=== PATIENT | male | born 1950 | race African-American/Black ===

== ENCOUNTER 2017-02-19 19:27 | Inpatient (IN) | payer OTHER ==
[2017-02-19 19:33] VITALS: BMI 30.2
[2017-02-19] MEDS ORDERED: SODIUM CHLORIDE 0.9% 1000 ML INFUS.BAG IV PRN (19:57)
[2017-02-19] MEDS ORDERED: ACETAMINOPHEN 1000 MG/100 ML VIAL (NON FORMULARY) IVPB ONE (20:01)
[2017-02-19] MEDS ORDERED: ACETAMINOPHEN INJECTION 100 ML IVPB ONE (20:07)
[2017-02-19 20:12] LABS: BASOPHIL 0.4 % (0-2.0); EOSINOPHIL 0.7 % (0-4.5); MCH 24.8 pg (25.7-33.7); MCHC 31.4 g/dl (32.0-35.9); MEAN PLT VOLUME 8.2 fl (7.5-11.1); NEUTROPHILS 80.5 % (42.8-82.8); PLATELET COUNT 317 K/MM3 (134-434); RDW 15.6 % (11.9-15.9)
[2017-02-19 20:24] LABS: URINE APPEARANCE CLEAR; URINE BILIRUBIN NEGATIVE (NEGATIVE); URINE COLOR YELLOW; URINE GLUCOSE (UA) NEGATIVE (NEGATIVE); URINE KETONE NEGATIVE (NEGATIVE); URINE LEUK ESTERASE NEGATIVE (NEGATIVE); URINE NITRITE NEGATIVE (NEGATIVE); URINE UROBILINOGEN NEGATIVE E.U./dl (0.2-1.0)
[2017-02-19 20:25] LABS: URINE BLOOD 1+ (NEGATIVE); URINE PROTEIN 3+ (NEGATIVE)
[2017-02-19 20:36] LABS: URINE BACTERIA RARE /hpf (NONE SEEN); URINE MUCUS RARE; URINE RBC 2 /hpf (0-3); URINE WBC 1 /hpf (3-5)
[2017-02-19 20:42] LABS: INR 1.4 (0.82-1.09); PROTHROMBIN TIME (PATIENT) 15.5 SEC (9.98-11.88)
[2017-02-19 20:43] LABS: ALBUMIN 2.7 g/dl (3.4-5.0); ANION GAP 10 (8-16); BILIRUBIN,TOTAL 0.6 mg/dL (0.2-1.0); CALCIUM 8.9 mg/dL (8.5-10.1); CO2 25 mmol/L (21-32); COCKROFT - GAULT 58.37; CREATININE 1.3 mg/dL (0.7-1.3); GLUCOSE,RANDOM 175 mg/dL (74-106); SGOT/AST 42 U/L (15-37); SGPT/ALT 29 U/L (12-78); TOT PROT 7.6 g/dl (6.4-8.2)
[2017-02-19 20:45] LABS: ACTIVATED PTT 27.9 SECONDS (26.9-34.4); ALK PHOS 95 U/L (45-117); TROPONIN I < 0.02 ng/ml (0.00-0.05)
--- NOTE | 2017-02-19 21:23 | PDOC ---
History of Present Illness - General Chief Complaint: Shortness of Breath Stated Complaint: PCP SENT/SOB Time Seen by Provider: 02/19/17 19:49 - History of Present Illness Initial Comments: 02/19/17 21:22 CHIEF COMPLAINT: HISTORY OF PRESENT ILLNESS: 66 yo M with hx HTN and DM of sent in by PCP for pneumonia. Patient was seen in the office today and sent in for an outpatient CXR with suspected RUL. Patient has been coughing for the last few days and states that he "feels warm." No recent travel or sick contacts. PAST MEDICAL HISTORY: as per HPI FAMILY HISTORY: Denies SOCIAL HISTORY: Denies tobacco, alcohol, illicit drug use. SURGICAL HISTORY: Denies ALLERGIES: No known drug allergies REVIEW OF SYSTEMS General/Constitutional: Denies fever or chills. Denies weakness, weight change. HEENT: Denies change in vision. Denies ear pain or discharge. Denies sore throat. Cardiovascular: Denies chest pain or shortness of breath. Respiratory: Coughing. Denies wheezing, or hemoptysis. Gastrointestinal: Denies nausea, vomiting, diarrhea or constipation. Denies rectal bleeding. Genitourinary: Denies dysuria, frequency, or change in urination. Musculoskeletal: Denies joint or muscle swelling or pain. Denies neck or back pain. Skin and breasts: Denies rash or easy bruising. Neurologic: Denies headache, vertigo, loss of consciousness, or loss of sensation. PHYSICAL EXAM General Appearance: Well-appearing, appropriately dressed. No apparent distress. HEENT: EOMI, PERRLA, normal ENT inspection, normal voice, TMs normal, pharynx normal. No conjunctival pallor. No photophobia, scleral icterus. Neck: Supple. Trachea midline. No tenderness, rigidity, carotid bruit, stridor , lymphadenopathy, or thyromegaly. Respiratory/Chest: Lungs CTAB. No shortness of breath, chest tenderness, respiratory distress, accessory muscle use. No crackles, rales, rhonchi, stridor , wheezing, dullness Cardiovascular: RRR. S1, S2. Gastrointestinal/Abdominal: Normal bowel sounds. Abdomen soft, non-distended. No tenderness or rebound tenderness. No organomegaly, pulsatile mass, guarding , hernia, hepatomegaly, splenomegaly. Musculoskeletal/Extremities: Normal inspection. FROM of all extremities, normal capillary refill. Pelvis Stable. No CVA tenderness. No tenderness to extremities, pedal edema, swelling, erythema or deformity. Integumentary: Appropriate color, dry, warm. No cyanosis, erythema, jaundice or rash Neurologic: counselling psychologist II-XII intact. Fully oriented, alert. Appropriate mood/affect. Motor strength 5/5. No appreciable EOM palsy, facial droop or sensory deficit. 02/19/17 21:52 Past History - Past Medical History Allergies/Adverse Reactions: Allergies Allergy/AdvReac Type Severity Reaction Status Date / Time No Known Allergies Allergy Verified 02/19/17 19:30 Home Medications: Ambulatory Orders Unobtainable [Unobtainable] 02/19/17 Diabetes: Yes HTN: Yes - Psycho/Social/Smoking Cessation Hx Suicidal Ideation: No Smoking History: Never smoked *Physical Exam - Vital Signs Last Vital Signs Temp Pulse Resp BP Pulse Ox 101.6 F H 115 H 20 140/84 95 02/19/17 19:30 02/19/17 19:30 02/19/17 19:30 02/19/17 19:30 02/19/17 20:00 ED Treatment Course - LABORATORY CBC & Chemistry Diagram: 02/19/17 19:50 02/19/17 19:50 - ADDITIONAL ORDERS Additional order review: Laboratory Results 02/19/17 02/19/17 02/19/17 19:50 19:50 19:50 INR PTT (Actin FS) Sodium 138 Potassium 4.0 Chloride 103 Carbon Dioxide 25 Anion Gap 10 BUN 18 Creatinine 1.3 Creat Clearance w eGFR 55.06 Random Glucose 175 H Lactic Acid 1.311 Calcium 8.9 Total Bilirubin 0.6 AST 42 H ALT 29 Alkaline Phosphatase 95 Creatine Kinase 186 Troponin I < 0.02 Total Protein 7.6 Albumin 2.7 L Urine Color Yellow Urine Appearance Clear Urine pH 5.0 Urine Protein 3+ H Urine Glucose (UA) Negative Urine Ketones Negative Urine Blood 1+ H Urine Nitrite Negative Urine Bilirubin Negative Urine Urobilinogen Negative Ur Leukocyte Esterase Negative Urine RBC 2 Urine WBC 1 Ur Epithelial Cells Rare Urine Bacteria Rare Urine Mucus Rare 02/19/17 19:50 INR 1.40 H PTT (Actin FS) 27.9 Sodium Potassium Chloride Carbon Dioxide Anion Gap BUN Creatinine Creat Clearance w eGFR Random Glucose Lactic Acid Calcium Total Bilirubin AST ALT Alkaline Phosphatase Creatine Kinase Troponin I Total Protein Albumin Urine Color Urine Appearance Urine pH Urine Protein Urine Glucose (UA) Urine Ketones Urine Blood Urine Nitrite Urine Bilirubin Urine Urobilinogen Ur Leukocyte Esterase Urine RBC Urine WBC Ur Epithelial Cells Urine Bacteria Urine Mucus 02/19/17 19:50 RBC 4.53 MCV 79.0 L MCHC 31.4 L RDW 15.6 MPV 8.2 Neutrophils % 80.5 Lymphocytes % 9.9 Monocytes % 8.5 Eosinophils % 0.7 Basophils % 0.4 - Medications Given in the ED: ED Medications Discontinued Medications Generic Name Dose Route Start Last Admin Trade Name Luz Maria PRN Reason Stop Dose Admin Acetaminophen 1,000 mg 02/19/17 20:01 02/19/17 20:12 Ofirmev Injection - IVPB 02/19/17 20:02 1,000 mg ONCE ONE Administration Medical Decision Making - Medical Decision Making 02/19/17 20:30 66 yo M with hx HTN and DM of sent in by PCP for pneumonia. -CBC, CMP, PT/INR, cardiac profile -EKG Labs unremarkable. Discussed case with covering PMD Kishan, who states she will reach out to Dr. Allison to discuss dispo and call back. 02/19/2017 22:[address] Holley again, who states that Dr. Allison prefers to admit patient for IV antibiotics. -Ceftriaxon 1 g -Azithromycin 1 g Patient admitted to med/surg for inpatient services. *DC/Admit/Observation/Transfer Diagnosis at time of Disposition: Pneumonia Qualifiers: Pneumonia type: due to unspecified organism Laterality: right Lung location: upper lobe of lung Qualified Code(s): J18.1 - Lobar pneumonia, unspecified organism - Discharge Dispostion Condition at time of disposition: Improved - Referrals Referrals: Margaret Allison MD [Primary Care Provider] -
[2017-02-19] MEDS ORDERED: AZITHROMYCIN IVPB 500 MG in DEXTROSE 5%-WATER - 250 ML IVPB ONE (21:59)
[2017-02-19] MEDS ORDERED: CEFTRIAXONE 1 GM in DEXTROSE 5%-WATER - 50 ML IVPB ONE (21:59)
[2017-02-19] MEDS ORDERED: AZITHROMYCIN IVPB 250 ML IVPB ONE (22:18)
[2017-02-19] MEDS ORDERED: CEFTRIAXONE 50 ML ONE (22:18)
[2017-02-20] MEDS ORDERED: guaiFENesin 200 MG/10 ML 10 ML UNIT-DOSE CUPS PO PRN (03:39)
[2017-02-20] MEDS: ACETAMINOPHEN 325 MG TABLET (FP) PO PRN ×2 (06:41→16:22)
[2017-02-20 08:20] LABS: VENOUS BLOOD GAS HCO3 23.2 meq/L (19-25); VENOUS PH 7.29 (7.32-7.42)
[2017-02-20] MEDS: AZITHROMYCIN IVPB 500 MG/250 ML D5W PRE-DOCKED IVPB SCH (09:45)
--- NOTE | 2017-02-20 09:52 | HP ---
DATE OF ADMISSION: DATE OF DICTATION: 02/20/2017 HISTORY OF PRESENT ILLNESS: This is a 66-year-old male known to have hypertension, diabetes, compliant with medications, who came to my office yesterday with complaints of fever of 102 for 2-3 days and cough. I sent him for x-ray, which showed right upper lobe pneumonia, so he got admitted. This morning, he is feeling better. He is on IV antibiotics. OTHER PERSONAL HISTORY: Not a smoker, , retired at present as is his , no children. PHYSICAL EXAMINATION: Vital signs: Today, blood pressure is 149/77, maximum temperature 102.5, pulse 99, respirations 20. HEENT: Unremarkable. Neck: Supple. No JVD. Lungs: Crepitations more on right upper lobe area. Abdomen: Soft. Extremities: Legs no edema. Neurologic: Grossly normal. LABORATORY REPORTS: WBC 5, hemoglobin 11.2, hematocrit 35.8. Chemistry: Electrolytes are normal, blood sugar 175. Urine with protein 3+, WBC 1. IMPRESSION: Right upper lobe pneumonia, diabetes, hypertension. PLAN: Continue IV antibiotics and resume his previous medicines. Will follow. Nicky [id number]
[2017-02-20] MEDS ORDERED: PNEUMOC 13-VAL CONJ-DIP CRM/PF 0.5 ML DISP.SYRIN IM ONE (10:00)
[2017-02-20] MEDS: cefTRIAXone 1 GM/50 ML BAG (PRE-DOCKED) IVPB SCH (11:12)
--- NOTE | 2017-02-20 17:10 | EKG ---
Test Reason : Blood Pressure : / mmHG Vent. Rate : 090 BPM Atrial Rate : 090 BPM P-R Int : 142 ms QRS Dur : 072 ms QT Int : 342 ms P-R-T Axes : 030 005 020 degrees QTc Int : 418 ms NORMAL SINUS RHYTHM SEPTAL INFARCT , AGE UNDETERMINED ABNORMAL ECG NO PREVIOUS ECGS AVAILABLE Confirmed by SCOTT BILLY MD ([id number]) on 02/20/2017 5:10:03 PM Referred By: Confirmed By:SCOTT BILLY MD
[2017-02-21 08:19] LABS: MCH 25.7 pg (25.7-33.7); MCHC 32.3 g/dl (32.0-35.9); MEAN CELL VOLUME 79.7 fl (80-96); PLATELET COUNT 283 K/MM3 (134-434); RDW 15.6 % (11.9-15.9); WHITE BLOOD COUNT 5.2 K/mm3 (4.0-10.0)
--- NOTE | 2017-02-21 09:00 | DS ---
Physical Examination Vital Signs: Vital Signs Temperature 98.7 F 02/21/17 06:32 Pulse Rate 100 H 02/21/17 06:32 Respiratory Rate 20 02/21/17 06:32 Blood Pressure 135/81 02/21/17 06:32 O2 Sat by Pulse Oximetry (%) 97 02/20/17 21:00 Findings/Remarks: Diabetic admitted with pneumonia No fever Constitutional: Yes: No Distress Eyes: Yes: WNL HENT: Yes: WNL Neck: Yes: WNL Cardiovascular: Yes: WNL Respiratory: Yes: WNL Gastrointestinal: Yes: Normal Bowel Sounds ...Rectal Exam: Yes: WNL, Deferred Renal/: Yes: WNL Edema: No Integumentary: Yes: WNL Psychiatric: Yes: Alert Labs: CBC, BMP 02/21/17 06:50 Discharge Summary Reason For Visit: PNEUMONIA Current Active Problems Pneumonia (Acute) Condition: Improved - Instructions Referrals: Margaret Allison MD [Primary Care Provider] - - Home Medications Comprehensive Discharge Medication List: Ambulatory Orders Amlodipine Besylate/Benazepril [Lotrel 5-40 mg Capsule] 1 each PO DAILY Aspirin [Aspirin EC] 81 mg PO DAILY 02/20/17
[2017-02-21 09:08] LABS: ALBUMIN 2.3 g/dl (3.4-5.0); ALK PHOS 84 U/L (45-117); ANION GAP 16 (8-16); BILIRUBIN,TOTAL 0.5 mg/dL (0.2-1.0); CALCIUM 8.4 mg/dL (8.5-10.1); CO2 23 mmol/L (21-32); COCKROFT - GAULT 68.98; CREATININE 1.1 mg/dL (0.7-1.3); GLUCOSE,RANDOM 168 mg/dL (74-106); SGOT/AST 48 U/L (15-37); SGPT/ALT 32 U/L (12-78); TOT PROT 6.8 g/dl (6.4-8.2)
[2017-02-21] MEDS: cefTRIAXone 1 GM/50 ML BAG (PRE-DOCKED) IVPB SCH (09:52)
[2017-02-21] MEDS: AZITHROMYCIN IVPB 500 MG/250 ML D5W PRE-DOCKED IVPB SCH (09:53)
[2017-02-21 12:13] VITALS: BP 141/88; PULSE 93; TEMP 98.6
== END 2017-02-21 13:16 | disposition home or self-care (01) | DRG 195 ==
LOC: JER 19:27 → JERBED 22:04 → J8W 02-20 01:36
PROVIDERS: ADMIT Internal Medicine; ATTEND Internal Medicine
DX: J18.9 Pneumonia, unspecified organism (principal); I10 Essential (primary) hypertension; E11.9 Type 2 diabetes mellitus without complications
CPT/HCPCS: 36415; 80053; 81003; 81015; 82550; 82553; 82803; 83605; 84484; 85025; 85027; 85610; 85730; 86850; 86900; 86901; 87040; 87086; 90670; 93005; 93010; 99285-25

== ENCOUNTER 2017-03-03 04:06 | Inpatient (IN) | payer OTHER ==
--- NOTE | 2017-03-03 04:29 | PDOC ---
History of Present Illness - General History Source: Patient Exam Limitations: No Limitations - History of Present Illness Initial Comments: 03/03/17 04:43 The patient is a 66 year old male with a significant past medical history of HTN and diabetes who presents to the ED with complaints of a fever for over a week. The patient was recently discharged from the hospital on 02/21/17 for pneumonia and discharged with Sefton 500 bid for 7 days. The patient reports intermittent fever since being discharged from the hospital. He states the highest his fever has been is 102.9 F. Patient also reports a loss of appetite and throat pain secondary to swallowing. Patient recently visited his PMD on and was prescribed Biaxin 500 bid for 7 days. Denies chest pain or palpitations. Denies shortness of breath or palpitations. Denies abdominal pain, nausea, vomiting, or diarrhea. Denies any other symptoms. PMD: Dr. Allison <Alexandra Preston - Last Filed: 03/03/17 05:54> <Anastasiia Segal - Last Filed: 03/03/17 05:55> - General Stated Complaint: FEVER Time Seen by Provider: 03/03/17 04:29 Past History <Alexandra Preston - Last Filed: 03/03/17 05:54> - Past Medical History Diabetes: Yes HTN: Yes - Psycho/Social/Smoking Cessation Hx Suicidal Ideation: No Smoking History: Never smoked Hx Alcohol Use: No Drug/Substance Use Hx: No Substance Use Type: None Hx Substance Use Treatment: No <Anastasiia Segal - Last Filed: 03/03/17 05:55> - Past Medical History Allergies/Adverse Reactions: Allergies Allergy/AdvReac Type Severity Reaction Status Date / Time No Known Allergies Allergy Verified 03/03/17 04:55 Home Medications: Ambulatory Orders Amlodipine Besylate/Benazepril [Lotrel 5-40 mg Capsule] 1 each PO DAILY Aspirin [Aspirin EC] 81 mg PO DAILY 02/20/17 Review of Systems - Review of Systems Able to Perform ROS?: Yes Comments:: 03/03/17 04:43 CONSTITUTIONAL: + fever, loss of appetite Absent: diaphoresis, generalized weakness, malaise HEENT: + throat pain Absent: rhinorrhea, nasal congestion, throat swelling, difficulty swallowing, mouth swelling, ear pain, eye pain, visual Changes CARDIOVASCULAR: Absent: chest pain, syncope, palpitations, irregular heart rate, lightheadedness , peripheral edema RESPIRATORY: Absent: cough, shortness of breath, dyspnea with exertion, orthopnea, wheezing, stridor, hemoptysis GASTROINTESTINAL: Absent: abdominal pain, abdominal distension, nausea, vomiting, diarrhea, constipation, melena, hematochezia GENITOURINARY: Absent: dysuria, frequency, urgency, hesitancy, hematuria, flank pain, genital pain MUSCULOSKELETAL: Absent: myalgia, arthralgia, joint swelling SKIN: Absent: rash, itching, pallor HEMATOLOGIC/IMMUNOLOGIC: Absent: easy bleeding, easy bruising, lymphadenopathy, frequent infections ENDOCRINE: Absent: unexplained weight gain, unexplained weight loss, heat intolerance, cold intolerance NEUROLOGIC: Absent: headache, focal weakness or paresthesias, dizziness, unsteady gait, seizure, mental status changes, bladder or bowel incontinence PSYCHIATRIC: Absent: anxiety, depression, suicidal or homicidal ideation, hallucinations. All Other Systems: Reviewed and Negative <Alexandra Preston - Last Filed: 03/03/17 05:54> *Physical Exam - Physical Exam Comments: 03/03/17 04:43 GENERAL: + Febrile. Awake and alert. No acute distress. HEENT: + Left ear filled with wax, right TM is normal, unable to see throat secondary to pt not opening mouth, culture obtained. Normocephalic, atraumatic. PERRLA, EOMI. No conjunctival pallor. Sclera are non-icteric. Moist mucous membranes. NECK: Supple. Full ROM. No JVD. Carotid pulses 2+ and symmetric, without bruits. No thyromegaly. NCo lymphadenopathy. CARDIOVASCULAR: Regular rate and rhythm. No murmurs, rubs, or gallops. Distal pulses are 2+ and symmetric. PULMONARY: No evidence of respiratory distress. Lungs clear to auscultation bilaterally. No wheezing, rales or rhonchi. ABDOMINAL: Soft. Non-tender. Non-distended. No rebound or guarding. No organomegaly. Normoactive bowel sounds. MUSCULOSKELETAL Normal range of motion at all joints. No bony deformities or tenderness. No CVA tenderness. EXTREMITIES: No cyanosis. No clubbing. No edema. No calf tenderness. SKIN: Warm and dry. Normal capillary refill. No rashes. No jaundice. NEUROLOGICAL: Alert, awake, appropriate. Cranial nerves 2-12 intact. No deficits to light touch and temperature in face, upper extremities and lower extremities. No motor deficits in the in face, upper extremities and lower extremities. Normoreflexic in the upper and lower extremities. Normal speech. Toes are down- going bilaterally. Gait is normal without ataxia. PSYCHIATRIC: Cooperative. Good eye contact. Appropriate mood and affect. <Alexandra Preston - Last Filed: 03/03/17 05:54> ED Treatment Course - LABORATORY CBC & Chemistry Diagram: 03/03/17 05:18 03/03/17 05:18 <Alexandra Preston - Last Filed: 03/03/17 05:54> - LABORATORY CBC & Chemistry Diagram: 03/03/17 05:18 03/03/17 05:18 <Anastasiia Segal - Last Filed: 03/03/17 05:55> Medical Decision Making - Medical Decision Making 03/03/17 05:[address] Allison at 5:54 <Alexandra Preston - Last Filed: 03/03/17 05:54> - Medical Decision Making 03/03/17 04:46 Pt comes with fever that persists despite a 7-day course of Ceftin 500mg BID and now a partial course of biaxin 500mg BID. His PMD has been treating him for a pneumonia. Last XR done 2 days ago shows a bilateral pneumonia. Pt will be ramirez cultured today and he will be treated with abx and admitted to the hospital under PMD Keegan. <Anastasiia Segal - Last Filed: 03/03/17 05:55> *DC/Admit/Observation/Transfer - Attestations Scribe Attestion: 03/03/17 04:43 Documentation prepared by Alexandra Preston, acting as er medical technician for Anastasiia Segal MD <Alexandra Preston - Last Filed: 03/03/17 05:54> - Discharge Dispostion Admit: Yes <Anastasiia Segal - Last Filed: 03/03/17 05:55> Diagnosis at time of Disposition: Bilateral pneumonia - Discharge Dispostion Condition at time of disposition: Fair - Referrals Referrals: Margaret Allison MD [Primary Care Provider] -
[2017-03-03] MEDS ORDERED: ACETAMINOPHEN 1000 MG/100 ML VIAL (NON FORMULARY) IVPB ONE (04:40)
[2017-03-03] MEDS ORDERED: SODIUM CHLORIDE 0.9% 1000 ML INFUS.BAG IV ONE (05:07)
[2017-03-03] MEDS ORDERED: ACETAMINOPHEN INJECTION 100 ML IVPB ONE (05:10)
[2017-03-03 05:28] VITALS: BMI 24.3
[2017-03-03 05:28] LABS: BASOPHIL 0.3 % (0-2.0); EOSINOPHIL 0.3 % (0-4.5); MCH 24.7 pg (25.7-33.7); MCHC 31.7 g/dl (32.0-35.9); MEAN CELL VOLUME 78.1 fl (80-96); NEUTROPHILS 87.4 % (42.8-82.8); PLATELET COUNT 366 K/MM3 (134-434); RDW 15.2 % (11.9-15.9); WHITE BLOOD COUNT 6.6 K/mm3 (4.0-10.0)
[2017-03-03] MEDS ORDERED: PIPERACILLIN/TAZOB 4.5 GM 4.5 GM in DEXTROSE 5%-WATER - 100 ML IVPB ONE (05:29)
[2017-03-03] MEDS ORDERED: PIPERACILLIN/TAZOB 4.5 GM 100 ML IVPB ONE (05:42)
[2017-03-03 05:56] LABS: ALBUMIN 1.8 g/dl (3.4-5.0); ANION GAP 11 (8-16); BILIRUBIN,TOTAL 0.5 mg/dL (0.2-1.0); CALCIUM 8.3 mg/dL (8.5-10.1); CO2 24 mmol/L (21-32); COCKROFT - GAULT 61.16; GLUCOSE,RANDOM 174 mg/dL (74-106); LDH 524 U/L (87-241); SGOT/AST 64 U/L (15-37); SGPT/ALT 54 U/L (12-78); TOT PROT 6.6 g/dl (6.4-8.2)
[2017-03-03 05:57] LABS: ALK PHOS 74 U/L (45-117)
[2017-03-03 06:39] LABS: URINE APPEARANCE CLEAR; URINE BILIRUBIN NEGATIVE (NEGATIVE); URINE BLOOD NEGATIVE (NEGATIVE); URINE COLOR LTYELLOW; URINE GLUCOSE (UA) NEGATIVE (NEGATIVE); URINE KETONE 1+ (NEGATIVE); URINE LEUK ESTERASE NEGATIVE (NEGATIVE); URINE NITRITE NEGATIVE (NEGATIVE); URINE UROBILINOGEN NEGATIVE E.U./dl (0.2-1.0)
[2017-03-03 06:56] LABS: URINE PROTEIN 2+ (NEGATIVE)
--- NOTE | 2017-03-03 09:38 | CONSULT ---
Consult Consult Specialty:: infectious diseases Reason for Consultation:: sob ,pneumonia - History of Present Illness Chief Complaint: sob History of Present Illness: 66 year old male with a significant past medical history of HTN and diabetes admitted with complaints of a fever for over a week. The patient was recently discharged from the hospital on 02/21/17 for pneumonia and discharged with Sefton 500 bid for 7 days. The patient reports intermittent fever since being discharged from the hospital. He states the highest his fever has been is 102.9 F. Patient also reports a loss of appetite and throat pain secondary to swallowing. patient was on biaxin and inspite of that was spiking fevers and became very sob and came back to the hospital and was admitted patient was started on abx and currently feels a lot better - History Source History Provided By: Patient, Family Member Limitations to Obtaining History: No Limitations - Alcohol/Substance Use Hx Alcohol Use: No - Smoking History Smoking history: Never smoked Have you smoked in the past 12 months: No Home Medications - Allergies Allergies/Adverse Reactions: Allergies Allergy/AdvReac Type Severity Reaction Status Date / Time No Known Allergies Allergy Verified 03/03/17 04:55 - Home Medications Home Medications: Ambulatory Orders RX: Amlodipine Besylate/Benazepril [Lotrel 5-40 mg Capsule] 1 each PO DAILY RX: Aspirin [Aspirin EC] 81 mg PO DAILY 02/20/17 Review of Systems - Review of Systems Constitutional: reports: Fever, Weakness Eyes: reports: No Symptoms HENT: reports: No Symptoms Neck: reports: No Symptoms Cardiovascular: reports: No Symptoms Respiratory: reports: Cough, SOB, SOB on Exertion Gastrointestinal: reports: No Symptoms Genitourinary: reports: No Symptoms Musculoskeletal: reports: No Symptoms Integumentary: reports: No Symptoms Neurological: reports: No Symptoms Endocrine: reports: No Symptoms Hematology/Lymphatic: reports: No Symptoms Psychiatric: reports: No Symptoms Physical Exam Vital Signs: Vital Signs Temperature 98.7 F 03/03/17 07:34 Pulse Rate 88 03/03/17 07:34 Respiratory Rate 20 03/03/17 07:34 Blood Pressure 129/73 03/03/17 07:34 O2 Sat by Pulse Oximetry (%) 97 03/03/17 07:34 Constitutional: Yes: No Distress, Calm Eyes: Yes: Conjunctiva Clear HENT: Yes: Atraumatic Neck: Yes: Supple Cardiovascular: Yes: Regular Rate and Rhythm Respiratory: Yes: Regular, Poor Air Entry, Rhonchi Gastrointestinal: Yes: Normal Bowel Sounds, Soft Musculoskeletal: Yes: WNL Extremities: Yes: WNL Neurological: Yes: Alert, Oriented Psychiatric: Yes: Alert, Oriented Imaging - Results Chest X-ray: Report Reviewed, Image Reviewed Assessment/Plan (1) Bilateral pneumonia Code(s): J18.9 - PNEUMONIA, UNSPECIFIED ORGANISM (2) Pneumonia Code(s): J18.9 - PNEUMONIA, UNSPECIFIED ORGANISM Qualifiers: Pneumonia type: due to unspecified organism Laterality: right Lung location: upper lobe of lung Qualified Code(s): J18.1 - Lobar pneumonia, unspecified organism plan will continue abx resp support incentive bill rest as per primary and pul
--- NOTE | 2017-03-03 09:39 | HP ---
DATE OF ADMISSION: DATE OF DICTATION: 03/03/2017 HISTORY OF PRESENT ILLNESS: A 66-year-old male known to have hypertension, diabetes, who came to the emergency room with fever. Patient was admitted here with pneumonia and seen in my office again and I repeated an x-ray. The repeat x-ray showed bilateral pneumonia. When patient was seen in the ER, he had 102, 103 fever. PHYSICAL EXAMINATION:Vital Signs: BP 130/80, pulse 72, respiration 20, temperature 98. HEENT: Unremarkable. Neck: Supple. Lungs: Breath sounds diminished on both sides . Heart: S1, S2 normal. No S3, S4. Abdomen: Soft. Extremities: Legs: No edema. IMPRESSION: Bilateral pneumonia. Diabetes. PLAN: ID consult, Dr. Mcleod, and pulmonary consult, Dr. Casper. Continue Zosyn. Will follow. DEXTER HEAD M.D. [id number]
[2017-03-03] MEDS: PIPERACILLIN/TAZOB 3.375 GM 50 ML IVPB SCH ×2 (11:32→17:44)
[2017-03-03] MEDS: VANCOMYCIN 1,250 MG in DEXTROSE 5%-WATER - 250 ML IVPB SCH (12:21)
[2017-03-03] MEDS ORDERED: methylPREDNISolone NA SUCC 125 MG/2 ML VIAL ONE (16:42)
[2017-03-03] MEDS: ALBUTEROL SO4 0.083% IH SOL 2.5 MG/3 ML VIAL.NEB. NEB SCH ×2 (16:55→22:35)
--- NOTE | 2017-03-03 16:59 | RAPID ---
Physical Examination Vital Signs: Vital Signs Rapid Response - Rapid Response Assessment: Notified by RN that patient was having difficulty breathing. Patient admitted for bilateral infiltrates found on Chest X-ray. When I reached there patient was using all accessory muscles and in moderate respiratory distress. Patient was found to be saturating between 50-60%. Patient was given a nonrebreather, steroids, Albuterol nebulizer and a stat chest x-ray, ABG, Lactic acid, CBC and CMP was ordered. Patient responded to the nonrebreather and his Saturation went up to 99%. Repeat Vitals: BP- 140's/80's, RR 22, HR 80'S, 02 SAT 99% RA -Lab work and images pending
[2017-03-03] MEDS: methylPREDNISolone NA SUCC 40 MG/1 ML VIAL IVPB SCH (17:00)
[2017-03-03] MEDS ORDERED: SODIUM CHLORIDE 1,000 ML IV SCH (17:00)
[2017-03-03 17:02] LABS: ALLENS TEST POSITIVE; ARTERIAL BLD GAS O2 SATURATION 99.8 % (90-98.9); ARTERIAL BLOOD GAS BASE EXCESS -1.9 meq/l (-2-2); ARTERIAL BLOOD GAS HCO3 20.9 meq/L (22-26); ARTERIAL BLOOD GAS pH 7.45 (7.35-7.45)
[2017-03-03 17:03] LABS: ART PUNCT SITE RIGHT RADIAL; LPM/O2% 100%; PT. ON O2? YES; TYPE OF O2 NRM
[2017-03-03 17:35] LABS: BASOPHIL 0.4 % (0-2.0); EOSINOPHIL 0.7 % (0-4.5); MCH 24.6 pg (25.7-33.7); MCHC 31.2 g/dl (32.0-35.9); MEAN CELL VOLUME 78.7 fl (80-96); PLATELET COUNT 337 K/MM3 (134-434); RDW 15.4 % (11.9-15.9); WHITE BLOOD COUNT 5.6 K/mm3 (4.0-10.0)
[2017-03-03] MEDS: guaiFENesin 200 MG/10 ML 10 ML UNIT-DOSE CUPS PO PRN (17:43)
[2017-03-03] MEDS ORDERED: ACETAMINOPHEN 325 MG TABLET (FP) PO PRN (17:52)
[2017-03-03 17:59] LABS: ALBUMIN 1.7 g/dl (3.4-5.0); ALK PHOS 74 U/L (45-117); ANION GAP 11 (8-16); BILIRUBIN,TOTAL 0.5 mg/dL (0.2-1.0); CALCIUM 8.1 mg/dL (8.5-10.1); CO2 25 mmol/L (21-32); CREATININE 1.1 mg/dL (0.7-1.3); GLUCOSE,RANDOM 183 mg/dL (74-106); SGOT/AST 54 U/L (15-37); SGPT/ALT 45 U/L (12-78); TOT PROT 6.2 g/dl (6.4-8.2)
[2017-03-03] MEDS: amLODIPine BESYLATE 5 MG TABLET (FP) PO SCH (18:30)
[2017-03-04] MEDS: methylPREDNISolone NA SUCC 40 MG/1 ML VIAL IVPB SCH ×3 (02:10→18:18)
[2017-03-04] MEDS: PIPERACILLIN/TAZOB 3.375 GM 50 ML IVPB SCH ×3 (02:45→18:19)
[2017-03-04] MEDS: ALBUTEROL SO4 0.083% IH SOL 2.5 MG/3 ML VIAL.NEB. NEB SCH ×3 (06:00→22:14)
--- NOTE | 2017-03-04 09:42 | PN ---
Progress Note, Physician History of Present Illness: events from last night noted patient went into coughing fit had hypoxic episode was put on venti mask currently still on venti mask but much better - Current Medication List Current Medications: Active Medications Acetaminophen (Tylenol -) 650 mg PO Q6H PRN PRN Reason: FEVER OR PAIN Last Admin: 03/03/17 18:30 Dose: 650 mg Albuterol Sulfate (Ventolin 0.083% Nebulizer Soln -) 1 amp NEB TIDR [facility] Last Admin: 03/04/17 06:00 Dose: 1 amp Amlodipine Besylate (Norvasc -) 5 mg PO DAILY [facility] Last Admin: 03/03/17 18:30 Dose: 5 mg Guaifenesin (Robitussin -) 10 ml PO Q4H PRN Last Admin: 03/03/17 17:43 Dose: 10 ml Vancomycin HCl 1,250 mg/ (Dextrose) 250 mls @ 125 mls/hr IVPB DAILY ANGUS PRN Reason: Protocol Last Admin: 03/03/17 12:21 Dose: 125 mls/hr Piperacillin Sod/Tazobactam Sod (Zosyn 3.375gm Ivpb (Pre-Docked)) 50 mls @ 100 mls/hr IVPB Q8H-IV ANGUS PRN Reason: Protocol Last Admin: 03/04/17 02:45 Dose: 100 mls/hr Sodium Chloride (Normal Saline -) 1,000 mls @ 75 mls/hr IV ASDIR [facility] Last Admin: 03/03/17 17:55 Dose: 75 mls/hr Methylprednisolone Sodium Succinate (Solu-Medrol -) 80 mg IVPB Q8H [facility] Last Admin: 03/04/17 02:10 Dose: 80 mg - Objective Vital Signs: Vital Signs Temperature 97.7 F 03/04/17 05:59 Pulse Rate 94 H 03/04/17 05:59 Respiratory Rate 20 03/04/17 05:59 Blood Pressure 142/77 03/04/17 05:59 O2 Sat by Pulse Oximetry (%) 98 03/03/17 09:00 Constitutional: Yes: No Distress, Calm Cardiovascular: Yes: Regular Rate and Rhythm Respiratory: Yes: Regular, On Venti-Mask, Poor Air Entry, Rhonchi Gastrointestinal: Yes: Normal Bowel Sounds, Soft Musculoskeletal: Yes: WNL Extremities: Yes: WNL Neurological: Yes: Alert, Oriented Psychiatric: Yes: Alert, Oriented Labs: CBC, BMP 03/03/17 17:10 03/03/17 17:10 Assessment/Plan pneumonia lactic acidosis fever hypoxia lactic acidosis plan continue current abx lactic acid normalized will stop iv fluids and monitor rest as per primary
[2017-03-04] MEDS: VANCOMYCIN 1,250 MG in DEXTROSE 5%-WATER - 250 ML IVPB SCH (10:41)
[2017-03-04] MEDS: amLODIPine BESYLATE 5 MG TABLET (FP) PO SCH (10:44)
[2017-03-04] MEDS: guaiFENesin 200 MG/10 ML 10 ML UNIT-DOSE CUPS PO PRN ×2 (10:51→18:19)
--- NOTE | 2017-03-04 11:57 | CON.PULM ---
Consult Consult Specialty:: PULM/CCM Referred by:: STEEV Reason for Consultation:: SOB - History of Present Illness Chief Complaint: SOB History of Present Illness: 66 M, HTN and diabetes. Admitted via the ER with fever and SOB. Apparently the patient was recently treated for PNA on 02/21/17 and discharged with Ceftin 500mg bid for 7 days. Readmitted due to worsening of his breathing and cough. Fever documented at 102.9 F. No travel history or sick contact. No hemoptysis. CXR: bilateral diffuse infiltrative pattern - History Source History Provided By: Patient Limitations to Obtaining History: No Limitations - Alcohol/Substance Use Hx Alcohol Use: No - Smoking History Smoking history: Never smoked Have you smoked in the past 12 months: No Home Medications - Allergies Allergies/Adverse Reactions: Allergies Allergy/AdvReac Type Severity Reaction Status Date / Time No Known Allergies Allergy Verified 03/03/17 04:55 - Home Medications Home Medications: Ambulatory Orders Amlodipine Besylate/Benazepril [Lotrel 5-40 mg Capsule] 1 each PO DAILY Aspirin [Aspirin EC] 81 mg PO DAILY 02/20/17 Review of Systems - Review of Systems Constitutional: reports: Fever, Loss of Appetite, Malaise, Weakness. denies: Night Sweats, Unintentional Wgt. Loss Eyes: reports: No Symptoms HENT: reports: No Symptoms Neck: reports: No Symptoms Cardiovascular: reports: Shortness of Breath. denies: Chest Pain, Edema, Palpitations Respiratory: reports: Cough, SOB, SOB on Exertion. denies: Hemoptysis, Wheezing Gastrointestinal: reports: No Symptoms Genitourinary: reports: No Symptoms Breasts: reports: No Symptoms Reported Musculoskeletal: reports: No Symptoms Integumentary: reports: No Symptoms Neurological: reports: No Symptoms Endocrine: reports: No Symptoms Hematology/Lymphatic: reports: No Symptoms Psychiatric: reports: No Symptoms Physical Exam Vital Sings: Vital Signs Temperature 97.7 F 03/04/17 05:59 Pulse Rate 94 H 03/04/17 05:59 Respiratory Rate 20 03/04/17 05:59 Blood Pressure 142/77 03/04/17 05:59 O2 Sat by Pulse Oximetry (%) 98 03/03/17 09:00 Constitutional: Yes: Mild Distress Eyes: Yes: Conjunctiva Clear, EOM Intact HENT: Yes: Atraumatic, Normocephalic Neck: Yes: Supple, Trachea Midline Cardiovascular: Yes: Regular Rate and Rhythm Respiratory: Yes: Cough, On Venti-Mask, Rhonchi, SOB, SOB on Exertion, Tachypnea , Wheezes. No: Accessory Muscle Use, Stridor ...Inspection: Yes: WNL ...Clubbing: No Gastrointestinal: Yes: WNL, Normal Bowel Sounds, Soft Renal/: Yes: WNL Musculoskeletal: Yes: WNL Extremities: Yes: WNL Edema: No Peripheral Pulses WNL: Yes Integumentary: Yes: WNL Neurological: Yes: WNL, Alert, Oriented ...Motor Strength: WNL Psychiatric: Yes: WNL, Alert, Oriented Labs: CBC, BMP 03/03/17 17:10 03/03/17 17:10 ABG Results ABG pH 7.45 (7.35-7.45) 03/03/17 16:55 ABG pCO2 at Pt Temp 30.9 mmHg (35-45) L 03/03/17 16:55 ABG pO2 at Pt Temp 218.0 mmHg (80-100) H* 03/03/17 16:55 ABG HCO3 20.9 meq/L (22-26) L 03/03/17 16:55 ABG O2 Sat (Measured) 99.8 % (90-98.9) H* 03/03/17 16:55 ABG O2 Content 15.8 % vol (15-22) 03/03/17 16:55 ABG Base Excess -1.9 meq/l (-2-2) 03/03/17 16:55 Imaging - Results Chest X-ray: Report Reviewed, Image Reviewed Problem List - Problems (1) Bilateral pneumonia Code(s): J18.9 - PNEUMONIA, UNSPECIFIED ORGANISM (2) Pneumonia Code(s): J18.9 - PNEUMONIA, UNSPECIFIED ORGANISM Qualifiers: Pneumonia type: due to unspecified organism Laterality: right Lung location: upper lobe of lung Qualified Code(s): J18.1 - Lobar pneumonia, unspecified organism Assessment/Plan PLAN: ABX per ID (may need to add more atypical coverage if patient worsens) Medrol CT chest O2 via VM VTE prophlaxis Check urine Check sputum Will follow Thank you. Dr Cazares
--- NOTE | 2017-03-04 15:25 | PN ---
Progress Note, Physician Chief Complaint: Feels OK History of Present Illness: Had respiratory distress yesterday - Current Medication List Current Medications: Active Medications Acetaminophen (Tylenol -) 650 mg PO Q6H PRN PRN Reason: FEVER OR PAIN Last Admin: 03/03/17 18:30 Dose: 650 mg Albuterol Sulfate (Ventolin 0.083% Nebulizer Soln -) 1 amp NEB TIDR [facility] Last Admin: 03/04/17 13:30 Dose: 1 amp Amlodipine Besylate (Norvasc -) 5 mg PO DAILY [facility] Last Admin: 03/04/17 10:44 Dose: 5 mg Guaifenesin (Robitussin -) 10 ml PO Q4H PRN Last Admin: 03/04/17 10:51 Dose: 10 ml Vancomycin HCl 1,250 mg/ (Dextrose) 250 mls @ 125 mls/hr IVPB DAILY [facility] PRN Reason: Protocol Last Admin: 03/04/17 10:41 Dose: 125 mls/hr Piperacillin Sod/Tazobactam Sod (Zosyn 3.375gm Ivpb (Pre-Docked)) 50 mls @ 100 mls/hr IVPB Q8H-IV [facility] PRN Reason: Protocol Last Admin: 03/04/17 10:41 Dose: 100 mls/hr Methylprednisolone Sodium Succinate (Solu-Medrol -) 40 mg IVPB BID [facility] - Objective Vital Signs: Vital Signs Temperature 97.7 F 03/04/17 05:59 Pulse Rate 95 H 03/04/17 13:30 Respiratory Rate 20 03/04/17 05:59 Blood Pressure 142/77 03/04/17 05:59 O2 Sat by Pulse Oximetry (%) 97 03/04/17 13:30 Constitutional: Yes: Mild Distress Eyes: Yes: WNL HENT: Yes: WNL Neck: Yes: WNL Cardiovascular: Yes: WNL Respiratory: Yes: On Venti-Mask, Poor Air Entry Gastrointestinal: Yes: WNL ...Rectal Exam: Yes: WNL Genitourinary: Yes: WNL, Urethral Discharge Musculoskeletal: Yes: WNL Neurological: Yes: Alert Labs: CBC, BMP 03/03/17 17:10 03/03/17 17:10 - ....Imaging Cat Scan: Report Reviewed
[2017-03-04] MEDS ORDERED: methylPREDNISolone NA SUCC 40 MG/1 ML VIAL IVPB SCH (22:00)
[2017-03-05] MEDS: methylPREDNISolone NA SUCC 40 MG/1 ML VIAL IVPB SCH ×3 (01:20→17:19)
[2017-03-05] MEDS: PIPERACILLIN/TAZOB 3.375 GM 50 ML IVPB SCH ×3 (01:21→17:57)
[2017-03-05] MEDS: guaiFENesin 200 MG/10 ML 10 ML UNIT-DOSE CUPS PO PRN ×2 (04:47→12:52)
[2017-03-05] MEDS: ALBUTEROL SO4 0.083% IH SOL 2.5 MG/3 ML VIAL.NEB. NEB SCH ×3 (07:00→22:45)
--- NOTE | 2017-03-05 09:41 | PN ---
Progress Note (short form) - Note Progress Note: PULMONARY AWAKE/ALERT SUBJECTIVE IMPROVEMENT VSS/AFEBRILE ANICTERIC DIMINISHED BREATH SOUNDS S1S2 BS+ NO EDEMA LABS/MEDS/MICRO/NOTES/IMAGING REVIEWED (1) Bilateral pneumonia Code(s): J18.9 - PNEUMONIA, UNSPECIFIED ORGANISM (2) Pneumonia Code(s): J18.9 - PNEUMONIA, UNSPECIFIED ORGANISM Qualifiers: Pneumonia type: due to unspecified organism Laterality: right Lung location: upper lobe of lung Qualified Code(s): J18.1 - Lobar pneumonia, unspecified organism PLAN: ABX per ID Medrol O2 via VM VTE prophlaxis Check HIV status Check sputum Will follow CXR for resolution Adalgisa HAQ MD
[2017-03-05] MEDS: amLODIPine BESYLATE 5 MG TABLET (FP) PO SCH (09:47)
[2017-03-05] MEDS: VANCOMYCIN 1,250 MG in DEXTROSE 5%-WATER - 250 ML IVPB SCH (11:16)
--- NOTE | 2017-03-05 11:51 | PN ---
Progress Note, Physician Chief Complaint: Feels better Temp down to 99 - Current Medication List Current Medications: Active Medications Acetaminophen (Tylenol -) 650 mg PO Q6H PRN PRN Reason: FEVER OR PAIN Last Admin: 03/03/17 18:30 Dose: 650 mg Albuterol Sulfate (Ventolin 0.083% Nebulizer Soln -) 1 amp NEB TIDR [facility] Last Admin: 03/05/17 07:00 Dose: 1 amp Amlodipine Besylate (Norvasc -) 5 mg PO DAILY [facility] Last Admin: 03/05/17 09:47 Dose: 5 mg Guaifenesin (Robitussin -) 10 ml PO Q4H PRN Last Admin: 03/05/17 04:47 Dose: 10 ml Vancomycin HCl 1,250 mg/ (Dextrose) 250 mls @ 125 mls/hr IVPB DAILY [facility] PRN Reason: Protocol Last Admin: 03/05/17 11:16 Dose: 125 mls/hr Piperacillin Sod/Tazobactam Sod (Zosyn 3.375gm Ivpb (Pre-Docked)) 50 mls @ 100 mls/hr IVPB Q8H-IV [facility] PRN Reason: Protocol Last Admin: 03/05/17 10:20 Dose: 100 mls/hr Methylprednisolone Sodium Succinate (Solu-Medrol -) 60 mg IVPB Q8H [facility] Last Admin: 03/05/17 09:47 Dose: 60 mg - Objective Vital Signs: Vital Signs Temperature 97.8 F 03/05/17 09:02 Pulse Rate 98 H 03/05/17 09:02 Respiratory Rate 32 H 03/05/17 09:02 Blood Pressure 141/90 03/05/17 09:02 O2 Sat by Pulse Oximetry (%) 97 03/04/17 13:30 Constitutional: Yes: No Distress Eyes: Yes: WNL, Other HENT: Yes: WNL, Thrush Cardiovascular: Yes: WNL Respiratory: Yes: Rhonchi Gastrointestinal: Yes: WNL ...Rectal Exam: Yes: Deferred Genitourinary: Yes: WNL Extremities: Yes: WNL Edema: No Integumentary: Yes: WNL Psychiatric: Yes: Alert Labs: CBC, BMP 03/03/17 17:10 03/03/17 17:10 Assessment/Plan HIV pending Urine grew pseudomona Continue Zosyn and Vanco
[2017-03-05 12:11] LABS: HIV 1 AGp24 NEGATIVE
[2017-03-05 12:15] LABS: HIV 1 & 2 AB PRELIMINARY POSITIVE
--- NOTE | 2017-03-05 15:56 | PN ---
Progress Note, Physician History of Present Illness: feeling much better no issues - Current Medication List Current Medications: Active Medications Acetaminophen (Tylenol -) 650 mg PO Q6H PRN PRN Reason: FEVER OR PAIN Last Admin: 03/03/17 18:30 Dose: 650 mg Albuterol Sulfate (Ventolin 0.083% Nebulizer Soln -) 1 amp NEB TIDR [facility] Last Admin: 03/05/17 14:42 Dose: 1 amp Amlodipine Besylate (Norvasc -) 5 mg PO DAILY [facility] Last Admin: 03/05/17 09:47 Dose: 5 mg Guaifenesin (Robitussin -) 10 ml PO Q4H PRN Last Admin: 03/05/17 12:52 Dose: 10 ml Vancomycin HCl 1,250 mg/ (Dextrose) 250 mls @ 125 mls/hr IVPB DAILY [facility] PRN Reason: Protocol Last Admin: 03/05/17 11:16 Dose: 125 mls/hr Piperacillin Sod/Tazobactam Sod (Zosyn 3.375gm Ivpb (Pre-Docked)) 50 mls @ 100 mls/hr IVPB Q8H-IV [facility] PRN Reason: Protocol Last Admin: 03/05/17 10:20 Dose: 100 mls/hr Methylprednisolone Sodium Succinate (Solu-Medrol -) 60 mg IVPB Q8H [facility] Last Admin: 03/05/17 09:47 Dose: 60 mg - Objective Vital Signs: Vital Signs Temperature 98.1 F 03/05/17 13:35 Pulse Rate 101 H 03/05/17 13:35 Respiratory Rate 28 H 03/05/17 13:35 Blood Pressure 139/74 03/05/17 13:35 O2 Sat by Pulse Oximetry (%) 97 03/04/17 13:30 Constitutional: Yes: No Distress, Calm Cardiovascular: Yes: Regular Rate and Rhythm Respiratory: Yes: Regular, Poor Air Entry Gastrointestinal: Yes: Normal Bowel Sounds, Soft Musculoskeletal: Yes: WNL Extremities: Yes: WNL Neurological: Yes: Alert, Oriented Psychiatric: Yes: Alert Labs: CBC, BMP 03/03/17 17:10 03/03/17 17:10 Assessment/Plan (1) Bilateral pneumonia Code(s): J18.9 - PNEUMONIA, UNSPECIFIED ORGANISM (2) Pneumonia Code(s): J18.9 - PNEUMONIA, UNSPECIFIED ORGANISM Qualifiers: Pneumonia type: due to unspecified organism Laterality: right Lung location: upper lobe of lung Qualified Code(s): J18.1 - Lobar pneumonia, unspecified organism plan will continue abx await for hiv testing final report if positive will need detail work up incentive bill patient improving
[2017-03-06] MEDS: methylPREDNISolone NA SUCC 40 MG/1 ML VIAL IVPB SCH ×4 (01:25→18:17)
[2017-03-06] MEDS: PIPERACILLIN/TAZOB 3.375 GM 50 ML IVPB SCH ×3 (01:25→17:38)
[2017-03-06] MEDS: ALBUTEROL SO4 0.083% IH SOL 2.5 MG/3 ML VIAL.NEB. NEB SCH ×3 (06:15→22:15)
--- NOTE | 2017-03-06 08:57 | PN ---
Progress Note, Physician Chief Complaint: Confused History of Present Illness: Bilateral pneumonia,pseudomona in the urine Preliminary HIV positive - Current Medication List Current Medications: Active Medications Acetaminophen (Tylenol -) 650 mg PO Q6H PRN PRN Reason: FEVER OR PAIN Last Admin: 03/03/17 18:30 Dose: 650 mg Albuterol Sulfate (Ventolin 0.083% Nebulizer Soln -) 1 amp NEB TIDR [facility] Last Admin: 03/06/17 06:15 Dose: 1 amp Amlodipine Besylate (Norvasc -) 5 mg PO DAILY [facility] Last Admin: 03/05/17 09:47 Dose: 5 mg Guaifenesin (Robitussin -) 10 ml PO Q4H PRN Last Admin: 03/05/17 12:52 Dose: 10 ml Vancomycin HCl 1,250 mg/ (Dextrose) 250 mls @ 125 mls/hr IVPB DAILY [facility] PRN Reason: Protocol Last Admin: 03/05/17 11:16 Dose: 125 mls/hr Piperacillin Sod/Tazobactam Sod (Zosyn 3.375gm Ivpb (Pre-Docked)) 50 mls @ 100 mls/hr IVPB Q8H-IV [facility] PRN Reason: Protocol Last Admin: 03/06/17 01:25 Dose: 100 mls/hr Methylprednisolone Sodium Succinate (Solu-Medrol -) 60 mg IVPB Q8H [facility] Last Admin: 03/06/17 01:25 Dose: 60 mg - Objective Vital Signs: Vital Signs Temperature 98.4 F 03/06/17 07:35 Pulse Rate 93 H 03/06/17 07:35 Respiratory Rate 20 03/06/17 07:35 Blood Pressure 147/85 03/06/17 07:35 O2 Sat by Pulse Oximetry (%) 97 03/05/17 21:00 Constitutional: Yes: Moderate Distress Eyes: Yes: WNL HENT: Yes: WNL Neck: Yes: WNL Respiratory: Yes: On Nasal O2 Gastrointestinal: Yes: Normal Bowel Sounds ...Rectal Exam: Yes: Deferred Genitourinary: Yes: WNL Musculoskeletal: Yes: Muscle Weakness Edema: No Integumentary: Yes: WNL Neurological: Yes: Confusion Labs: CBC, BMP 03/03/17 17:10 03/03/17 17:10 Assessment/Plan HIV pending Urine grew pseudomona Continue Zosyn and Vanco Reduce steroids Will discuss with Dr Ordaz regarding HIV trt
[2017-03-06] MEDS ORDERED: PT OWN MED DRAWER 7, Y5N ONE (09:17)
[2017-03-06] MEDS: amLODIPine BESYLATE 5 MG TABLET (FP) PO SCH (09:24)
[2017-03-06] MEDS: VANCOMYCIN 1,250 MG in DEXTROSE 5%-WATER - 250 ML IVPB SCH (10:37)
--- NOTE | 2017-03-06 12:39 | PN ---
Progress Note (short form) - Note Progress Note: Breathing appears significantly better today. Breathing is non-labored on NC O2. Noted confusion. His is at the bedside. This is the first time this has happened to him. She reports that he is better than last night and earlier this AM. Intake & Output 03/03/17 03/04/17 03/05/17 03/06/17 23:59 23:59 23:59 23:59 Intake Total 400 2550 650 50 Output Total 600 600 Balance 400 1950 50 50 Weight 133 lb Last Vital Signs Temp Pulse Resp BP Pulse Ox 98.6 F 103 H 30 H 129/72 97 03/06/17 10:43 03/06/17 10:43 03/06/17 10:43 03/06/17 10:43 03/05/17 21:00 Active Medications Acetaminophen (Tylenol -) 650 mg PO Q6H PRN PRN Reason: FEVER OR PAIN Last Admin: 03/03/17 18:30 Dose: 650 mg Albuterol Sulfate (Ventolin 0.083% Nebulizer Soln -) 1 amp NEB TIDR [facility] Last Admin: 03/06/17 06:15 Dose: 1 amp Amlodipine Besylate (Norvasc -) 5 mg PO DAILY [facility] Last Admin: 03/06/17 09:24 Dose: 5 mg Guaifenesin (Robitussin -) 10 ml PO Q4H PRN Last Admin: 03/05/17 12:52 Dose: 10 ml Vancomycin HCl 1,250 mg/ (Dextrose) 250 mls @ 125 mls/hr IVPB DAILY [facility] PRN Reason: Protocol Last Admin: 03/06/17 10:37 Dose: 125 mls/hr Piperacillin Sod/Tazobactam Sod (Zosyn 3.375gm Ivpb (Pre-Docked)) 50 mls @ 100 mls/hr IVPB Q8H-IV [facility] PRN Reason: Protocol Last Admin: 03/06/17 09:56 Dose: 100 mls/hr Methylprednisolone Sodium Succinate (Solu-Medrol -) 40 mg IVPB Q8H-IV [facility] Last Admin: 03/06/17 09:56 Dose: Not Given Constitutional: Yes: NAD, confused Eyes: Yes: Conjunctiva Clear, EOM Intact HENT: Yes: Atraumatic, Normocephalic Neck: Yes: Supple, Trachea Midline Cardiovascular: Yes: Regular Rate and Rhythm Respiratory: Yes: Cough, On Venti-Mask, Rhonchi, SOB, SOB on Exertion, Tachypnea , Wheezes. No: Accessory Muscle Use, Stridor ...Inspection: Yes: WNL ...Clubbing: No Gastrointestinal: Yes: WNL, Normal Bowel Sounds, Soft Renal/: Yes: WNL Musculoskeletal: Yes: WNL Extremities: Yes: WNL Edema: No Peripheral Pulses WNL: Yes Integumentary: Yes: WNL Neurological: Yes: WNL, Alert, Oriented ...Motor Strength: WNL Psychiatric: Yes: WNL, Alert, Oriented Labs: Laboratory Results - last 24 hr 03/06/17 11:45 Random Glucose 663 H* D Imaging - Results Chest X-ray: Report Reviewed, Image Reviewed Problem List - Problems (1) Bilateral pneumonia Code(s): J18.9 - PNEUMONIA, UNSPECIFIED ORGANISM (2) Pneumonia Code(s): J18.9 - PNEUMONIA, UNSPECIFIED ORGANISM Qualifiers: Pneumonia type: due to unspecified organism Laterality: right Lung location: upper lobe of lung Qualified Code(s): J18.1 - Lobar pneumonia, unspecified organism (3) Suspected Hypersensitivity type reaction (4) Prelim HIV (+) (5) Confusion : (?) sun downing / steroid effect Assessment/Plan Taper steroids ABX per ID O2 as needed to maintain saturation VTE prophlaxis Fall precautions Dr Cazares Problem List - Problems (1) Bilateral pneumonia Code(s): J18.9 - PNEUMONIA, UNSPECIFIED ORGANISM (2) Pneumonia Code(s): J18.9 - PNEUMONIA, UNSPECIFIED ORGANISM Qualifiers: Pneumonia type: due to unspecified organism Laterality: right Lung location: upper lobe of lung Qualified Code(s): J18.1 - Lobar pneumonia, unspecified organism
[2017-03-06] MEDS ORDERED: INSULIN (NOVOLOG) ASPART 100 UNITS/ML 10ML VIAL SQ ONE ×2 (13:11→16:30)
--- NOTE | 2017-03-06 13:38 | PN ---
Progress Note, Physician History of Present Illness: feeling much better no new issues had a long discussion with him about the report final report is awaited - Current Medication List Current Medications: Active Medications Acetaminophen (Tylenol -) 650 mg PO Q6H PRN PRN Reason: FEVER OR PAIN Last Admin: 03/03/17 18:30 Dose: 650 mg Albuterol Sulfate (Ventolin 0.083% Nebulizer Soln -) 1 amp NEB TIDR [facility] Last Admin: 03/06/17 06:15 Dose: 1 amp Amlodipine Besylate (Norvasc -) 5 mg PO DAILY [facility] Last Admin: 03/06/17 09:24 Dose: 5 mg Guaifenesin (Robitussin -) 10 ml PO Q4H PRN Last Admin: 03/05/17 12:52 Dose: 10 ml Vancomycin HCl 1,250 mg/ (Dextrose) 250 mls @ 125 mls/hr IVPB DAILY [facility] PRN Reason: Protocol Last Admin: 03/06/17 10:37 Dose: 125 mls/hr Piperacillin Sod/Tazobactam Sod (Zosyn 3.375gm Ivpb (Pre-Docked)) 50 mls @ 100 mls/hr IVPB Q8H-IV [facility] PRN Reason: Protocol Last Admin: 03/06/17 09:56 Dose: 100 mls/hr Insulin Aspart (Novolog Vial) 14 units SQ ONCE ONE PRN Reason: Protocol Stop: 03/06/17 13:12 Methylprednisolone Sodium Succinate (Solu-Medrol -) 40 mg IVPB Q8H-IV [facility] Last Admin: 03/06/17 09:56 Dose: Not Given - Objective Vital Signs: Vital Signs Temperature 98.6 F 03/06/17 10:43 Pulse Rate 103 H 03/06/17 10:43 Respiratory Rate 30 H 03/06/17 10:43 Blood Pressure 129/72 03/06/17 10:43 O2 Sat by Pulse Oximetry (%) 97 03/05/17 21:00 Constitutional: Yes: No Distress, Calm Cardiovascular: Yes: Regular Rate and Rhythm Respiratory: Yes: Regular, On Nasal O2, Poor Air Entry Gastrointestinal: Yes: Normal Bowel Sounds, Soft Musculoskeletal: Yes: WNL Extremities: Yes: WNL Neurological: Yes: Alert, Oriented Psychiatric: Yes: Alert Labs: CBC, BMP 03/03/17 17:10 03/06/17 11:45 Assessment/Plan pneumonia lactic acidosis fever hypoxia lactic acidosis plan continue current abx will stop vanco tomorrow will wait for final reports
[2017-03-06 14:17] LABS: CALCIUM 8.7 mg/dL (8.5-10.1); COCKROFT - GAULT 43.68; CREATININE 1.4 mg/dL (0.7-1.3)
[2017-03-06] MEDS: POTASSIUM CHLORIDE TABS 20 MEQ TABLET.ER (FP) PO SCH ×2 (16:44→22:00)
[2017-03-06] MEDS: INSULIN SLIDING SCALE (NOVOLOG) 1 VIAL SQ SCH ×2 (18:16→22:10)
[2017-03-06] MEDS: guaiFENesin 200 MG/10 ML 10 ML UNIT-DOSE CUPS PO PRN (22:00)
[2017-03-07] MEDS ORDERED: LORAZEPAM CARPU-JECT 2 MG/ML DISP.SYRIN ONE (01:07)
[2017-03-07] MEDS ORDERED: LORAZEPAM CARPU-JECT 2 MG/ML DISP.SYRIN IVPUSH ONE (01:15)
[2017-03-07] MEDS: methylPREDNISolone NA SUCC 40 MG/1 ML VIAL IVPB SCH ×3 (01:25→17:25)
[2017-03-07] MEDS: PIPERACILLIN/TAZOB 3.375 GM 50 ML IVPB SCH ×3 (01:25→17:26)
[2017-03-07] MEDS: ALBUTEROL SO4 0.083% IH SOL 2.5 MG/3 ML VIAL.NEB. NEB SCH ×3 (05:59→22:40)
[2017-03-07] MEDS: INSULIN SLIDING SCALE (NOVOLOG) 1 VIAL SQ SCH ×4 (06:35→21:07)
[2017-03-07] MEDS: amLODIPine BESYLATE 5 MG TABLET (FP) PO SCH (09:11)
[2017-03-07] MEDS: POTASSIUM CHLORIDE TABS 20 MEQ TABLET.ER (FP) PO SCH ×2 (09:11→21:07)
--- NOTE | 2017-03-07 09:33 | PN ---
Progress Note, Physician Chief Complaint: Feels better History of Present Illness: Bilateral pneumonia Urine grew pseudomona HIV + - Current Medication List Current Medications: Active Medications Acetaminophen (Tylenol -) 650 mg PO Q6H PRN PRN Reason: FEVER OR PAIN Last Admin: 03/03/17 18:30 Dose: 650 mg Albuterol Sulfate (Ventolin 0.083% Nebulizer Soln -) 1 amp NEB TIDR [facility] Last Admin: 03/07/17 05:59 Dose: 1 amp Amlodipine Besylate (Norvasc -) 5 mg PO DAILY [facility] Last Admin: 03/07/17 09:11 Dose: 5 mg Guaifenesin (Robitussin -) 10 ml PO Q4H PRN Last Admin: 03/06/17 22:00 Dose: 10 ml Vancomycin HCl 1,250 mg/ (Dextrose) 250 mls @ 125 mls/hr IVPB DAILY [facility] PRN Reason: Protocol Last Admin: 03/06/17 10:37 Dose: 125 mls/hr Piperacillin Sod/Tazobactam Sod (Zosyn 3.375gm Ivpb (Pre-Docked)) 50 mls @ 100 mls/hr IVPB Q8H-IV [facility] PRN Reason: Protocol Last Admin: 03/07/17 09:11 Dose: 100 mls/hr Insulin Aspart (Novolog Vial Sliding Scale -) 1 vial SQ ACHS [facility] PRN Reason: Protocol Last Admin: 03/07/17 06:35 Dose: 10 unit Methylprednisolone Sodium Succinate (Solu-Medrol -) 40 mg IVPB Q8H-IV [facility] Last Admin: 03/07/17 09:11 Dose: 40 mg Potassium Chloride (K-Dur -) 20 meq PO BID [facility] Stop: 03/08/17 22:01 Last Admin: 03/07/17 09:11 Dose: 20 meq - Objective Vital Signs: Vital Signs Temperature 98.1 F 03/07/17 07:30 Pulse Rate 78 03/07/17 07:30 Respiratory Rate 20 03/07/17 07:30 Blood Pressure 156/86 03/07/17 07:30 O2 Sat by Pulse Oximetry (%) 94 L 03/06/17 21:00 Constitutional: Yes: No Distress Eyes: Yes: WNL HENT: Yes: WNL Neck: Yes: WNL Respiratory: Yes: On Nasal O2 Gastrointestinal: Yes: Normal Bowel Sounds Genitourinary: Yes: WNL Edema: No Integumentary: Yes: WNL Neurological: Yes: Alert ...Motor Strength: WNL Psychiatric: Yes: Alert Labs: CBC, BMP 03/03/17 17:10 03/06/17 13:35 Assessment/Plan Refer to [facility] for HIV management
[2017-03-07] MEDS: guaiFENesin 200 MG/10 ML 10 ML UNIT-DOSE CUPS PO PRN ×2 (10:32→23:14)
[2017-03-07] MEDS ORDERED: INSULIN (NOVOLOG) ASPART 100 UNITS/ML 10ML VIAL ONE (11:47)
[2017-03-07] MEDS: VANCOMYCIN 1,250 MG in DEXTROSE 5%-WATER - 250 ML IVPB SCH (12:04)
--- NOTE | 2017-03-07 13:18 | PN ---
Progress Note (short form) - Note Progress Note: PULMONARY AWAKE/ALERT FAMILY PRESENT VSS/AFEBRILE ANICTERIC DIMINISHED BREATH SOUNDS BASES S1S2 BS+ NO EDEMA LABS/MEDS/MICRO/NOTES/IMAGING REVIEWED (1) Bilateral pneumonia Code(s): J18.9 - PNEUMONIA, UNSPECIFIED ORGANISM (2) Pneumonia Code(s): J18.9 - PNEUMONIA, UNSPECIFIED ORGANISM Qualifiers: Pneumonia type: due to unspecified organism Laterality: right Lung location: upper lobe of lung Qualified Code(s): J18.1 - Lobar pneumonia, unspecified organism (3) HIV POSITIVE PLAN: ABX/ANTIVIRALS per ID Medrol tapered O2 to keep Sat greater than 90% VTE prophlaxis Repeat CXR/ Check Hep B/C status repeat K+/replete as needed Adalgisa HAQ MD
[2017-03-07 14:04] LABS: CALCIUM 9.1 mg/dL (8.5-10.1); COCKROFT - GAULT 55.6; CREATININE 1.1 mg/dL (0.7-1.3)
--- NOTE | 2017-03-07 14:43 | PN ---
Progress Note, Physician History of Present Illness: stable breathing well no new issues - Current Medication List Current Medications: Active Medications Acetaminophen (Tylenol -) 650 mg PO Q6H PRN PRN Reason: FEVER OR PAIN Last Admin: 03/03/17 18:30 Dose: 650 mg Albuterol Sulfate (Ventolin 0.083% Nebulizer Soln -) 1 amp NEB TIDR [facility] Last Admin: 03/07/17 05:59 Dose: 1 amp Amlodipine Besylate (Norvasc -) 5 mg PO DAILY [facility] Last Admin: 03/07/17 09:11 Dose: 5 mg Guaifenesin (Robitussin -) 10 ml PO Q4H PRN Last Admin: 03/07/17 10:32 Dose: 10 ml Piperacillin Sod/Tazobactam Sod (Zosyn 3.375gm Ivpb (Pre-Docked)) 50 mls @ 100 mls/hr IVPB Q8H-IV [facility] PRN Reason: Protocol Last Admin: 03/07/17 09:11 Dose: 100 mls/hr Insulin Aspart (Novolog Vial Sliding Scale -) 1 vial SQ ACHS [facility] PRN Reason: Protocol Last Admin: 03/07/17 11:50 Dose: 10 unit Methylprednisolone Sodium Succinate (Solu-Medrol -) 20 mg IVPB Q8H-IV [facility] Potassium Chloride (K-Dur -) 20 meq PO BID [facility] Stop: 03/08/17 22:01 Last Admin: 03/07/17 09:11 Dose: 20 meq - Objective Vital Signs: Vital Signs Temperature 98.4 F 03/07/17 09:43 Pulse Rate 102 H 03/07/17 09:43 Respiratory Rate 28 H 03/07/17 09:43 Blood Pressure 120/67 03/07/17 09:43 O2 Sat by Pulse Oximetry (%) 94 L 03/06/17 21:00 Constitutional: Yes: No Distress, Calm Cardiovascular: Yes: Regular Rate and Rhythm Respiratory: Yes: Regular, Rhonchi Gastrointestinal: Yes: Normal Bowel Sounds, Soft Musculoskeletal: Yes: WNL Extremities: Yes: WNL Neurological: Yes: Alert, Oriented Psychiatric: Yes: Alert, Oriented Labs: CBC, BMP 03/03/17 17:10 03/07/17 13:30 Assessment/Plan pneumonia lactic acidosis fever hypoxia lactic acidosis hiv plan stopped vanco if patient remains stable will deescalate zosyn patient needs to be worked up in detail before we start on antiviral treatment he can visit hiv clinic and then can be worked up in detail and medications started he will need viral load,and other tests and then he will need treatment accordingly
[2017-03-08] MEDS: methylPREDNISolone NA SUCC 40 MG/1 ML VIAL IVPB SCH (01:30)
[2017-03-08] MEDS: PIPERACILLIN/TAZOB 3.375 GM 50 ML IVPB SCH ×2 (01:48→10:32)
[2017-03-08] MEDS: ALBUTEROL SO4 0.083% IH SOL 2.5 MG/3 ML VIAL.NEB. NEB SCH ×3 (06:10→22:07)
[2017-03-08] MEDS: INSULIN SLIDING SCALE (NOVOLOG) 1 VIAL SQ SCH ×4 (06:12→21:34)
--- NOTE | 2017-03-08 09:31 | PN ---
Progress Note (short form) - Note Progress Note: Breathing appears significantly better today. Breathing is non-labored on NC O2. Noted confusion. Intake & Output 03/05/17 03/06/17 03/07/17 03/08/17 23:59 23:59 23:59 23:59 Intake Total 650 600 450 250 Output Total 600 500 Balance 50 600 -50 250 Last Vital Signs Temp Pulse Resp BP Pulse Ox 98.5 F 89 20 150/66 96 03/08/17 07:24 03/08/17 07:24 03/08/17 07:24 03/08/17 07:24 03/07/17 21:00 Home Medication List Medication Instructions Recorded Confirmed Type Amlodipine Besylate/Benazepril 1 each PO DAILY 02/20/17 03/03/17 History [Lotrel 5-40 mg Capsule] Aspirin [Aspirin EC] 81 mg PO DAILY 02/20/17 03/03/17 History Active Medications Generic Name Dose Route Start Last Admin Trade Name Freq PRN Reason Stop Dose Admin Acetaminophen 650 mg 03/03/17 17:52 03/03/17 18:30 Tylenol - PO 650 mg Q6H PRN Administration FEVER OR PAIN Albuterol Sulfate 1 amp 03/03/17 22:00 03/08/17 06:10 Ventolin 0.083% Nebulizer Soln - NEB 1 amp TIDR [facility] Administration Amlodipine Besylate 5 mg 03/03/17 18:30 03/07/17 09:11 Norvasc - PO 5 mg DAILY [facility] Administration Guaifenesin 10 ml 03/03/17 16:55 03/07/17 23:14 Robitussin - PO 10 ml Q4H PRN Administration Piperacillin Sod/Tazobactam Sod 50 mls @ 100 mls/hr 03/03/17 11:00 03/08/17 01: 48 Zosyn 3.375gm Ivpb (Pre-Docked) IVPB 100 mls/hr Q8H-IV [facility] Administration Protocol Insulin Aspart 1 vial 03/06/17 16:30 03/08/17 06:12 Novolog Vial Sliding Scale - SQ 5 unit ACHS [facility] Administration Protocol Methylprednisolone Sodium Succinate 20 mg 03/07/17 18:00 03/08/17 01:30 Solu-Medrol - IVPB 20 mg Q8H-IV [facility] Administration Potassium Chloride 20 meq 03/06/17 16:30 03/07/17 21:07 K-Dur - PO 03/08/17 22:01 20 meq BID [facility] Administration Constitutional: Yes: NAD, confused Eyes: Yes: Conjunctiva Clear, EOM Intact HENT: Yes: Atraumatic, Normocephalic Neck: Yes: Supple, Trachea Midline Cardiovascular: Yes: Regular Rate and Rhythm Respiratory: Yes: Cough, On NC O2, Rhonchi,. No: Accessory Muscle Use, Stridor ...Inspection: Yes: WNL ...Clubbing: No Gastrointestinal: Yes: WNL, Normal Bowel Sounds, Soft Renal/: Yes: WNL Musculoskeletal: Yes: WNL Extremities: Yes: WNL Edema: No Peripheral Pulses WNL: Yes Integumentary: Yes: WNL Neurological: Yes: WNL, Alert, Oriented ...Motor Strength: WNL Psychiatric: Yes: WNL, Alert, Oriented Labs: Active Medications Acetaminophen (Tylenol -) 650 mg PO Q6H PRN PRN Reason: FEVER OR PAIN Last Admin: 03/03/17 18:30 Dose: 650 mg Albuterol Sulfate (Ventolin 0.083% Nebulizer Soln -) [address] [facility] Last Admin: 03/08/17 06:10 Dose: 1 amp Amlodipine Besylate (Norvasc -) [address] [facility] Last Admin: 03/07/17 09:11 Dose: 5 mg Guaifenesin (Robitussin -) 10 ml PO Q4H PRN Last Admin: 03/07/17 23:14 Dose: 10 ml Piperacillin Sod/Tazobactam Sod (Zosyn 3.375gm Ivpb (Pre-Docked)) 50 mls @ 100 mls/hr IVPB Q8H-IV [facility] PRN Reason: Protocol Last Admin: 03/08/17 01:48 Dose: 100 mls/hr Insulin Aspart (Novolog Vial Sliding Scale -) 1 vial SQ ACHS [facility] PRN Reason: Protocol Last Admin: 03/08/17 06:12 Dose: 5 unit Methylprednisolone Sodium Succinate (Solu-Medrol -) 20 mg IVPB Q8H-IV [facility] Last Admin: 03/08/17 01:30 Dose: 20 mg Potassium Chloride (K-Dur -) 20 meq PO BID [facility] Stop: 03/08/17 22:01 Last Admin: 03/07/17 21:07 Dose: 20 meq Imaging - Results Chest X-ray: Report Reviewed, Image Reviewed Problem List - Problems (1) Bilateral pneumonia Code(s): J18.9 - PNEUMONIA, UNSPECIFIED ORGANISM (2) Pneumonia Code(s): J18.9 - PNEUMONIA, UNSPECIFIED ORGANISM Qualifiers: Pneumonia type: due to unspecified organism Laterality: right Lung location: upper lobe of lung Qualified Code(s): J18.1 - Lobar pneumonia, unspecified organism (3) Suspected Hypersensitivity type reaction (4) Prelim HIV (+) (5) Confusion : (?) sun downing / steroid effect Assessment/Plan Change to Prednisone ABX per ID HIV prophylaxis per ID O2 as needed to maintain saturation VTE prophlaxis Fall precautions Dr Cazares Problem List - Problems (1) Bilateral pneumonia Code(s): J18.9 - PNEUMONIA, UNSPECIFIED ORGANISM (2) Pneumonia Code(s): J18.9 - PNEUMONIA, UNSPECIFIED ORGANISM Qualifiers: Pneumonia type: due to unspecified organism Laterality: right Lung location: upper lobe of lung Qualified Code(s): J18.1 - Lobar pneumonia, unspecified organism
--- NOTE | 2017-03-08 09:36 | PN ---
Progress Note, Physician Chief Complaint: SOB better History of Present Illness: Pneumonia getting better - Current Medication List Current Medications: Active Medications Acetaminophen (Tylenol -) 650 mg PO Q6H PRN PRN Reason: FEVER OR PAIN Last Admin: 03/03/17 18:30 Dose: 650 mg Albuterol Sulfate (Ventolin 0.083% Nebulizer Soln -) 1 amp NEB TIDR [facility] Last Admin: 03/08/17 06:10 Dose: 1 amp Amlodipine Besylate (Norvasc -) 5 mg PO DAILY [facility] Last Admin: 03/07/17 09:11 Dose: 5 mg Guaifenesin (Robitussin -) 10 ml PO Q4H PRN Last Admin: 03/07/17 23:14 Dose: 10 ml Piperacillin Sod/Tazobactam Sod (Zosyn 3.375gm Ivpb (Pre-Docked)) 50 mls @ 100 mls/hr IVPB Q8H-IV [facility] PRN Reason: Protocol Last Admin: 03/08/17 01:48 Dose: 100 mls/hr Insulin Aspart (Novolog Vial Sliding Scale -) 1 vial SQ ACHS [facility] PRN Reason: Protocol Last Admin: 03/08/17 06:12 Dose: 5 unit Methylprednisolone Sodium Succinate (Solu-Medrol -) 20 mg IVPB Q8H-IV [facility] Last Admin: 03/08/17 01:30 Dose: 20 mg Potassium Chloride (K-Dur -) 20 meq PO BID [facility] Stop: 03/08/17 22:01 Last Admin: 03/07/17 21:07 Dose: 20 meq - Objective Vital Signs: Vital Signs Temperature 98.5 F 03/08/17 07:24 Pulse Rate 89 03/08/17 07:24 Respiratory Rate 20 03/08/17 07:24 Blood Pressure 150/66 03/08/17 07:24 O2 Sat by Pulse Oximetry (%) 96 03/07/17 21:00 Constitutional: Yes: Mild Distress Eyes: Yes: WNL HENT: Yes: WNL Neck: Yes: WNL Respiratory: Yes: Poor Air Entry, SOB Gastrointestinal: Yes: Normal Bowel Sounds ...Rectal Exam: Yes: Deferred Genitourinary: Yes: WNL Edema: No Labs: CBC, BMP 03/03/17 17:10 03/07/17 13:30 Assessment/Plan K dur PO
[2017-03-08] MEDS ORDERED: POTASSIUM CHLORIDE TABS 20 MEQ TABLET.ER (FP) PO SCH (10:00)
[2017-03-08] MEDS: amLODIPine BESYLATE 5 MG TABLET (FP) PO SCH (10:32)
[2017-03-08] MEDS: predniSONE 20 MG TABLET (UD) PO SCH (10:33)
[2017-03-08] MEDS: POTASSIUM CHLORIDE TABS 20 MEQ TABLET.ER (FP) PO SCH ×2 (10:33→21:34)
--- NOTE | 2017-03-08 13:14 | PN ---
Progress Note, Physician History of Present Illness: stable no new issues breathing well - Current Medication List Current Medications: Active Medications Acetaminophen (Tylenol -) 650 mg PO Q6H PRN PRN Reason: FEVER OR PAIN Last Admin: 03/03/17 18:30 Dose: 650 mg Albuterol Sulfate (Ventolin 0.083% Nebulizer Soln -) 1 amp NEB TIDR [facility] Last Admin: 03/08/17 06:10 Dose: 1 amp Amlodipine Besylate (Norvasc -) 5 mg PO DAILY [facility] Last Admin: 03/08/17 10:32 Dose: 5 mg Guaifenesin (Robitussin -) 10 ml PO Q4H PRN Last Admin: 03/07/17 23:14 Dose: 10 ml Insulin Aspart (Novolog Vial Sliding Scale -) 1 vial SQ ACHS [facility] PRN Reason: Protocol Last Admin: 03/08/17 12:48 Dose: 15 units Potassium Chloride (K-Dur -) 20 meq PO BID [facility] Stop: 03/08/17 22:01 Last Admin: 03/08/17 10:33 Dose: 20 meq Potassium Chloride (K-Dur -) 20 meq PO BID [facility] Prednisone (Deltasone -) 50 mg PO DAILY [facility] Last Admin: 03/08/17 10:33 Dose: 50 mg - Objective Vital Signs: Vital Signs Temperature 98.5 F 03/08/17 07:24 Pulse Rate 89 03/08/17 07:24 Respiratory Rate 20 03/08/17 07:24 Blood Pressure 150/66 03/08/17 07:24 O2 Sat by Pulse Oximetry (%) 96 03/07/17 21:00 Constitutional: Yes: No Distress, Calm Cardiovascular: Yes: Regular Rate and Rhythm Respiratory: Yes: Regular, On Nasal O2 Gastrointestinal: Yes: Normal Bowel Sounds, Soft Musculoskeletal: Yes: WNL Extremities: Yes: Other Neurological: Yes: Alert, Oriented Psychiatric: Yes: Alert, Oriented Labs: CBC, BMP 03/03/17 17:10 03/07/17 13:30 Assessment/Plan (1) Bilateral pneumonia Code(s): J18.9 - PNEUMONIA, UNSPECIFIED ORGANISM (2) Pneumonia Code(s): J18.9 - PNEUMONIA, UNSPECIFIED ORGANISM Qualifiers: Pneumonia type: due to unspecified organism Laterality: right Lung location: upper lobe of lung Qualified Code(s): J18.1 - Lobar pneumonia, unspecified organism hiv plan will change to oral abx hiv team to evaluate the patient rest as per primary await for other results
--- NOTE | 2017-03-08 13:44 | PN ---
Progress Note, Physician Chief Complaint: ID Full note dictated Bilateral ground glass infiltrates Fevers has since resolved albeit on steroids New diagnosis of HIV here this admission. In talking to patient it is clear that he is very confused stating that we( he and I ) have met in his [employer] business. Also though dr Ordaz informed him of his IV status he seems to have no understanding of this. He denies headaches weight loss but admits to sweats. Previous admission earlier in February for PNA. Now has been on Vanco and Zosyn. On Prednisone 50mg - Current Medication List Current Medications: Active Medications Acetaminophen (Tylenol -) 650 mg PO Q6H PRN PRN Reason: FEVER OR PAIN Last Admin: 03/03/17 18:30 Dose: 650 mg Albuterol Sulfate (Ventolin 0.083% Nebulizer Soln -) 1 amp NEB TIDR [facility] Last Admin: 03/08/17 06:10 Dose: 1 amp Amlodipine Besylate (Norvasc -) 5 mg PO DAILY [facility] Last Admin: 03/08/17 10:32 Dose: 5 mg Amoxicillin/Clavulanate Potassium (Augmentin - 875mg Tablet) 1 tab PO BID@0800, 1730 [facility] Guaifenesin (Robitussin -) 10 ml PO Q4H PRN Last Admin: 03/07/17 23:14 Dose: 10 ml Insulin Aspart (Novolog Vial Sliding Scale -) 1 vial SQ ACHS [facility] PRN Reason: Protocol Last Admin: 03/08/17 12:48 Dose: 15 units Potassium Chloride (K-Dur -) 20 meq PO BID [facility] Stop: 03/08/17 22:01 Last Admin: 03/08/17 10:33 Dose: 20 meq Potassium Chloride (K-Dur -) 20 meq PO BID [facility] Prednisone (Deltasone -) 50 mg PO DAILY [facility] Last Admin: 03/08/17 10:33 Dose: 50 mg - Objective Vital Signs: Vital Signs Temperature 98.5 F 03/08/17 07:24 Pulse Rate 89 03/08/17 07:24 Respiratory Rate 20 03/08/17 07:24 Blood Pressure 150/66 03/08/17 07:24 O2 Sat by Pulse Oximetry (%) 96 03/07/17 21:00 Constitutional: Yes: Cachectic HENT: No: Thrush Neck: No: Lymphadenopathy Cardiovascular: Yes: Tachycardia, S1, S2 Respiratory: Yes: WNL, Regular, CTA Bilaterally, Rales. No: Rhonchi Gastrointestinal: Yes: WNL, Normal Bowel Sounds, Soft. No: Splenomegaly, Tenderness Edema: No Labs: CBC, BMP 03/03/17 17:10 03/07/17 13:30 Problem List - Problems (1) AIDS Code(s): B20 - HUMAN IMMUNODEFICIENCY VIRUS [HIV] DISEASE (2) Interstitial pneumonitis Code(s): J84.89 - OTHER SPECIFIED INTERSTITIAL PULMONARY DISEASES (3) Diabetes Code(s): E11.9 - TYPE 2 DIABETES MELLITUS WITHOUT COMPLICATIONS Assessment/Plan Microbiology 03/03/17 06:30 Urine - Urine Clean Catch Urine Culture - Final Pseudomonas Aeruginosa 03/03/17 05:18 Blood - Peripheral Venous Blood Culture - Final NO GROWTH AFTER 5 DAYS INCUBATION 03/03/17 05:18 Blood - Peripheral Venous Blood Culture - Final NO GROWTH AFTER 5 DAYS INCUBATION 03/03/17 04:38 Throat Throat Culture - Final 03/03/17 04:38 Throat Group A Strep Rapid Antigen - Final NO BETA HEMOLYTIC STREPTOCOCCI ISOLATED Laboratory Tests 03/03/17 03/03/17 03/05/17 16:55 17:10 10:35 WBC 5.6 Hgb 10.3 L Hct 32.9 L Plt Count 337 ABG pO2 at Pt Temp 218.0 H* BUN Creatinine HIV-1 Antibody HIV 1&2 Ag/Ab, 4th Gen HIV 1&2 Antibody Screen Preliminary positive 03/05/17 03/07/17 10:35 13:30 WBC Hgb Hct Plt Count ABG pO2 at Pt Temp BUN 21 H Creatinine 1.1 D HIV-1 Antibody Positive H HIV 1&2 Ag/Ab, 4th Gen HIV 1&2 Antibody Screen Assessment 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
--- NOTE | 2017-03-08 14:29 | CONS ---
DATE OF CONSULTATION: DATE OF DICTATION: 03/08/2017 HISTORY OF PRESENT ILLNESS: This is a 66-year-old [facility] male hypertensive, diabetic whom I am asked to see for newly diagnosed HIV infection. According to the admitting note dated March 03, he had recently been in the hospital February 21 for a brief admission with diagnosis of pneumonia and discharged on cefuroxime orally for a week. He has experienced loss of appetite, noting chills and night sweats, and is readmitted with 102.9 fever and shortness of breath. He was seen in consultation by Dr. Cazares for pneumonia March 04. A subsequent CAT scan obtained here had showed bilateral ground-glass interstitial-looking infiltrates. The patient was seen in consultation by Dr. Ordaz and initially treated with vancomycin and Zosyn and then switched to Zosyn which he is still on with plan for discharge o Augmentin. His blood cultures are no growth both last admission and this admission. A urine culture dated March 03 has Pseudomonas aeruginosa. The patient has no urinary symptoms and a negative urinalysis. Current medications: ZOSYN He was empirically placed on high-dose steroids for hypoxemia and apparently has had improvement noted since then. Apparently, since March 03 he is clinically improved with less shortness of breath and absence of fever, albeit receiving 60 mg of prednisone daily. The patient had an HIV test done which is now positive. This was discussed with the patient by Dr. Ordaz earlier so he should be aware . Note that on taking a history at the current time it is apparent that the patient seems to have little comprehension of being HIV positive despite being told and appears confused, noting that he has met me in the past from his business in [employer] which is obviously not the case. He seems confused both in the reasons for his admission and has difficulty relaying specific symptomatology. He denies any headaches currently and denies being short of breath, having abdominal pain or urinary complaint. PAST MEDICAL HISTORY: As noted above. CURRENT MEDICATIONS: Include prednisone 50 mg, Augmentin. ALLERGIES: None known. SOCIAL HISTORY: Denies smoking or substance abuse. Lives with a female significant other. Unclear as to any partner notification thus far. Denies recent travel. Born in [place] but living in the [facility] for many years. FAMILY HISTORY: Patient unable to provide. REVIEW OF SYSTEMS: Respiratory: Shortness of breath noted. Mild cough. No sputum or hemoptysis. Cardiac: No chest pain, palpitation, syncope. Gastrointestinal: No nausea, vomiting, diarrhea. Positive loss of appetite. Genitourinary: No dysuria, hematuria. PHYSICAL EXAMINATION: General: He was a thin, cachectic-appearing male who appeared alert and in no acute distress. Vital Signs: The temperature was 98.5, pulse 89, blood pressure 150/66, respirations 20. HEENT: The pupils were reactive to light and accommodation. Oropharynx without exudate or thrush. Neck: Supple without lymphadenopathy. Lungs: Clear to percussion and auscultation. Heart: S1, S2. Regular rhythm without audible murmur. Abdomen: Soft, nontender, without hepatosplenomegaly, guarding, or rebound. Extremities: Without clubbing, cyanosis, or edema. Neurologic: Cranial nerves intact. Grossly nonfocal examination. LABORATORY DATA: The white count is 6.0 with a hemoglobin of 10.3, hematocrit 32, platelets of 366. ABG dated March 03: 7.45, 31, PO2 of 218 on 100% oxygen. BUN 24, creatinine 1.4. Admitting glucose was 625. LDH of 524. Serology for hepatitis C negative. Core antibody pending. P24 antigen negative. Chest x-ray showing bilateral interstitial infiltrates. ASSESSMENT: A 66-year-old [facility] male presents with fever and hypoxemia in the setting of bilateral ground-glass infiltrates, anemia, elevated lactic acid dehydrogenase, and now finding of human immunodeficiency virus positivity, all of which consistent with acquired immune deficiency syndrome with opportunistic infection, Pneumocystis jiroveci strongly considered. Other opportunistic pulmonary infections also need to be considered, including disseminated Mycobacterium avium infection and Cytomegalovirus. I am concerned about his neurologic status as he appears quite confused. I do not know if this is a new finding and possibly related to steroids or if, in fact, he may have a component of human immunodeficiency virus dementia and/or an opportunistic central nervous system infection syphilis Cryptococcus and AIDS dementia. RECOMMENDATIONS: With regard to the workup, I would stop all antibacterials at this point as I do not think he has a "typical" bacterial HAP pneumonia. I will substitute Bactrim for presumed Pneumocystis pneumonia treatment and obtain workup to include HIV genotype, an HIV PCR RNA, blood cultures for acid-fast bacilli, quantitative interferon gold, RPR, CMV serology, head CT, cryptococcal antigen, and T-lymphocytes. He should not be discharged at this time and may need BAL should his infiltrates not improve. SHIMON POWELL M.D. [id number] MTDD
[2017-03-08] MEDS ORDERED: SULFAMETHOXAZOLE/TRIMETHOPRIM 320 MG in DEXTROSE 5%-WATER - 500 ML IVPB SCH (14:30)
[2017-03-08] MEDS ORDERED: AMOX TR/POT CLAV 875MG/125MG TABLETS (FP) PO SCH (17:30)
[2017-03-08] MEDS: SULFAMETHOXAZOLE/TRIMETHOPRIM 320 MG in DEXTROSE 5%-WATER - 500 ML IVPB SCH (17:51)
[2017-03-08] MEDS ORDERED: PT OWN MED DRAWER 7, Y5N ONE (23:33)
[2017-03-09] MEDS: SULFAMETHOXAZOLE/TRIMETHOPRIM 320 MG in DEXTROSE 5%-WATER - 500 ML IVPB SCH (01:22)
[2017-03-09] MEDS: INSULIN SLIDING SCALE (NOVOLOG) 1 VIAL SQ SCH ×4 (06:21→22:14)
--- NOTE | 2017-03-09 08:42 | PN ---
Progress Note, Physician Chief Complaint: ID Has no independent recollection of any of our conversation yesterday. Additional when I removed the O2 he started to gasp and his O2 sat dropped to 85% ! He does couph though nonproductive and appears comfortable on O2 Bactrim IVPB started and work up order. Clearly he is not ready to go home. - Current Medication List Current Medications: Active Medications Acetaminophen (Tylenol -) 650 mg PO Q6H PRN PRN Reason: FEVER OR PAIN Last Admin: 03/03/17 18:30 Dose: 650 mg Amlodipine Besylate (Norvasc -) 5 mg PO DAILY [facility] Last Admin: 03/08/17 10:32 Dose: 5 mg Guaifenesin (Robitussin -) 10 ml PO Q4H PRN Last Admin: 03/07/17 23:14 Dose: 10 ml Trimethoprim/Sulfamethoxazole (380 mg/ Dextrose) 523.75 mls @ 346.667 mls/hr IVPB Q8H-IV [facility] Insulin Aspart (Novolog Vial Sliding Scale -) 1 vial SQ ACHS [facility] PRN Reason: Protocol Last Admin: 03/09/17 06:21 Dose: 10 units Potassium Chloride (K-Dur -) 20 meq PO BID [facility] Prednisone (Deltasone -) 50 mg PO DAILY [facility] Last Admin: 03/08/17 10:33 Dose: 50 mg - Objective Vital Signs: Vital Signs Temperature 98.6 F 03/09/17 08:29 Pulse Rate 91 H 03/09/17 08:29 Respiratory Rate 26 H 03/09/17 08:29 Blood Pressure 150/91 03/09/17 08:29 O2 Sat by Pulse Oximetry (%) 93 L 03/08/17 21:00 Constitutional: Yes: Cachectic HENT: Yes: WNL, Atraumatic Neck: Yes: WNL, Supple. No: Lymphadenopathy Cardiovascular: Yes: Regular Rate and Rhythm, S1, S2 Respiratory: Yes: WNL, Regular, CTA Bilaterally Gastrointestinal: Yes: Soft. No: Tenderness Extremities: No: Cold, Cool, Cyanosis Edema: No Labs: CBC, BMP 03/07/17 13:30 Problem List - Problems (1) AIDS Code(s): B20 - HUMAN IMMUNODEFICIENCY VIRUS [HIV] DISEASE (2) Interstitial pneumonitis Code(s): J84.89 - OTHER SPECIFIED INTERSTITIAL PULMONARY DISEASES (3) Diabetes Code(s): E11.9 - TYPE 2 DIABETES MELLITUS WITHOUT COMPLICATIONS Assessment/Plan Laboratory Tests 03/07/17 03/08/17 03/08/17 13:30 06:30 14:25 WBC Hgb Hct Plt Count BUN 21 H Creatinine 1.1 D T-Lymphocyte CD4 T-Lymph CD4/CD8 Ratio RPR Titer Pending CMV IgG Ab CMV IgM Ab Hep B Core Ab Interpret Positive H HIV-1 RNA (PCR) HIV-1 RNA (PCR) log Beta-(1,3)-D-Glucan 03/08/17 03/08/17 03/08/17 14:25 14:25 14:46 WBC Pending Hgb Pending Hct Pending Plt Count Pending BUN Creatinine T-Lymphocyte CD4 Pending T-Lymph CD4/CD8 Ratio Pending RPR Titer CMV IgG Ab CMV IgM Ab Hep B Core Ab Interpret HIV-1 RNA (PCR) Pending HIV-1 RNA (PCR) log Pending Beta-(1,3)-D-Glucan Pending 03/08/17 14:46 WBC Hgb Hct Plt Count BUN Creatinine T-Lymphocyte CD4 T-Lymph CD4/CD8 Ratio RPR Titer CMV IgG Ab Pending CMV IgM Ab Pending Hep B Core Ab Interpret HIV-1 RNA (PCR) HIV-1 RNA (PCR) log Beta-(1,3)-D-Glucan Assessment Interstitial pneumonitis Suspect Pneumocystis AIDS also suspected given chest xray DM Altered mental status could be 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
[2017-03-09] MEDS: predniSONE 20 MG TABLET (UD) PO SCH (09:30)
[2017-03-09] MEDS: POTASSIUM CHLORIDE TABS 20 MEQ TABLET.ER (FP) PO SCH ×2 (09:30→22:14)
[2017-03-09] MEDS: amLODIPine BESYLATE 5 MG TABLET (FP) PO SCH (09:30)
--- NOTE | 2017-03-09 09:37 | PN ---
Progress Note, Physician Chief Complaint: Feels better History of Present Illness: Dr Reina,s ID consult appreciated On septra IV,other workups are in progress - Current Medication List Current Medications: Active Medications Acetaminophen (Tylenol -) 650 mg PO Q6H PRN PRN Reason: FEVER OR PAIN Last Admin: 03/03/17 18:30 Dose: 650 mg Amlodipine Besylate (Norvasc -) 5 mg PO DAILY [facility] Last Admin: 03/08/17 10:32 Dose: 5 mg Guaifenesin (Robitussin -) 10 ml PO Q4H PRN Last Admin: 03/07/17 23:14 Dose: 10 ml Insulin Aspart (Novolog Vial Sliding Scale -) 1 vial SQ ACHS [facility] PRN Reason: Protocol Last Admin: 03/09/17 06:21 Dose: 10 units Potassium Chloride (K-Dur -) 20 meq PO BID [facility] Prednisone (Deltasone -) 50 mg PO DAILY [facility] Last Admin: 03/08/17 10:33 Dose: 50 mg Trimethoprim/Sulfamethoxazole (Bactrim Injection -) 380 mg IVPB Q8H-IV [facility] - Objective Vital Signs: Vital Signs Temperature 98.6 F 03/09/17 08:29 Pulse Rate 91 H 03/09/17 08:29 Respiratory Rate 26 H 03/09/17 08:29 Blood Pressure 150/91 03/09/17 08:29 O2 Sat by Pulse Oximetry (%) 93 L 03/08/17 21:00 Constitutional: Yes: Calm Eyes: Yes: WNL HENT: Yes: WNL Neck: Yes: WNL Cardiovascular: Yes: WNL Respiratory: Yes: On Nasal O2, Poor Air Entry Gastrointestinal: Yes: Normal Bowel Sounds ...Rectal Exam: Yes: Deferred Genitourinary: Yes: WNL Breast(s): Yes: WNL Extremities: Yes: WNL Edema: No Peripheral Pulses WNL: Yes Labs: CBC, BMP 03/07/17 13:30 Assessment/Plan Continue same trt
[2017-03-09] MEDS ORDERED: WATER IVPB SCH (10:00)
[2017-03-09] MEDS ORDERED: SULFAMETHOXAZOLE IVPB SCH (10:00)
[2017-03-09] MEDS ORDERED: DEXTROSE 5% IVPB SCH (10:00)
[2017-03-09] MEDS ORDERED: TRIMETHOPRIM IVPB SCH (10:00)
[2017-03-09] MEDS: SULFAMETHOXAZOLE 80 MG/TRIMETHOPRIM 16 MG/ML VIAL IVPB SCH ×2 (10:14→17:49)
[2017-03-09] MEDS ORDERED: PT OWN MED DRAWER 7, Y5N ONE ×3 (10:34→17:47)
--- NOTE | 2017-03-09 12:20 | PN ---
Progress Note (short form) - Note Progress Note: PULMONARY AWAKE/ALERT/CONFUSED FAMILY PRESENT VSS/AFEBRILE ANICTERIC DIMINISHED BREATH SOUNDS BASES S1S2 BS+ NO EDEMA LABS/MEDS/MICRO/NOTES/IMAGING REVIEWED (1) Bilateral pneumonia Code(s): J18.9 - PNEUMONIA, UNSPECIFIED ORGANISM (2) Pneumonia Code(s): J18.9 - PNEUMONIA, UNSPECIFIED ORGANISM Qualifiers: Pneumonia type: due to unspecified organism Laterality: right Lung location: upper lobe of lung Qualified Code(s): J18.1 - Lobar pneumonia, unspecified organism (3) HIV POSITIVE (4) HEP B POSITIVE PLAN: ABX/ANTIVIRALS per ID Medrol tapered O2 to keep Sat greater than 90% VTE prophlaxis Repeat CXR/ ? Needs spinal tap recheck cbc/cmp/pt/inr Adalgisa HAQ MD
[2017-03-10] MEDS ORDERED: PT OWN MED DRAWER 7, Y5N ONE ×5 (01:42→20:26)
[2017-03-10] MEDS: SULFAMETHOXAZOLE 80 MG/TRIMETHOPRIM 16 MG/ML VIAL IVPB SCH ×3 (02:03→17:52)
[2017-03-10] MEDS: INSULIN SLIDING SCALE (NOVOLOG) 1 VIAL SQ SCH ×4 (06:01→22:59)
[2017-03-10 08:07] LABS: MCH 25.8 pg (25.7-33.7); MCHC 31.8 g/dl (32.0-35.9); MEAN PLT VOLUME 8.3 fl (7.5-11.1); PLATELET COUNT 376 K/MM3 (134-434); RDW 16.2 % (11.9-15.9); WHITE BLOOD COUNT 7.8 K/mm3 (4.0-10.0)
[2017-03-10 08:18] LABS: INR 1.28 (0.82-1.09); PROTHROMBIN TIME (PATIENT) 14.1 SEC (9.98-11.88)
[2017-03-10 08:29] LABS: ALBUMIN 1.9 g/dl (3.4-5.0); ALK PHOS 81 U/L (45-117); ANION GAP 11 (8-16); BILIRUBIN,TOTAL 0.3 mg/dL (0.2-1.0); CALCIUM 8.6 mg/dL (8.5-10.1); CO2 31 mmol/L (21-32); COCKROFT - GAULT 48.32; CREATININE 1.2 mg/dL (0.7-1.3); GLUCOSE,RANDOM 223 mg/dL (74-106); LDH 407 U/L (87-241); SGOT/AST 28 U/L (15-37); SGPT/ALT 34 U/L (12-78); TOT PROT 5.9 g/dl (6.4-8.2)
[2017-03-10] MEDS: amLODIPine BESYLATE 5 MG TABLET (FP) PO SCH (09:03)
[2017-03-10] MEDS: predniSONE 20 MG TABLET (UD) PO SCH (09:04)
[2017-03-10] MEDS: POTASSIUM CHLORIDE TABS 20 MEQ TABLET.ER (FP) PO SCH ×2 (09:04→22:56)
[2017-03-10 10:11] LABS: WHITE BLOOD COUNT 7.5 x10E3/uL (3.4-10.8)
[2017-03-10 10:18] LABS: HYPOCHROMIA 2+; PLATELET ESTIMATE ADEQUATE (NORMAL); POLYCHROMASIA 1+; TARGET CELLS 1+
--- NOTE | 2017-03-10 12:32 | PN ---
Progress Note (short form) - Note Progress Note: PULMONARY AWAKE/ALERT/LESS CONFUSED "[facility] [employer] [facility]" FAMILY PRESENT VSS/AFEBRILE ANICTERIC DIMINISHED BREATH SOUNDS BASES S1S2 BS+ NO EDEMA LABS/MEDS/MICRO/NOTES/IMAGING REVIEWED (1) Bilateral pneumonia Code(s): J18.9 - PNEUMONIA, UNSPECIFIED ORGANISM (2) Pneumonia Code(s): J18.9 - PNEUMONIA, UNSPECIFIED ORGANISM Qualifiers: Pneumonia type: due to unspecified organism Laterality: right Lung location: upper lobe of lung Qualified Code(s): J18.1 - Lobar pneumonia, unspecified organism (3) HIV POSITIVE (4) HEP B POSITIVE PLAN: ABX/ per ID/covering for pcp, high LDH/low albumin Medrol changed to prednisone O2 to keep Sat greater than 90% VTE prophlaxis Repeat CXR/ R EUN MIJARES
--- NOTE | 2017-03-10 12:51 | PN ---
Progress Note, Physician Chief Complaint: Feels better History of Present Illness: HIV ,pneumonia on IV septra - Current Medication List Current Medications: Active Medications Acetaminophen (Tylenol -) 650 mg PO Q6H PRN PRN Reason: FEVER OR PAIN Last Admin: 03/03/17 18:30 Dose: 650 mg Amlodipine Besylate (Norvasc -) 5 mg PO DAILY [facility] Last Admin: 03/10/17 09:03 Dose: 5 mg Guaifenesin (Robitussin -) 10 ml PO Q4H PRN Last Admin: 03/07/17 23:14 Dose: 10 ml Insulin Aspart (Novolog Vial Sliding Scale -) 1 vial SQ ACHS [facility] PRN Reason: Protocol Last Admin: 03/10/17 11:56 Dose: 15 units Potassium Chloride (K-Dur -) 20 meq PO BID [facility] Last Admin: 03/10/17 09:04 Dose: 20 meq Prednisone (Deltasone -) 50 mg PO DAILY [facility] Last Admin: 03/10/17 09:04 Dose: 50 mg Trimethoprim/Sulfamethoxazole (Bactrim Injection -) 380 mg IVPB Q8H-IV [facility] Last Admin: 03/10/17 09:03 Dose: 380 mg - Objective Vital Signs: Vital Signs Temperature 98.5 F 03/10/17 09:00 Pulse Rate 85 03/10/17 09:00 Respiratory Rate 20 03/10/17 09:00 Blood Pressure 114/73 03/10/17 09:00 O2 Sat by Pulse Oximetry (%) 94 L 03/10/17 09:00 Constitutional: Yes: No Distress Eyes: Yes: WNL HENT: Yes: WNL Neck: Yes: WNL Cardiovascular: Yes: WNL Respiratory: Yes: Poor Air Entry Gastrointestinal: Yes: Normal Bowel Sounds ...Rectal Exam: Yes: Deferred Genitourinary: Yes: WNL Breast(s): Yes: WNL Musculoskeletal: Yes: WNL Extremities: Yes: WNL Peripheral Pulses WNL: Yes Labs: CBC, BMP 03/10/17 06:30 03/10/17 06:30 INR, PTT INR 1.28 (0.82-1.09) H 03/10/17 06:30 Assessment/Plan continue same trt
--- NOTE | 2017-03-10 16:55 | PN ---
Progress Note, Physician History of Present Illness: Awake, alert OOB in chair Appears comfortable at rest on nasal cannula No c/o dyspnea/ chest pain No fever/ chills - Current Medication List Current Medications: Active Medications Acetaminophen (Tylenol -) 650 mg PO Q6H PRN PRN Reason: FEVER OR PAIN Last Admin: 03/03/17 18:30 Dose: 650 mg Amlodipine Besylate (Norvasc -) 5 mg PO DAILY [facility] Last Admin: 03/10/17 09:03 Dose: 5 mg Guaifenesin (Robitussin -) 10 ml PO Q4H PRN Last Admin: 03/07/17 23:14 Dose: 10 ml Insulin Aspart (Novolog Vial Sliding Scale -) 1 vial SQ ACHS [facility] PRN Reason: Protocol Last Admin: 03/10/17 11:56 Dose: 15 units Potassium Chloride (K-Dur -) 20 meq PO BID [facility] Last Admin: 03/10/17 09:04 Dose: 20 meq Prednisone (Deltasone -) 50 mg PO DAILY [facility] Last Admin: 03/10/17 09:04 Dose: 50 mg Trimethoprim/Sulfamethoxazole (Bactrim Injection -) 380 mg IVPB Q8H-IV [facility] Last Admin: 03/10/17 09:03 Dose: 380 mg - Objective Vital Signs: Vital Signs Temperature 98.5 F 03/10/17 09:00 Pulse Rate 85 03/10/17 09:00 Respiratory Rate 20 03/10/17 09:00 Blood Pressure 114/73 03/10/17 09:00 O2 Sat by Pulse Oximetry (%) 94 L 03/10/17 09:00 Constitutional: Yes: No Distress Eyes: Yes: Conjunctiva Clear Cardiovascular: Yes: Regular Rate and Rhythm, S1, S2 Respiratory: Yes: CTA Bilaterally Gastrointestinal: Yes: Normal Bowel Sounds, Soft. No: Tenderness Labs: CBC, BMP 03/10/17 06:30 03/10/17 06:30 INR, PTT INR 1.28 (0.82-1.09) H 03/10/17 06:30 Assessment/Plan Bilateral pneumonia, possible PCP HIV Possible AIDS Continue Bactrim, steroids CD4 pending
[2017-03-11] MEDS: SULFAMETHOXAZOLE 80 MG/TRIMETHOPRIM 16 MG/ML VIAL IVPB SCH ×3 (01:43→17:02)
[2017-03-11] MEDS: INSULIN SLIDING SCALE (NOVOLOG) 1 VIAL SQ SCH ×4 (06:41→21:03)
[2017-03-11] MEDS ORDERED: PT OWN MED DRAWER 7, Y5N ONE ×3 (09:26→18:11)
[2017-03-11] MEDS: predniSONE 20 MG TABLET (UD) PO SCH (09:32)
[2017-03-11] MEDS: POTASSIUM CHLORIDE TABS 20 MEQ TABLET.ER (FP) PO SCH ×2 (09:33→21:02)
[2017-03-11] MEDS: amLODIPine BESYLATE 5 MG TABLET (FP) PO SCH (09:33)
--- NOTE | 2017-03-11 10:51 | PN ---
Progress Note (short form) - Note Progress Note: PULMONARY AWAKE/ALERT/NO LONGER CONFUSED FAMILY PRESENT VSS/AFEBRILE ANICTERIC DIMINISHED BREATH SOUNDS BASES S1S2 BS+ NO EDEMA LABS/MEDS/MICRO/NOTES/IMAGING REVIEWED (1) Bilateral pneumonia Code(s): J18.9 - PNEUMONIA, UNSPECIFIED ORGANISM (2) Pneumonia Code(s): J18.9 - PNEUMONIA, UNSPECIFIED ORGANISM Qualifiers: Pneumonia type: due to unspecified organism Laterality: right Lung location: upper lobe of lung Qualified Code(s): J18.1 - Lobar pneumonia, unspecified organism (3) HIV POSITIVE (4) HEP B POSITIVE PLAN: ABX/ per ID/covering for pcp, high LDH/low albumin Medrol changed to prednisone O2 to keep Sat greater than 90% VTE prophlaxis Repeat CXR/ R EUN MIJARES
--- NOTE | 2017-03-11 12:56 | PN ---
Progress Note, Physician History of Present Illness: Supine in bed Mildly dyspneic at rest on nasal cannula Spouse reports he becomes markedly dyspneic with ambulation No c/o fever/ chills - Current Medication List Current Medications: Active Medications Acetaminophen (Tylenol -) 650 mg PO Q6H PRN PRN Reason: FEVER OR PAIN Last Admin: 03/03/17 18:30 Dose: 650 mg Amlodipine Besylate (Norvasc -) 5 mg PO DAILY [facility] Last Admin: 03/11/17 09:33 Dose: 5 mg Guaifenesin (Robitussin -) 10 ml PO Q4H PRN Last Admin: 03/07/17 23:14 Dose: 10 ml Insulin Aspart (Novolog Vial Sliding Scale -) 1 vial SQ ACHS [facility] PRN Reason: Protocol Last Admin: 03/11/17 12:35 Dose: 15 units Potassium Chloride (K-Dur -) 20 meq PO BID [facility] Last Admin: 03/11/17 09:33 Dose: 20 meq Prednisone (Deltasone -) 50 mg PO DAILY [facility] Last Admin: 03/11/17 09:32 Dose: 50 mg Trimethoprim/Sulfamethoxazole (Bactrim Injection -) 380 mg IVPB Q8H-IV [facility] Last Admin: 03/11/17 09:32 Dose: 380 mg - Objective Vital Signs: Vital Signs Temperature 98.7 F 03/11/17 09:00 Pulse Rate 90 03/11/17 11:02 Respiratory Rate 20 03/11/17 09:00 Blood Pressure 161/84 03/11/17 09:00 O2 Sat by Pulse Oximetry (%) 92 L 03/11/17 11:02 Constitutional: Yes: No Distress Eyes: Yes: Conjunctiva Clear Cardiovascular: Yes: Regular Rate and Rhythm, S1, S2 Respiratory: Yes: Diminished Gastrointestinal: Yes: Normal Bowel Sounds, Soft. No: Tenderness Edema: No Labs: CBC, BMP 03/10/17 06:30 03/10/17 06:30 INR, PTT INR 1.28 (0.82-1.09) H 03/10/17 06:30 Assessment/Plan Bilateral pneumonia, possible PCP HIV Possible AIDS Continue Bactrim, steroids CD4 pending
--- NOTE | 2017-03-11 15:11 | PN ---
Progress Note, Physician Chief Complaint: Feels better History of Present Illness: Pneumonia ,HIV ,AIDS - Current Medication List Current Medications: Active Medications Acetaminophen (Tylenol -) 650 mg PO Q6H PRN PRN Reason: FEVER OR PAIN Last Admin: 03/03/17 18:30 Dose: 650 mg Amlodipine Besylate (Norvasc -) 5 mg PO DAILY [facility] Last Admin: 03/11/17 09:33 Dose: 5 mg Guaifenesin (Robitussin -) 10 ml PO Q4H PRN Last Admin: 03/07/17 23:14 Dose: 10 ml Insulin Aspart (Novolog Vial Sliding Scale -) 1 vial SQ ACHS [facility] PRN Reason: Protocol Last Admin: 03/11/17 12:35 Dose: 15 units Potassium Chloride (K-Dur -) 20 meq PO BID [facility] Last Admin: 03/11/17 09:33 Dose: 20 meq Prednisone (Deltasone -) 50 mg PO DAILY [facility] Last Admin: 03/11/17 09:32 Dose: 50 mg Trimethoprim/Sulfamethoxazole (Bactrim Injection -) 380 mg IVPB Q8H-IV [facility] Last Admin: 03/11/17 09:32 Dose: 380 mg - Objective Vital Signs: Vital Signs Temperature 98.7 F 03/11/17 09:00 Pulse Rate 90 03/11/17 11:02 Respiratory Rate 20 03/11/17 09:00 Blood Pressure 161/84 03/11/17 09:00 O2 Sat by Pulse Oximetry (%) 92 L 03/11/17 11:02 Constitutional: Yes: Mild Distress Eyes: Yes: WNL HENT: Yes: WNL Cardiovascular: Yes: Regular Rate and Rhythm Respiratory: Yes: On Nasal O2, SOB on Exertion Gastrointestinal: Yes: Normal Bowel Sounds ...Rectal Exam: Yes: Deferred Genitourinary: Yes: WNL Musculoskeletal: Yes: Muscle Weakness Neurological: Yes: Alert Labs: CBC, BMP 03/10/17 06:30 03/10/17 06:30 INR, PTT INR 1.28 (0.82-1.09) H 03/10/17 06:30 Assessment/Plan Continue same trt
[2017-03-11] MEDS ORDERED: INSULIN (NOVOLOG) ASPART 100 UNITS/ML 10ML VIAL ONE (20:59)
[2017-03-12] MEDS: SULFAMETHOXAZOLE 80 MG/TRIMETHOPRIM 16 MG/ML VIAL IVPB SCH ×3 (01:10→17:29)
[2017-03-12] MEDS: INSULIN SLIDING SCALE (NOVOLOG) 1 VIAL SQ SCH ×4 (06:08→21:31)
[2017-03-12] MEDS ORDERED: PT OWN MED DRAWER 7, Y5N ONE ×2 (09:52→17:24)
--- NOTE | 2017-03-12 09:52 | PN ---
Progress Note, Physician Chief Complaint: Had SOB ,feels better now History of Present Illness: HIV and PCP on IV septra - Current Medication List Current Medications: Active Medications Acetaminophen (Tylenol -) 650 mg PO Q6H PRN PRN Reason: FEVER OR PAIN Last Admin: 03/03/17 18:30 Dose: 650 mg Amlodipine Besylate (Norvasc -) 5 mg PO DAILY [facility] Last Admin: 03/11/17 09:33 Dose: 5 mg Guaifenesin (Robitussin -) 10 ml PO Q4H PRN Last Admin: 03/07/17 23:14 Dose: 10 ml Insulin Aspart (Novolog Vial Sliding Scale -) 1 vial SQ ACHS [facility] PRN Reason: Protocol Last Admin: 03/12/17 06:08 Dose: Not Given Potassium Chloride (K-Dur -) 20 meq PO BID [facility] Last Admin: 03/11/17 21:02 Dose: 20 meq Prednisone (Deltasone -) 50 mg PO DAILY [facility] Last Admin: 03/11/17 09:32 Dose: 50 mg Trimethoprim/Sulfamethoxazole (Bactrim Injection -) 380 mg IVPB Q8H-IV [facility] Last Admin: 03/12/17 01:10 Dose: 380 mg - Objective Vital Signs: Vital Signs Temperature 98.9 F 03/12/17 06:21 Pulse Rate 82 03/12/17 06:21 Respiratory Rate 20 03/12/17 06:21 Blood Pressure 129/79 03/12/17 06:21 O2 Sat by Pulse Oximetry (%) 92 L 03/11/17 21:00 Constitutional: Yes: Mild Distress Eyes: Yes: WNL HENT: Yes: WNL Neck: Yes: WNL Respiratory: Yes: On Nasal O2, Poor Air Entry, SOB on Exertion Gastrointestinal: Yes: Normal Bowel Sounds ...Rectal Exam: Yes: Deferred Genitourinary: Yes: WNL Edema: No Peripheral Pulses WNL: Yes Neurological: Yes: Alert Psychiatric: Yes: Alert Labs: CBC, BMP 03/10/17 06:30 03/10/17 06:30 INR, PTT INR 1.28 (0.82-1.09) H 03/10/17 06:30 Assessment/Plan Continue same Trt
[2017-03-12] MEDS: predniSONE 20 MG TABLET (UD) PO SCH (09:57)
[2017-03-12] MEDS: POTASSIUM CHLORIDE TABS 20 MEQ TABLET.ER (FP) PO SCH ×2 (10:00→21:31)
[2017-03-12] MEDS: amLODIPine BESYLATE 5 MG TABLET (FP) PO SCH (10:00)
[2017-03-12] MEDS ORDERED: ALBUTEROL SO4 6.7 GM HFA INHALER IH PRN (10:01)
--- NOTE | 2017-03-12 10:50 | PN ---
Progress Note (short form) - Note Progress Note: PULMONARY Remains short of breath but improving daily. Only saturating 83% on 5L nasal cannula. +nonproductive cough. Last Vital Signs Temp Pulse Resp BP Pulse Ox 98.9 F 82 20 129/79 92 L 03/12/17 06:21 03/12/17 06:21 03/12/17 06:21 03/12/17 06:21 03/11/17 21:00 Gen: mildly tachypneic at rest Heart: RRR Lung: scattered rales Abd: soft, nontender Ext: no edema CBC, BMP 03/10/17 06:30 03/10/17 06:30 Active Medications Acetaminophen (Tylenol -) 650 mg PO Q6H PRN PRN Reason: FEVER OR PAIN Last Admin: 03/03/17 18:30 Dose: 650 mg Albuterol Sulfate (Ventolin Hfa Inhaler -) 2 puff IH Q4H PRN PRN Reason: SHORT OF BREATH/WHEEZING Amlodipine Besylate (Norvasc -) 5 mg PO DAILY [facility] Last Admin: 03/12/17 10:00 Dose: 5 mg Guaifenesin (Robitussin -) 10 ml PO Q4H PRN Last Admin: 03/07/17 23:14 Dose: 10 ml Insulin Aspart (Novolog Vial Sliding Scale -) 1 vial SQ ACHS [facility] PRN Reason: Protocol Last Admin: 03/12/17 06:08 Dose: Not Given Potassium Chloride (K-Dur -) 20 meq PO BID [facility] Last Admin: 03/12/17 10:00 Dose: 20 meq Prednisone (Deltasone -) 50 mg PO DAILY [facility] Last Admin: 03/12/17 09:57 Dose: 50 mg Trimethoprim/Sulfamethoxazole (Bactrim Injection -) 380 mg IVPB Q8H-IV [facility] Last Admin: 03/12/17 10:13 Dose: 380 mg A/P Pneumonia HIV r/o PCP - continue antibiotics - f/u CD4 count - prednisone at currrent dose - inhaled bronchodilators as needed - O2 to keep SpO2 >90%, will order ventimask - DVT prophylaxis
--- NOTE | 2017-03-12 14:29 | PN ---
Progress Note, Physician Chief Complaint: ID Dyspneic on ventimask though sat 100% Looks in distress Confused - Current Medication List Current Medications: Active Medications Acetaminophen (Tylenol -) 650 mg PO Q6H PRN PRN Reason: FEVER OR PAIN Last Admin: 03/03/17 18:30 Dose: 650 mg Albuterol Sulfate (Ventolin Hfa Inhaler -) 2 puff IH Q4H PRN PRN Reason: SHORT OF BREATH/WHEEZING Amlodipine Besylate (Norvasc -) 5 mg PO DAILY [facility] Last Admin: 03/12/17 10:00 Dose: 5 mg Guaifenesin (Robitussin -) 10 ml PO Q4H PRN Last Admin: 03/07/17 23:14 Dose: 10 ml Insulin Aspart (Novolog Vial Sliding Scale -) 1 vial SQ ACHS [facility] PRN Reason: Protocol Last Admin: 03/12/17 11:39 Dose: 15 units Potassium Chloride (K-Dur -) 20 meq PO BID [facility] Last Admin: 03/12/17 10:00 Dose: 20 meq Prednisone (Deltasone -) 50 mg PO DAILY [facility] Last Admin: 03/12/17 09:57 Dose: 50 mg Trimethoprim/Sulfamethoxazole (Bactrim Injection -) 380 mg IVPB Q8H-IV [facility] Last Admin: 03/12/17 10:13 Dose: 380 mg - Objective Vital Signs: Vital Signs Temperature 98.3 F 03/12/17 08:30 Pulse Rate 81 03/12/17 08:30 Respiratory Rate 25 H 03/12/17 08:30 Blood Pressure 139/79 03/12/17 08:30 O2 Sat by Pulse Oximetry (%) 95 03/12/17 09:00 Constitutional: Yes: Moderate Distress HENT: Yes: Other (Ventimask) Neck: Yes: Supple Cardiovascular: Yes: Regular Rate and Rhythm, S1, S2 Respiratory: Yes: Rhonchi Gastrointestinal: Yes: Soft. No: Tenderness Edema: No Labs: CBC, BMP 03/10/17 06:30 03/10/17 06:30 INR, PTT INR 1.28 (0.82-1.09) H 03/10/17 06:30 Problem List - Problems (1) AIDS Code(s): B20 - HUMAN IMMUNODEFICIENCY VIRUS [HIV] DISEASE (2) Interstitial pneumonitis Code(s): J84.89 - OTHER SPECIFIED INTERSTITIAL PULMONARY DISEASES (3) Diabetes Code(s): E11.9 - TYPE 2 DIABETES MELLITUS WITHOUT COMPLICATIONS Assessment/Plan Microbiology 03/08/17 14:25 Serum Cryptococcal Antigen - Preliminary Laboratory Tests 03/08/17 03/08/17 03/08/17 14:25 14:25 14:46 Absolute CD4 [place] TNP CD4/CD8 Ratio TNP CMV IgG Ab CMV IgM Ab HIV-1 RNA (PCR) Pending Toxoplasma IgG Ab Toxoplasma Comment Beta-(1,3)-D-Glucan Pending 03/08/17 03/10/17 14:46 06:30 Absolute CD4 [place] CD4/CD8 Ratio CMV IgG Ab 1.30 H CMV IgM Ab < 30.0 HIV-1 RNA (PCR) Toxoplasma IgG Ab Pending Toxoplasma Comment Pending Beta-(1,3)-D-Glucan Assessment Suspect AIDS with interstitial pneumonitis ? PCJ Altered mental status ? steroids Plan Labs pending CBC CMP Dr Alatorre to see again re ICU transfer Chest xray IV steroids
[2017-03-12] MEDS: methylPREDNISolone NA SUCC 40 MG/1 ML VIAL IVPB SCH (16:18)
[2017-03-13] MEDS ORDERED: PT OWN MED DRAWER 7, Y5N ONE ×3 (02:34→17:59)
[2017-03-13] MEDS: methylPREDNISolone NA SUCC 40 MG/1 ML VIAL IVPB SCH ×2 (02:40→16:28)
[2017-03-13] MEDS: SULFAMETHOXAZOLE 80 MG/TRIMETHOPRIM 16 MG/ML VIAL IVPB SCH ×3 (02:40→18:08)
[2017-03-13 06:10] LABS: TOXOPLASMA IG-M QUANTITATIVE < 3.0 AU/mL (0.0-7.9); TOXOPLASMA IGG QUANTITATIVE < 3.0 IU/mL (0.0-7.1)
[2017-03-13] MEDS: INSULIN SLIDING SCALE (NOVOLOG) 1 VIAL SQ SCH ×4 (06:19→22:20)
[2017-03-13 07:49] LABS: ANION GAP 12 (8-16); CALCIUM 8.7 mg/dL (8.5-10.1); CO2 24 mmol/L (21-32); COCKROFT - GAULT 48.47; CREATININE 1.2 mg/dL (0.7-1.3); GLUCOSE,RANDOM 123 mg/dL (74-106); SGOT/AST 27 U/L (15-37); SGPT/ALT 34 U/L (12-78)
[2017-03-13 07:51] LABS: ALK PHOS 88 U/L (45-117); BILIRUBIN,TOTAL 0.3 mg/dL (0.2-1.0); TOT PROT 5.5 g/dl (6.4-8.2)
--- NOTE | 2017-03-13 09:52 | PN ---
Progress Note, Physician Chief Complaint: SOB persists - Current Medication List Current Medications: Active Medications Acetaminophen (Tylenol -) 650 mg PO Q6H PRN PRN Reason: FEVER OR PAIN Last Admin: 03/03/17 18:30 Dose: 650 mg Albuterol Sulfate (Ventolin Hfa Inhaler -) 2 puff IH Q4H PRN PRN Reason: SHORT OF BREATH/WHEEZING Amlodipine Besylate (Norvasc -) 5 mg PO DAILY [facility] Last Admin: 03/12/17 10:00 Dose: 5 mg Guaifenesin (Robitussin -) 10 ml PO Q4H PRN Last Admin: 03/07/17 23:14 Dose: 10 ml Insulin Aspart (Novolog Vial Sliding Scale -) 1 vial SQ ACHS [facility] PRN Reason: Protocol Last Admin: 03/13/17 06:19 Dose: Not Given Methylprednisolone Sodium Succinate (Solu-Medrol -) 40 mg IVPB Q12H [facility] Last Admin: 03/13/17 02:40 Dose: 40 mg Trimethoprim/Sulfamethoxazole (Bactrim Injection -) 380 mg IVPB Q8H-IV [facility] Last Admin: 03/13/17 02:40 Dose: 380 mg - Objective Vital Signs: Vital Signs Temperature 97.8 F 03/13/17 05:57 Pulse Rate 82 03/13/17 05:57 Respiratory Rate 18 03/13/17 05:57 Blood Pressure 129/72 03/13/17 05:57 O2 Sat by Pulse Oximetry (%) 93 L 03/12/17 21:00 Constitutional: Yes: Moderate Distress Eyes: Yes: WNL HENT: Yes: WNL Neck: Yes: WNL Cardiovascular: Yes: WNL Respiratory: Yes: On Venti-Mask Gastrointestinal: Yes: WNL ...Rectal Exam: Yes: Deferred Genitourinary: Yes: WNL Neurological: Yes: Alert Labs: CBC, BMP 03/10/17 06:30 03/13/17 06:30 INR, PTT INR 1.28 (0.82-1.09) H 03/10/17 06:30 Assessment/Plan To be discussed with ID
[2017-03-13] MEDS: amLODIPine BESYLATE 5 MG TABLET (FP) PO SCH (10:14)
--- NOTE | 2017-03-13 10:32 | PN ---
Progress Note (short form) - Note Progress Note: PULMONARY Remains short of breath. Saturating 90% on 50% ventimask. +nonproductive cough. No fevers or chills. Increased steroids yesterday. Last Vital Signs Temp Pulse Resp BP Pulse Ox 98.4 F 90 30 H 122/67 93 L 03/13/17 10:00 03/13/17 10:00 03/13/17 10:00 03/13/17 10:00 03/12/17 21:00 Gen: tachypneic at rest Heart: RRR Lung: scattered rales Abd: soft, nontender Ext: no edema CBC, BMP 03/10/17 06:30 03/13/17 06:30 Active Medications Acetaminophen (Tylenol -) 650 mg PO Q6H PRN PRN Reason: FEVER OR PAIN Last Admin: 03/03/17 18:30 Dose: 650 mg Albuterol Sulfate (Ventolin Hfa Inhaler -) 2 puff IH Q4H PRN PRN Reason: SHORT OF BREATH/WHEEZING Amlodipine Besylate (Norvasc -) 5 mg PO DAILY [facility] Last Admin: 03/13/17 10:14 Dose: 5 mg Guaifenesin (Robitussin -) 10 ml PO Q4H PRN Last Admin: 03/07/17 23:14 Dose: 10 ml Insulin Aspart (Novolog Vial Sliding Scale -) 1 vial SQ ACHS [facility] PRN Reason: Protocol Last Admin: 03/13/17 06:19 Dose: Not Given Methylprednisolone Sodium Succinate (Solu-Medrol -) 40 mg IVPB Q12H [facility] Last Admin: 03/13/17 02:40 Dose: 40 mg Trimethoprim/Sulfamethoxazole (Bactrim Injection -) 380 mg IVPB Q8H-IV [facility] Last Admin: 03/13/17 02:40 Dose: 380 mg A/P Acute Hypoxic Respiratory Failure Pneumonia r/o Pneumocystis HIV - continue antibiotics - f/u CD4 count - continue medrol at current dose - inhaled bronchodilators as needed - O2 to keep SpO2 >90% - DVT prophylaxis - low threshold for ICU monitoring if respiratory status deteriorates
--- NOTE | 2017-03-13 14:14 | PN ---
Progress Note, Physician History of Present Illness: Awake, alert Answers questions appropriately Offers no complaints Appears comfortable at rest on nasal cannula but becomes markedly dyspneic with minimal exertion - Current Medication List Current Medications: Active Medications Acetaminophen (Tylenol -) 650 mg PO Q6H PRN PRN Reason: FEVER OR PAIN Last Admin: 03/03/17 18:30 Dose: 650 mg Albuterol Sulfate (Ventolin Hfa Inhaler -) 2 puff IH Q4H PRN PRN Reason: SHORT OF BREATH/WHEEZING Amlodipine Besylate (Norvasc -) 5 mg PO DAILY [facility] Last Admin: 03/13/17 10:14 Dose: 5 mg Guaifenesin (Robitussin -) 10 ml PO Q4H PRN Last Admin: 03/07/17 23:14 Dose: 10 ml Insulin Aspart (Novolog Vial Sliding Scale -) 1 vial SQ ACHS [facility] PRN Reason: Protocol Last Admin: 03/13/17 11:59 Dose: 15 units Methylprednisolone Sodium Succinate (Solu-Medrol -) 40 mg IVPB Q12H [facility] Last Admin: 03/13/17 02:40 Dose: 40 mg Trimethoprim/Sulfamethoxazole (Bactrim Injection -) 380 mg IVPB Q8H-IV [facility] Last Admin: 03/13/17 11:18 Dose: 380 mg - Objective Vital Signs: Vital Signs Temperature 98.4 F 03/13/17 10:00 Pulse Rate 90 03/13/17 10:00 Respiratory Rate 30 H 03/13/17 10:00 Blood Pressure 122/67 03/13/17 10:00 O2 Sat by Pulse Oximetry (%) 98 03/13/17 09:00 Constitutional: Yes: No Distress Eyes: Yes: Conjunctiva Clear Cardiovascular: Yes: Regular Rate and Rhythm, S1, S2 Respiratory: Yes: Diminished Gastrointestinal: Yes: Normal Bowel Sounds, Soft. No: Tenderness Edema: No Labs: CBC, BMP 03/10/17 06:30 03/13/17 06:30 INR, PTT INR 1.28 (0.82-1.09) H 03/10/17 06:30 Assessment/Plan Bilateral pneumonia, possible PCP HIV Possible AIDS Continue Bactrim, steroids CD4 pending
[2017-03-14] MEDS ORDERED: PT OWN MED DRAWER 7, Y5N ONE ×3 (00:13→17:06)
[2017-03-14] MEDS: SULFAMETHOXAZOLE 80 MG/TRIMETHOPRIM 16 MG/ML VIAL IVPB SCH ×3 (01:11→17:14)
[2017-03-14] MEDS: methylPREDNISolone NA SUCC 40 MG/1 ML VIAL IVPB SCH ×2 (01:57→14:42)
[2017-03-14] MEDS: INSULIN SLIDING SCALE (NOVOLOG) 1 VIAL SQ SCH ×4 (06:21→22:58)
--- NOTE | 2017-03-14 08:35 | PN ---
Progress Note, Physician Chief Complaint: ID Dyspneic and still confused and paranoid Bactrim with steroids - Current Medication List Current Medications: Active Medications Acetaminophen (Tylenol -) 650 mg PO Q6H PRN PRN Reason: FEVER OR PAIN Last Admin: 03/03/17 18:30 Dose: 650 mg Albuterol Sulfate (Ventolin Hfa Inhaler -) 2 puff IH Q4H PRN PRN Reason: SHORT OF BREATH/WHEEZING Amlodipine Besylate (Norvasc -) 5 mg PO DAILY [facility] Last Admin: 03/13/17 10:14 Dose: 5 mg Guaifenesin (Robitussin -) 10 ml PO Q4H PRN Last Admin: 03/07/17 23:14 Dose: 10 ml Insulin Aspart (Novolog Vial Sliding Scale -) 1 vial SQ ACHS [facility] PRN Reason: Protocol Last Admin: 03/14/17 06:21 Dose: Not Given Methylprednisolone Sodium Succinate (Solu-Medrol -) 40 mg IVPB Q12H [facility] Last Admin: 03/14/17 01:57 Dose: 40 mg Trimethoprim/Sulfamethoxazole (Bactrim Injection -) 380 mg IVPB Q8H-IV [facility] Last Admin: 03/14/17 01:11 Dose: 380 mg - Objective Vital Signs: Vital Signs Temperature 97.8 F 03/14/17 06:07 Pulse Rate 81 03/14/17 06:07 Respiratory Rate 20 03/14/17 06:07 Blood Pressure 136/77 03/14/17 06:07 O2 Sat by Pulse Oximetry (%) 95 03/13/17 21:00 Constitutional: Yes: Moderate Distress HENT: Yes: WNL, Atraumatic Neck: Yes: WNL, Supple Cardiovascular: Yes: Regular Rate and Rhythm, S1, S2 Respiratory: Yes: WNL, Regular, CTA Bilaterally, Diminished. No: Rhonchi Gastrointestinal: Yes: WNL, Normal Bowel Sounds, Soft. No: Tenderness Edema: No Labs: CBC, BMP 03/10/17 06:30 03/13/17 06:30 INR, PTT INR 1.28 (0.82-1.09) H 03/10/17 06:30 Problem List - Problems (1) AIDS Code(s): B20 - HUMAN IMMUNODEFICIENCY VIRUS [HIV] DISEASE (2) Interstitial pneumonitis Code(s): J84.89 - OTHER SPECIFIED INTERSTITIAL PULMONARY DISEASES (3) Diabetes Code(s): E11.9 - TYPE 2 DIABETES MELLITUS WITHOUT COMPLICATIONS Assessment/Plan Laboratory Tests 03/08/17 03/08/17 03/08/17 14:25 14:25 14:46 BUN Creatinine AST ALT Alkaline Phosphatase Absolute CD4 [place] TNP RPR Titer Nonreactive CMV IgG Ab CMV IgM Ab HIV-1 RNA (PCR) Toxoplasma IgG Ab Beta-(1,3)-D-Glucan Pending 03/08/17 03/08/17 03/10/17 14:46 14:46 06:30 BUN Creatinine AST ALT Alkaline Phosphatase Absolute CD4 [place] RPR Titer CMV IgG Ab 1.30 H CMV IgM Ab < 30.0 HIV-1 RNA (PCR) [id number] Toxoplasma IgG Ab < 3.0 Beta-(1,3)-D-Glucan 03/13/17 06:30 BUN 20 H D Creatinine 1.2 AST 27 ALT 34 Alkaline Phosphatase 88 Absolute CD4 [place] RPR Titer CMV IgG Ab CMV IgM Ab HIV-1 RNA (PCR) Toxoplasma IgG Ab Beta-(1,3)-D-Glucan Assessment Interstitial pneumonitis possible PCP as part of AIDS T cells pending ? Coinfection CMV Plan CMV quantitiative PCR T cells pending Opthomology evaluation retinitis Continue Bactrim steroids Consideration of open lung biopsy if no improvement Nuno MIJARES
[2017-03-14] MEDS: amLODIPine BESYLATE 5 MG TABLET (FP) PO SCH (09:19)
--- NOTE | 2017-03-14 09:26 | PN ---
Progress Note (short form) - Note Progress Note: PULMONARY AWAKE/ALERT/ANOREXIC SIGNIFICANT OTHER PRESENT I DISCUSSED THE HIV POSITIVITY WITH HER AND THE NEED FOR TESTING VSS/AFEBRILE ANICTERIC DIMINISHED BREATH SOUNDS BASES S1S2 BS+ NO EDEMA LABS/MEDS/MICRO/NOTES/IMAGING REVIEWED (1) Bilateral pneumonia Code(s): J18.9 - PNEUMONIA, UNSPECIFIED ORGANISM (2) Pneumonia Code(s): J18.9 - PNEUMONIA, UNSPECIFIED ORGANISM Qualifiers: Pneumonia type: due to unspecified organism Laterality: right Lung location: upper lobe of lung Qualified Code(s): J18.1 - Lobar pneumonia, unspecified organism (3) HIV POSITIVE (4) HEP B POSITIVE PLAN: ABX/ per ID/covering for pcp, Optho eval to r/o cmv retinitis Medrol changed to prednisone O2 to keep Sat greater than 90% VTE prophlaxis Repeat imaging studies Adalgisa HAQ MD
--- NOTE | 2017-03-14 09:31 | PN ---
Progress Note, Physician Chief Complaint: SOB persists History of Present Illness: PCP pneumonia on IV bactrium - Current Medication List Current Medications: Active Medications Acetaminophen (Tylenol -) 650 mg PO Q6H PRN PRN Reason: FEVER OR PAIN Last Admin: 03/03/17 18:30 Dose: 650 mg Albuterol Sulfate (Ventolin Hfa Inhaler -) 2 puff IH Q4H PRN PRN Reason: SHORT OF BREATH/WHEEZING Amlodipine Besylate (Norvasc -) 5 mg PO DAILY [facility] Last Admin: 03/14/17 09:19 Dose: 5 mg Guaifenesin (Robitussin -) 10 ml PO Q4H PRN Last Admin: 03/07/17 23:14 Dose: 10 ml Insulin Aspart (Novolog Vial Sliding Scale -) 1 vial SQ ACHS [facility] PRN Reason: Protocol Last Admin: 03/14/17 06:21 Dose: Not Given Methylprednisolone Sodium Succinate (Solu-Medrol -) 40 mg IVPB Q12H [facility] Last Admin: 03/14/17 01:57 Dose: 40 mg Trimethoprim/Sulfamethoxazole (Bactrim Injection -) 380 mg IVPB Q8H-IV ANGUS Last Admin: 03/14/17 09:19 Dose: 380 mg - Objective Vital Signs: Vital Signs Temperature 98.8 F 03/14/17 08:35 Pulse Rate 94 H 03/14/17 08:35 Respiratory Rate 26 H 03/14/17 08:35 Blood Pressure 131/86 03/14/17 08:35 O2 Sat by Pulse Oximetry (%) 98 03/14/17 08:29 Constitutional: Yes: Calm Eyes: Yes: WNL HENT: Yes: WNL Neck: Yes: WNL Cardiovascular: Yes: Regular Rate and Rhythm Respiratory: Yes: On Venti-Mask Gastrointestinal: Yes: WNL ...Rectal Exam: Yes: Deferred Genitourinary: Yes: WNL Musculoskeletal: Yes: Muscle Weakness Psychiatric: Yes: Alert Labs: CBC, BMP 03/10/17 06:30 03/13/17 06:30 INR, PTT INR 1.28 (0.82-1.09) H 03/10/17 06:30 Assessment/Plan aliza Arnold note noted, continue same trt
[2017-03-14] MEDS: TROPICAMIDE 1% OPHTH SOLN 15 ML BOTTLE OU SCH ×3 (11:03→11:25)
[2017-03-14] MEDS: PHENYLEPHRINE 2.5% OPHTH SOLN 15 ML BOTTLE OU SCH ×3 (11:04→11:26)
--- NOTE | 2017-03-14 13:01 | CONSULT ---
Consult - text type - Consultation Consultation Note: Ophthalmology consult 66 year old HIV+ male, consult requested to r/o CMV retinitis. 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 CMV retinitis unlikely at this time. This retinal finding is common in HIV+ patients. Patient should have a follow up exam in 2 weeks for reassessment. Findings discussed with a retinal specialist. Continue current management at this time.
[2017-03-15] MEDS ORDERED: PT OWN MED DRAWER 7, Y5N ONE ×2 (01:39→09:02)
[2017-03-15] MEDS: SULFAMETHOXAZOLE 80 MG/TRIMETHOPRIM 16 MG/ML VIAL IVPB SCH ×3 (01:45→17:50)
[2017-03-15] MEDS: methylPREDNISolone NA SUCC 40 MG/1 ML VIAL IVPB SCH ×2 (03:38→16:36)
[2017-03-15] MEDS: INSULIN SLIDING SCALE (NOVOLOG) 1 VIAL SQ SCH ×4 (06:39→22:23)
--- NOTE | 2017-03-15 07:22 | PN ---
Progress Note, Physician Chief Complaint: ID Appears less dyspneic at rest. Nurses report periods of agitation where he wanders petty during the night. Still seems confused at times. Bactrim and steroids Optho consult reviewed cotton wool spots but no retinitis seen T cells nonnumeric no calculated ?? Not sure if this means 0 T cells - Current Medication List Current Medications: Active Medications Acetaminophen (Tylenol -) 650 mg PO Q6H PRN PRN Reason: FEVER OR PAIN Last Admin: 03/03/17 18:30 Dose: 650 mg Albuterol Sulfate (Ventolin Hfa Inhaler -) 2 puff IH Q4H PRN PRN Reason: SHORT OF BREATH/WHEEZING Amlodipine Besylate (Norvasc -) 5 mg PO DAILY [facility] Last Admin: 03/14/17 09:19 Dose: 5 mg Guaifenesin (Robitussin -) 10 ml PO Q4H PRN Last Admin: 03/07/17 23:14 Dose: 10 ml Insulin Aspart (Novolog Vial Sliding Scale -) 1 vial SQ ACHS [facility] PRN Reason: Protocol Last Admin: 03/15/17 06:39 Dose: 10 units Methylprednisolone Sodium Succinate (Solu-Medrol -) 40 mg IVPB Q12H [facility] Last Admin: 03/15/17 03:38 Dose: 40 mg Trimethoprim/Sulfamethoxazole (Bactrim Injection -) 380 mg IVPB Q8H-IV [facility] Last Admin: 03/15/17 01:45 Dose: 380 mg - Objective Vital Signs: Vital Signs Temperature 97.7 F 03/15/17 06:50 Pulse Rate 93 H 03/15/17 06:50 Respiratory Rate 20 03/15/17 06:50 Blood Pressure 108/64 03/15/17 06:50 O2 Sat by Pulse Oximetry (%) 96 03/14/17 21:00 Constitutional: Yes: Well Nourished, No Distress, Mild Distress Eyes: Yes: WNL, Conjunctiva Clear HENT: Yes: WNL, Atraumatic Neck: Yes: WNL, Supple Cardiovascular: Yes: Regular Rate and Rhythm, S1, S2 Respiratory: Yes: WNL, Regular, CTA Bilaterally, Diminished Gastrointestinal: Yes: WNL, Normal Bowel Sounds, Soft. No: Tenderness, Tenderness, Epigastrium Edema: No Labs: CBC, BMP 03/10/17 06:30 03/13/17 06:30 INR, PTT INR 1.28 (0.82-1.09) H 03/10/17 06:30 Problem List - Problems (1) AIDS Code(s): B20 - HUMAN IMMUNODEFICIENCY VIRUS [HIV] DISEASE (2) Interstitial pneumonitis Code(s): J84.89 - OTHER SPECIFIED INTERSTITIAL PULMONARY DISEASES (3) Diabetes Code(s): E11.9 - TYPE 2 DIABETES MELLITUS WITHOUT COMPLICATIONS Assessment/Plan Laboratory Tests 03/08/17 03/08/17 03/08/17 14:46 14:46 14:46 WBC Hgb Plt Count BUN CMV IgG Ab 1.30 H CMV IgM Ab < 30.0 HIV-1 RNA (PCR) 45944 Beta-(1,3)-D-Glucan 201 H 03/10/17 03/13/17 06:30 06:30 WBC 7.8 D Hgb 11.6 L D Plt Count 376 BUN 20 H D CMV IgG Ab CMV IgM Ab HIV-1 RNA (PCR) Beta-(1,3)-D-Glucan Assessment HIV positive ( thus far no T cells back) but reasonable to assume PCP LDH up and Fungitell positive( this cold be fungal disease to Aspergillus. Coinfection considered but at least no retinitis While not worse he does not seem to be improving. I will add HIV medications with Prezista Norvir Truvada pending genotype. His mental status probably metabolic from steroids and hypoxemia Nuno MIJARES
[2017-03-15 08:37] LABS: BASOPHIL 1.5 % (0-2.0); MCH 25.5 pg (25.7-33.7); MCHC 31.9 g/dl (32.0-35.9); MEAN CELL VOLUME 79.9 fl (80-96); MEAN PLT VOLUME 7.8 fl (7.5-11.1); NEUTROPHILS 94.4 % (42.8-82.8); PLATELET COUNT 297 K/MM3 (134-434); RDW 17.1 % (11.9-15.9); WHITE BLOOD COUNT 11.3 K/mm3 (4.0-10.0)
--- NOTE | 2017-03-15 09:39 | PN ---
Progress Note, Physician Chief Complaint: SOB persists History of Present Illness: Case discussed with Dr Elizalde,started on HIV trt - Current Medication List Current Medications: Active Medications Acetaminophen (Tylenol -) 650 mg PO Q6H PRN PRN Reason: FEVER OR PAIN Last Admin: 03/03/17 18:30 Dose: 650 mg Albuterol Sulfate (Ventolin Hfa Inhaler -) 2 puff IH Q4H PRN PRN Reason: SHORT OF BREATH/WHEEZING Amlodipine Besylate (Norvasc -) 5 mg PO DAILY [facility] Last Admin: 03/14/17 09:19 Dose: 5 mg Darunavir (Prezista -) 800 mg PO DAILY [facility] Emtricitabine/Tenofovir (Truvada) 1 tab PO DAILY [facility] Guaifenesin (Robitussin -) 10 ml PO Q4H PRN Last Admin: 03/07/17 23:14 Dose: 10 ml Insulin Aspart (Novolog Vial Sliding Scale -) 1 vial SQ ACHS ANGUS PRN Reason: Protocol Last Admin: 03/15/17 06:39 Dose: 10 units Methylprednisolone Sodium Succinate (Solu-Medrol -) 40 mg IVPB Q12H [facility] Last Admin: 03/15/17 03:38 Dose: 40 mg Ritonavir (Norvir -) 100 mg PO DAILY [facility] Trimethoprim/Sulfamethoxazole (Bactrim Injection -) 380 mg IVPB Q8H-IV [facility] Last Admin: 03/15/17 01:45 Dose: 380 mg - Objective Vital Signs: Vital Signs Temperature 97.7 F 03/15/17 06:50 Pulse Rate 89 03/15/17 08:48 Respiratory Rate 20 03/15/17 06:50 Blood Pressure 108/64 03/15/17 06:50 O2 Sat by Pulse Oximetry (%) 96 03/15/17 08:48 Constitutional: Yes: Moderate Distress Eyes: Yes: WNL HENT: Yes: WNL Neck: Yes: WNL Respiratory: Yes: On Venti-Mask Gastrointestinal: Yes: Normal Bowel Sounds ...Rectal Exam: Yes: Deferred Genitourinary: Yes: WNL Breast(s): Yes: WNL Musculoskeletal: Yes: WNL Neurological: Yes: Alert Labs: CBC, BMP 03/15/17 08:00 03/13/17 06:30 INR, PTT INR 1.28 (0.82-1.09) H 03/10/17 06:30 Assessment/Plan Continue same trt
[2017-03-15] MEDS ORDERED: EMTRICITABINE 200MG/TENOFOVIR 300MG PO SCH (10:00)
[2017-03-15] MEDS ORDERED: RITONAVIR 100 MG TABLET PO SCH (10:00)
[2017-03-15] MEDS ORDERED: DARUNAVIR ETHANOLATE 800 MG TAB PO SCH (10:00)
[2017-03-15] MEDS: amLODIPine BESYLATE 5 MG TABLET (FP) PO SCH (10:31)
--- NOTE | 2017-03-15 10:49 | PN ---
Progress Note (short form) - Note Progress Note: PULMONARY Did not sleep overnight, somnolent this AM. Remains short of breath but now saturating 94% on 50% ventimask. +nonproductive cough. Last Vital Signs Temp Pulse Resp BP Pulse Ox 97.7 F 89 20 108/64 96 03/15/17 06:50 03/15/17 08:48 03/15/17 06:50 03/15/17 06:50 03/15/17 08:48 Gen: tachypneic at rest Heart: RRR Lung: scattered rales Abd: soft, nontender Ext: no edema CBC, BMP 03/15/17 08:00 03/13/17 06:30 Active Medications Acetaminophen (Tylenol -) 650 mg PO Q6H PRN PRN Reason: FEVER OR PAIN Last Admin: 03/03/17 18:30 Dose: 650 mg Albuterol Sulfate (Ventolin Hfa Inhaler -) 2 puff IH Q4H PRN PRN Reason: SHORT OF BREATH/WHEEZING Amlodipine Besylate (Norvasc -) 5 mg PO DAILY [facility] Last Admin: 03/15/17 10:31 Dose: 5 mg Darunavir (Prezista -) 800 mg PO DAILY [facility] Last Admin: 03/15/17 10:32 Dose: 800 mg Emtricitabine/Tenofovir (Truvada) 1 tab PO DAILY [facility] Last Admin: 03/15/17 10:32 Dose: 1 tab Guaifenesin (Robitussin -) 10 ml PO Q4H PRN Last Admin: 03/07/17 23:14 Dose: 10 ml Insulin Aspart (Novolog Vial Sliding Scale -) 1 vial SQ ACHS [facility] PRN Reason: Protocol Last Admin: 03/15/17 06:39 Dose: 10 units Methylprednisolone Sodium Succinate (Solu-Medrol -) 40 mg IVPB Q12H [facility] Last Admin: 03/15/17 03:38 Dose: 40 mg Ritonavir (Norvir -) 100 mg PO DAILY [facility] Last Admin: 03/15/17 10:32 Dose: 100 mg Trimethoprim/Sulfamethoxazole (Bactrim Injection -) 380 mg IVPB Q8H-IV [facility] Last Admin: 03/15/17 10:34 Dose: 380 mg A/P Acute Hypoxic Respiratory Failure Pneumonia r/o Pneumocystis HIV - continue bactrim - f/u CD4 count - continue medrol at current dose - inhaled bronchodilators as needed - O2 to keep SpO2 >90% - DVT prophylaxis
[2017-03-16] MEDS: methylPREDNISolone NA SUCC 40 MG/1 ML VIAL IVPB SCH ×2 (02:35→15:01)
[2017-03-16] MEDS: SULFAMETHOXAZOLE 80 MG/TRIMETHOPRIM 16 MG/ML VIAL IVPB SCH ×3 (02:35→20:00)
[2017-03-16] MEDS ORDERED: PT OWN MED DRAWER 7, Y5N ONE (03:12)
[2017-03-16 06:08] LABS: ARTERIAL BLOOD GAS BASE EXCESS -12.1 meq/l (-2-2); ARTERIAL BLOOD GAS HCO3 15.3 meq/L (22-26)
[2017-03-16 06:09] LABS: ALLENS TEST POSITIVE; ART PUNCT SITE RIGHT RADIAL; LPM/O2% 100%; PT. ON O2? YES; TYPE OF O2 NONREBREATHER MASK
[2017-03-16 06:10] LABS: ARTERIAL BLOOD GAS PO2 39.4 mmHg (80-100)
[2017-03-16 06:11] LABS: ARTERIAL BLD GAS O2 SATURATION 48.5 % (90-98.9); ARTERIAL BLOOD GAS pH 7.18 (7.35-7.45)
--- NOTE | 2017-03-16 06:27 | PN ---
Progress Note (short form) - Note Progress Note: Responded to code 99.Patient being ambu bagged with 100% o2.Gave Propofol 80 mg and Succinylcholine 100mg IV.DL With MAC #3.VCV ETT 7.5 Posative ETCO2.P 104 BP 104/41 .Advised ABG and CXR.
[2017-03-16] MEDS ORDERED: SODIUM CHLORIDE 500 ML IV STA (06:37)
[2017-03-16] MEDS ORDERED: PROPOFOL 100 ML ONE ×3 (06:49→19:47)
[2017-03-16] MEDS: INSULIN SLIDING SCALE (NOVOLOG) 1 VIAL SQ SCH ×4 (07:00→22:04)
--- NOTE | 2017-03-16 07:06 | RAPID ---
Physical Examination Vital Signs: Vital Signs Temperature 97.8 F 03/16/17 06:00 Pulse Rate 109 H 03/16/17 06:00 Respiratory Rate 20 03/16/17 06:00 Blood Pressure 154/81 03/16/17 06:00 O2 Sat by Pulse Oximetry (%) 92 L 03/15/17 21:00 Constitutional: Yes: Anxious Eyes: Yes: WNL HENT: Yes: WNL Neck: Yes: WNL Cardiovascular: Yes: Regular Rate and Rhythm, S1, S2. No: Bruit, JVD, Murmur Respiratory: Yes: Diminished, On Venti-Mask, Poor Air Entry, SOB Gastrointestinal: Yes: Normal Bowel Sounds, Soft Renal/: Yes: WNL Musculoskeletal: No: Back Pain Extremities: Yes: Cool Edema: No Peripheral Pulses WNL: No Peripheral Pulses: Left Radial: 1+, Right Radial: 1+, Left Doralis Pedis: 1+, Right Dorsalis Pedis: 1+ Integumentary: Yes: WNL Neurological: Yes: Confusion ...Motor Strength: WNL Labs: CBC, BMP 03/15/17 08:00 03/13/17 06:30 Rapid Response - Rapid Response Assessment: 66 year old male with Acute Hypoxic Respiratory Failure, bilateral Pneumonia, HIV, who has been pulling off venti mask for the past two nights according to the nurse. Called to evaluate patient due to hypoxia. PAtient was desaturating, pulling off vent mask. HE was then put in restraints. Pulse ox not piking up o2 level. Stat ABG showing respiratory acidosis and oxygen of 39. Pulse became non palpable, Code 99 called. Anaesthesia called. Femoral pulse subsequently found. #acute hypoxic respiratory failure secondary to pneumonia and patient non compliance with oxygen - Transfer to the ICU -intubated and sedated -propfol drip -mech vent ac; rate 12; fio2 100%; PEEP 5 -repeat stat abg -stat cxr -stat cbc, cmp Primary Physician Notified: Margaret Allison
[2017-03-16] MEDS ORDERED: LORAZEPAM CARPU-JECT 2 MG/ML DISP.SYRIN IVPUSH ONE (07:14)
[2017-03-16] MEDS: PROPOFOL 100 ML IVPB SCH ×2 (07:29→12:00)
[2017-03-16 07:51] LABS: ARTERIAL BLD GAS O2 SATURATION 99.6 % (90-98.9); ARTERIAL BLOOD GAS BASE EXCESS -6.8 meq/l (-2-2); ARTERIAL BLOOD GAS HCO3 18.2 meq/L (22-26); ARTERIAL BLOOD GAS pH 7.31 (7.35-7.45)
[2017-03-16 07:57] LABS: ALLENS TEST POSITIVE; ART PUNCT SITE LEFT RADIAL; LPM/O2% 100%; MECH. VENT. YES; PT. ON O2? YES; TYPE OF O2 MECHANICAL VENT; VENT RATE 12; VT/PRESS 450ML
[2017-03-16 08:06] LABS: MCH 25.6 pg (25.7-33.7); MCHC 31.5 g/dl (32.0-35.9); MEAN CELL VOLUME 81.3 fl (80-96); MEAN PLT VOLUME 7.7 fl (7.5-11.1); PLATELET COUNT 221 K/MM3 (134-434); RDW 17.6 % (11.9-15.9); WHITE BLOOD COUNT 9.6 K/mm3 (4.0-10.0)
--- NOTE | 2017-03-16 08:20 | PN ---
Progress Note, Physician Chief Complaint: ID S/P code 99 pulseless Sats 99 percent on 80 % FIO2 !! Hypotensive Steroids - Current Medication List Current Medications: Active Medications Acetaminophen (Tylenol -) 650 mg PO Q6H PRN PRN Reason: FEVER OR PAIN Last Admin: 03/03/17 18:30 Dose: 650 mg Albuterol Sulfate (Ventolin Hfa Inhaler -) 2 puff IH Q4H PRN PRN Reason: SHORT OF BREATH/WHEEZING Amlodipine Besylate (Norvasc -) 5 mg PO DAILY [facility] Last Admin: 03/15/17 10:31 Dose: 5 mg Darunavir (Prezista -) 800 mg PO DAILY [facility] Last Admin: 03/15/17 10:32 Dose: 800 mg Emtricitabine/Tenofovir (Truvada) 1 tab PO DAILY [facility] Last Admin: 03/15/17 10:32 Dose: 1 tab Guaifenesin (Robitussin -) 10 ml PO Q4H PRN Last Admin: 03/07/17 23:14 Dose: 10 ml Propofol (Diprivan -) 100 mls @ 1.721 mls/hr IVPB TITR [facility]; 5 MCG/KG/MIN PRN Reason: Protocol Last Admin: 03/16/17 07:29 Dose: 6.885 mls/hr Insulin Aspart (Novolog Vial Sliding Scale -) 1 vial SQ ACHS [facility] PRN Reason: Protocol Last Admin: 03/15/17 22:23 Dose: 5 units Methylprednisolone Sodium Succinate (Solu-Medrol -) 40 mg IVPB Q12H [facility] Last Admin: 03/16/17 02:35 Dose: 40 mg Ritonavir (Norvir -) 100 mg PO DAILY [facility] Last Admin: 03/15/17 10:32 Dose: 100 mg Trimethoprim/Sulfamethoxazole (Bactrim Injection -) 380 mg IVPB Q8H-IV [facility] Last Admin: 03/16/17 02:35 Dose: 380 mg - Objective Vital Signs: Vital Signs Temperature 97.8 F 03/16/17 06:00 Pulse Rate 95 H 03/16/17 07:00 Respiratory Rate 33 H 03/16/17 07:00 Blood Pressure 95/33 03/16/17 07:00 O2 Sat by Pulse Oximetry (%) 92 L 03/15/17 21:00 Constitutional: Yes: Other (Intubated) Cardiovascular: Yes: Regular Rate and Rhythm, S1, S2 Respiratory: Yes: Diminished, Rhonchi Gastrointestinal: Yes: WNL, Normal Bowel Sounds, Soft. No: Tenderness Edema: No Labs: INR, PTT INR 1.28 (0.82-1.09) H 03/10/17 06:30 Problem List - Problems (1) AIDS Code(s): B20 - HUMAN IMMUNODEFICIENCY VIRUS [HIV] DISEASE (2) Interstitial pneumonitis Code(s): J84.89 - OTHER SPECIFIED INTERSTITIAL PULMONARY DISEASES (3) Diabetes Code(s): E11.9 - TYPE 2 DIABETES MELLITUS WITHOUT COMPLICATIONS Assessment/Plan Microbiology 03/08/17 14:25 Serum Cryptococcal Antigen - Final 03/08/17 14:25 Blood - Peripheral Venous TB Test (QFT) (ELOY) - Final 03/03/17 06:30 Urine - Urine Clean Catch Urine Culture - Final Pseudomonas Aeruginosa 03/03/17 05:18 Blood - Peripheral Venous Blood Culture - Final NO GROWTH AFTER 5 DAYS INCUBATION 03/03/17 05:18 Blood - Peripheral Venous Blood Culture - Final NO GROWTH AFTER 5 DAYS INCUBATION 03/03/17 04:38 Throat Throat Culture - Final 03/03/17 04:38 Throat Group A Strep Rapid Antigen - Final NO BETA HEMOLYTIC STREPTOCOCCI ISOLATED 03/08/17 14:25 Blood - Peripheral Venous Mycobacterial Culture - Preliminary Laboratory Tests 03/08/17 03/08/17 03/13/17 14:46 14:46 06:30 WBC Hgb Hct Plt Count ABG pH ABG pCO2 at Pt Temp ABG pO2 at Pt Temp BUN 20 H D Creatinine 1.2 Creat Clearance w eGFR > 60 CMV IgG Ab 1.30 H CMV IgM Ab < 30.0 CMV DNA Quant PCR HIV-1 RNA (PCR) [id number] 03/14/17 03/16/17 03/16/17 11:15 07:45 07:45 WBC Pending Hgb Pending Hct Pending Plt Count Pending ABG pH 7.31 L ABG pCO2 at Pt Temp 36.9 ABG pO2 at Pt Temp 203.0 H* BUN Creatinine Creat Clearance w eGFR CMV IgG Ab CMV IgM Ab CMV DNA Quant PCR Pending HIV-1 RNA (PCR) Assessment Code 99 pulseless Now intubated Advance AIDS T cells are 5 !! Interstitial pneumonitis presumed PCP Diabetes Mellitus Plan Obtain TNI to rule out NE Panculture and empiric antibiotics to cover possibility of sepsis pending c/s Change HIV meds to liquid via tube Adam Reina MD
[2017-03-16 08:28] LABS: ALBUMIN 1.7 g/dl (3.4-5.0); BILIRUBIN,TOTAL 0.1 mg/dL (0.2-1.0); CALCIUM 8.1 mg/dL (8.5-10.1); COCKROFT - GAULT 38.78; CREATININE 1.5 mg/dL (0.7-1.3); MAGNESIUM 2.3 mg/dL (1.8-2.4); PHOSPHOROUS 5.3 mg/dL (2.5-4.9); TOT PROT 4.5 g/dl (6.4-8.2)
[2017-03-16 08:29] LABS: ALBUMIN 1.7 g/dl (3.4-5.0); BILIRUBIN,TOTAL 0.2 mg/dL (0.2-1.0); CALCIUM 8.1 mg/dL (8.5-10.1); COCKROFT - GAULT 38.78; CREATININE 1.5 mg/dL (0.7-1.3)
[2017-03-16 08:30] LABS: TOT PROT 4.6 g/dl (6.4-8.2)
[2017-03-16 09:38] LABS: HYPOCHROMIA FEW; MICROCYTOSIS 1+; PLATELET ESTIMATE ADEQUATE (NORMAL)
[2017-03-16 09:39] LABS: OVALOCYTES 1+
[2017-03-16] MEDS ORDERED: LIDOCAINE HCL 1%, 10 MG/ML (20ML VIAL) ONE (10:20)
[2017-03-16] MEDS: EMTRICITABINE 200MG/TENOFOVIR 300MG PO SCH (11:25)
[2017-03-16] MEDS: DARUNAVIR ETHANOLATE 100 MG/ML BULK BOTTLE PO SCH (11:26)
[2017-03-16] MEDS: RITONAVIR ORAL SOLUTION 80 MG/ML PO SCH (11:26)
[2017-03-16] MEDS: PIPERACILLIN/TAZOB 4.5 GM 100 ML IVPB SCH ×2 (11:30→20:00)
[2017-03-16] MEDS: amLODIPine BESYLATE 5 MG TABLET (FP) PO SCH (11:32)
--- NOTE | 2017-03-16 12:42 | PN ---
Teaching Attending Note Name of Resident: Bessy Eaton ATTENDING PHYSICIAN STATEMENT I saw and evaluated the patient. I reviewed the resident's note and discussed the case with the resident. I agree with the resident's findings and plan as documented. SUBJECTIVE: Pt seen and examined in the ICU. Overnight events noted, now intubated, sedated on volume assist control with 80% FiO2. Urgent bronchoscopy performed with 2 physician consent for BAL in order to direct antimicrobial treatment. OBJECTIVE: Last Vital Signs Temp Pulse Resp BP Pulse Ox 98 F 73 26 H 91/56 96 03/16/17 10:00 03/16/17 10:00 03/16/17 10:00 03/16/17 10:00 03/16/17 09:15 Intake & Output 03/13/17 03/14/17 03/15/17 03/16/17 23:59 23:59 23:59 23:59 Intake Total 1999 1240 1550 Output Total 300 400 Balance 1999 1240 1250 -400 Gen: intubated, sedated Heart: RRR Lung: scattered rhonchi Abd: soft, nontender Ext: no edema CBC, BMP 03/16/17 07:45 03/16/17 07:45 Active Medications Acetaminophen (Tylenol -) 650 mg PO Q6H PRN PRN Reason: FEVER OR PAIN Last Admin: 03/03/17 18:30 Dose: 650 mg Albuterol Sulfate (Ventolin Hfa Inhaler -) 2 puff IH Q4H PRN PRN Reason: SHORT OF BREATH/WHEEZING Amlodipine Besylate (Norvasc -) 5 mg PO DAILY [facility] Last Admin: 03/16/17 11:32 Dose: Not Given Darunavir (Prezista) 800 mg PO DAILY [facility] Last Admin: 03/16/17 11:26 Dose: 800 mg Emtricitabine/Tenofovir (Truvada) 1 tab PO DAILY [facility] Last Admin: 03/16/17 11:25 Dose: 1 tab Guaifenesin (Robitussin -) 10 ml PO Q4H PRN Last Admin: 03/07/17 23:14 Dose: 10 ml Propofol (Diprivan -) 100 mls @ 1.721 mls/hr IVPB TITR [facility]; 5 MCG/KG/MIN PRN Reason: Protocol Last Admin: 03/16/17 07:29 Dose: 6.885 mls/hr Vancomycin HCl (Vancomycin (Pre-Docked)) 250 mls @ 166.667 mls/hr IVPB BID [facility] PRN Reason: Protocol Piperacillin Sod/Tazobactam Sod (Zosyn 4.5gm Ivpb (Pre-Docked)) 100 mls @ 200 mls/hr IVPB Q8H-IV [facility] PRN Reason: Protocol Last Admin: 03/16/17 11:30 Dose: 200 mls/hr Insulin Aspart (Novolog Vial Sliding Scale -) 1 vial SQ ACHS [facility] PRN Reason: Protocol Last Admin: 03/15/17 22:23 Dose: 5 units Methylprednisolone Sodium Succinate (Solu-Medrol -) 40 mg IVPB Q12H [facility] Last Admin: 03/16/17 02:35 Dose: 40 mg Ritonavir (Norvir Oral Solution -) 100 mg PO DAILY [facility] Last Admin: 03/16/17 11:26 Dose: 100 mg Trimethoprim/Sulfamethoxazole (Bactrim Injection -) 380 mg IVPB Q8H-IV [facility] Last Admin: 03/16/17 02:35 Dose: 380 mg ASSESSMENT AND PLAN: Acute Hypoxic Respiratory Failure AIDS/HIV Pneumonia r/o Opportunistic Infection DM - f/u BAL washings for routine culture, AFB, fungal cultures - washings sent for CMV, TB PCR, Pneumocystis DFA - antibiotic coverage broadened by ID - continue ART - continue medrol at current dose - taper Fio2 to keep SpO2 >90% - hold sedation in AM to assess mental status - spontaneous breathing trials as tolerated when mental status improved - enteral feeds if unable to extubate - glucose control - DVT/GI prophylaxis - ICU monitoring critical care time spent in reviewing chart, evaluating patient and formulating plan 40 min
--- NOTE | 2017-03-16 12:51 | PROC ---
Procedure Note Procedure: BRONCHOSCOPY NOTE 2 physician consent obtained for urgent bronchoscopy in order to direct antimicrobial therapy. Storz video bronchoscope passed via the ETT and the airways were examined down to the subsegmental level. The hu was sharp, there were no endobronchial lesions noted in either lung. RUL anterior segment and RML were wedged and lavaged. Good lavage return, bronchoscope then withdrawn and procedure terminated. No immediate complications. Pre-op Dx: pneumonia/AIDS Post-op Dx: same Plan: - f/u BAL cultures, CMV PCR, TB PCR, PCP DFA, cytology Storm Alatorre MD
--- NOTE | 2017-03-16 13:42 | PN ---
Physical Exam: SUBJECTIVE: Patient seen and examined in ICU. He was brought from medical floor to ICU s/p rapid response due to respiratory failure.The pt is sedated, on mechanical ventilation. OBJECTIVE: Vital Signs Period Temp Pulse Resp BP Sys/De Oliveira Pulse Ox Last 24 Hr 97.8 F-98.2 F 73-109 16-33 91-154/33-81 92-96 GENERAL: The patient is intubated, sedated. HEAD: Normal with no signs of trauma. EYES: extraocular movements not assessed, no ptosis. ENT: moist mucous membranes NECK: Trachea midline LUNGS: Breath sounds equal, coarse breath sounds bilaterally, crackles b/l, no accessory muscle use. HEART: Regular rate and rhythm, S1, S2 without murmur, rub or gallop. ABDOMEN: Soft, nontender, distended, normoactive bowel sounds, no guarding, no rebound.. EXTREMITIES: no edema. NEUROLOGICAL: No facial asymmetry. Sedated,gait not observed. PSYCH: Normal mood, normal affect. SKIN: Warm, dry, normal turgor, no rashes or lesions noted Laboratory Results - last 24 hr 03/15/17 03/15/17 03/16/17 17:30 22:22 05:53 WBC RBC Hgb Hct MCV MCHC RDW Plt Count MPV Neutrophils % Lymphocytes % Band Neutrophils Platelet Estimate Platelet Comment Hypochromic-Microcytic Microcytosis Ovalocytes Anticoagulation Therapy Puncture Site ABG pH ABG pCO2 at Pt Temp ABG pO2 at Pt Temp ABG HCO3 ABG O2 Sat (Measured) ABG O2 Content ABG Base Excess Enrico Test O2 Delivery Device Oxygen Flow Rate Vent Mode Vent Rate Mechanical Rate PEEP Pressure Support Vent Sodium Potassium Chloride Carbon Dioxide Anion Gap BUN Creatinine Creat Clearance w eGFR POC Glucometer 197 159 393 Random Glucose Calcium Phosphorus Magnesium Total Bilirubin AST ALT Alkaline Phosphatase Total Protein Albumin 03/16/17 03/16/17 03/16/17 06:00 07:45 07:45 WBC 9.6 RBC 3.85 L Hgb 9.8 L D Hct 31.3 L MCV 81.3 MCHC 31.5 L RDW 17.6 H Plt Count 221 D MPV 7.7 Neutrophils % 1.0 L Lymphocytes % 3.0 L D Band Neutrophils 1.0 Platelet Estimate Adequate Platelet Comment No clumping noted Hypochromic-Microcytic Few Microcytosis 1+ Ovalocytes 1+ Anticoagulation Therapy Y Puncture Site Right radial ABG pH 7.18 L* D ABG pCO2 at Pt Temp 43.1 D ABG pO2 at Pt Temp 39.4 L* D ABG HCO3 15.3 L ABG O2 Sat (Measured) 48.5 L* ABG O2 Content 6.7 L* ABG Base Excess -12.1 L* Enrico Test Positive O2 Delivery Device Nonrebreather mask Oxygen Flow Rate 100% Vent Mode Y Vent Rate Y Mechanical Rate Y PEEP Pressure Support Vent Y Sodium 133 L Potassium 5.2 H Chloride 97 L Carbon Dioxide 21 Anion Gap 15 BUN 29 H D Creatinine 1.5 H D Creat Clearance w eGFR 46.68 POC Glucometer Random Glucose 364 H* D Calcium 8.1 L Phosphorus Magnesium Total Bilirubin 0.2 D AST 33 D ALT 27 D Alkaline Phosphatase 90 Total Protein 4.6 L Albumin 1.7 L 03/16/17 03/16/17 03/16/17 07:45 07:45 12:05 WBC RBC Hgb Hct MCV MCHC RDW Plt Count MPV Neutrophils % Lymphocytes % Band Neutrophils Platelet Estimate Platelet Comment Hypochromic-Microcytic Microcytosis Ovalocytes Anticoagulation Therapy Puncture Site Left radial ABG pH 7.31 L ABG pCO2 at Pt Temp 36.9 ABG pO2 at Pt Temp 203.0 H* ABG HCO3 18.2 L ABG O2 Sat (Measured) 99.6 H* ABG O2 Content 13.6 L ABG Base Excess -6.8 L Enrico Test Positive O2 Delivery Device Mechanical vent Oxygen Flow Rate 100% Vent Mode A/c Vent Rate 12 Mechanical Rate Yes PEEP 5.0 Pressure Support Vent 450ml Sodium 134 L Potassium 5.3 H Chloride 98 Carbon Dioxide 21 Anion Gap 15 BUN 29 H Creatinine 1.5 H Creat Clearance w eGFR 46.68 POC Glucometer > 400 Random Glucose 361 H* Calcium 8.1 L Phosphorus 5.3 H Magnesium 2.3 Total Bilirubin 0.1 L D AST 33 ALT 26 Alkaline Phosphatase 91 Total Protein 4.5 L Albumin 1.7 L Active Medications Generic Name Dose Route Start Last Admin Trade Name Freq PRN Reason Stop Dose Admin Acetaminophen 650 mg 03/03/17 17:52 03/03/17 18:30 Tylenol - PO 650 mg Q6H PRN Administration FEVER OR PAIN Albuterol Sulfate 2 puff 03/12/17 10:01 Ventolin Hfa Inhaler - IH Q4H PRN SHORT OF BREATH/WHEEZING Amlodipine Besylate 5 mg 03/03/17 18:30 03/16/17 11:32 Norvasc - PO Not Given DAILY [facility] Darunavir 800 mg 03/16/17 10:15 03/16/17 11:26 Prezista PO 800 mg DAILY [facility] Administration Emtricitabine/Tenofovir 1 tab 03/16/17 10:15 03/16/17 11:25 Truvada PO 1 tab DAILY [facility] Administration Enoxaparin Sodium 40 mg 03/16/17 13:00 Lovenox - SQ DAILY [facility] Guaifenesin 10 ml 03/03/17 16:55 03/07/17 23:14 Robitussin - PO 10 ml Q4H PRN Administration Propofol 100 mls @ 1.721 mls/hr 03/16/17 06:45 03/16/17 07:29 Diprivan - IVPB 6.885 mls/hr TITR [facility] Administration Protocol 5 MCG/KG/MIN Vancomycin HCl 250 mls @ 166.667 mls/hr 03/16/17 10:00 Vancomycin (Pre-Docked) IVPB BID [facility] Protocol Piperacillin Sod/Tazobactam Sod 100 mls @ 200 mls/hr 03/16/17 10:00 03/16/17 11 :30 Zosyn 4.5gm Ivpb (Pre-Docked) IVPB 200 mls/hr Q8H-IV [facility] Administration Protocol Pantoprazole Sodium 40 mg/ 100 mls @ 200 mls/hr 03/16/17 13:00 Sodium Chloride IVPB DAILY [facility] Midazolam HCl 100 mg/ Sodium 100 mls @ 4 mls/hr 03/16/17 13:15 Chloride IVPB TITR ANG[facility] Protocol 4 MG/HR Insulin Aspart 1 vial 03/06/17 16:30 03/15/17 22:23 Novolog Vial Sliding Scale - SQ 5 units ACHS [facility] Administration Protocol Methylprednisolone Sodium Succinate 40 mg 03/12/17 14:45 03/16/17 02:35 Solu-Medrol - IVPB 40 mg Q12H [facility] Administration Ritonavir 100 mg 03/16/17 10:30 03/16/17 11:26 Norvir Oral Solution - PO 100 mg DAILY [facility] Administration Trimethoprim/Sulfamethoxazole 380 mg 03/09/17 10:00 03/16/17 02:35 Bactrim Injection - IVPB 380 mg Q8H-IV [facility] Administration ASSESSMENT/PLAN: 66 year old male with acute respiratory failure, bilateral pneumonia and HIV who was admitted to ICU s/p respiratory failure. 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 due to history of HIV -continue antibiotics; bactrim, Vancomycin and Zosyn -f/u ID recommendations -f/u CXR AIDS: -recently started Ritonavir, Truvada and Prezista -f/u HIV testing -spontaneous breathing trials as tolerated when mental status improved DM: -BGMs -ISS HTN: -cont Norvasc DVT PPX: Lovenox 40 mg qd GI PPX: none Disposition: Monitor in ICU Problem List - Problems (1) AIDS Code(s): B20 - HUMAN IMMUNODEFICIENCY VIRUS [HIV] DISEASE (2) Bilateral pneumonia Code(s): J18.9 - PNEUMONIA, UNSPECIFIED ORGANISM (3) Diabetes Code(s): E11.9 - TYPE 2 DIABETES MELLITUS WITHOUT COMPLICATIONS Visit type - Emergency Visit Emergency Visit: Yes ED Registration Date: 03/03/17 Care time: The patient presented to the Emergency Department on the above date and was hospitalized for further evaluation of their emergent condition. - New Patient This patient is new to me today: No - Critical Care Critical Care patient: Yes Total Critical Care Time (in minutes): 40 Critical Care Statement: The care of this patient involved high complexity decision making to prevent further life threatening deterioration of the patient 's condition and/or to evalute & treat vital organ system(s) failure or risk of failure.
[2017-03-16] MEDS ORDERED: PANTOPRAZOLE SODIUM 40 MG in SODIUM CHLORIDE 100 ML IVPB SCH (14:00)
[2017-03-16] MEDS: VANCOMYCIN 1 GRAM (PRE-DOCKED) 250 ML IVPB SCH ×2 (15:00→21:57)
[2017-03-16] MEDS: ENOXAPARIN NA (PORCINE) 40 MG/0.4 ML DISP.SYRIN SQ SCH (15:01)
[2017-03-16] MEDS: MIDAZOLAM 100 MG in SODIUM CHLORIDE 100 ML IVPB SCH (15:20)
[2017-03-17] MEDS: methylPREDNISolone NA SUCC 40 MG/1 ML VIAL IVPB SCH ×2 (03:00→16:00)
[2017-03-17] MEDS: SULFAMETHOXAZOLE 80 MG/TRIMETHOPRIM 16 MG/ML VIAL IVPB SCH ×3 (03:00→20:43)
[2017-03-17] MEDS: PIPERACILLIN/TAZOB 4.5 GM 100 ML IVPB SCH ×3 (04:00→18:30)
[2017-03-17 06:14] LABS: MCH 25.5 pg (25.7-33.7); MCHC 31.6 g/dl (32.0-35.9); MEAN CELL VOLUME 80.8 fl (80-96); MEAN PLT VOLUME 8.2 fl (7.5-11.1); PLATELET COUNT 154 K/MM3 (134-434); RDW 17.1 % (11.9-15.9); WHITE BLOOD COUNT 7.9 K/mm3 (4.0-10.0)
[2017-03-17 06:56] LABS: ALBUMIN 1.2 g/dl (3.4-5.0)
[2017-03-17 06:59] LABS: BILIRUBIN,TOTAL 0.3 mg/dL (0.2-1.0); CALCIUM 7.4 mg/dL (8.5-10.1); COCKROFT - GAULT 44.75; CREATININE 1.3 mg/dL (0.7-1.3); TOT PROT 3.4 g/dl (6.4-8.2)
[2017-03-17] MEDS: PROPOFOL 100 ML IVPB SCH (07:09)
[2017-03-17] MEDS: INSULIN SLIDING SCALE (NOVOLOG) 1 VIAL SQ SCH ×4 (07:18→22:33)
--- NOTE | 2017-03-17 09:21 | PN ---
Progress Note, Physician Chief Complaint: On respirator History of Present Illness: S/P bronchoscopy case discussed with Dr LOUIS - Current Medication List Current Medications: Active Medications Acetaminophen (Tylenol -) 650 mg PO Q6H PRN PRN Reason: FEVER OR PAIN Last Admin: 03/03/17 18:30 Dose: 650 mg Albuterol Sulfate (Ventolin Hfa Inhaler -) 2 puff IH Q4H PRN PRN Reason: SHORT OF BREATH/WHEEZING Amlodipine Besylate (Norvasc -) 5 mg PO DAILY [facility] Last Admin: 03/16/17 11:32 Dose: Not Given Darunavir (Prezista) 800 mg PO DAILY [facility] Last Admin: 03/16/17 11:26 Dose: 800 mg Emtricitabine/Tenofovir (Truvada) 1 tab PO DAILY [facility] Last Admin: 03/16/17 11:25 Dose: 1 tab Enoxaparin Sodium (Lovenox -) 40 mg SQ DAILY [facility] Last Admin: 03/16/17 15:01 Dose: 40 mg Guaifenesin (Robitussin -) 10 ml PO Q4H PRN Last Admin: 03/07/17 23:14 Dose: 10 ml Propofol (Diprivan -) 100 mls @ 1.721 mls/hr IVPB TITR ANGUS; 5 MCG/KG/MIN PRN Reason: Protocol Last Admin: 03/17/17 07:09 Dose: Not Given Vancomycin HCl (Vancomycin (Pre-Docked)) 250 mls @ 166.667 mls/hr IVPB BID [facility] PRN Reason: Protocol Last Admin: 03/16/17 21:57 Dose: 166.667 mls/hr Piperacillin Sod/Tazobactam Sod (Zosyn 4.5gm Ivpb (Pre-Docked)) 100 mls @ 200 mls/hr IVPB Q8H-IV [facility] PRN Reason: Protocol Last Admin: 03/17/17 04:00 Dose: 200 mls/hr Midazolam HCl 100 mg/ Sodium (Chloride) 100 mls @ 4 mls/hr IVPB TITR ANGUS; 4 MG/ HR PRN Reason: Protocol Last Admin: 03/16/17 15:20 Dose: 4 mls/hr Pantoprazole Sodium (Protonix 40mg Ivpb (Pre-Docked)) 100 mls @ 200 mls/hr IVPB DAILY [facility] Insulin Aspart (Novolog Vial Sliding Scale -) 1 vial SQ ACHS [facility] PRN Reason: Protocol Last Admin: 03/17/17 07:18 Dose: 5 units Methylprednisolone Sodium Succinate (Solu-Medrol -) 40 mg IVPB Q12H [facility] Last Admin: 03/17/17 03:00 Dose: 40 mg Ritonavir (Norvir Oral Solution -) 100 mg PO DAILY [facility] Last Admin: 03/16/17 11:26 Dose: 100 mg Trimethoprim/Sulfamethoxazole (Bactrim Injection -) 380 mg IVPB Q8H-IV [facility] Last Admin: 03/17/17 03:00 Dose: 380 mg - Objective Vital Signs: Vital Signs Temperature 98 F 03/17/17 06:07 Pulse Rate 62 03/17/17 06:07 Respiratory Rate 25 H 03/17/17 07:05 Blood Pressure 104/59 03/17/17 06:07 O2 Sat by Pulse Oximetry (%) 96 03/16/17 09:15 Constitutional: Yes: Moderate Distress Eyes: Yes: WNL HENT: Yes: WNL Neck: Yes: WNL Cardiovascular: Yes: Regular Rate and Rhythm Respiratory: Yes: Mechanically Ventilated Gastrointestinal: Yes: Normal Bowel Sounds ...Rectal Exam: Yes: Deferred Genitourinary: Yes: WNL Edema: No Labs: CBC, BMP 03/17/17 05:20 03/17/17 05:20 INR, PTT INR 1.28 (0.82-1.09) H 03/10/17 06:30 - ....Imaging Chest X-ray: Report Reviewed Assessment/Plan As per ICU attending
[2017-03-17 09:37] LABS: ALLENS TEST POSITIVE; ART PUNCT SITE RIGHT RADIAL; ARTERIAL BLD GAS O2 SATURATION 99.7 % (90-98.9); ARTERIAL BLOOD GAS BASE EXCESS -6.2 meq/l (-2-2); ARTERIAL BLOOD GAS HCO3 17.5 meq/L (22-26); ARTERIAL BLOOD GAS pH 7.38 (7.35-7.45); PT. ON O2? YES
[2017-03-17 09:38] LABS: LPM/O2% 100%; MECH. VENT. ESPRIT; TYPE OF O2 MEC.VENT; VENT RATE 12; VT/PRESS 450
--- NOTE | 2017-03-17 09:46 | PN ---
Progress Note (short form) - Note Progress Note: events noted chart reviewed remains intubated sedated s/p bronchoscopy yesterday, results pending CD4 count is 4- started on ART Vital Signs Period Temp Pulse Resp BP Sys/De Oliveira Pulse Ox Last 24 Hr 97.8 F-98.6 F 62-82 21-29 84-114/54-88 cor-rrr lungs decreased bs at bases abd soft,nt ext no edema CBC, BMP 03/17/17 05:20 03/17/17 05:20 qunat gold negative Microbiology 03/16/17 09:30 Blood - Peripheral Venous Blood Culture - Preliminary NO GROWTH OBTAINED AFTER 24 HOURS, INCUBATION TO CONTINUE FOR 4 DAYS. 03/16/17 09:30 Blood - Peripheral Venous Blood Culture - Preliminary NO GROWTH OBTAINED AFTER 24 HOURS, INCUBATION TO CONTINUE FOR 4 DAYS. 03/16/17 11:00 Bronchial Washings - Right Upper Lobe Gram Stain - Final 03/16/17 11:00 Bronchial Washings - Right Upper Lobe JYOTI Preparation - Preliminary 03/16/17 11:00 Bronchial Washings - Right Upper Lobe Fungal Culture - Preliminary 03/08/17 14:25 Serum Cryptococcal Antigen - Final 03/08/17 14:25 Blood - Peripheral Venous Mycobacterial Culture - Preliminary 03/08/17 14:25 Blood - Peripheral Venous TB Test (QFT) (ELOY) - Final 03/03/17 05:18 Blood - Peripheral Venous Blood Culture - Final NO GROWTH AFTER 5 DAYS INCUBATION 03/03/17 05:18 Blood - Peripheral Venous Blood Culture - Final NO GROWTH AFTER 5 DAYS INCUBATION 03/03/17 06:30 Urine - Urine Clean Catch Urine Culture - Final Pseudomonas Aeruginosa 03/03/17 04:38 Throat Throat Culture - Final NO BETA HEMOLYTIC STREPTOCOCCI ISOLATED 03/03/17 04:38 Throat Group A Strep Rapid Antigen - Final Current Medications Acetaminophen (Tylenol -) 650 mg PO Q6H PRN PRN Reason: FEVER OR PAIN Last Admin: 03/03/17 18:30 Dose: 650 mg Albuterol Sulfate (Ventolin Hfa Inhaler -) 2 puff IH Q4H PRN PRN Reason: SHORT OF BREATH/WHEEZING Amlodipine Besylate (Norvasc -) 5 mg PO DAILY [facility] Last Admin: 03/16/17 11:32 Dose: Not Given Darunavir (Prezista) 800 mg PO DAILY [facility] Last Admin: 03/16/17 11:26 Dose: 800 mg Emtricitabine/Tenofovir (Truvada) 1 tab PO DAILY [facility] Last Admin: 03/16/17 11:25 Dose: 1 tab Enoxaparin Sodium (Lovenox -) 40 mg SQ DAILY [facility] Last Admin: 03/16/17 15:01 Dose: 40 mg Guaifenesin (Robitussin -) 10 ml PO Q4H PRN Last Admin: 03/07/17 23:14 Dose: 10 ml Propofol (Diprivan -) 100 mls @ 1.721 mls/hr IVPB TITR [facility]; 5 MCG/KG/MIN PRN Reason: Protocol Last Admin: 03/17/17 07:09 Dose: Not Given Vancomycin HCl (Vancomycin (Pre-Docked)) 250 mls @ 166.667 mls/hr IVPB BID [facility] PRN Reason: Protocol Last Admin: 03/16/17 21:57 Dose: 166.667 mls/hr Piperacillin Sod/Tazobactam Sod (Zosyn 4.5gm Ivpb (Pre-Docked)) 100 mls @ 200 mls/hr IVPB Q8H-IV [facility] PRN Reason: Protocol Last Admin: 03/17/17 04:00 Dose: 200 mls/hr Midazolam HCl 100 mg/ Sodium (Chloride) 100 mls @ 4 mls/hr IVPB TITR [facility]; 4 MG/ HR PRN Reason: Protocol Last Admin: 03/16/17 15:20 Dose: 4 mls/hr Pantoprazole Sodium (Protonix 40mg Ivpb (Pre-Docked)) 100 mls @ 200 mls/hr IVPB DAILY [facility] Insulin Aspart (Novolog Vial Sliding Scale -) 1 vial SQ ACHS [facility] PRN Reason: Protocol Last Admin: 03/17/17 07:18 Dose: 5 units Methylprednisolone Sodium Succinate (Solu-Medrol -) 40 mg IVPB Q12H [facility] Last Admin: 03/17/17 03:00 Dose: 40 mg Ritonavir (Norvir Oral Solution -) 100 mg PO DAILY [facility] Last Admin: 03/16/17 11:26 Dose: 100 mg Trimethoprim/Sulfamethoxazole (Bactrim Injection -) 380 mg IVPB Q8H-IV [facility] Last Admin: 03/17/17 03:00 Dose: 380 mg a/p respiratory failure- d/w Dr Alatorre- most likely primary respiratory event AIDS- continue ART interstitial pneumonitis- continue bactrim and steroids currently on vanco/zosyn for possible aspiration (HAP) will continue, check vanco trough, f/u cultures radiology called to expedite cxray overall prognosis is poor 35 minutes spent in the care of this critically ill patient (chart review, exam , lab review, d/w consultants)
--- NOTE | 2017-03-17 10:45 | PN ---
Progress Note (short form) - Note Progress Note: PULMONARY/CCM Pt seen and examined in the ICU. Remains intubated, sedated. No fevers recorded. On volume assist control with 100% FiO2. Last Vital Signs Temp Pulse Resp BP Pulse Ox 98 F 62 25 H 104/59 96 03/17/17 06:07 03/17/17 06:07 03/17/17 07:05 03/17/17 06:07 03/16/17 09:15 Intake & Output 03/14/17 03/15/17 03/16/17 03/17/17 23:59 23:59 23:59 23:59 Intake Total 1240 1550 886 528 Output Total 300 1000 900 Balance 1240 1250 -377 -817 Gen: intubated, sedated Heart: RRR Lung: scattered rales Abd: soft, nontender Ext: no edema CBC, BMP 03/17/17 05:20 03/17/17 05:20 Active Medications Acetaminophen (Tylenol -) 650 mg PO Q6H PRN PRN Reason: FEVER OR PAIN Last Admin: 03/03/17 18:30 Dose: 650 mg Albuterol Sulfate (Ventolin Hfa Inhaler -) 2 puff IH Q4H PRN PRN Reason: SHORT OF BREATH/WHEEZING Amlodipine Besylate (Norvasc -) 5 mg PO DAILY [facility] Last Admin: 03/16/17 11:32 Dose: Not Given Darunavir (Prezista) 800 mg PO DAILY [facility] Last Admin: 03/16/17 11:26 Dose: 800 mg Emtricitabine/Tenofovir (Truvada) 1 tab PO DAILY [facility] Last Admin: 03/16/17 11:25 Dose: 1 tab Enoxaparin Sodium (Lovenox -) 40 mg SQ DAILY [facility] Last Admin: 03/16/17 15:01 Dose: 40 mg Guaifenesin (Robitussin -) 10 ml PO Q4H PRN Last Admin: 03/07/17 23:14 Dose: 10 ml Propofol (Diprivan -) 100 mls @ 1.721 mls/hr IVPB TITR [facility]; 5 MCG/KG/MIN PRN Reason: Protocol Last Admin: 03/17/17 07:09 Dose: Not Given Vancomycin HCl (Vancomycin (Pre-Docked)) 250 mls @ 166.667 mls/hr IVPB BID [facility] PRN Reason: Protocol Last Admin: 03/16/17 21:57 Dose: 166.667 mls/hr Piperacillin Sod/Tazobactam Sod (Zosyn 4.5gm Ivpb (Pre-Docked)) 100 mls @ 200 mls/hr IVPB Q8H-IV [facility] PRN Reason: Protocol Last Admin: 03/17/17 04:00 Dose: 200 mls/hr Midazolam HCl 100 mg/ Sodium (Chloride) 100 mls @ 4 mls/hr IVPB TITR [facility]; 4 MG/ HR PRN Reason: Protocol Last Admin: 03/16/17 15:20 Dose: 4 mls/hr Pantoprazole Sodium (Protonix 40mg Ivpb (Pre-Docked)) 100 mls @ 200 mls/hr IVPB DAILY [facility] Insulin Aspart (Novolog Vial Sliding Scale -) 1 vial SQ ACHS [facility] PRN Reason: Protocol Last Admin: 03/17/17 07:18 Dose: 5 units Methylprednisolone Sodium Succinate (Solu-Medrol -) 40 mg IVPB Q12H [facility] Last Admin: 03/17/17 03:00 Dose: 40 mg Ritonavir (Norvir Oral Solution -) 100 mg PO DAILY [facility] Last Admin: 03/16/17 11:26 Dose: 100 mg Trimethoprim/Sulfamethoxazole (Bactrim Injection -) 380 mg IVPB Q8H-IV [facility] Last Admin: 03/17/17 03:00 Dose: 380 mg A/P Acute Hypoxic Respiratory Failure AIDS/HIV Pneumonia r/o Opportunistic Infection DM - f/u BAL washings for routine, AFB, fungal cultures - washings sent for CMV, TB PCR, Pneumocystis DFA - antibiotic coverage by ID - continue ART - continue medrol at current dose - taper Fio2 to keep SpO2 >90% - lighten sedation in AM to assess mental status - spontaneous breathing trials as tolerated when mental status improved - start enteral feeds - glucose control - DVT/GI prophylaxis - ICU monitoring critical care time spent in reviewing chart, evaluating patient and formulating plan 40 min
[2017-03-17] MEDS: VANCOMYCIN 1 GRAM (PRE-DOCKED) 250 ML IVPB SCH ×2 (11:00→22:26)
[2017-03-17] MEDS: EMTRICITABINE 200MG/TENOFOVIR 300MG PO SCH (12:02)
[2017-03-17] MEDS: RITONAVIR ORAL SOLUTION 80 MG/ML PO SCH (12:03)
[2017-03-17] MEDS: ENOXAPARIN NA (PORCINE) 40 MG/0.4 ML DISP.SYRIN SQ SCH (12:03)
[2017-03-17] MEDS: amLODIPine BESYLATE 5 MG TABLET (FP) PO SCH (12:04)
[2017-03-17] MEDS: DARUNAVIR ETHANOLATE 100 MG/ML BULK BOTTLE PO SCH (12:04)
[2017-03-17] MEDS: PANTOPRAZOLE SODIUM 100 ML IVPB SCH (12:04)
[2017-03-17] MEDS: MIDAZOLAM 100 MG in SODIUM CHLORIDE 100 ML IVPB SCH (12:05)
[2017-03-17] MEDS ORDERED: HEMOQUE TEST 1 EACH EACH ONE (12:16)
[2017-03-17 14:11] LABS: % CD 3 POS. LYMPH. 41.2 % (57.5-86.2); % CD 4 POS LYM 1.7 % (30.8-58.5); %CD3+CD4+CD8+ 0.8 % (Not Estab.); %CD3+CD4+CD8- 0.9 % (Not Estab.); %CD3+CD4-CD8+ 38.4 % (Not Estab.); ABSO. CD 3 124 /uL (622-2402); ABSOLUTE CD 4 HELPER 5 /uL (359-1519); AbsCD3+CD4+CD8+ 2 /uL (Not Estab.); AbsCD3+CD4-CD8+ 115 /uL (Not Estab.); AbsCD3+CD4-CD8- 3 /uL (Not Estab.); CD4/CD8 0.04 (0.92-3.72); CD4/CD8 NYSDOH RATIO 0.02 (Not Estab.)
[2017-03-18] MEDS: PIPERACILLIN/TAZOB 4.5 GM 100 ML IVPB SCH ×2 (01:28→10:05)
[2017-03-18] MEDS: SULFAMETHOXAZOLE 80 MG/TRIMETHOPRIM 16 MG/ML VIAL IVPB SCH ×3 (04:44→20:15)
[2017-03-18] MEDS: methylPREDNISolone NA SUCC 40 MG/1 ML VIAL IVPB SCH ×2 (04:46→15:00)
[2017-03-18 06:32] LABS: MCH 25.5 pg (25.7-33.7); MEAN CELL VOLUME 79.7 fl (80-96); MEAN PLT VOLUME 8.3 fl (7.5-11.1); NEUTROPHILS 97.1 % (42.8-82.8); PLATELET COUNT 167 K/MM3 (134-434); RDW 17.3 % (11.9-15.9); WHITE BLOOD COUNT 8.1 K/mm3 (4.0-10.0)
[2017-03-18 06:53] LABS: ALBUMIN 1.3 g/dl (3.4-5.0); ANION GAP 12 (8-16); CALCIUM 7.3 mg/dL (8.5-10.1); CO2 20 mmol/L (21-32); GLUCOSE,RANDOM 167 mg/dL (74-106); MAGNESIUM 2.2 mg/dL (1.8-2.4)
[2017-03-18 06:55] LABS: ALK PHOS 76 U/L (45-117); BILIRUBIN,TOTAL 0.2 mg/dL (0.2-1.0); COCKROFT - GAULT 48.47; CREATININE 1.2 mg/dL (0.7-1.3); PHOSPHOROUS 2.4 mg/dL (2.5-4.9); SGOT/AST 71 U/L (15-37); SGPT/ALT 42 U/L (12-78); TOT PROT 3.7 g/dl (6.4-8.2)
[2017-03-18] MEDS: PROPOFOL 100 ML IVPB SCH (07:17)
[2017-03-18] MEDS: INSULIN SLIDING SCALE (NOVOLOG) 1 VIAL SQ SCH ×5 (07:20→21:44)
[2017-03-18 07:43] LABS: ALLENS TEST POSITIVE; ART PUNCT SITE RIGHT RADIAL; ARTERIAL BLD GAS O2 SATURATION 99.7 % (90-98.9); ARTERIAL BLOOD GAS BASE EXCESS -5.6 meq/l (-2-2); ARTERIAL BLOOD GAS HCO3 18.8 meq/L (22-26); ARTERIAL BLOOD GAS pH 7.35 (7.35-7.45); LPM/O2% 60%; PT. ON O2? YES
[2017-03-18 07:44] LABS: MECH. VENT. ESPRIT; TYPE OF O2 MEC.VENT; VENT RATE 12; VT/PRESS 450
[2017-03-18] MEDS: PANTOPRAZOLE SODIUM 100 ML IVPB SCH (10:04)
[2017-03-18] MEDS: VANCOMYCIN 1 GRAM (PRE-DOCKED) 250 ML IVPB SCH (10:04)
[2017-03-18] MEDS: RITONAVIR ORAL SOLUTION 80 MG/ML PO SCH (10:05)
[2017-03-18] MEDS: ENOXAPARIN NA (PORCINE) 40 MG/0.4 ML DISP.SYRIN SQ SCH (10:05)
[2017-03-18] MEDS: EMTRICITABINE 200MG/TENOFOVIR 300MG PO SCH (10:05)
[2017-03-18] MEDS: DARUNAVIR ETHANOLATE 100 MG/ML BULK BOTTLE PO SCH (10:06)
[2017-03-18] MEDS: amLODIPine BESYLATE 5 MG TABLET (FP) PO SCH (10:06)
--- NOTE | 2017-03-18 11:09 | PN ---
Progress Note (short form) - Note Progress Note: PULMONARY/CCM Pt seen and examined in the ICU. Remains intubated, sedated. No fevers recorded. On volume assist control with 60% FiO2. Last Vital Signs Temp Pulse Resp BP Pulse Ox 98 F 78 24 104/66 97 03/18/17 06:00 03/18/17 06:00 03/18/17 09:10 03/18/17 06:00 03/17/17 21:00 Intake & Output 03/15/17 03/16/17 03/17/17 03/18/17 23:59 23:59 23:59 23:59 Intake Total 1550 973 758 6804 Output Total 300 1000 2025 550 Balance 8840 -311 -8766 850 Gen: intubated, sedated Heart: RRR Lung: scattered rales Abd: soft, nontender Ext: no edema CBC, BMP 03/18/17 05:20 03/18/17 05:20 Active Medications Acetaminophen (Tylenol -) 650 mg PO Q6H PRN PRN Reason: FEVER OR PAIN Last Admin: 03/03/17 18:30 Dose: 650 mg Albuterol Sulfate (Ventolin Hfa Inhaler -) 2 puff IH Q4H PRN PRN Reason: SHORT OF BREATH/WHEEZING Amlodipine Besylate (Norvasc -) 5 mg PO DAILY [facility] Last Admin: 03/18/17 10:06 Dose: Not Given Darunavir (Prezista) 800 mg PO DAILY [facility] Last Admin: 03/18/17 10:06 Dose: 800 mg Emtricitabine/Tenofovir (Truvada) 1 tab PO DAILY [facility] Last Admin: 03/18/17 10:05 Dose: 1 tab Enoxaparin Sodium (Lovenox -) 40 mg SQ DAILY [facility] Last Admin: 03/18/17 10:05 Dose: 40 mg Guaifenesin (Robitussin -) 10 ml PO Q4H PRN Last Admin: 03/07/17 23:14 Dose: 10 ml Propofol (Diprivan -) 100 mls @ 1.721 mls/hr IVPB TITR [facility]; 5 MCG/KG/MIN PRN Reason: Protocol Last Admin: 03/18/17 07:17 Dose: Not Given Vancomycin HCl (Vancomycin (Pre-Docked)) 250 mls @ 166.667 mls/hr IVPB BID [facility] PRN Reason: Protocol Last Admin: 03/18/17 10:04 Dose: 166.667 mls/hr Piperacillin Sod/Tazobactam Sod (Zosyn 4.5gm Ivpb (Pre-Docked)) 100 mls @ 200 mls/hr IVPB Q8H-IV [facility] PRN Reason: Protocol Last Admin: 03/18/17 10:05 Dose: 200 mls/hr Midazolam HCl 100 mg/ Sodium (Chloride) 100 mls @ 4 mls/hr IVPB TITR [facility]; 4 MG/ HR PRN Reason: Protocol Last Admin: 03/17/17 12:05 Dose: 4 mls/hr Pantoprazole Sodium (Protonix 40mg Ivpb (Pre-Docked)) 100 mls @ 200 mls/hr IVPB DAILY [facility] Last Admin: 03/18/17 10:04 Dose: 200 mls/hr Insulin Aspart (Novolog Vial Sliding Scale -) 1 vial SQ ACHS [facility] PRN Reason: Protocol Last Admin: 03/18/17 07:20 Dose: 5 units Methylprednisolone Sodium Succinate (Solu-Medrol -) 40 mg IVPB Q12H [facility] Last Admin: 03/18/17 04:46 Dose: 40 mg Ritonavir (Norvir Oral Solution -) 100 mg PO DAILY [facility] Last Admin: 03/18/17 10:05 Dose: 100 mg Trimethoprim/Sulfamethoxazole (Bactrim Injection -) 380 mg IVPB Q8H-IV [facility] Last Admin: 03/18/17 10:05 Dose: 380 mg A/P Acute Hypoxic Respiratory Failure AIDS/HIV Pneumonia r/o Opportunistic Infection DM - f/u BAL washings for routine, AFB, fungal cultures - washings sent for CMV, TB PCR, Pneumocystis DFA - antibiotic coverage by ID - continue ART - continue medrol at current dose - taper Fio2 to keep SpO2 >90% - lighten sedation in AM to assess mental status - spontaneous breathing trials as tolerated when mental status improved - enteral feeds - glucose control - DVT/GI prophylaxis - ICU monitoring critical care time spent in reviewing chart, evaluating patient and formulating plan 36 min
--- NOTE | 2017-03-18 14:08 | PN ---
Progress Note (short form) - Note Progress Note: remains intubated, fio2 down to 40% remains sedated no pressors s/p bronchoscopy, results pending CD4 count is 5- started on ART Vital Signs Period Temp Pulse Resp BP Sys/De Oliveira Pulse Ox Last 24 Hr 97.8 F-98 F 74-85 21-35 91-112/56-74 97 cor-rrr lungs decreased bs at bases abd soft,nt ext no edema CBC, BMP 03/18/17 05:20 03/18/17 05:20 Microbiology 03/16/17 11:00 Bronchial Washings - Right Upper Lobe Gram Stain - Final 03/16/17 11:00 Bronchial Washings - Right Upper Lobe Bronchoalveolar Lavage Culture - Final Yeast Like Organism 03/16/17 09:30 Blood - Peripheral Venous Blood Culture - Preliminary NO GROWTH OBTAINED AFTER 48 HOURS, INCUBATION TO CONTINUE FOR 3 DAYS. 03/16/17 09:30 Blood - Peripheral Venous Blood Culture - Preliminary NO GROWTH OBTAINED AFTER 48 HOURS, INCUBATION TO CONTINUE FOR 3 DAYS. 03/16/17 11:00 Bronchial Washings - Right Upper Lobe JYOTI Preparation - Preliminary 03/16/17 11:00 Bronchial Washings - Right Upper Lobe Fungal Culture - Preliminary 03/08/17 14:25 Serum Cryptococcal Antigen - Final 03/08/17 14:25 Blood - Peripheral Venous Mycobacterial Culture - Preliminary 03/08/17 14:25 Blood - Peripheral Venous TB Test (QFT) ([facility]OY) - Final 03/03/17 05:18 Blood - Peripheral Venous Blood Culture - Final NO GROWTH AFTER 5 DAYS INCUBATION 03/03/17 05:18 Blood - Peripheral Venous Blood Culture - Final NO GROWTH AFTER 5 DAYS INCUBATION 03/03/17 06:30 Urine - Urine Clean Catch Urine Culture - Final Pseudomonas Aeruginosa 03/03/17 04:38 Throat Throat Culture - Final NO BETA HEMOLYTIC STREPTOCOCCI ISOLATED 03/03/17 04:38 Throat Group A Strep Rapid Antigen - Final a/p respiratory failure- d/w Dr Alatorre- most likely primary respiratory event AIDS- continue ART interstitial pneumonitis- continue bactrim and steroids bal cultures negative - will d/c vancomycin and zosyn oxygenation improving continue treatment for presumptive PCP
--- NOTE | 2017-03-18 14:16 | PN ---
Progress Note, Physician Chief Complaint: Sedated History of Present Illness: On respirator - Current Medication List Current Medications: Active Medications Acetaminophen (Tylenol -) 650 mg PO Q6H PRN PRN Reason: FEVER OR PAIN Last Admin: 03/03/17 18:30 Dose: 650 mg Albuterol Sulfate (Ventolin Hfa Inhaler -) 2 puff IH Q4H PRN PRN Reason: SHORT OF BREATH/WHEEZING Amlodipine Besylate (Norvasc -) 5 mg PO DAILY [facility] Last Admin: 03/18/17 10:06 Dose: Not Given Darunavir (Prezista) 800 mg PO DAILY [facility] Last Admin: 03/18/17 10:06 Dose: 800 mg Emtricitabine/Tenofovir (Truvada) 1 tab PO DAILY [facility] Last Admin: 03/18/17 10:05 Dose: 1 tab Enoxaparin Sodium (Lovenox -) 40 mg SQ DAILY [facility] Last Admin: 03/18/17 10:05 Dose: 40 mg Guaifenesin (Robitussin -) 10 ml PO Q4H PRN Last Admin: 03/07/17 23:14 Dose: 10 ml Propofol (Diprivan -) 100 mls @ 1.721 mls/hr IVPB TITR ANGUS; 5 MCG/KG/MIN PRN Reason: Protocol Last Admin: 03/18/17 07:17 Dose: Not Given Midazolam HCl 100 mg/ Sodium (Chloride) 100 mls @ 4 mls/hr IVPB TITR ANGUS; 4 MG/ HR PRN Reason: Protocol Last Admin: 03/17/17 12:05 Dose: 4 mls/hr Pantoprazole Sodium (Protonix 40mg Ivpb (Pre-Docked)) 100 mls @ 200 mls/hr IVPB DAILY [facility] Last Admin: 03/18/17 10:04 Dose: 200 mls/hr Insulin Aspart (Novolog Vial Sliding Scale -) 1 vial SQ ACHS [facility] PRN Reason: Protocol Last Admin: 03/18/17 07:20 Dose: 5 units Methylprednisolone Sodium Succinate (Solu-Medrol -) 40 mg IVPB Q12H [facility] Last Admin: 03/18/17 04:46 Dose: 40 mg Ritonavir (Norvir Oral Solution -) 100 mg PO DAILY [facility] Last Admin: 03/18/17 10:05 Dose: 100 mg Trimethoprim/Sulfamethoxazole (Bactrim Injection -) 380 mg IVPB Q8H-IV [facility] Last Admin: 03/18/17 10:05 Dose: 380 mg - Objective Vital Signs: Vital Signs Temperature 98 F 03/18/17 06:00 Pulse Rate 78 03/18/17 06:00 Respiratory Rate 34 H 03/18/17 11:18 Blood Pressure 104/66 03/18/17 06:00 O2 Sat by Pulse Oximetry (%) 97 03/17/17 21:00 Constitutional: Yes: No Distress Eyes: Yes: WNL HENT: Yes: WNL Neck: Yes: WNL Cardiovascular: Yes: WNL Respiratory: Yes: Mechanically Ventilated Gastrointestinal: Yes: Normal Bowel Sounds Genitourinary: Yes: [place] Present Neurological: Yes: Lethargy Labs: CBC, BMP 03/18/17 05:20 03/18/17 05:20 INR, PTT INR 1.28 (0.82-1.09) H 03/10/17 06:30 - ....Imaging X-ray: Report Reviewed Assessment/Plan Continue same trt
[2017-03-19] MEDS: SULFAMETHOXAZOLE 80 MG/TRIMETHOPRIM 16 MG/ML VIAL IVPB SCH ×3 (01:12→18:23)
[2017-03-19] MEDS: methylPREDNISolone NA SUCC 40 MG/1 ML VIAL IVPB SCH ×2 (02:00→17:00)
[2017-03-19] MEDS: INSULIN SLIDING SCALE (NOVOLOG) 1 VIAL SQ SCH ×4 (06:04→21:48)
[2017-03-19 06:11] LABS: BASOPHIL 0.4 % (0-2.0); EOSINOPHIL 0.2 % (0-4.5); MCH 25.4 pg (25.7-33.7); MCHC 31.6 g/dl (32.0-35.9); MEAN CELL VOLUME 80.3 fl (80-96); MEAN PLT VOLUME 7.8 fl (7.5-11.1); PLATELET COUNT 166 K/MM3 (134-434); WHITE BLOOD COUNT 7.3 K/mm3 (4.0-10.0)
[2017-03-19 07:24] LABS: ALBUMIN 1.4 g/dl (3.4-5.0); BILIRUBIN,TOTAL 0.1 mg/dL (0.2-1.0); CALCIUM 7.4 mg/dL (8.5-10.1); COCKROFT - GAULT 48.81; CREATININE 1.3 mg/dL (0.7-1.3); MAGNESIUM 2.5 mg/dL (1.8-2.4); PHOSPHOROUS 2.3 mg/dL (2.5-4.9); TOT PROT 4.2 g/dl (6.4-8.2)
--- NOTE | 2017-03-19 07:28 | PN ---
Progress Note, Physician Chief Complaint: ID Remains intubated Bactrim & Solumedrol 40mg IVPB q 12H ART started Darunivir Norvir Emtracitibine and Tenofovir - Current Medication List Current Medications: Active Medications Acetaminophen (Tylenol -) 650 mg PO Q6H PRN PRN Reason: FEVER OR PAIN Last Admin: 03/03/17 18:30 Dose: 650 mg Albuterol Sulfate (Ventolin Hfa Inhaler -) 2 puff IH Q4H PRN PRN Reason: SHORT OF BREATH/WHEEZING Amlodipine Besylate (Norvasc -) 5 mg PO DAILY [facility] Last Admin: 03/18/17 10:06 Dose: Not Given Darunavir (Prezista) 800 mg PO DAILY [facility] Last Admin: 03/18/17 10:06 Dose: 800 mg Emtricitabine/Tenofovir (Truvada) 1 tab PO DAILY [facility] Last Admin: 03/18/17 10:05 Dose: 1 tab Enoxaparin Sodium (Lovenox -) 40 mg SQ DAILY [facility] Last Admin: 03/18/17 10:05 Dose: 40 mg Guaifenesin (Robitussin -) 10 ml PO Q4H PRN Last Admin: 03/07/17 23:14 Dose: 10 ml Propofol (Diprivan -) 100 mls @ 1.721 mls/hr IVPB TITR ANGUS; 5 MCG/KG/MIN PRN Reason: Protocol Last Admin: 03/18/17 07:17 Dose: Not Given Midazolam HCl 100 mg/ Sodium (Chloride) 100 mls @ 4 mls/hr IVPB TITR ANGUS; 4 MG/ HR PRN Reason: Protocol Last Admin: 03/17/17 12:05 Dose: 4 mls/hr Pantoprazole Sodium (Protonix 40mg Ivpb (Pre-Docked)) 100 mls @ 200 mls/hr IVPB DAILY [facility] Last Admin: 03/18/17 10:04 Dose: 200 mls/hr Insulin Aspart (Novolog Vial Sliding Scale -) 1 vial SQ ACHS ANGUS PRN Reason: Protocol Last Admin: 03/19/17 06:04 Dose: 15 units Methylprednisolone Sodium Succinate (Solu-Medrol -) 40 mg IVPB Q12H [facility] Last Admin: 03/19/17 02:00 Dose: 40 mg Ritonavir (Norvir Oral Solution -) 100 mg PO DAILY [facility] Last Admin: 03/18/17 10:05 Dose: 100 mg Trimethoprim/Sulfamethoxazole (Bactrim Injection -) 380 mg IVPB Q8H-IV [facility] Last Admin: 03/19/17 01:12 Dose: 380 mg - Objective Vital Signs: Vital Signs Temperature 98.5 F 03/19/17 06:00 Pulse Rate 78 03/19/17 06:00 Respiratory Rate 22 03/19/17 06:00 Blood Pressure 97/64 03/19/17 06:00 O2 Sat by Pulse Oximetry (%) 94 L 03/18/17 22:00 Constitutional: Yes: Other (INtubated) Cardiovascular: Yes: S1, S2 Respiratory: Yes: WNL, Regular, CTA Bilaterally Gastrointestinal: Yes: Soft. No: Tenderness Edema: No Labs: INR, PTT INR 1.28 (0.82-1.09) H 03/10/17 06:30 Problem List - Problems (1) AIDS Code(s): B20 - HUMAN IMMUNODEFICIENCY VIRUS [HIV] DISEASE (2) Interstitial pneumonitis Code(s): J84.89 - OTHER SPECIFIED INTERSTITIAL PULMONARY DISEASES (3) Diabetes Code(s): E11.9 - TYPE 2 DIABETES MELLITUS WITHOUT COMPLICATIONS Assessment/Plan Microbiology 03/16/17 11:00 Bronchial Washings - Right Upper Lobe Gram Stain - Final 03/16/17 11:00 Bronchial Washings - Right Upper Lobe Bronchoalveolar Lavage Culture - Final Yeast Like Organism 03/16/17 11:00 Bronchial Washings - Right Upper Lobe Mycobacteria (PCR) - Preliminary 03/16/17 11:00 Bronchial Washings - Right Upper Lobe JYOTI Preparation - Preliminary 03/16/17 11:00 Bronchial Washings - Right Upper Lobe Fungal Culture - Preliminary 03/16/17 11:00 Bronchial Washings - Right Upper Lobe Cytomegalovirus Culture - Preliminary Laboratory Tests 03/08/17 03/08/17 03/08/17 14:46 14:46 14:46 WBC Hgb Plt Count ABG pH ABG pCO2 at Pt Temp ABG pO2 at Pt Temp Oxygen Flow Rate BUN Creatinine Creat Clearance w eGFR Total Bilirubin Alkaline Phosphatase CMV IgG Ab 1.30 H CMV IgM Ab < 30.0 HIV-1 RNA (PCR) [id number] Toxoplasma IgG Ab Beta-(1,3)-D-Glucan 201 H 03/10/17 03/16/17 03/18/17 06:30 07:45 05:20 WBC 8.1 Hgb 8.7 L D Plt Count 167 ABG pH ABG pCO2 at Pt Temp ABG pO2 at Pt Temp Oxygen Flow Rate BUN Pending Creatinine Pending Creat Clearance w eGFR Pending Total Bilirubin Alkaline Phosphatase CMV IgG Ab CMV IgM Ab HIV-1 RNA (PCR) Toxoplasma IgG Ab < 3.0 Beta-(1,3)-D-Glucan 03/18/17 03/18/17 03/19/17 05:20 07:30 05:10 WBC Pending Hgb Pending Plt Count Pending ABG pH 7.35 ABG pCO2 at Pt Temp 34.7 L ABG pO2 at Pt Temp 175.0 H* Oxygen Flow Rate 60% BUN 23 H Creatinine 1.2 Creat Clearance w eGFR Total Bilirubin 0.2 D Alkaline Phosphatase 76 D CMV IgG Ab CMV IgM Ab HIV-1 RNA (PCR) Toxoplasma IgG Ab Beta-(1,3)-D-Glucan 03/19/17 05:10 WBC Hgb Plt Count ABG pH ABG pCO2 at Pt Temp ABG pO2 at Pt Temp Oxygen Flow Rate BUN Pending Creatinine Pending Creat Clearance w eGFR Total Bilirubin Alkaline Phosphatase CMV IgG Ab CMV IgM Ab HIV-1 RNA (PCR) Toxoplasma IgG Ab Beta-(1,3)-D-Glucan Assessment AIDS T cells 5 Interstitial pneumonitis presumption is Psumocystis ( BAL pending) Diabetes Mellitus Respiratory failure Plan Continue all current meds CMV PCR DNA pending Antiretroviral to continue HLA B 57 01 BAL pending maybe today Nuno MIJARES
[2017-03-19 07:48] LABS: ALLENS TEST POSITIVE; ART PUNCT SITE LEFT RADIAL; ARTERIAL BLOOD GAS BASE EXCESS -2.1 meq/l (-2-2); ARTERIAL BLOOD GAS HCO3 21.6 meq/L (22-26); ARTERIAL BLOOD GAS PO2 73.6 mmHg (80-100); ARTERIAL BLOOD GAS pH 7.41 (7.35-7.45); LPM/O2% 40; MECH. VENT. YES; PT. ON O2? YES; TYPE OF O2 VENT; VENT RATE 12; VT/PRESS 450
[2017-03-19] MEDS: RITONAVIR ORAL SOLUTION 80 MG/ML PO SCH (10:04)
[2017-03-19] MEDS: PANTOPRAZOLE SODIUM 100 ML IVPB SCH (10:04)
[2017-03-19] MEDS: DARUNAVIR ETHANOLATE 100 MG/ML BULK BOTTLE PO SCH (10:05)
[2017-03-19] MEDS: EMTRICITABINE 200MG/TENOFOVIR 300MG PO SCH (10:05)
[2017-03-19] MEDS: ENOXAPARIN NA (PORCINE) 40 MG/0.4 ML DISP.SYRIN SQ SCH (10:06)
[2017-03-19] MEDS: PROPOFOL 100 ML IVPB SCH (10:07)
[2017-03-19] MEDS: amLODIPine BESYLATE 5 MG TABLET (FP) PO SCH (10:07)
--- NOTE | 2017-03-19 12:10 | PN ---
Teaching Attending Note Name of Resident: Bessy Eaton ATTENDING PHYSICIAN STATEMENT I saw and evaluated the patient. I reviewed the resident's note and discussed the case with the resident. I agree with the resident's findings and plan as documented. SUBJECTIVE: Pt seen and examined in the ICU. Remains intubated, sedated. Attempted to lighten sedation and placed on CPAP/PS trials but became tachypneic relatively quick, placed back on assist control. OBJECTIVE: Last Vital Signs Temp Pulse Resp BP Pulse Ox 98.5 F 82 27 H 102/65 96 03/19/17 06:00 03/19/17 09:30 03/19/17 11:54 03/19/17 09:09 03/19/17 10:11 Intake & Output 03/16/17 03/17/17 03/18/17 03/19/17 23:59 23:59 23:59 23:59 Intake Total 781 699 0604 1008 Output Total 1000 2025 1500 550 Balance -114 -1497 2238 458 Weight 138 lb Gen: intubated, sedated Heart: RRR Lung: scattered rhonchi Abd: soft, nontender Ext: no edema CBC, BMP 03/19/17 05:10 03/19/17 05:10 Active Medications Acetaminophen (Tylenol -) 650 mg PO Q6H PRN PRN Reason: FEVER OR PAIN Last Admin: 03/03/17 18:30 Dose: 650 mg Albuterol Sulfate (Ventolin Hfa Inhaler -) 2 puff IH Q4H PRN PRN Reason: SHORT OF BREATH/WHEEZING Amlodipine Besylate (Norvasc -) 5 mg PO DAILY [facility] Last Admin: 03/19/17 10:07 Dose: Not Given Darunavir (Prezista) 800 mg PO DAILY [facility] Last Admin: 03/19/17 10:05 Dose: 800 mg Emtricitabine/Tenofovir (Truvada) 1 tab PO DAILY [facility] Last Admin: 03/19/17 10:05 Dose: 1 tab Enoxaparin Sodium (Lovenox -) 40 mg SQ DAILY [facility] Last Admin: 03/19/17 10:06 Dose: 40 mg Guaifenesin (Robitussin -) 10 ml PO Q4H PRN Last Admin: 03/07/17 23:14 Dose: 10 ml Propofol (Diprivan -) 100 mls @ 1.721 mls/hr IVPB TITR ANGUS; 5 MCG/KG/MIN PRN Reason: Protocol Last Admin: 03/19/17 10:07 Dose: Not Given Midazolam HCl 100 mg/ Sodium (Chloride) 100 mls @ 4 mls/hr IVPB TITR ANGUS; 4 MG/ HR PRN Reason: Protocol Last Admin: 03/17/17 12:05 Dose: 4 mls/hr Pantoprazole Sodium (Protonix 40mg Ivpb (Pre-Docked)) 100 mls @ 200 mls/hr IVPB DAILY [facility] Last Admin: 03/19/17 10:04 Dose: 200 mls/hr Insulin Aspart (Novolog Vial Sliding Scale -) 1 vial SQ ACHS ANGUS PRN Reason: Protocol Last Admin: 03/19/17 11:10 Dose: 15 units Methylprednisolone Sodium Succinate (Solu-Medrol -) 40 mg IVPB Q12H [facility] Last Admin: 03/19/17 02:00 Dose: 40 mg Ritonavir (Norvir Oral Solution -) 100 mg PO DAILY [facility] Last Admin: 03/19/17 10:04 Dose: 100 mg Trimethoprim/Sulfamethoxazole (Bactrim Injection -) 380 mg IVPB Q8H-IV [facility] Last Admin: 03/19/17 10:04 Dose: 380 mg ASSESSMENT AND PLAN: Acute Hypoxic Respiratory Failure AIDS/HIV Pneumonia r/o Opportunistic Infection DM - f/u BAL washings for routine, AFB, fungal cultures - f/u washings sent for CMV, TB PCR, Pneumocystis DFA - antibiotic coverage by ID - continue ART - continue medrol at current dose - taper Fio2 to keep SpO2 >90% - daily sedation vacations to assess mental status - spontaneous breathing trials as tolerated when mental status improved - enteral feeds - glucose control - DVT/GI prophylaxis - continue ICU monitoring - prognosis remains guarded as no significant improvement despite antimicrobial therapy critical care time spent in reviewing chart, evaluating patient and formulating plan 36 min
--- NOTE | 2017-03-19 13:46 | PN ---
Physical Exam: SUBJECTIVE: Patient seen and examined. He is sedated on ventilatory support. No overnight events. OBJECTIVE: Vital Signs Period Temp Pulse Resp BP Sys/De Oliveira Pulse Ox Last 24 Hr 98 F-98.6 F 74-96 16-33 92-126/58-80 94-96 GENERAL: The patient is intubated, sedated. HEAD: Normal with no signs of trauma. EYES: extraocular movements not assessed, no ptosis. ENT: moist mucous membranes NECK: Trachea midline LUNGS: Breath sounds equal, coarse breath sounds bilaterally, crackles b/l, no accessory muscle use. HEART: Regular rate and rhythm, S1, S2 without murmur, rub or gallop. ABDOMEN: Soft, nontender, distended, normoactive bowel sounds, no guarding, no rebound.. EXTREMITIES: no edema. NEUROLOGICAL: No facial asymmetry. Sedated,gait not observed. PSYCH: Normal mood, normal affect. SKIN: Warm, dry, normal turgor, no rashes or lesions noted Laboratory Results - last 24 hr 03/18/17 03/18/17 03/19/17 16:20 21:28 05:10 WBC 7.3 RBC 3.80 L Hgb 9.6 L D Hct 30.5 L MCV 80.3 MCHC 31.6 L RDW 18.0 H Plt Count 166 MPV 7.8 Neutrophils % 97.0 H Lymphocytes % 1.3 L D Monocytes % 1.1 L Eosinophils % 0.2 D Basophils % 0.4 Puncture Site ABG pH ABG pCO2 at Pt Temp ABG pO2 at Pt Temp ABG HCO3 ABG O2 Sat (Measured) ABG O2 Content ABG Base Excess Enrico Test O2 Delivery Device Oxygen Flow Rate Vent Mode Vent Rate Mechanical Rate PEEP Pressure Support Vent Sodium Potassium Chloride Carbon Dioxide Anion Gap BUN Creatinine Creat Clearance w eGFR POC Glucometer 229.22437 138.96975 Random Glucose Calcium Phosphorus Magnesium Total Bilirubin AST ALT Alkaline Phosphatase Total Protein Albumin 03/19/17 03/19/17 03/19/17 05:10 05:53 07:30 WBC RBC Hgb Hct MCV MCHC RDW Plt Count MPV Neutrophils % Lymphocytes % Monocytes % Eosinophils % Basophils % Puncture Site Left radial ABG pH 7.41 ABG pCO2 at Pt Temp 34.8 L ABG pO2 at Pt Temp 73.6 L D ABG HCO3 21.6 L ABG O2 Sat (Measured) 95.0 ABG O2 Content 12.0 L ABG Base Excess -2.1 L Enrico Test Positive O2 Delivery Device Vent Oxygen Flow Rate 40 Vent Mode A/c Vent Rate 12 Mechanical Rate Yes PEEP 5.0 Pressure Support Vent 450 Sodium 132 L Potassium 4.5 Chloride 98 Carbon Dioxide 23 Anion Gap 11 BUN 24 H Creatinine 1.3 Creat Clearance w eGFR 55.06 POC Glucometer [phone] Random Glucose 260 H D Calcium 7.4 L Phosphorus 2.3 L Magnesium 2.5 H Total Bilirubin 0.1 L D AST 59 H ALT 52 D Alkaline Phosphatase 115 D Total Protein 4.2 L Albumin 1.4 L 03/19/17 10:55 WBC RBC Hgb Hct MCV MCHC RDW Plt Count MPV Neutrophils % Lymphocytes % Monocytes % Eosinophils % Basophils % Puncture Site ABG pH ABG pCO2 at Pt Temp ABG pO2 at Pt Temp ABG HCO3 ABG O2 Sat (Measured) ABG O2 Content ABG Base Excess Enrico Test O2 Delivery Device Oxygen Flow Rate Vent Mode Vent Rate Mechanical Rate PEEP Pressure Support Vent Sodium Potassium Chloride Carbon Dioxide Anion Gap BUN Creatinine Creat Clearance w eGFR POC Glucometer [phone] Random Glucose Calcium Phosphorus Magnesium Total Bilirubin AST ALT Alkaline Phosphatase Total Protein Albumin Active Medications Generic Name Dose Route Start Last Admin Trade Name Freq PRN Reason Stop Dose Admin Acetaminophen 650 mg 03/03/17 17:52 03/03/17 18:30 Tylenol - PO 650 mg Q6H PRN Administration FEVER OR PAIN Albuterol Sulfate 2 puff 03/12/17 10:01 Ventolin Hfa Inhaler - IH Q4H PRN SHORT OF BREATH/WHEEZING Amlodipine Besylate 5 mg 03/03/17 18:30 03/19/17 10:07 Norvasc - PO Not Given DAILY [facility] Darunavir 800 mg 03/16/17 10:15 03/19/17 10:05 Prezista PO 800 mg DAILY [facility] Administration Emtricitabine/Tenofovir 1 tab 03/16/17 10:15 03/19/17 10:05 Truvada PO 1 tab DAILY [facility] Administration Enoxaparin Sodium 40 mg 03/16/17 14:00 03/19/17 10:06 Lovenox - SQ 40 mg DAILY [facility] Administration Guaifenesin 10 ml 03/03/17 16:55 03/07/17 23:14 Robitussin - PO 10 ml Q4H PRN Administration Propofol 100 mls @ 1.721 mls/hr 03/16/17 06:45 03/19/17 10:07 Diprivan - IVPB Not Given TITR ANGUS Protocol 5 MCG/KG/MIN Midazolam HCl 100 mg/ Sodium 100 mls @ 4 mls/hr 03/16/17 13:15 03/17/17 12:05 Chloride IVPB 4 mls/hr TITR ANGUS Administration Protocol 4 MG/HR Pantoprazole Sodium 100 mls @ 200 mls/hr 03/16/17 14:00 03/19/17 10:04 Protonix 40mg Ivpb (Pre-Docked) IVPB 200 mls/hr DAILY [facility] Administration Insulin Aspart 1 vial 03/06/17 16:30 03/19/17 11:10 Novolog Vial Sliding Scale - SQ 15 units ACHS ANGUS Administration Protocol Methylprednisolone Sodium Succinate 40 mg 03/12/17 14:45 03/19/17 02:00 Solu-Medrol - IVPB 40 mg Q12H [facility] Administration Ritonavir 100 mg 03/16/17 10:30 03/19/17 10:04 Norvir Oral Solution - PO 100 mg DAILY [facility] Administration Trimethoprim/Sulfamethoxazole 380 mg 03/09/17 10:00 03/19/17 10:04 Bactrim Injection - IVPB 380 mg Q8H-IV [facility] Administration ASSESSMENT/PLAN: 66 year old male with acute respiratory failure, bilateral pneumonia and HIV who was admitted to ICU s/p respiratory failure. Acute Hypoxic respiratory failure: -sedated on volume assist control with 40% FiO2 -weaning trial not tolerated well, he was dyspneic -bronchoscopy done, BAL washings culture, AFB, CMV, TB PCR, Pneumocystis DFA, fungal cultures pending -propofol tapered down due to hypotension and started on versed drip 4 mls/hr -ID consulted will f/u recommendations -continue steroids Medrol 40 mg IV Q12hr Pneumonia: -he is treated for interstitial pneumonitis -continue antibiotics; bactrim, Vancomycin and Zosyn -f/u ID recommendations -f/u CXR AIDS: -treated with Darunavir, Ritonavir, Emtricitabine/Tenofovir -the pt's girlfriend didn't know about his HIV status and she is not aware if the pt knew and was treated for HIV in the past -spontaneous breathing trials as tolerated when mental status improved DM: -BGMs -ISS HTN: -cont Norvasc DVT PPX: Lovenox 40 mg qd GI PPX: none Disposition: Monitor in ICU Problem List - Problems (1) AIDS Code(s): B20 - HUMAN IMMUNODEFICIENCY VIRUS [HIV] DISEASE (2) Bilateral pneumonia Code(s): J18.9 - PNEUMONIA, UNSPECIFIED ORGANISM (3) Diabetes Code(s): E11.9 - TYPE 2 DIABETES MELLITUS WITHOUT COMPLICATIONS Visit type - Emergency Visit Emergency Visit: Yes ED Registration Date: 03/03/17 Care time: The patient presented to the Emergency Department on the above date and was hospitalized for further evaluation of their emergent condition. - New Patient This patient is new to me today: Yes Date on this admission: 03/19/17 - Critical Care Critical Care patient: Yes Total Critical Care Time (in minutes): 40 Critical Care Statement: The care of this patient involved high complexity decision making to prevent further life threatening deterioration of the patient 's condition and/or to evalute & treat vital organ system(s) failure or risk of failure.
[2017-03-19 14:12] LABS: LOG 10 4.331 (.)
--- NOTE | 2017-03-19 14:59 | PATH ---
Cytology Non-Gynecological Report Patient Name: ARIANE DAIGLE [facility]. Rec. #: [id number] /Age/Gender: 1950 (Age: 66) / M Account: [id number] Location: ICU [employer] Taken: 03/16/2017 Received: 03/16/2017 Reported: 03/19/2017 Physicians: Nicky Prasad M.D. Abdul Azeez, M.D. Specimen(s) Received BRONCHIAL WASHINGS Clinical History Pneumonia Final Diagnosis LUNG, RIGHT UPPER LOBE, BRONCHIAL WASHINGS: SATISFACTORY FOR EVALUATION. NO MALIGNANT CELLS IDENTIFIED. REACTIVE BRONCHIAL CELLS, MACROPHAGES AND INFLAMMATORY CELLS. SCATTERED FUNGAL ORGANISMS MORPHOLOGICALLY CONSISTENT WITH PNEUMOCYSTIS IDENTIFIED WITH GMS STAIN. RARE FUNGAL ORGANISM MORPHOLOGICALLY SUGGESTIVE OF MADONNA SPECIES ALSO SEEN WITH GMS STAIN (SEE COMMENT). NO ACID-FAST BACILLI IDENTIFIED WITH AFB STAIN. NO MORPHOLOGIC EVIDENCE OF VIRAL CYTOPATHIC EFFECT. Comment: The presence of Madonna species is likely due to colonization or contamination. Correlations with microbiology studies are suggested. The case was discussed with Dr. Elizalde on 03/19/17. Electronically Signed Sarabjit Salas M.D. Addendum Reported: 03/21/2017 Addendum Diagnosis Immunohistochemical stain for CMV performed at [place], [place] ([id number]) and interpreted at [facility] shows the following: no CMV viral inclusions identified. Sarabjit Salas M.D. Gross Description Received is 50 cc of clear fluid fresh. One cytofunnel slide and one cell block are made.
--- NOTE | 2017-03-19 15:05 | PN ---
Progress Note, Physician Chief Complaint: Remained indubated sedated History of Present Illness: 66 yrs old man HIV, Hep present with B/L Pneumonia admitted for respiratory failure - Current Medication List Current Medications: Active Medications Acetaminophen (Tylenol -) 650 mg PO Q6H PRN PRN Reason: FEVER OR PAIN Last Admin: 03/03/17 18:30 Dose: 650 mg Albuterol Sulfate (Ventolin Hfa Inhaler -) 2 puff IH Q4H PRN PRN Reason: SHORT OF BREATH/WHEEZING Amlodipine Besylate (Norvasc -) 5 mg PO DAILY [facility] Last Admin: 03/19/17 10:07 Dose: Not Given Darunavir (Prezista) 800 mg PO DAILY [facility] Last Admin: 03/19/17 10:05 Dose: 800 mg Emtricitabine/Tenofovir (Truvada) 1 tab PO DAILY [facility] Last Admin: 03/19/17 10:05 Dose: 1 tab Enoxaparin Sodium (Lovenox -) 40 mg SQ DAILY [facility] Last Admin: 03/19/17 10:06 Dose: 40 mg Guaifenesin (Robitussin -) 10 ml PO Q4H PRN Last Admin: 03/07/17 23:14 Dose: 10 ml Propofol (Diprivan -) 100 mls @ 1.721 mls/hr IVPB TITR [facility]; 5 MCG/KG/MIN PRN Reason: Protocol Last Admin: 03/19/17 10:07 Dose: Not Given Midazolam HCl 100 mg/ Sodium (Chloride) 100 mls @ 4 mls/hr IVPB TITR ANG[facility]; 4 MG/ HR PRN Reason: Protocol Last Admin: 03/17/17 12:05 Dose: 4 mls/hr Pantoprazole Sodium (Protonix 40mg Ivpb (Pre-Docked)) 100 mls @ 200 mls/hr IVPB DAILY [facility] Last Admin: 03/19/17 10:04 Dose: 200 mls/hr Insulin Aspart (Novolog Vial Sliding Scale -) 1 vial SQ ACHS [facility] PRN Reason: Protocol Last Admin: 03/19/17 11:10 Dose: 15 units Methylprednisolone Sodium Succinate (Solu-Medrol -) 40 mg IVPB Q12H [facility] Last Admin: 03/19/17 02:00 Dose: 40 mg Ritonavir (Norvir Oral Solution -) 100 mg PO DAILY [facility] Last Admin: 03/19/17 10:04 Dose: 100 mg Trimethoprim/Sulfamethoxazole (Bactrim Injection -) 380 mg IVPB Q8H-IV [facility] Last Admin: 03/19/17 10:04 Dose: 380 mg - Objective Vital Signs: Vital Signs Temperature 98.6 F 03/19/17 10:00 Pulse Rate 74 03/19/17 14:00 Respiratory Rate 26 H 03/19/17 14:00 Blood Pressure 94/57 03/19/17 14:00 O2 Sat by Pulse Oximetry (%) 96 03/19/17 13:10 P Exam: Elderly man intubated ETT at place HEENT: ETT and NG tube at place, mm moist NECK: No JVd No Bruit CHEST; B/l equql expantion on Vent CVS; s1S2 R ABD; No distention, non tender BS +, rectal tube at place EXT: trace edema, Pulses + CVS; sedated for intubation. 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 Code(s): J96.90 - RESPIRATORY FAILURE, UNSP, UNSP W HYPOXIA OR HYPERCAPNIA (3) AIDS Assessment/Plan: H/O HIV AID Code(s): B20 - HUMAN IMMUNODEFICIENCY VIRUS [HIV] DISEASE
[2017-03-19] MEDS ORDERED: BENZOIN/ALOE VERA/STORAX/TOLU 58 ML BOTTLE ONE (16:10)
[2017-03-19] MEDS: MIDAZOLAM 100 MG in SODIUM CHLORIDE 100 ML IVPB SCH (21:47)
[2017-03-20] MEDS: SULFAMETHOXAZOLE 80 MG/TRIMETHOPRIM 16 MG/ML VIAL IVPB SCH ×3 (02:50→17:51)
[2017-03-20] MEDS ORDERED: PT OWN MED DRAWER 7, Y5N ONE ×2 (03:09→09:53)
[2017-03-20] MEDS: methylPREDNISolone NA SUCC 40 MG/1 ML VIAL IVPB SCH ×2 (03:13→21:36)
[2017-03-20 06:27] LABS: MCH 25.9 pg (25.7-33.7); MCHC 32.2 g/dl (32.0-35.9); MEAN CELL VOLUME 80.4 fl (80-96); MEAN PLT VOLUME 7.8 fl (7.5-11.1); PLATELET COUNT 122 K/MM3 (134-434); RDW 18.8 % (11.9-15.9); WHITE BLOOD COUNT 5.9 K/mm3 (4.0-10.0)
[2017-03-20] MEDS: INSULIN SLIDING SCALE (NOVOLOG) 1 VIAL SQ SCH ×4 (06:51→21:36)
[2017-03-20 06:55] LABS: ALBUMIN 1.2 g/dl (3.4-5.0); CALCIUM 7.2 mg/dL (8.5-10.1); COCKROFT - GAULT 45.33; CREATININE 1.4 mg/dL (0.7-1.3)
[2017-03-20 06:58] LABS: BILIRUBIN,TOTAL 0.3 mg/dL (0.2-1.0); TOT PROT 3.7 g/dl (6.4-8.2)
[2017-03-20] MEDS ORDERED: guaiFENesin 200 MG/10 ML 10 ML UNIT-DOSE CUPS PO PRN (08:52)
[2017-03-20] MEDS ORDERED: ALBUTEROL SO4 6.7 GM HFA INHALER IH PRN (08:52)
[2017-03-20] MEDS ORDERED: ACETAMINOPHEN 325 MG TABLET (FP) PO PRN (08:52)
[2017-03-20] MEDS: PROPOFOL 100 ML IVPB SCH ×2 (09:50→10:30)
[2017-03-20] MEDS: DARUNAVIR ETHANOLATE 100 MG/ML BULK BOTTLE PO SCH (09:51)
[2017-03-20] MEDS: RITONAVIR ORAL SOLUTION 80 MG/ML PO SCH (09:51)
[2017-03-20] MEDS: EMTRICITABINE 200MG/TENOFOVIR 300MG PO SCH (09:51)
[2017-03-20] MEDS: PANTOPRAZOLE SODIUM 100 ML IVPB SCH (09:54)
[2017-03-20] MEDS: amLODIPine BESYLATE 5 MG TABLET (FP) PO SCH (09:54)
[2017-03-20] MEDS: ENOXAPARIN NA (PORCINE) 40 MG/0.4 ML DISP.SYRIN SQ SCH (09:54)
--- NOTE | 2017-03-20 10:31 | PN ---
Progress Note (short form) - Note Progress Note: remains intubated, fio2 down to 40% remains sedated no pressors s/p bronchoscopy, +PCP CD4 count is 5- started on ART Vital Signs Period Temp Pulse Resp BP Sys/De Oliveira Pulse Ox Last 24 Hr 98 F-98.6 F 74-94 20-32 92-111/57-74 91-96 intubated cor-rrr lungs decreased bs at bases abd soft,nt ext no edema CBC, BMP 03/20/17 06:05 03/20/17 06:05 Laboratory Tests 03/14/17 03/16/17 11:15 11:00 CMV DNA Quant PCR [id number] Pneumocyst carinii Smear Positive H Microbiology 03/16/17 09:30 Blood - Peripheral Venous Blood Culture - Preliminary NO GROWTH OBTAINED AFTER 96 HOURS, INCUBATION TO CONTINUE FOR 1 DAYS. 03/16/17 09:30 Blood - Peripheral Venous Blood Culture - Preliminary NO GROWTH OBTAINED AFTER 96 HOURS, INCUBATION TO CONTINUE FOR 1 DAYS. 03/16/17 11:00 Bronchial Washings - Right Upper Lobe AFB Smear Concentration - Preliminary 03/16/17 11:00 Bronchial Washings - Right Upper Lobe Mycobacterial Culture - Preliminary 03/16/17 11:00 Bronchial Washings - Right Upper Lobe Cytomegalovirus Culture - Preliminary 03/16/17 11:00 Bronchial Washings - Right Upper Lobe Mycobacteria (PCR) - Preliminary 03/16/17 11:00 Bronchial Washings - Right Upper Lobe Gram Stain - Final 03/16/17 11:00 Bronchial Washings - Right Upper Lobe Bronchoalveolar Lavage Culture - Final Yeast Like Organism 03/16/17 11:00 Bronchial Washings - Right Upper Lobe JYOTI Preparation - Preliminary 03/16/17 11:00 Bronchial Washings - Right Upper Lobe Fungal Culture - Preliminary 03/08/17 14:25 Serum Cryptococcal Antigen - Final 03/08/17 14:25 Blood - Peripheral Venous Mycobacterial Culture - Preliminary 03/08/17 14:25 Blood - Peripheral Venous TB Test (QFT) (ELOY) - Final 03/03/17 05:18 Blood - Peripheral Venous Blood Culture - Final NO GROWTH AFTER 5 DAYS INCUBATION 03/03/17 05:18 Blood - Peripheral Venous Blood Culture - Final NO GROWTH AFTER 5 DAYS INCUBATION 03/03/17 06:30 Urine - Urine Clean Catch Urine Culture - Final Pseudomonas Aeruginosa 03/03/17 04:38 Throat Throat Culture - Final NO BETA HEMOLYTIC STREPTOCOCCI ISOLATED 03/03/17 04:38 Throat Group A Strep Rapid Antigen - Final Active Medications Acetaminophen (Tylenol -) 650 mg PO Q6H PRN PRN Reason: FEVER OR PAIN Albuterol Sulfate (Ventolin Hfa Inhaler -) 2 puff IH Q4H PRN PRN Reason: SHORT OF BREATH/WHEEZING Amlodipine Besylate (Norvasc -) 5 mg PO DAILY [facility] Last Admin: 03/20/17 09:54 Dose: 5 mg Darunavir (Prezista) 800 mg PO DAILY [facility] Last Admin: 03/20/17 09:51 Dose: 800 mg Emtricitabine/Tenofovir (Truvada) 1 tab PO DAILY [facility] Last Admin: 03/20/17 09:51 Dose: 1 tab Enoxaparin Sodium (Lovenox -) 40 mg SQ DAILY [facility] Last Admin: 03/20/17 09:54 Dose: 40 mg Guaifenesin (Robitussin -) 10 ml PO Q4H PRN Last Admin: 03/20/17 09:54 Dose: 10 ml Propofol (Diprivan -) 100 mls @ 1.721 mls/hr IVPB TITR [facility]; 5 MCG/KG/MIN PRN Reason: Protocol Last Admin: 03/20/17 09:50 Dose: Not Given Midazolam HCl 100 mg/ Sodium (Chloride) 100 mls @ 4 mls/hr IVPB TITR ANGUS; 4 MG/ HR PRN Reason: Protocol Last Admin: 03/19/17 21:47 Dose: 7 mls/hr Pantoprazole Sodium (Protonix 40mg Ivpb (Pre-Docked)) 100 mls @ 200 mls/hr IVPB DAILY [facility] Last Admin: 03/20/17 09:54 Dose: 200 mls/hr Insulin Aspart (Novolog Vial Sliding Scale -) 1 vial SQ ACHS [facility] PRN Reason: Protocol Methylprednisolone Sodium Succinate (Solu-Medrol -) 40 mg IVPB BID [facility] Ritonavir (Norvir Oral Solution -) 100 mg PO DAILY [facility] Last Admin: 03/20/17 09:51 Dose: 100 mg Trimethoprim/Sulfamethoxazole (Bactrim Injection -) 380 mg IVPB Q8H-IV [facility] Last Admin: 03/20/17 09:48 Dose: 380 mg a/p respiratory failure- PCP pneumonia- continue bactrim and steroids arrest most likely respiratory AIDS- continue ART +cmv serology- no evidence of end organ damage have asked pathology to do special stains for CMV d/w ICU team follow renal funciton closely no options but D5W for bactrim (cannot use NS)
[2017-03-20] MEDS ORDERED: PROPOFOL 100 ML IVPB SCH (10:49)
[2017-03-20] MEDS ORDERED: FUROSEMIDE 40 MG/4 ML INJECTABLE VIAL IVPUSH ONE (11:15)
[2017-03-20] MEDS ORDERED: FUROSEMIDE 40 MG/4 ML INJECTABLE VIAL ONE (11:43)
--- NOTE | 2017-03-20 12:49 | PN ---
Teaching Attending Note Name of Resident: Bessy Eaton ATTENDING PHYSICIAN STATEMENT I saw and evaluated the patient. I reviewed the resident's note and discussed the case with the resident. I agree with the resident's findings and plan as documented. SUBJECTIVE: Pt seen and examined in the ICU. Remains intubated, sedated. Tachypneic when sedation lightened. BAL cytology confirming presence of pneumocystis. OBJECTIVE: Last Vital Signs Temp Pulse Resp BP Pulse Ox 98.4 F 94 H 24 103/69 93 L 03/20/17 06:00 03/20/17 10:00 03/20/17 12:01 03/20/17 10:00 03/20/17 09:36 Intake & Output 03/17/17 03/18/17 03/19/17 03/20/17 23:59 23:59 23:59 23:59 Intake Total 528 3738 3086 1164 Output Total 2024 1500 1200 800 Balance -1497 2238 1886 364 Weight 138 lb 140 lb 8 oz Gen: intubated, sedated Heart: RRR Lung: decreased breath sounds at the bases Abd: soft, nontender Ext: no edema CBC, BMP 03/20/17 06:05 03/20/17 06:05 Active Medications Acetaminophen (Tylenol -) 650 mg PO Q6H PRN PRN Reason: FEVER OR PAIN Albuterol Sulfate (Ventolin Hfa Inhaler -) 2 puff IH Q4H PRN PRN Reason: SHORT OF BREATH/WHEEZING Amlodipine Besylate (Norvasc -) 5 mg PO DAILY [facility] Last Admin: 03/20/17 09:54 Dose: 5 mg Darunavir (Prezista) 800 mg PO DAILY [facility] Last Admin: 03/20/17 09:51 Dose: 800 mg Emtricitabine/Tenofovir (Truvada) 1 tab PO DAILY [facility] Last Admin: 03/20/17 09:51 Dose: 1 tab Enoxaparin Sodium (Lovenox -) 40 mg SQ DAILY [facility] Last Admin: 03/20/17 09:54 Dose: 40 mg Guaifenesin (Robitussin -) 10 ml PO Q4H PRN Last Admin: 03/20/17 09:54 Dose: 10 ml Pantoprazole Sodium (Protonix 40mg Ivpb (Pre-Docked)) 100 mls @ 200 mls/hr IVPB DAILY [facility] Last Admin: 03/20/17 09:54 Dose: 200 mls/hr Propofol (Diprivan -) 100 mls @ 7.648 mls/hr IVPB TITR ANGUS; 20 MCG/KG/MIN PRN Reason: Protocol Insulin Aspart (Novolog Vial Sliding Scale -) 1 vial SQ ACHS [facility] PRN Reason: Protocol Last Admin: 03/20/17 11:51 Dose: 15 units Methylprednisolone Sodium Succinate (Solu-Medrol -) 40 mg IVPB BID [facility] Ritonavir (Norvir Oral Solution -) 100 mg PO DAILY [facility] Last Admin: 03/20/17 09:51 Dose: 100 mg Trimethoprim/Sulfamethoxazole (Bactrim Injection -) 380 mg IVPB Q8H-IV [facility] Last Admin: 03/20/17 09:48 Dose: 380 mg ASSESSMENT AND PLAN: Acute Hypoxic Respiratory Failure AIDS/HIV Pneumonia r/o Opportunistic Infection DM - antibiotic coverage by ID - continue ART - continue medrol at current dose - taper Fio2 to keep SpO2 >90% - daily sedation vacations to assess mental status, attempt to transition sedation to propofol - spontaneous breathing trials as tolerated when mental status improved - enteral feeds - glucose control - DVT/GI prophylaxis - continue ICU monitoring - prognosis remains guarded as no significant improvement despite antimicrobial therapy critical care time spent in reviewing chart, evaluating patient and formulating plan 36 min
--- NOTE | 2017-03-20 14:47 | PN ---
Progress Note, Physician Chief Complaint: Remained intubated , Brocoscopy + for PCP, sedated History of Present Illness: 66 yrs old man HIV, Hep present with B/L Pneumonia admitted for respiratory failure, BAL + PCP - Current Medication List Current Medications: Active Medications Acetaminophen (Tylenol -) 650 mg PO Q6H PRN PRN Reason: FEVER OR PAIN Albuterol Sulfate (Ventolin Hfa Inhaler -) 2 puff IH Q4H PRN PRN Reason: SHORT OF BREATH/WHEEZING Amlodipine Besylate (Norvasc -) 5 mg PO DAILY [facility] Last Admin: 03/20/17 09:54 Dose: 5 mg Darunavir (Prezista) 800 mg PO DAILY [facility] Last Admin: 03/20/17 09:51 Dose: 800 mg Emtricitabine/Tenofovir (Truvada) 1 tab PO DAILY [facility] Last Admin: 03/20/17 09:51 Dose: 1 tab Enoxaparin Sodium (Lovenox -) 40 mg SQ DAILY [facility] Last Admin: 03/20/17 09:54 Dose: 40 mg Guaifenesin (Robitussin -) 10 ml PO Q4H PRN Last Admin: 03/20/17 09:54 Dose: 10 ml Pantoprazole Sodium (Protonix 40mg Ivpb (Pre-Docked)) 100 mls @ 200 mls/hr IVPB DAILY [facility] Last Admin: 03/20/17 09:54 Dose: 200 mls/hr Propofol (Diprivan -) 100 mls @ 7.648 mls/hr IVPB TITR ANGUS; 20 MCG/KG/MIN PRN Reason: Protocol Last Titration: 03/20/17 14:30 Dose: 5 mcg/kg/min Insulin Aspart (Novolog Vial Sliding Scale -) 1 vial SQ ACHS [facility] PRN Reason: Protocol Last Admin: 03/20/17 11:51 Dose: 15 units Methylprednisolone Sodium Succinate (Solu-Medrol -) 40 mg IVPB BID [facility] Ritonavir (Norvir Oral Solution -) 100 mg PO DAILY [facility] Last Admin: 03/20/17 09:51 Dose: 100 mg Trimethoprim/Sulfamethoxazole (Bactrim Injection -) 380 mg IVPB Q8H-IV [facility] Last Admin: 03/20/17 09:48 Dose: 380 mg - Objective Vital Signs: Vital Signs Temperature 98.3 F 03/20/17 14:00 Pulse Rate 76 03/20/17 14:00 Respiratory Rate 23 03/20/17 14:00 Blood Pressure 94/57 03/20/17 14:00 O2 Sat by Pulse Oximetry (%) 93 L 03/20/17 09:36 P Exam: Elderly man intubated ETT at place HEENT: ETT and NG tube at place, mm moist NECK: No JVd No Bruit CHEST; B/l equal expansion on Vent CVS; s1S2 R ABD; No distention, non tender BS +, rectal tube at place EXT: trace edema, Pulses + CVS; sedated for intubation. Labs: CBC, BMP 03/20/17 06:05 03/20/17 06:05 INR, PTT INR 1.28 (0.82-1.09) H 03/10/17 06:30 Problem List - Problems (1) Bilateral pneumonia Assessment/Plan: Sputum PCP + on Prednisone and IV Bactrim , Code(s): J18.9 - PNEUMONIA, UNSPECIFIED ORGANISM (2) Respiratory failure Assessment/Plan: Due to PCP Pneumonia on Ventilator management as critical care. Code(s): J96.90 - RESPIRATORY FAILURE, UNSP, UNSP W HYPOXIA OR HYPERCAPNIA (3) AIDS Assessment/Plan: H/O HIV AID on HAART Code(s): B20 - HUMAN IMMUNODEFICIENCY VIRUS [HIV] DISEASE
--- NOTE | 2017-03-20 14:55 | PN ---
Physical Exam: SUBJECTIVE: Patient seen and examined in ICU. He is sedated on propofol, on mechanical ventilation. OBJECTIVE: Vital Signs Period Temp Pulse Resp BP Sys/De Oliveira Pulse Ox Last 24 Hr 98 F-98.7 F 77-94 20-32 92-111/57-74 91-96 GENERAL: The patient is intubated, sedated. HEAD: Normal with no signs of trauma. EYES: extraocular movements not assessed, no ptosis. ENT: moist mucous membranes NECK: Trachea midline LUNGS: Breath sounds equal, coarse breath sounds bilaterally, crackles b/l, no accessory muscle use. HEART: Regular rate and rhythm, S1, S2 without murmur, rub or gallop. ABDOMEN: Soft, nontender, distended, normoactive bowel sounds, no guarding, no rebound.. EXTREMITIES: no edema. NEUROLOGICAL: No facial asymmetry. Sedated, gait not observed. PSYCH: Normal mood, normal affect. SKIN: Warm, dry, normal turgor, no rashes or lesions noted Laboratory Results - last 24 hr 03/19/17 03/19/17 03/20/17 18:20 21:46 06:05 WBC 5.9 RBC 3.44 L Hgb 8.9 L Hct 27.7 L MCV 80.4 MCHC 32.2 RDW 18.8 H Plt Count 122 L D MPV 7.8 Sodium Potassium Chloride Carbon Dioxide Anion Gap BUN Creatinine Creat Clearance w eGFR POC Glucometer 215.17559 280.16307 Random Glucose Calcium Total Bilirubin AST ALT Alkaline Phosphatase Total Protein Albumin 03/20/17 03/20/17 03/20/17 06:05 06:07 11:51 WBC RBC Hgb Hct MCV MCHC RDW Plt Count MPV Sodium 133 L Potassium 4.4 Chloride 99 Carbon Dioxide 21 Anion Gap 13 BUN 34 H D Creatinine 1.4 H Creat Clearance w eGFR 50.55 POC Glucometer 307.84598 341.06745 Random Glucose 286 H Calcium 7.2 L Total Bilirubin 0.3 D AST 43 H D ALT 53 Alkaline Phosphatase 116 Total Protein 3.7 L Albumin 1.2 L Active Medications Generic Name Dose Route Start Last Admin Trade Name Freq PRN Reason Stop Dose Admin Acetaminophen 650 mg 03/20/17 08:52 Tylenol - PO Q6H PRN FEVER OR PAIN Albuterol Sulfate 2 puff 03/20/17 08:52 Ventolin Hfa Inhaler - IH Q4H PRN SHORT OF BREATH/WHEEZING Amlodipine Besylate 5 mg 03/20/17 10:00 03/20/17 09:54 Norvasc - PO 5 mg DAILY [facility] Administration Darunavir 800 mg 03/16/17 10:15 03/20/17 09:51 Prezista PO 800 mg DAILY [facility] Administration Emtricitabine/Tenofovir 1 tab 03/16/17 10:15 03/20/17 09:51 Truvada PO 1 tab DAILY [facility] Administration Enoxaparin Sodium 40 mg 03/16/17 14:00 03/20/17 09:54 Lovenox - SQ 40 mg DAILY [facility] Administration Guaifenesin 10 ml 03/20/17 08:52 03/20/17 09:54 Robitussin - PO 10 ml Q4H PRN Administration Pantoprazole Sodium 100 mls @ 200 mls/hr 03/16/17 14:00 03/20/17 09:54 Protonix 40mg Ivpb (Pre-Docked) IVPB 200 mls/hr DAILY [facility] Administration Propofol 100 mls @ 7.648 mls/hr 03/20/17 11:45 03/20/17 11:00 Diprivan - IVPB 10 mcg/kg/min TITR [facility] Titration Protocol 20 MCG/KG/MIN Insulin Aspart 1 vial 03/20/17 11:00 03/20/17 11:51 Novolog Vial Sliding Scale - SQ 15 units ACHS [facility] Administration Protocol Methylprednisolone Sodium Succinate 40 mg 03/20/17 22:00 Solu-Medrol - IVPB BID [facility] Ritonavir 100 mg 03/16/17 10:30 03/20/17 09:51 Norvir Oral Solution - PO 100 mg DAILY [facility] Administration Trimethoprim/Sulfamethoxazole 380 mg 03/20/17 10:00 03/20/17 09:48 Bactrim Injection - IVPB 380 mg Q8H-IV [facility] Administration bronchial washings pathology:no malignant cells. Macrophages and scattered fungal cells consistent with pneumocystis, claudia present on gram stain likely due to colonization or contamination. No acid fast bacilli seen. ASSESSMENT/PLAN: 66 year old male with acute respiratory failure, bilateral pneumonia and HIV who was admitted to ICU s/p respiratory failure. 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, positive pneumocystis carini -beta 1,3 d glucan elevated, CMV IgG positive -continue antibiotics; bactrim, Vancomycin and Zosyn -no improvement even with antimicrobial treatment -f/u ID recommendations -f/u CXR AIDS: -treated with Darunavir, Ritonavir, Emtricitabine/Tenofovir CD 4 1.7, CD4/CD8 ratio 0.04 -family present at bedside today and informed about his prognosis, treatment -spontaneous breathing trials as tolerated when mental status improved -CD 4 count DM: -BGMs -ISS HTN: -cont Norvasc DVT PPX: Lovenox 40 mg qd GI PPX: none Disposition: Monitor in ICU Problem List - Problems (1) AIDS Code(s): B20 - HUMAN IMMUNODEFICIENCY VIRUS [HIV] DISEASE (2) Bilateral pneumonia Code(s): J18.9 - PNEUMONIA, UNSPECIFIED ORGANISM (3) Diabetes Code(s): E11.9 - TYPE 2 DIABETES MELLITUS WITHOUT COMPLICATIONS Visit type - Emergency Visit Emergency Visit: Yes ED Registration Date: 03/03/17 Care time: The patient presented to the Emergency Department on the above date and was hospitalized for further evaluation of their emergent condition. - New Patient This patient is new to me today: No - Critical Care Critical Care patient: Yes Total Critical Care Time (in minutes): 40 Critical Care Statement: The care of this patient involved high complexity decision making to prevent further life threatening deterioration of the patient 's condition and/or to evalute & treat vital organ system(s) failure or risk of failure.
[2017-03-20] MEDS: MIDAZOLAM 100 MG in SODIUM CHLORIDE 100 ML IVPB SCH (17:03)
[2017-03-21] MEDS: SULFAMETHOXAZOLE 80 MG/TRIMETHOPRIM 16 MG/ML VIAL IVPB SCH ×3 (02:25→17:11)
[2017-03-21] MEDS: INSULIN SLIDING SCALE (NOVOLOG) 1 VIAL SQ SCH ×4 (06:22→21:35)
[2017-03-21 06:30] LABS: MCH 25.6 pg (25.7-33.7); MCHC 32.1 g/dl (32.0-35.9); MEAN CELL VOLUME 79.8 fl (80-96); MEAN PLT VOLUME 8.3 fl (7.5-11.1); PLATELET COUNT 115 K/MM3 (134-434); RDW 18.5 % (11.9-15.9)
[2017-03-21 07:02] LABS: ALBUMIN 1.3 g/dl (3.4-5.0); CALCIUM 7.1 mg/dL (8.5-10.1); COCKROFT - GAULT 50.65; CREATININE 1.3 mg/dL (0.7-1.3); TOT PROT 3.9 g/dl (6.4-8.2)
[2017-03-21 07:04] LABS: BILIRUBIN,TOTAL 0.5 mg/dL (0.2-1.0)
--- NOTE | 2017-03-21 09:02 | PN ---
Progress Note, Physician Chief Complaint: ID Remains intubated Sedated Sats 96% TMP SMZ Solumedrol Vent dependent - Current Medication List Current Medications: Active Medications Acetaminophen (Tylenol -) 650 mg PO Q6H PRN PRN Reason: FEVER OR PAIN Albuterol Sulfate (Ventolin Hfa Inhaler -) 2 puff IH Q4H PRN PRN Reason: SHORT OF BREATH/WHEEZING Amlodipine Besylate (Norvasc -) 5 mg PO DAILY [facility] Last Admin: 03/20/17 09:54 Dose: 5 mg Darunavir (Prezista) 800 mg PO DAILY [facility] Last Admin: 03/20/17 09:51 Dose: 800 mg Emtricitabine/Tenofovir (Truvada) 1 tab PO DAILY [facility] Last Admin: 03/20/17 09:51 Dose: 1 tab Enoxaparin Sodium (Lovenox -) 40 mg SQ DAILY [facility] Last Admin: 03/20/17 09:54 Dose: 40 mg Guaifenesin (Robitussin -) 10 ml PO Q4H PRN Last Admin: 03/20/17 09:54 Dose: 10 ml Pantoprazole Sodium (Protonix 40mg Ivpb (Pre-Docked)) 100 mls @ 200 mls/hr IVPB DAILY [facility] Last Admin: 03/20/17 09:54 Dose: 200 mls/hr Propofol (Diprivan -) 100 mls @ 7.648 mls/hr IVPB TITR [facility]; 20 MCG/KG/MIN PRN Reason: Protocol Last Titration: 03/20/17 14:30 Dose: 5 mcg/kg/min Midazolam HCl 100 mg/ Sodium (Chloride) 100 mls @ 4 mls/hr IVPB TITR ANG[facility]; 4 MG/ HR PRN Reason: Protocol Last Admin: 03/20/17 17:03 Dose: 4 mls/hr Insulin Aspart (Novolog Vial Sliding Scale -) 1 vial SQ ACHS [facility] PRN Reason: Protocol Last Admin: 03/21/17 06:22 Dose: 15 units Methylprednisolone Sodium Succinate (Solu-Medrol -) 40 mg IVPB BID [facility] Last Admin: 03/20/17 21:36 Dose: 40 mg Ritonavir (Norvir Oral Solution -) 100 mg PO DAILY [facility] Last Admin: 03/20/17 09:51 Dose: 100 mg Trimethoprim/Sulfamethoxazole (Bactrim Injection -) 380 mg IVPB Q8H-IV [facility] Last Admin: 03/21/17 02:25 Dose: 380 mg - Objective Vital Signs: Vital Signs Temperature 98 F 03/21/17 04:00 Pulse Rate 80 03/21/17 08:00 Respiratory Rate 28 H 03/21/17 08:54 Blood Pressure 97/67 03/21/17 08:00 O2 Sat by Pulse Oximetry (%) 96 03/21/17 08:54 Constitutional: Yes: No Distress, Other (INtubated) Cardiovascular: Yes: Regular Rate and Rhythm, S1, S2. No: Gallop, Murmur Respiratory: Yes: WNL, Regular, CTA Bilaterally, Diminished. No: Rales, Rhonchi Gastrointestinal: Yes: WNL, Normal Bowel Sounds, Soft. No: Splenomegaly, Tenderness, Tenderness, Rebound Edema: No Labs: CBC, BMP 03/21/17 05:15 03/21/17 05:15 INR, PTT INR 1.28 (0.82-1.09) H 03/10/17 06:30 Problem List - Problems (1) AIDS Code(s): B20 - HUMAN IMMUNODEFICIENCY VIRUS [HIV] DISEASE (2) Interstitial pneumonitis Code(s): J84.89 - OTHER SPECIFIED INTERSTITIAL PULMONARY DISEASES (3) Diabetes Code(s): E11.9 - TYPE 2 DIABETES MELLITUS WITHOUT COMPLICATIONS Assessment/Plan Microbiology 03/16/17 11:00 Bronchial Washings - Right Upper Lobe Mycobacteria (PCR) - Preliminary 03/16/17 11:00 Bronchial Washings - Right Upper Lobe JYOTI Preparation - Preliminary 03/16/17 11:00 Bronchial Washings - Right Upper Lobe Fungal Culture - Preliminary 03/16/17 11:00 Bronchial Washings - Right Upper Lobe Cytomegalovirus Culture - Preliminary 03/16/17 11:00 Bronchial Washings - Right Upper Lobe AFB Smear Concentration - Preliminary 03/16/17 11:00 Bronchial Washings - Right Upper Lobe Mycobacterial Culture - Preliminary Laboratory Tests 03/08/17 03/14/17 03/15/17 14:46 11:15 08:00 WBC Hgb Hct Plt Count ABG pCO2 at Pt Temp Oxygen Flow Rate Vent Rate BUN Creatinine Creat Clearance w eGFR Absolute CD4 [place] 5 L CMV DNA Quant PCR [id number] Pneumocyst carinii Smear Beta-(1,3)-D-Glucan 201 H 03/16/17 03/19/17 03/21/17 11:00 07:30 05:15 WBC 5.0 Hgb 9.4 L Hct 29.2 L Plt Count 115 L ABG pCO2 at Pt Temp 34.8 L Oxygen Flow Rate 40 Vent Rate 12 BUN Creatinine Creat Clearance w eGFR Absolute CD4 [place] CMV DNA Quant PCR Pneumocyst carinii Smear Positive H Beta-(1,3)-D-Glucan 03/21/17 05:15 WBC Hgb Hct Plt Count ABG pCO2 at Pt Temp Oxygen Flow Rate Vent Rate BUN 33 H Creatinine 1.3 Creat Clearance w eGFR 55.06 Absolute CD4 [place] CMV DNA Quant PCR Pneumocyst carinii Smear Beta-(1,3)-D-Glucan Assessment Interstitial pneumonitis Pneumocystis Jirovecki Low level CMV virmemia but unclear has end organ involvement Respiratory failure AIDS 5 T cells on ART Diabetes Mellitus Platelets dropping possible Bactrim related Mild renal insufficiency Plan Continue steroids and ART Bactrim Await TB work up Blood AFB if not sent Lift sedation per pulmonary Moniter platelets and renal function 38 minutes critical care time spent today Nuno MIJARES
[2017-03-21] MEDS ORDERED: PT OWN MED DRAWER 7, Y5N ONE ×3 (09:12→20:12)
[2017-03-21] MEDS: PANTOPRAZOLE SODIUM 100 ML IVPB SCH (09:13)
[2017-03-21] MEDS: methylPREDNISolone NA SUCC 40 MG/1 ML VIAL IVPB SCH ×2 (09:16→21:36)
[2017-03-21] MEDS: ENOXAPARIN NA (PORCINE) 40 MG/0.4 ML DISP.SYRIN SQ SCH (09:18)
[2017-03-21] MEDS: RITONAVIR ORAL SOLUTION 80 MG/ML PO SCH (09:18)
[2017-03-21] MEDS: DARUNAVIR ETHANOLATE 100 MG/ML BULK BOTTLE PO SCH (09:19)
[2017-03-21] MEDS: EMTRICITABINE 200MG/TENOFOVIR 300MG PO SCH (09:19)
[2017-03-21] MEDS: amLODIPine BESYLATE 5 MG TABLET (FP) PO SCH (09:24)
--- NOTE | 2017-03-21 11:02 | PN ---
Physical Exam: SUBJECTIVE: Patient seen and examined. He is sedated, on mech vent. No overnight events. OBJECTIVE: Vital Signs Period Temp Pulse Resp BP Sys/De Oliveira Pulse Ox Last 24 Hr 98 F-98.7 F 76-96 20-35 81-109/53-71 96-98 GENERAL: The patient is intubated, sedated. HEAD: Normal with no signs of trauma. EYES: extraocular movements not assessed, no ptosis. ENT: moist mucous membranes NECK: Trachea midline LUNGS: Breath sounds equal, coarse breath sounds bilaterally, crackles b/l, no accessory muscle use. HEART: Regular rate and rhythm, S1, S2 without murmur, rub or gallop. ABDOMEN: Soft, nontender, distended, normoactive bowel sounds, no guarding, no rebound. EXTREMITIES: no edema. NEUROLOGICAL: No facial asymmetry. Sedated, gait not observed. PSYCH: Normal mood, normal affect. SKIN: Warm, dry, normal turgor, no rashes or lesions noted Laboratory Results - last 24 hr 03/19/17 03/20/17 03/20/17 21:46 11:51 17:48 WBC RBC Hgb Hct MCV MCHC RDW Plt Count MPV Sodium Potassium Chloride Carbon Dioxide Anion Gap BUN Creatinine Creat Clearance w eGFR POC Glucometer [phone] [phone] Random Glucose Calcium Total Bilirubin AST ALT Alkaline Phosphatase Total Protein Albumin 03/20/17 03/21/17 03/21/17 21:21 05:15 05:15 WBC 5.0 RBC 3.66 L Hgb 9.4 L Hct 29.2 L MCV 79.8 L MCHC 32.1 RDW 18.5 H Plt Count 115 L MPV 8.3 Sodium 133 L Potassium 4.0 Chloride 99 Carbon Dioxide 23 Anion Gap 11 BUN 33 H Creatinine 1.3 Creat Clearance w eGFR 55.06 POC Glucometer [phone] Random Glucose 244 H Calcium 7.1 L Total Bilirubin 0.5 D AST 44 H ALT 56 Alkaline Phosphatase 140 H D Total Protein 3.9 L Albumin 1.3 L 03/21/17 06:19 WBC RBC Hgb Hct MCV MCHC RDW Plt Count MPV Sodium Potassium Chloride Carbon Dioxide Anion Gap BUN Creatinine Creat Clearance w eGFR POC Glucometer [phone] Random Glucose Calcium Total Bilirubin AST ALT Alkaline Phosphatase Total Protein Albumin Active Medications Generic Name Dose Route Start Last Admin Trade Name Freq PRN Reason Stop Dose Admin Acetaminophen 650 mg 03/20/17 08:52 Tylenol - PO Q6H PRN FEVER OR PAIN Albuterol Sulfate 2 puff 03/20/17 08:52 Ventolin Hfa Inhaler - IH Q4H PRN SHORT OF BREATH/WHEEZING Amlodipine Besylate 5 mg 03/20/17 10:00 03/21/17 09:24 Norvasc - PO 5 mg DAILY [facility] Administration Darunavir 800 mg 03/16/17 10:15 03/21/17 09:19 Prezista PO 800 mg DAILY ANG[facility] Administration Emtricitabine/Tenofovir 1 tab 03/16/17 10:15 03/21/17 09:19 Truvada PO 1 tab DAILY ANG[facility] Administration Enoxaparin Sodium 40 mg 03/16/17 14:00 03/21/17 09:18 Lovenox - SQ 40 mg DAILY ANG[facility] Administration Guaifenesin 10 ml 03/20/17 08:52 03/20/17 09:54 Robitussin - PO 10 ml Q4H PRN Administration Pantoprazole Sodium 100 mls @ 200 mls/hr 03/16/17 14:00 03/21/17 09:13 Protonix 40mg Ivpb (Pre-Docked) IVPB 200 mls/hr DAILY ANG[facility] Administration Propofol 100 mls @ 7.648 mls/hr 03/20/17 11:45 03/20/17 14:30 Diprivan - IVPB 5 mcg/kg/min TITR ANGUS Titration Protocol 20 MCG/KG/MIN Midazolam HCl 100 mg/ Sodium 100 mls @ 4 mls/hr 03/20/17 16:30 03/20/17 19:00 Chloride IVPB 3 mg/hr TITR ANGUS Titration Protocol 4 MG/HR Insulin Aspart 1 vial 03/20/17 11:00 03/21/17 06:22 Novolog Vial Sliding Scale - SQ 15 units ACHS ANGUS Administration Protocol Methylprednisolone Sodium Succinate 40 mg 03/20/17 22:00 03/21/17 09:16 Solu-Medrol - IVPB 40 mg BID ANGUS Administration Ritonavir 100 mg 03/16/17 10:30 03/21/17 09:18 Norvir Oral Solution - PO 100 mg DAILY ANG[facility] Administration Trimethoprim/Sulfamethoxazole 380 mg 03/20/17 10:00 03/21/17 09:14 Bactrim Injection - IVPB 380 mg Q8H-IV ANGUS Administration bronchial washings pathology: no malignant cells. Macrophages and scattered fungal cells consistent with pneumocystis, claudia present on gram stain likely due to colonization or contamination. No acid fast bacilli seen. ASSESSMENT/PLAN: 66 year old male with acute respiratory failure, bilateral pneumonia and HIV who was admitted to ICU s/p respiratory failure. Acute hypoxic respiratory failure: -sedated on volume assist control with 40% FiO2 -weaning trial not tolerated well today again, he was dyspneic, weaning trials done everyday -bronchoscopy done, BAL washings culture pending -propofol drip was stopped yesterday due to hypotension and he was put back on versed drip -ID consulted will f/u recommendations -continue steroids Medrol 40 mg IV Q12hr Interstitial pneumonitis -due to positive pneumocystis carini -beta 1,3 d glucan elevated, CMV IgG positive -continue antibiotics; bactrim, Vancomycin and Zosyn -no improvement even with antimicrobial treatment -f/u ID recommendations -f/u CXR AIDS: -treated with Darunavir, Ritonavir, Emtricitabine/Tenofovir -CD 4 1.7, CD4/CD8 ratio 0.04 -family present at bedside today and informed about his prognosis, treatment -spontaneous breathing trials as tolerated when mental status improved DM: -BGMs -ISS HTN: -cont Norvasc DVT PPX: Lovenox 40 mg qd GI PPX: none Disposition: Monitor in ICU Problem List - Problems (1) AIDS Code(s): B20 - HUMAN IMMUNODEFICIENCY VIRUS [HIV] DISEASE (2) Bilateral pneumonia Code(s): J18.9 - PNEUMONIA, UNSPECIFIED ORGANISM (3) Diabetes Code(s): E11.9 - TYPE 2 DIABETES MELLITUS WITHOUT COMPLICATIONS Visit type - Emergency Visit Emergency Visit: Yes ED Registration Date: 03/03/17 Care time: The patient presented to the Emergency Department on the above date and was hospitalized for further evaluation of their emergent condition. - New Patient This patient is new to me today: No - Critical Care Critical Care patient: Yes Total Critical Care Time (in minutes): 35 Critical Care Statement: The care of this patient involved high complexity decision making to prevent further life threatening deterioration of the patient 's condition and/or to evalute & treat vital organ system(s) failure or risk of failure.
--- NOTE | 2017-03-21 11:39 | PN ---
Teaching Attending Note Name of Resident: Bessy Eaton ATTENDING PHYSICIAN STATEMENT I saw and evaluated the patient. I reviewed the resident's note and discussed the case with the resident. I agree with the resident's findings and plan as documented. SUBJECTIVE: Pt seen and examined in the ICU. Remains intubated, sedated but still tachypneic even on sedation with accessory muscle use. OBJECTIVE: Last Vital Signs Temp Pulse Resp BP Pulse Ox 98.2 F 96 H 35 H 109/68 98 03/21/17 10:00 03/21/17 10:04 03/21/17 10:03 03/21/17 10:00 03/21/17 10:04 Intake & Output 03/18/17 03/19/17 03/20/17 03/21/17 23:59 23:59 23:59 23:59 Intake Total 3738 3086 3339 1625 Output Total 1500 1200 1420 900 Balance 2238 1886 1919 725 Weight 138 lb 140 lb 8 oz 143 lb 3 oz Gen: intubated, sedated, tachypneic Heart: RRR Lung: scattered rhonchi Abd: soft, nontender Ext: no edema CBC, BMP 03/21/17 05:15 03/21/17 05:15 CXR: bilateral infiltrates Active Medications Acetaminophen (Tylenol -) 650 mg PO Q6H PRN PRN Reason: FEVER OR PAIN Albuterol Sulfate (Ventolin Hfa Inhaler -) 2 puff IH Q4H PRN PRN Reason: SHORT OF BREATH/WHEEZING Amlodipine Besylate (Norvasc -) 5 mg PO DAILY [facility] Last Admin: 03/21/17 09:24 Dose: 5 mg Darunavir (Prezista) 800 mg PO DAILY [facility] Last Admin: 03/21/17 09:19 Dose: 800 mg Emtricitabine/Tenofovir (Truvada) 1 tab PO DAILY [facility] Last Admin: 03/21/17 09:19 Dose: 1 tab Enoxaparin Sodium (Lovenox -) 40 mg SQ DAILY [facility] Last Admin: 03/21/17 09:18 Dose: 40 mg Guaifenesin (Robitussin -) 10 ml PO Q4H PRN Last Admin: 03/20/17 09:54 Dose: 10 ml Pantoprazole Sodium (Protonix 40mg Ivpb (Pre-Docked)) 100 mls @ 200 mls/hr IVPB DAILY [facility] Last Admin: 03/21/17 09:13 Dose: 200 mls/hr Propofol (Diprivan -) 100 mls @ 7.648 mls/hr IVPB TITR ANGUS; 20 MCG/KG/MIN PRN Reason: Protocol Last Titration: 03/20/17 14:30 Dose: 5 mcg/kg/min Midazolam HCl 100 mg/ Sodium (Chloride) 100 mls @ 4 mls/hr IVPB TITR ANGUS; 4 MG/ HR PRN Reason: Protocol Last Titration: 03/20/17 19:00 Dose: 3 mg/hr Insulin Aspart (Novolog Vial Sliding Scale -) 1 vial SQ ACHS [facility] PRN Reason: Protocol Last Admin: 03/21/17 06:22 Dose: 15 units Methylprednisolone Sodium Succinate (Solu-Medrol -) 40 mg IVPB BID [facility] Last Admin: 03/21/17 09:16 Dose: 40 mg Ritonavir (Norvir Oral Solution -) 100 mg PO DAILY [facility] Last Admin: 03/21/17 09:18 Dose: 100 mg Trimethoprim/Sulfamethoxazole (Bactrim Injection -) 380 mg IVPB Q8H-IV [facility] Last Admin: 03/21/17 09:14 Dose: 380 mg ASSESSMENT AND PLAN: Acute Hypoxic Respiratory Failure AIDS/HIV Pneumocystis Pneumonia DM - antibiotic coverage by ID - continue ART - continue medrol at current dose - taper Fio2 to keep SpO2 >90% - daily sedation vacations to assess mental status - spontaneous breathing trials as tolerated when mental status improved - enteral feeds - glucose control - DVT/GI prophylaxis - continue ICU monitoring - prognosis remains guarded as no significant improvement despite antimicrobial therapy - may need tracheostomy as unable to be weaned thus far critical care time spent in reviewing chart, evaluating patient and formulating plan 36 min
[2017-03-21] MEDS: PROPOFOL 100 ML IVPB SCH (11:57)
--- NOTE | 2017-03-21 15:23 | PN ---
Progress Note, Physician Chief Complaint: Remained intubated , Broncoscopy + for PCP, sedated, mild distress History of Present Illness: 66 yrs old man HIV, Hep present with B/L Pneumonia admitted for respiratory failure, BAL + PCP - Current Medication List Current Medications: Active Medications Acetaminophen (Tylenol -) 650 mg PO Q6H PRN PRN Reason: FEVER OR PAIN Albuterol Sulfate (Ventolin Hfa Inhaler -) 2 puff IH Q4H PRN PRN Reason: SHORT OF BREATH/WHEEZING Amlodipine Besylate (Norvasc -) 5 mg PO DAILY [facility] Last Admin: 03/21/17 09:24 Dose: 5 mg Darunavir (Prezista) 800 mg PO DAILY [facility] Last Admin: 03/21/17 09:19 Dose: 800 mg Emtricitabine/Tenofovir (Truvada) 1 tab PO DAILY [facility] Last Admin: 03/21/17 09:19 Dose: 1 tab Enoxaparin Sodium (Lovenox -) 40 mg SQ DAILY [facility] Last Admin: 03/21/17 09:18 Dose: 40 mg Guaifenesin (Robitussin -) 10 ml PO Q4H PRN Last Admin: 03/20/17 09:54 Dose: 10 ml Pantoprazole Sodium (Protonix 40mg Ivpb (Pre-Docked)) 100 mls @ 200 mls/hr IVPB DAILY [facility] Last Admin: 03/21/17 09:13 Dose: 200 mls/hr Propofol (Diprivan -) 100 mls @ 7.648 mls/hr IVPB TITR ANGUS; 20 MCG/KG/MIN PRN Reason: Protocol Last Admin: 03/21/17 11:57 Dose: Not Given Midazolam HCl 100 mg/ Sodium (Chloride) 100 mls @ 4 mls/hr IVPB TITR ANGUS; 4 MG/ HR PRN Reason: Protocol Last Titration: 03/21/17 13:09 Dose: 5 mg/hr Insulin Aspart (Novolog Vial Sliding Scale -) 1 vial SQ ACHS [facility] PRN Reason: Protocol Last Admin: 03/21/17 11:39 Dose: 15 units Methylprednisolone Sodium Succinate (Solu-Medrol -) 40 mg IVPB BID [facility] Last Admin: 03/21/17 09:16 Dose: 40 mg Ritonavir (Norvir Oral Solution -) 100 mg PO DAILY [facility] Last Admin: 03/21/17 09:18 Dose: 100 mg Trimethoprim/Sulfamethoxazole (Bactrim Injection -) 380 mg IVPB Q8H-IV [facility] Last Admin: 03/21/17 09:14 Dose: 380 mg - Objective Vital Signs: Vital Signs Temperature 98.2 F 03/21/17 10:00 Pulse Rate 78 03/21/17 12:00 Respiratory Rate 24 03/21/17 14:07 Blood Pressure 97/64 03/21/17 12:00 O2 Sat by Pulse Oximetry (%) 98 03/21/17 10:04 P Exam: Elderly man intubated ETT at place, mild distress HEENT: ETT and NG tube at place, mm moist NECK: No JVd No Bruit CHEST; B/l equql expansion on Vent CVS; s1S2 R ABD; No distention, non tender BS +, rectal tube at place EXT: trace edema, Pulses + CVS; sedated for intubation. Labs: CBC, BMP 03/21/17 05:15 03/21/17 05:15 INR, PTT INR 1.28 (0.82-1.09) H 03/10/17 06:30 Problem List - Problems (1) Respiratory failure Assessment/Plan: Due to PCP Pneumonia on Ventilator management as critical care. Code(s): J96.90 - RESPIRATORY FAILURE, UNSP, UNSP W HYPOXIA OR HYPERCAPNIA (2) AIDS Assessment/Plan: H/O HIV AID on HAART Code(s): B20 - HUMAN IMMUNODEFICIENCY VIRUS [HIV] DISEASE (3) Pneumocystis carinii pneumonia Assessment/Plan: Sever with respiratory failure on Bactrim, and IV Prednisone Code(s): B59 - PNEUMOCYSTOSIS (4) Diabetes Assessment/Plan: Steroid induced, optimize Glycemic control. Code(s): E11.9 - TYPE 2 DIABETES MELLITUS WITHOUT COMPLICATIONS (5) HTN (hypertension) Assessment/Plan: Well controlled Code(s): I10 - ESSENTIAL (PRIMARY) HYPERTENSION
[2017-03-21] MEDS: MIDAZOLAM 100 MG in SODIUM CHLORIDE 100 ML IVPB SCH (17:09)
[2017-03-22] MEDS: SULFAMETHOXAZOLE 80 MG/TRIMETHOPRIM 16 MG/ML VIAL IVPB SCH ×3 (02:05→18:14)
[2017-03-22] MEDS: INSULIN SLIDING SCALE (NOVOLOG) 1 VIAL SQ SCH ×4 (06:50→21:30)
--- NOTE | 2017-03-22 06:51 | PN ---
Progress Note, Physician Chief Complaint: ID Discussed with nursing staff and all progress notes reviewed. Patient remains vent dependent and unable to wean. HE is now day 13 of Bactrim and on steroids longer Retroviral meds on board Darunivir Norvir Truvada - Current Medication List Current Medications: Active Medications Acetaminophen (Tylenol -) 650 mg PO Q6H PRN PRN Reason: FEVER OR PAIN Albuterol Sulfate (Ventolin Hfa Inhaler -) 2 puff IH Q4H PRN PRN Reason: SHORT OF BREATH/WHEEZING Amlodipine Besylate (Norvasc -) 5 mg PO DAILY [facility] Last Admin: 03/21/17 09:24 Dose: 5 mg Darunavir (Prezista) 800 mg PO DAILY [facility] Last Admin: 03/21/17 09:19 Dose: 800 mg Emtricitabine/Tenofovir (Truvada) 1 tab PO DAILY [facility] Last Admin: 03/21/17 09:19 Dose: 1 tab Enoxaparin Sodium (Lovenox -) 40 mg SQ DAILY [facility] Last Admin: 03/21/17 09:18 Dose: 40 mg Guaifenesin (Robitussin -) 10 ml PO Q4H PRN Last Admin: 03/20/17 09:54 Dose: 10 ml Pantoprazole Sodium (Protonix 40mg Ivpb (Pre-Docked)) 100 mls @ 200 mls/hr IVPB DAILY [facility] Last Admin: 03/21/17 09:13 Dose: 200 mls/hr Propofol (Diprivan -) 100 mls @ 7.648 mls/hr IVPB TITR ANGUS; 20 MCG/KG/MIN PRN Reason: Protocol Last Admin: 03/21/17 11:57 Dose: Not Given Midazolam HCl 100 mg/ Sodium (Chloride) 100 mls @ 4 mls/hr IVPB TITR ANGUS; 4 MG/ HR PRN Reason: Protocol Last Admin: 03/21/17 17:09 Dose: 5 mls/hr Insulin Aspart (Novolog Vial Sliding Scale -) 1 vial SQ ACHS [facility] PRN Reason: Protocol Last Admin: 03/21/17 21:35 Dose: 10 units Methylprednisolone Sodium Succinate (Solu-Medrol -) 40 mg IVPB BID [facility] Last Admin: 03/21/17 21:36 Dose: 40 mg Ritonavir (Norvir Oral Solution -) 100 mg PO DAILY [facility] Last Admin: 03/21/17 09:18 Dose: 100 mg Trimethoprim/Sulfamethoxazole (Bactrim Injection -) 380 mg IVPB Q8H-IV [facility] Last Admin: 03/22/17 02:05 Dose: 380 mg - Objective Vital Signs: Vital Signs Temperature 98.4 F 03/22/17 02:00 Pulse Rate 81 03/22/17 02:00 Respiratory Rate 24 03/22/17 05:30 Blood Pressure 114/71 03/22/17 02:00 O2 Sat by Pulse Oximetry (%) 98 03/21/17 21:58 Constitutional: Yes: Mild Distress, Other (INtubated) HENT: Yes: WNL, Atraumatic Neck: Yes: WNL, Supple Cardiovascular: Yes: Regular Rate and Rhythm, S1, S2. No: Murmur, Rub Respiratory: Yes: WNL, Regular, CTA Bilaterally, Diminished. No: Rales, Rhonchi Gastrointestinal: Yes: WNL, Normal Bowel Sounds, Soft. No: Tenderness Extremities: No: Cold, Cool, Cyanosis Edema: No Labs: CBC, BMP 03/21/17 05:15 03/21/17 05:15 INR, PTT INR 1.28 (0.82-1.09) H 03/10/17 06:30 Problem List - Problems (1) AIDS Code(s): B20 - HUMAN IMMUNODEFICIENCY VIRUS [HIV] DISEASE (2) Interstitial pneumonitis Code(s): J84.89 - OTHER SPECIFIED INTERSTITIAL PULMONARY DISEASES (3) Diabetes Code(s): E11.9 - TYPE 2 DIABETES MELLITUS WITHOUT COMPLICATIONS Assessment/Plan Microbiology 03/16/17 11:00 Bronchial Washings - Right Upper Lobe Gram Stain - Final 03/16/17 11:00 Bronchial Washings - Right Upper Lobe Bronchoalveolar Lavage Culture - Final Yeast Like Organism 03/16/17 09:30 Blood - Peripheral Venous Blood Culture - Final NO GROWTH AFTER 5 DAYS INCUBATION 03/08/17 14:25 Serum Cryptococcal Antigen - Final 03/08/17 14:25 Blood - Peripheral Venous TB Test (QFT) (ELOY) - Final 03/16/17 11:00 Bronchial Washings - Right Upper Lobe Mycobacteria (PCR) - Preliminary 03/16/17 11:00 Bronchial Washings - Right Upper Lobe JYOTI Preparation - Preliminary 03/16/17 11:00 Bronchial Washings - Right Upper Lobe Fungal Culture - Preliminary 03/16/17 11:00 Bronchial Washings - Right Upper Lobe Cytomegalovirus Culture - Preliminary 03/16/17 11:00 Bronchial Washings - Right Upper Lobe AFB Smear Concentration - Preliminary 03/16/17 11:00 Bronchial Washings - Right Upper Lobe Mycobacterial Culture - Preliminary 03/08/17 14:25 Blood - Peripheral Venous Mycobacterial Culture - Preliminary Laboratory Tests 03/08/17 03/14/17 03/15/17 14:46 11:15 08:00 WBC Hgb Hct Plt Count BUN Creatinine Creat Clearance w eGFR Absolute CD4 [place] 5 L CMV IgG Ab 1.30 H CMV IgM Ab < 30.0 CMV DNA Quant PCR [id number] Pneumocyst carinii Smear 03/16/17 03/21/17 03/21/17 11:00 05:15 05:15 WBC 5.0 Hgb 9.4 L Hct 29.2 L Plt Count 115 L BUN 33 H Creatinine 1.3 Creat Clearance w eGFR 55.06 Absolute CD4 [place] CMV IgG Ab CMV IgM Ab CMV DNA Quant PCR Pneumocyst carinii Smear Positive H Assessment Respiratory failure 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 Bactrim related Plan Continue Bactrim HAART Moniter renal function and platelets Blood for AFB sent 40 minutes spent providing critical care review Nuno MIJARES
[2017-03-22 09:01] LABS: MCH 26.1 pg (25.7-33.7); MCHC 32.7 g/dl (32.0-35.9); MEAN PLT VOLUME 8.5 fl (7.5-11.1); PLATELET COUNT 92 K/MM3 (134-434); RDW 18.5 % (11.9-15.9); WHITE BLOOD COUNT 4.1 K/mm3 (4.0-10.0)
[2017-03-22] MEDS: EMTRICITABINE 200MG/TENOFOVIR 300MG PO SCH (09:46)
[2017-03-22] MEDS: RITONAVIR ORAL SOLUTION 80 MG/ML PO SCH (09:46)
[2017-03-22 10:02] LABS: ALBUMIN 1.3 g/dl (3.4-5.0); BILIRUBIN,TOTAL 0.1 mg/dL (0.2-1.0); CALCIUM 7.4 mg/dL (8.5-10.1); COCKROFT - GAULT 51.11; CREATININE 1.3 mg/dL (0.7-1.3); TOT PROT 3.7 g/dl (6.4-8.2)
[2017-03-22] MEDS ORDERED: PT OWN MED DRAWER 7, Y5N ONE ×3 (10:07→21:28)
[2017-03-22] MEDS: methylPREDNISolone NA SUCC 40 MG/1 ML VIAL IVPB SCH ×2 (10:17→21:29)
[2017-03-22] MEDS: DARUNAVIR ETHANOLATE 100 MG/ML BULK BOTTLE PO SCH (10:19)
[2017-03-22] MEDS: ENOXAPARIN NA (PORCINE) 40 MG/0.4 ML DISP.SYRIN SQ SCH (10:19)
[2017-03-22] MEDS: amLODIPine BESYLATE 5 MG TABLET (FP) PO SCH (10:20)
[2017-03-22] MEDS: PANTOPRAZOLE SODIUM 100 ML IVPB SCH (10:20)
[2017-03-22] MEDS ORDERED: FUROSEMIDE 40 MG/4 ML INJECTABLE VIAL ONE (10:40)
[2017-03-22] MEDS ORDERED: FUROSEMIDE 40 MG/4 ML INJECTABLE VIAL IVPUSH ONE (11:00)
[2017-03-22] MEDS: PROPOFOL 100 ML IVPB SCH (11:44)
--- NOTE | 2017-03-22 11:51 | PN ---
Physical Exam: SUBJECTIVE: Patient seen and examined.He is still sedated on mech vent. No overnight events. OBJECTIVE: Vital Signs Period Temp Pulse Resp BP Sys/De Oliveira Pulse Ox Last 24 Hr 98.4 F-98.6 F 76-96 23-32 87-116/51-74 96-98 GENERAL: The patient is intubated, sedated. HEAD: Normal with no signs of trauma. EYES: extraocular movements not assessed, no ptosis. ENT: moist mucous membranes NECK: Trachea midline LUNGS: Breath sounds equal, coarse breath sounds bilaterally, crackles b/l, no accessory muscle use. HEART: Regular rate and rhythm, S1, S2 without murmur, rub or gallop. ABDOMEN: Soft, nontender, distended, normoactive bowel sounds, no guarding, no rebound. EXTREMITIES: no edema. NEUROLOGICAL: No facial asymmetry. Sedated, gait not observed. PSYCH: Normal mood, normal affect. SKIN: Warm, dry, normal turgor, no rashes or lesions noted Rectal tube and [place] cath draining. Laboratory Results - last 24 hr 03/21/17 03/21/17 03/22/17 11:38 21:29 08:45 WBC 4.1 RBC 3.72 L Hgb 9.7 L Hct 29.8 L MCV 80.0 MCHC 32.7 RDW 18.5 H Plt Count 92 L MPV 8.5 Sodium Potassium Chloride Carbon Dioxide Anion Gap BUN Creatinine Creat Clearance w eGFR POC Glucometer 316.80361 245.02924 Random Glucose Calcium Total Bilirubin AST ALT Alkaline Phosphatase Total Protein Albumin 03/22/17 08:45 WBC RBC Hgb Hct MCV MCHC RDW Plt Count MPV Sodium 135 L Potassium 3.8 Chloride 101 Carbon Dioxide 23 Anion Gap 11 BUN 35 H Creatinine 1.3 Creat Clearance w eGFR 55.06 POC Glucometer Random Glucose 268 H Calcium 7.4 L Total Bilirubin 0.1 L D AST 46 H ALT 57 Alkaline Phosphatase 170 H D Total Protein 3.7 L Albumin 1.3 L Active Medications Generic Name Dose Route Start Last Admin Trade Name Freq PRN Reason Stop Dose Admin Acetaminophen 650 mg 03/20/17 08:52 Tylenol - PO Q6H PRN FEVER OR PAIN Albuterol Sulfate 2 puff 03/20/17 08:52 Ventolin Hfa Inhaler - IH Q4H PRN SHORT OF BREATH/WHEEZING Amlodipine Besylate 5 mg 03/20/17 10:00 03/22/17 10:20 Norvasc - PO Not Given DAILY [facility] Darunavir 800 mg 03/16/17 10:15 03/22/17 10:19 Prezista PO 800 mg DAILY [facility] Administration Emtricitabine/Tenofovir 1 tab 03/16/17 10:15 03/22/17 09:46 Truvada PO 1 tab DAILY [facility] Administration Enoxaparin Sodium 40 mg 03/16/17 14:00 03/22/17 10:19 Lovenox - SQ 40 mg DAILY [facility] Administration Guaifenesin 10 ml 03/20/17 08:52 03/20/17 09:54 Robitussin - PO 10 ml Q4H PRN Administration Pantoprazole Sodium 100 mls @ 200 mls/hr 03/16/17 14:00 03/22/17 10:20 Protonix 40mg Ivpb (Pre-Docked) IVPB 200 mls/hr DAILY [facility] Administration Propofol 100 mls @ 7.648 mls/hr 03/20/17 11:45 03/22/17 11:44 Diprivan - IVPB Not Given TITR ANG[facility] Protocol 20 MCG/KG/MIN Midazolam HCl 100 mg/ Sodium 100 mls @ 4 mls/hr 03/20/17 16:30 03/21/17 17:09 Chloride IVPB 5 mls/hr TITR ANGUS Administration Protocol 4 MG/HR Insulin Aspart 1 vial 03/20/17 11:00 03/22/17 11:45 Novolog Vial Sliding Scale - SQ 15 units ACHS ANGUS Administration Protocol Methylprednisolone Sodium Succinate 40 mg 03/20/17 22:00 03/22/17 10:17 Solu-Medrol - IVPB 40 mg BID [facility] Administration Ritonavir 100 mg 03/16/17 10:30 03/22/17 09:46 Norvir Oral Solution - PO 100 mg DAILY [facility] Administration Trimethoprim/Sulfamethoxazole 380 mg 03/20/17 10:00 03/22/17 09:46 Bactrim Injection - IVPB 380 mg Q8H-IV ANGUS Administration bronchial washings pathology: no malignant cells. Macrophages and scattered fungal cells consistent with pneumocystis, claudia present on gram stain likely due to colonization or contamination. No acid fast bacilli seen. ASSESSMENT/PLAN: 66 year old male with acute respiratory failure, bilateral pneumonia and HIV who was admitted to ICU s/p respiratory failure. 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 -beta 1,3 d glucan elevated, CMV IgG positive -continue antibiotics; bactrim, Vancomycin and Zosyn -no improvement even with antimicrobial treatment -f/u ID recommendations -f/u CXR, not changed today AIDS: -treated with Darunavir, Ritonavir, Emtricitabine/Tenofovir -CD 4 1.7, CD4/CD8 ratio 0.04 -family present at bedside today and informed about his prognosis, treatment -spontaneous breathing trials as tolerated when mental status improved -on isolation precautions due to risk of TB DM: -BGMs -ISS HTN: -held Norvasc today DVT PPX: Lovenox 40 mg qd GI PPX: none Disposition: Monitor in ICU Problem List - Problems (1) AIDS Code(s): B20 - HUMAN IMMUNODEFICIENCY VIRUS [HIV] DISEASE (2) Bilateral pneumonia Code(s): J18.9 - PNEUMONIA, UNSPECIFIED ORGANISM Qualifiers: 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 - New Patient This patient is new to me today: No - Critical Care Critical Care patient: Yes Total Critical Care Time (in minutes): 45 Critical Care Statement: The care of this patient involved high complexity decision making to prevent further life threatening deterioration of the patient 's condition and/or to evalute & treat vital organ system(s) failure or risk of failure.
--- NOTE | 2017-03-22 12:13 | PN ---
Teaching Attending Note Name of Resident: Bessy Eaton ATTENDING PHYSICIAN STATEMENT I saw and evaluated the patient. I reviewed the resident's note and discussed the case with the resident. I agree with the resident's findings and plan as documented. SUBJECTIVE: Pt seen and examined in the ICU. Remains intubated, sedated. Tachypneic with labored breathing when sedation lightened. No fevers recorded. OBJECTIVE: Last Vital Signs Temp Pulse Resp BP Pulse Ox 98.6 F 96 H 24 112/67 96 03/22/17 10:00 03/22/17 12:00 03/22/17 12:00 03/22/17 12:00 03/22/17 09:00 Intake & Output 03/19/17 03/20/17 03/21/17 03/22/17 23:59 23:59 23:59 23:59 Intake Total 3086 3339 3145 990 Output Total 1200 1420 2000 900 Balance 1886 1919 1145 90 Weight 138 lb 140 lb 8 oz 143 lb 3 oz 144 lb 8 oz Gen: intubated, sedated, tachypneic Heart: RRR Lung: scattered rhonchi Abd: soft, nontender Ext: no edema CBC, BMP 03/22/17 08:45 03/22/17 08:45 Active Medications Acetaminophen (Tylenol -) 650 mg PO Q6H PRN PRN Reason: FEVER OR PAIN Albuterol Sulfate (Ventolin Hfa Inhaler -) 2 puff IH Q4H PRN PRN Reason: SHORT OF BREATH/WHEEZING Amlodipine Besylate (Norvasc -) 5 mg PO DAILY [facility] Last Admin: 03/22/17 10:20 Dose: Not Given Darunavir (Prezista) 800 mg PO DAILY [facility] Last Admin: 03/22/17 10:19 Dose: 800 mg Emtricitabine/Tenofovir (Truvada) 1 tab PO DAILY [facility] Last Admin: 03/22/17 09:46 Dose: 1 tab Enoxaparin Sodium (Lovenox -) 40 mg SQ DAILY [facility] Last Admin: 03/22/17 10:19 Dose: 40 mg Guaifenesin (Robitussin -) 10 ml PO Q4H PRN Last Admin: 03/20/17 09:54 Dose: 10 ml Pantoprazole Sodium (Protonix 40mg Ivpb (Pre-Docked)) 100 mls @ 200 mls/hr IVPB DAILY [facility] Last Admin: 03/22/17 10:20 Dose: 200 mls/hr Propofol (Diprivan -) 100 mls @ 7.648 mls/hr IVPB TITR [facility]; 20 MCG/KG/MIN PRN Reason: Protocol Last Admin: 03/22/17 11:44 Dose: Not Given Midazolam HCl 100 mg/ Sodium (Chloride) 100 mls @ 4 mls/hr IVPB TITR [facility]; 4 MG/ HR PRN Reason: Protocol Last Admin: 03/21/17 17:09 Dose: 5 mls/hr Insulin Aspart (Novolog Vial Sliding Scale -) 1 vial SQ ACHS [facility] PRN Reason: Protocol Last Admin: 03/22/17 11:45 Dose: 15 units Methylprednisolone Sodium Succinate (Solu-Medrol -) 40 mg IVPB BID [facility] Last Admin: 03/22/17 10:17 Dose: 40 mg Ritonavir (Norvir Oral Solution -) 100 mg PO DAILY [facility] Last Admin: 03/22/17 09:46 Dose: 100 mg Trimethoprim/Sulfamethoxazole (Bactrim Injection -) 380 mg IVPB Q8H-IV [facility] Last Admin: 03/22/17 09:46 Dose: 380 mg ASSESSMENT AND PLAN: Acute Hypoxic Respiratory Failure AIDS/HIV Pneumocystis Pneumonia DM - antibiotic coverage by ID - continue ART - continue medrol at current dose - taper Fio2 to keep SpO2 >90% - daily sedation vacations to assess mental status - spontaneous breathing trials as tolerated when mental status improved - enteral feeds - glucose control - DVT/GI prophylaxis - continue ICU monitoring - prognosis remains guarded as no significant improvement despite antimicrobial therapy - may need tracheostomy as unable to be weaned thus far, discuss with family advanced directives critical care time spent in reviewing chart, evaluating patient and formulating plan 36 min
--- NOTE | 2017-03-22 14:14 | PN ---
Progress Note, Physician Chief Complaint: Remained intubated , Broncoscopy + for PCP, sedated, mild distress. History of Present Illness: 66 yrs old man HIV, Hep present with B/L Pneumonia admitted for respiratory failure, BAL + PCP - Current Medication List Current Medications: Active Medications Acetaminophen (Tylenol -) 650 mg PO Q6H PRN PRN Reason: FEVER OR PAIN Albuterol Sulfate (Ventolin Hfa Inhaler -) 2 puff IH Q4H PRN PRN Reason: SHORT OF BREATH/WHEEZING Amlodipine Besylate (Norvasc -) 5 mg PO DAILY [facility] Last Admin: 03/22/17 10:20 Dose: Not Given Darunavir (Prezista) 800 mg PO DAILY [facility] Last Admin: 03/22/17 10:19 Dose: 800 mg Emtricitabine/Tenofovir (Truvada) 1 tab PO DAILY [facility] Last Admin: 03/22/17 09:46 Dose: 1 tab Enoxaparin Sodium (Lovenox -) 40 mg SQ DAILY [facility] Last Admin: 03/22/17 10:19 Dose: 40 mg Guaifenesin (Robitussin -) 10 ml PO Q4H PRN Last Admin: 03/20/17 09:54 Dose: 10 ml Pantoprazole Sodium (Protonix 40mg Ivpb (Pre-Docked)) 100 mls @ 200 mls/hr IVPB DAILY [facility] Last Admin: 03/22/17 10:20 Dose: 200 mls/hr Propofol (Diprivan -) 100 mls @ 7.648 mls/hr IVPB TITR [facility]; 20 MCG/KG/MIN PRN Reason: Protocol Last Admin: 03/22/17 11:44 Dose: Not Given Midazolam HCl 100 mg/ Sodium (Chloride) 100 mls @ 4 mls/hr IVPB TITR [facility]; 4 MG/ HR PRN Reason: Protocol Last Admin: 03/21/17 17:09 Dose: 5 mls/hr Fentanyl 500 mcg/ Dextrose 100 mls @ 5 mls/hr IJ TITR [facility] PRN Reason: 25 MCG/HR Insulin Aspart (Novolog Vial Sliding Scale -) 1 vial SQ ACHS [facility] PRN Reason: Protocol Last Admin: 03/22/17 11:45 Dose: 15 units Methylprednisolone Sodium Succinate (Solu-Medrol -) 40 mg IVPB BID [facility] Last Admin: 03/22/17 10:17 Dose: 40 mg Ritonavir (Norvir Oral Solution -) 100 mg PO DAILY [facility] Last Admin: 03/22/17 09:46 Dose: 100 mg Trimethoprim/Sulfamethoxazole (Bactrim Injection -) 380 mg IVPB Q8H-IV [facility] Last Admin: 03/22/17 09:46 Dose: 380 mg - Objective Vital Signs: Vital Signs Temperature 98.6 F 03/22/17 10:00 Pulse Rate 96 H 03/22/17 12:00 Respiratory Rate 30 H 03/22/17 12:15 Blood Pressure 112/67 03/22/17 12:00 O2 Sat by Pulse Oximetry (%) 96 03/22/17 09:00 Sedated, intubated HEENT: ET and NG tube at place, mm moist NECK; No JVD No Bruit CHEST: B/L CVS; S1S2 R, no m/g/r ABD: No distention, non tender Bs +, rectal tube at place EXT: No mee afeet, no calf tenderness, 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 Code(s): E11.9 - TYPE 2 DIABETES MELLITUS WITHOUT COMPLICATIONS (5) HTN (hypertension) Assessment/Plan: Well controlled Code(s): I10 - ESSENTIAL (PRIMARY) HYPERTENSION
[2017-03-22] MEDS: FENTANYL INJECTION 500 MCG in DEXTROSE 5%-WATER - 90 ML IJ SCH (15:37)
[2017-03-22] MEDS: MIDAZOLAM 100 MG in SODIUM CHLORIDE 100 ML IVPB SCH (20:23)
[2017-03-23] MEDS: SULFAMETHOXAZOLE 80 MG/TRIMETHOPRIM 16 MG/ML VIAL IVPB SCH ×3 (02:10→17:36)
[2017-03-23] MEDS: INSULIN SLIDING SCALE (NOVOLOG) 1 VIAL SQ SCH ×4 (06:33→22:45)
[2017-03-23 06:35] LABS: MCH 25.5 pg (25.7-33.7); MEAN CELL VOLUME 79.8 fl (80-96); MEAN PLT VOLUME 8.8 fl (7.5-11.1); PLATELET COUNT 87 K/MM3 (134-434); RDW 19.1 % (11.9-15.9)
[2017-03-23 07:00] LABS: ALBUMIN 1.2 g/dl (3.4-5.0); ANION GAP 10 (8-16); CO2 24 mmol/L (21-32); GLUCOSE,RANDOM 286 mg/dL (74-106); SGOT/AST 41 U/L (15-37); SGPT/ALT 53 U/L (12-78)
[2017-03-23 07:02] LABS: ALK PHOS 147 U/L (45-117); BILIRUBIN,TOTAL 0.1 mg/dL (0.2-1.0); CREATININE 1.4 mg/dL (0.7-1.3); TOT PROT 3.3 g/dl (6.4-8.2)
--- NOTE | 2017-03-23 08:09 | PN ---
Progress Note, Physician Chief Complaint: ID Remains tachypneic on the vent Bactrim steroids - Current Medication List Current Medications: Active Medications Acetaminophen (Tylenol -) 650 mg PO Q6H PRN PRN Reason: FEVER OR PAIN Albuterol Sulfate (Ventolin Hfa Inhaler -) 2 puff IH Q4H PRN PRN Reason: SHORT OF BREATH/WHEEZING Amlodipine Besylate (Norvasc -) 5 mg PO DAILY [facility] Last Admin: 03/22/17 10:20 Dose: Not Given Darunavir (Prezista) 800 mg PO DAILY [facility] Last Admin: 03/22/17 10:19 Dose: 800 mg Emtricitabine/Tenofovir (Truvada) 1 tab PO DAILY [facility] Last Admin: 03/22/17 09:46 Dose: 1 tab Enoxaparin Sodium (Lovenox -) 40 mg SQ DAILY [facility] Last Admin: 03/22/17 10:19 Dose: 40 mg Guaifenesin (Robitussin -) 10 ml PO Q4H PRN Last Admin: 03/20/17 09:54 Dose: 10 ml Pantoprazole Sodium (Protonix 40mg Ivpb (Pre-Docked)) 100 mls @ 200 mls/hr IVPB DAILY [facility] Last Admin: 03/22/17 10:20 Dose: 200 mls/hr Propofol (Diprivan -) 100 mls @ 7.648 mls/hr IVPB TITR [facility]; 20 MCG/KG/MIN PRN Reason: Protocol Last Admin: 03/22/17 11:44 Dose: Not Given Midazolam HCl 100 mg/ Sodium (Chloride) 100 mls @ 4 mls/hr IVPB TITR [facility]; 4 MG/ HR PRN Reason: Protocol Last Admin: 03/22/17 20:23 Dose: Not Given Fentanyl 500 mcg/ Dextrose 100 mls @ 5 mls/hr IJ TITR [facility] PRN Reason: 25 MCG/HR Last Admin: 03/22/17 15:37 Dose: 5 mls/hr Insulin Aspart (Novolog Vial Sliding Scale -) 1 vial SQ ACHS [facility] PRN Reason: Protocol Last Admin: 03/23/17 06:33 Dose: 15 units Methylprednisolone Sodium Succinate (Solu-Medrol -) 40 mg IVPB BID [facility] Last Admin: 03/22/17 21:29 Dose: 40 mg Ritonavir (Norvir Oral Solution -) 100 mg PO DAILY [facility] Last Admin: 03/22/17 09:46 Dose: 100 mg Trimethoprim/Sulfamethoxazole (Bactrim Injection -) 380 mg IVPB Q8H-IV [facility] Last Admin: 03/23/17 02:10 Dose: 380 mg - Objective Vital Signs: Vital Signs Temperature 97.3 F L 03/23/17 08:00 Pulse Rate 82 03/23/17 08:00 Respiratory Rate 26 H 03/23/17 08:00 Blood Pressure 96/64 03/23/17 08:00 O2 Sat by Pulse Oximetry (%) 96 03/22/17 21:45 Constitutional: Yes: Moderate Distress Neck: Yes: WNL, Supple Cardiovascular: Yes: Regular Rate and Rhythm, S1, S2 Respiratory: Yes: WNL, Regular, CTA Bilaterally Gastrointestinal: Yes: WNL, Normal Bowel Sounds, Soft. No: Tenderness, Tenderness, Rebound Extremities: No: Cold, Cool, Cyanosis Edema: No Labs: CBC, BMP 03/23/17 05:10 03/23/17 05:10 INR, PTT INR 1.28 (0.82-1.09) H 03/10/17 06:30 Problem List - Problems (1) AIDS Code(s): B20 - HUMAN IMMUNODEFICIENCY VIRUS [HIV] DISEASE (2) Interstitial pneumonitis Code(s): J84.89 - OTHER SPECIFIED INTERSTITIAL PULMONARY DISEASES (3) Diabetes Code(s): E11.9 - TYPE 2 DIABETES MELLITUS WITHOUT COMPLICATIONS Assessment/Plan Microbiology 03/20/17 08:51 Sputum - Endotrachea Suction/Ventilator Gram Stain - Final 03/20/17 08:51 Sputum - Endotrachea Suction/Ventilator Sputum Culture - Final NORMAL RESPIRATORY DEBORAH 03/20/17 08:51 Sputum - Endotrachea Suction/Ventilator Direct Acid Fast Bacilli Smear - Final 03/20/17 08:51 Sputum - Endotrachea Suction/Ventilator AFB Smear Concentration - Preliminary 03/20/17 08:51 Sputum - Endotrachea Suction/Ventilator Mycobacterial Culture - Preliminary Laboratory Tests 03/08/17 03/08/17 03/14/17 14:46 14:46 11:15 WBC Hgb Hct Plt Count BUN Total Bilirubin AST ALT Alkaline Phosphatase Albumin CMV IgG Ab 1.30 H CMV IgM Ab < 30.0 CMV DNA Quant PCR [id number] Pneumocyst carinii Smear Beta-(1,3)-D-Glucan 201 H 03/16/17 03/23/17 03/23/17 11:00 05:10 05:10 WBC 3.0 L Hgb 8.2 L D Hct 25.7 L Plt Count 87 L BUN 38 H Total Bilirubin 0.1 L AST 41 H ALT 53 Alkaline Phosphatase 147 H Albumin 1.2 L CMV IgG Ab CMV IgM Ab CMV DNA Quant PCR Pneumocyst carinii Smear Positive H Beta-(1,3)-D-Glucan Assessment Interstitial pneumonitis Pneumocystitis Worsening respiratory may be due to component of IRIS Low level Virmemia AIDS Pancytopenia suspect toxic effect of Sulfa Worsening renal function Diabetes Plan Continue Bactrim Increase steroids for possible IRIS Moniter renal function and marrow surpression HIV meds Critical care time spent 38 minutes Nuno MIJARES
[2017-03-23] MEDS ORDERED: PT OWN MED DRAWER 7, Y5N ONE (08:58)
[2017-03-23] MEDS: FENTANYL INJECTION 500 MCG in DEXTROSE 5%-WATER - 90 ML IJ SCH ×2 (09:00→12:45)
[2017-03-23] MEDS: amLODIPine BESYLATE 5 MG TABLET (FP) PO SCH (09:41)
[2017-03-23] MEDS: methylPREDNISolone NA SUCC 40 MG/1 ML VIAL IVPB SCH ×2 (09:41→22:21)
[2017-03-23] MEDS: DARUNAVIR ETHANOLATE 100 MG/ML BULK BOTTLE PO SCH (09:42)
[2017-03-23] MEDS: RITONAVIR ORAL SOLUTION 80 MG/ML PO SCH (09:42)
[2017-03-23] MEDS: PANTOPRAZOLE SODIUM 100 ML IVPB SCH (09:43)
[2017-03-23] MEDS: EMTRICITABINE 200MG/TENOFOVIR 300MG PO SCH (09:43)
[2017-03-23] MEDS: ENOXAPARIN NA (PORCINE) 40 MG/0.4 ML DISP.SYRIN SQ SCH (10:11)
[2017-03-23] MEDS: PROPOFOL 100 ML IVPB SCH (11:45)
[2017-03-23] MEDS ORDERED: SODIUM CHLORIDE IVPB SCH (14:00)
[2017-03-23] MEDS ORDERED: GANCICLOVIR IVPB SCH (14:00)
--- NOTE | 2017-03-23 14:06 | PN ---
Progress Note, Physician Chief Complaint: Patient Remained indubated sedated, still tachepnic History of Present Illness: 66 yrs old man admitted with recurrent pneumonia, developed respiratory failure , w/u revealed HIV with AIDs and PCP pneumonia, intubated on treatment of PCP pneumonia. HIV. - Current Medication List Current Medications: Active Medications Acetaminophen (Tylenol -) 650 mg PO Q6H PRN PRN Reason: FEVER OR PAIN Albuterol Sulfate (Ventolin Hfa Inhaler -) 2 puff IH Q4H PRN PRN Reason: SHORT OF BREATH/WHEEZING Amlodipine Besylate (Norvasc -) 5 mg PO DAILY [facility] Last Admin: 03/23/17 09:41 Dose: Not Given Darunavir (Prezista) 800 mg PO DAILY [facility] Last Admin: 03/23/17 09:42 Dose: 800 mg Emtricitabine/Tenofovir (Truvada) 1 tab PO DAILY [facility] Last Admin: 03/23/17 09:43 Dose: 1 tab Guaifenesin (Robitussin -) 10 ml PO Q4H PRN Last Admin: 03/20/17 09:54 Dose: 10 ml Pantoprazole Sodium (Protonix 40mg Ivpb (Pre-Docked)) 100 mls @ 200 mls/hr IVPB DAILY [facility] Last Admin: 03/23/17 09:43 Dose: 200 mls/hr Propofol (Diprivan -) 100 mls @ 7.648 mls/hr IVPB TITR [facility]; 20 MCG/KG/MIN PRN Reason: Protocol Last Admin: 03/23/17 11:45 Dose: Not Given Midazolam HCl 100 mg/ Sodium (Chloride) 100 mls @ 4 mls/hr IVPB TITR [facility]; 4 MG/ HR PRN Reason: Protocol Last Admin: 03/22/17 20:23 Dose: Not Given Fentanyl 500 mcg/ Dextrose 100 mls @ 5 mls/hr IJ TITR [facility] PRN Reason: 25 MCG/HR Last Admin: 03/23/17 12:45 Dose: Not Given Ganciclovir 325 mg/ Sodium (Chloride) 100 mls @ 100 mls/hr IVPB BID [facility] Insulin Aspart (Novolog Vial Sliding Scale -) 1 vial SQ ACHS [facility] PRN Reason: Protocol Last Admin: 03/23/17 11:34 Dose: 10 units Methylprednisolone Sodium Succinate (Solu-Medrol -) 40 mg IVPB BID [facility] Last Admin: 03/23/17 09:41 Dose: 40 mg Ritonavir (Norvir Oral Solution -) 100 mg PO DAILY [facility] Last Admin: 03/23/17 09:42 Dose: 100 mg Trimethoprim/Sulfamethoxazole (Bactrim Injection -) 380 mg IVPB Q8H-IV [facility] Last Admin: 03/23/17 09:40 Dose: 380 mg - Objective Vital Signs: Vital Signs Temperature 97.4 F L 03/23/17 12:00 Pulse Rate 80 03/23/17 12:00 Respiratory Rate 23 03/23/17 12:06 Blood Pressure 100/64 03/23/17 12:00 O2 Sat by Pulse Oximetry (%) 96 03/23/17 08:00 P Exam; Elderly man Sedated, intubated, having respiratory distress. HEENT: ET and NG tube at place, mm moist NECK; No JVD No Bruit CHEST: B/L CVS; S1S2 R, no m/g/r ABD: No distention, non tender Bs +, rectal tube at place EXT: +edema feet, no calf tenderness, Pulses + TRAIN ANNOUNCER: Sedated, intubated Labs: CBC, BMP 03/23/17 05:10 03/23/17 05:10 INR, PTT INR 1.28 (0.82-1.09) H 03/10/17 06:30 Problem List - Problems (1) Respiratory failure Assessment/Plan: Due to Interstitial pneumonia, CMV, fungus and TB -ve, PCP + on Bactrim and IV steroids, discuses with ID attending and patient family, no improvement in respiratory status, Ventilator management as critical care. Code(s): J96.90 - RESPIRATORY FAILURE, UNSP, UNSP W HYPOXIA OR HYPERCAPNIA Qualifiers: Chronicity: acute Respiratory failure complication: hypoxia and hypercapnia Qualified Code(s): J96.01 - Acute respiratory failure with hypoxia; J96.02 - Acute respiratory failure with hypercapnia (2) AIDS Assessment/Plan: Newly diagnosed AID CD4 C on HAART, worsening renal functions and Pancytopenia, eaither drug toxicity or IRS ??, Close monitoring of renal function sand CBC. Code(s): B20 - HUMAN IMMUNODEFICIENCY VIRUS [HIV] DISEASE (3) Pneumocystis carinii pneumonia Code(s): B59 - PNEUMOCYSTOSIS (4) Diabetes Assessment/Plan: Steroid induced, optimize Glycemic control. Code(s): E11.9 - TYPE 2 DIABETES MELLITUS WITHOUT COMPLICATIONS (5) HTN (hypertension) Assessment/Plan: Well controlled Code(s): I10 - ESSENTIAL (PRIMARY) HYPERTENSION (6) Pancytopenia Assessment/Plan: Drug induced, disease process or IRS F/u CBc, BMP Code(s): D61.818 - OTHER PANCYTOPENIA (7) LEXI (acute kidney injury) Assessment/Plan: Can be due to Bactrimor IRS F/u Renal function, will consider renal consult in am. Code(s): N17.9 - ACUTE KIDNEY FAILURE, UNSPECIFIED
--- NOTE | 2017-03-23 15:21 | PN ---
Teaching Attending Note Name of Resident: Bessy Eaton ATTENDING PHYSICIAN STATEMENT I saw and evaluated the patient. I reviewed the resident's note and discussed the case with the resident. I agree with the resident's findings and plan as documented. SUBJECTIVE: Patient seen and examined in the ICU. Remains intubated and sedated. Sedated on Versed and Fentanyl. No pressors. AC Mode of vent. OBJECTIVE: Intake & Output 03/20/17 03/21/17 03/22/17 03/23/17 23:59 23:59 23:59 23:59 Intake Total 3339 3145 3005 1619 Output Total 1420 2000 2500 1800 Balance 1919 1145 505 -181 Weight 140 lb 8 oz 143 lb 3 oz 144 lb 8 oz 149 lb 7 oz Last Vital Signs Temp Pulse Resp BP Pulse Ox 97.0 F L 82 23 103/69 96 03/23/17 14:00 03/23/17 14:00 03/23/17 14:10 03/23/17 14:00 03/23/17 08:00 Active Medications Acetaminophen (Tylenol -) 650 mg PO Q6H PRN PRN Reason: FEVER OR PAIN Albuterol Sulfate (Ventolin Hfa Inhaler -) 2 puff IH Q4H PRN PRN Reason: SHORT OF BREATH/WHEEZING Amlodipine Besylate (Norvasc -) 5 mg PO DAILY [facility] Last Admin: 03/23/17 09:41 Dose: Not Given Darunavir (Prezista) 800 mg PO DAILY [facility] Last Admin: 03/23/17 09:42 Dose: 800 mg Emtricitabine/Tenofovir (Truvada) 1 tab PO DAILY [facility] Last Admin: 03/23/17 09:43 Dose: 1 tab Guaifenesin (Robitussin -) 10 ml PO Q4H PRN Last Admin: 03/20/17 09:54 Dose: 10 ml Pantoprazole Sodium (Protonix 40mg Ivpb (Pre-Docked)) 100 mls @ 200 mls/hr IVPB DAILY [facility] Last Admin: 03/23/17 09:43 Dose: 200 mls/hr Propofol (Diprivan -) 100 mls @ 7.648 mls/hr IVPB TITR [facility]; 20 MCG/KG/MIN PRN Reason: Protocol Last Admin: 03/23/17 11:45 Dose: Not Given Midazolam HCl 100 mg/ Sodium (Chloride) 100 mls @ 4 mls/hr IVPB TITR [facility]; 4 MG/ HR PRN Reason: Protocol Last Admin: 03/22/17 20:23 Dose: Not Given Fentanyl 500 mcg/ Dextrose 100 mls @ 5 mls/hr IJ TITR [facility] PRN Reason: 25 MCG/HR Last Admin: 03/23/17 12:45 Dose: Not Given Ganciclovir 325 mg/ Sodium (Chloride) 100 mls @ 100 mls/hr IVPB BID [facility] Insulin Aspart (Novolog Vial Sliding Scale -) 1 vial SQ ACHS [facility] PRN Reason: Protocol Last Admin: 03/23/17 11:34 Dose: 10 units Methylprednisolone Sodium Succinate (Solu-Medrol -) 40 mg IVPB BID [facility] Last Admin: 03/23/17 09:41 Dose: 40 mg Ritonavir (Norvir Oral Solution -) 100 mg PO DAILY [facility] Last Admin: 03/23/17 09:42 Dose: 100 mg Trimethoprim/Sulfamethoxazole (Bactrim Injection -) 380 mg IVPB Q8H-IV [facility] Last Admin: 03/23/17 09:40 Dose: 380 mg Gen: intubated, sedated Heart: RRR Lung: scattered rhonchi Abd: soft, nontender Ext: no edema Laboratory Results - last 24 hr 03/22/17 03/22/17 03/23/17 16:01 21:17 05:10 WBC 3.0 L RBC 3.22 L Hgb 8.2 L D Hct 25.7 L MCV 79.8 L MCHC 32.0 RDW 19.1 H Plt Count 87 L MPV 8.8 Sodium Potassium Chloride Carbon Dioxide Anion Gap BUN Creatinine Creat Clearance w eGFR POC Glucometer 289.74422 [phone] Random Glucose Calcium Total Bilirubin AST ALT Alkaline Phosphatase Total Protein Albumin 03/23/17 03/23/17 05:10 05:44 WBC RBC Hgb Hct MCV MCHC RDW Plt Count MPV Sodium 134 L Potassium 4.0 Chloride 100 Carbon Dioxide 24 Anion Gap 10 BUN 38 H Creatinine 1.4 H Creat Clearance w eGFR 50.55 POC Glucometer [phone] Random Glucose 286 H Calcium 7.0 L Total Bilirubin 0.1 L AST 41 H ALT 53 Alkaline Phosphatase 147 H Total Protein 3.3 L Albumin 1.2 L ASSESSMENT AND PLAN: Acute Hypoxic Respiratory Failure AIDS/HIV Pneumocystis Pneumonia DM (?) IRIS - antibiotic coverage by ID - continue ART - continue medrol at current dose - taper Fio2 to keep SpO2 >90% - daily sedation vacations to assess mental status - spontaneous breathing trials as tolerated when mental status improved - enteral feeds - glucose control - DVT/GI prophylaxis - continue ICU monitoring - prognosis remains guarded as no significant improvement despite antimicrobial therapy - may need tracheostomy as unable to be weaned thus far, discuss with family advanced directives Dr Cazares Critical care time spent in reviewing chart, evaluating patient and formulating plan 40 min Problem List - Problems (1) Bilateral pneumonia Code(s): J18.9 - PNEUMONIA, UNSPECIFIED ORGANISM Qualifiers: 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
[2017-03-23] MEDS: MIDAZOLAM 100 MG in SODIUM CHLORIDE 100 ML IVPB SCH (15:31)
--- NOTE | 2017-03-23 16:00 | PN ---
Physical Exam: SUBJECTIVE: Patient seen and examined. He is sedated and on mechanical ventilation. No overnight events. OBJECTIVE: Vital Signs Period Temp Pulse Resp BP Sys/De Oliveira Pulse Ox Last 24 Hr 97.0 F-97.4 F 64-84 20-29 83-105/55-69 95-96 GENERAL: The patient is intubated, sedated. HEAD: Normal with no signs of trauma. EYES: extraocular movements not assessed, no ptosis. ENT: moist mucous membranes NECK: Trachea midline LUNGS: Breath sounds equal, coarse breath sounds bilaterally, crackles b/l, no accessory muscle use. HEART: Regular rate and rhythm, S1, S2 without murmur, rub or gallop. ABDOMEN: Soft, nontender, distended, normoactive bowel sounds, no guarding, no rebound. EXTREMITIES: no edema. NEUROLOGICAL: No facial asymmetry. Sedated, gait not observed. PSYCH: Normal mood, normal affect. SKIN: Warm, dry, normal turgor, no rashes or lesions noted Rectal tube [place] catheter DC today, [place] cath inserted Laboratory Results - last 24 hr 03/22/17 03/22/17 03/23/17 16:01 21:17 05:10 WBC 3.0 L RBC 3.22 L Hgb 8.2 L D Hct 25.7 L MCV 79.8 L MCHC 32.0 RDW 19.1 H Plt Count 87 L MPV 8.8 Sodium Potassium Chloride Carbon Dioxide Anion Gap BUN Creatinine Creat Clearance w eGFR POC Glucometer [phone] Random Glucose Calcium Total Bilirubin AST ALT Alkaline Phosphatase Total Protein Albumin 03/23/17 03/23/17 05:10 05:44 WBC RBC Hgb Hct MCV MCHC RDW Plt Count MPV Sodium 134 L Potassium 4.0 Chloride 100 Carbon Dioxide 24 Anion Gap 10 BUN 38 H Creatinine 1.4 H Creat Clearance w eGFR 50.55 POC Glucometer [phone] Random Glucose 286 H Calcium 7.0 L Total Bilirubin 0.1 L AST 41 H ALT 53 Alkaline Phosphatase 147 H Total Protein 3.3 L Albumin 1.2 L Active Medications Generic Name Dose Route Start Last Admin Trade Name Freq PRN Reason Stop Dose Admin Acetaminophen 650 mg 03/20/17 08:52 Tylenol - PO Q6H PRN FEVER OR PAIN Albuterol Sulfate 2 puff 03/20/17 08:52 Ventolin Hfa Inhaler - IH Q4H PRN SHORT OF BREATH/WHEEZING Amlodipine Besylate 5 mg 03/20/17 10:00 03/23/17 09:41 Norvasc - PO Not Given DAILY ANGUS Darunavir 800 mg 03/16/17 10:15 03/23/17 09:42 Prezista PO 800 mg DAILY ANGUS Administration Emtricitabine/Tenofovir 1 tab 03/16/17 10:15 03/23/17 09:43 Truvada PO 1 tab DAILY ANGUS Administration Guaifenesin 10 ml 03/20/17 08:52 03/20/17 09:54 Robitussin - PO 10 ml Q4H PRN Administration Pantoprazole Sodium 100 mls @ 200 mls/hr 03/16/17 14:00 03/23/17 09:43 Protonix 40mg Ivpb (Pre-Docked) IVPB 200 mls/hr DAILY ANGUS Administration Propofol 100 mls @ 7.648 mls/hr 03/20/17 11:45 03/23/17 11:45 Diprivan - IVPB Not Given TITR ANGUS Protocol 20 MCG/KG/MIN Midazolam HCl 100 mg/ Sodium 100 mls @ 4 mls/hr 03/20/17 16:30 03/23/17 15:31 Chloride IVPB 2 mls/hr TITR ANGUS Administration Protocol 4 MG/HR Fentanyl 500 mcg/ Dextrose 100 mls @ 5 mls/hr 03/22/17 12:45 03/23/17 12:45 IJ Not Given TITR ANGUS 25 MCG/HR Ganciclovir 165 mg/ Sodium 100 mls @ 100 mls/hr 03/23/17 15:12 Chloride IVPB BID@0400,1600 ANGUS Insulin Aspart 1 vial 03/20/17 11:00 03/23/17 11:34 Novolog Vial Sliding Scale - SQ 10 units ACHS ANGUS Administration Protocol Methylprednisolone Sodium Succinate 40 mg 03/20/17 22:00 03/23/17 09:41 Solu-Medrol - IVPB 40 mg BID ANGUS Administration Ritonavir 100 mg 03/16/17 10:30 03/23/17 09:42 Norvir Oral Solution - PO 100 mg DAILY ANGUS Administration Trimethoprim/Sulfamethoxazole 380 mg 03/20/17 10:00 03/23/17 09:40 Bactrim Injection - IVPB 380 mg Q8H-IV ANGUS Administration bronchial washings pathology: no malignant cells. Macrophages and scattered fungal cells consistent with pneumocystis, claudia present on gram stain likely due to colonization or contamination. No acid fast bacilli seen. ASSESSMENT/PLAN: 66 year old male with acute respiratory failure, bilateral pneumonia and HIV who was admitted to ICU s/p respiratory failure. Acute hypoxic respiratory failure: -sedated on volume assist control with 50% FiO2 -weaning trials done everyday, dyspneic -bronchoscopy done, BAL washings culture pending -cont versed drip at 2 mcg/hr -ID consulted will f/u recommendations -continue steroids Medrol 40 mg IV Q12hr Interstitial pneumonitis -due to positive pneumocystis carini -beta 1,3 d glucan elevated, CMV IgG positive will start Ganciclovir -continue antibiotics; bactrim, Vancomycin and Zosyn -f/u ID recommendations -f/u CXR, improved today AIDS: -treated with Darunavir, Ritonavir, Emtricitabine/Tenofovir -CD 4 1.7, CD4/CD8 ratio 0.04 -family present at bedside today and informed about his prognosis, treatment -spontaneous breathing trials as tolerated when mental status improved -on isolation precautions due to risk of TB -will monitor for IRIS DM: -BGMs -ISS HTN: -held Norvasc DVT PPX: Lovenox 40 mg qd GI PPX: none Disposition: Monitor in ICU, spoke to family, will consider tracheostomy next week Problem List - Problems (1) AIDS Code(s): B20 - HUMAN IMMUNODEFICIENCY VIRUS [HIV] DISEASE (2) Bilateral pneumonia Code(s): J18.9 - PNEUMONIA, UNSPECIFIED ORGANISM Qualifiers: 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 - New Patient This patient is new to me today: No - Critical Care Critical Care patient: Yes Total Critical Care Time (in minutes): 45 Critical Care Statement: The care of this patient involved high complexity decision making to prevent further life threatening deterioration of the patient 's condition and/or to evalute & treat vital organ system(s) failure or risk of failure.
[2017-03-23] MEDS: GANCICLOVIR IVPB SCH (16:39)
[2017-03-23] MEDS: SODIUM CHLORIDE IVPB SCH (16:39)
[2017-03-23] MEDS ORDERED: HEMOQUE TEST 1 EACH EACH ONE (22:19)
[2017-03-24] MEDS: SULFAMETHOXAZOLE 80 MG/TRIMETHOPRIM 16 MG/ML VIAL IVPB SCH ×3 (01:43→17:52)
[2017-03-24] MEDS: GANCICLOVIR IVPB SCH ×2 (04:00→16:20)
[2017-03-24] MEDS: SODIUM CHLORIDE IVPB SCH ×2 (04:00→16:20)
[2017-03-24] MEDS: INSULIN SLIDING SCALE (NOVOLOG) 1 VIAL SQ SCH ×4 (06:38→22:24)
--- NOTE | 2017-03-24 06:58 | PN ---
Progress Note, Physician Chief Complaint: ID Patient doing poorly with intermittent periods of severe hypoxemia on the ventilator Now the newest finding of CMV positive by monoclonal staining !! 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 Still on steroids Solumedrol 40q12H HIV meds added desperation effort to reverse the progressive decline despite all maximal efforts offered - Current Medication List Current Medications: Active Medications Acetaminophen (Tylenol -) 650 mg PO Q6H PRN PRN Reason: FEVER OR PAIN Albuterol Sulfate (Ventolin Hfa Inhaler -) 2 puff IH Q4H PRN PRN Reason: SHORT OF BREATH/WHEEZING Amlodipine Besylate (Norvasc -) 5 mg PO DAILY [facility] Last Admin: 03/23/17 09:41 Dose: Not Given Darunavir (Prezista) 800 mg PO DAILY [facility] Last Admin: 03/23/17 09:42 Dose: 800 mg Emtricitabine/Tenofovir (Truvada) 1 tab PO DAILY ANGUS Last Admin: 03/23/17 09:43 Dose: 1 tab Guaifenesin (Robitussin -) 10 ml PO Q4H PRN Last Admin: 03/20/17 09:54 Dose: 10 ml Pantoprazole Sodium (Protonix 40mg Ivpb (Pre-Docked)) 100 mls @ 200 mls/hr IVPB DAILY [facility] Last Admin: 03/23/17 09:43 Dose: 200 mls/hr Propofol (Diprivan -) 100 mls @ 7.648 mls/hr IVPB TITR ANGUS; 20 MCG/KG/MIN PRN Reason: Protocol Last Admin: 03/23/17 11:45 Dose: Not Given Midazolam HCl 100 mg/ Sodium (Chloride) 100 mls @ 4 mls/hr IVPB TITR ANGUS; 4 MG/ HR PRN Reason: Protocol Last Admin: 03/23/17 15:31 Dose: 2 mls/hr Fentanyl 500 mcg/ Dextrose 100 mls @ 5 mls/hr IJ TITR ANGUS PRN Reason: 25 MCG/HR Last Admin: 03/23/17 12:45 Dose: Not Given Ganciclovir 165 mg/ Sodium (Chloride) 100 mls @ 100 mls/hr IVPB BID@0400,1600 ANGUS Last Admin: 03/24/17 04:00 Dose: 100 mls/hr Insulin Aspart (Novolog Vial Sliding Scale -) 1 vial SQ ACHS [facility] PRN Reason: Protocol Last Admin: 03/24/17 06:38 Dose: 15 units Methylprednisolone Sodium Succinate (Solu-Medrol -) 40 mg IVPB BID [facility] Last Admin: 03/23/17 22:21 Dose: 40 mg Ritonavir (Norvir Oral Solution -) 100 mg PO DAILY [facility] Last Admin: 03/23/17 09:42 Dose: 100 mg Trimethoprim/Sulfamethoxazole (Bactrim Injection -) 380 mg IVPB Q8H-IV [facility] Last Admin: 03/24/17 01:43 Dose: 380 mg - Objective Vital Signs: Vital Signs Temperature 97.8 F 03/24/17 02:00 Pulse Rate 78 03/24/17 04:00 Respiratory Rate 21 03/24/17 05:15 Blood Pressure 107/62 03/24/17 04:00 O2 Sat by Pulse Oximetry (%) 92 L 03/23/17 22:00 Constitutional: Yes: Moderate Distress HENT: Yes: Other (Et tube) Neck: Yes: WNL, Supple Cardiovascular: Yes: WNL, Regular Rate and Rhythm, S1, S2. No: JVD, Gallop, Murmur Respiratory: Yes: WNL, Regular, CTA Bilaterally, Diminished Gastrointestinal: Yes: WNL, Normal Bowel Sounds, Soft. No: Splenomegaly, Tenderness, Epigastrium, Tenderness, Rebound Extremities: No: Cold, Cool, Cyanosis Edema: No Labs: INR, PTT INR 1.28 (0.82-1.09) H 03/10/17 06:30 Problem List - Problems (1) AIDS Code(s): B20 - HUMAN IMMUNODEFICIENCY VIRUS [HIV] DISEASE (2) Interstitial pneumonitis Code(s): J84.89 - OTHER SPECIFIED INTERSTITIAL PULMONARY DISEASES (3) Diabetes Code(s): E11.9 - TYPE 2 DIABETES MELLITUS WITHOUT COMPLICATIONS Assessment/Plan Laboratory Tests 03/08/17 03/08/17 03/15/17 14:46 14:46 08:00 WBC Hgb Plt Count BUN Creatinine Creat Clearance w eGFR Total Bilirubin AST ALT Alkaline Phosphatase Absolute CD4 [place] 5 L HIV-1 RNA (PCR) 82159 Pneumocyst carinii Smear Beta-(1,3)-D-Glucan 201 H 03/16/17 03/23/17 03/23/17 11:00 05:10 05:10 WBC 3.0 L Hgb 8.2 L D Plt Count 87 L BUN 38 H Creatinine 1.4 H Creat Clearance w eGFR 50.55 Total Bilirubin 0.1 L AST 41 H ALT 53 Alkaline Phosphatase 147 H Absolute CD4 [place] HIV-1 RNA (PCR) Pneumocyst carinii Smear Positive H Beta-(1,3)-D-Glucan 03/24/17 05:20 WBC Pending Hgb Pending Plt Count Pending BUN Creatinine Creat Clearance w eGFR Total Bilirubin AST ALT Alkaline Phosphatase Absolute CD4 [place] HIV-1 RNA (PCR) Pneumocyst carinii Smear Beta-(1,3)-D-Glucan Assessment AIDS T cells 5 Respiratory failure Co infection lung CMV and Pneumocystis Diabetes Mellitus Pancytopenia Bactrim related Acute renal injury also Bactrim related Plan Gancyclovir just added Increase Solumedrol possible component of IRIS Continue Bactrim and ART Anticipate that his Pancytopenia will likley worsen on Gancyclovir Moniter kidney function Little benefit to changing to Pentamidine from therapeutic standpoint This will also worsen his kidney function and pancytopenia Unfortunately despite all the above efforts his condition continues to decline Prognosis is poor Nuno MIJARES 40 minutes critical care time provided Family needs to be appraised of poor prognosis
[2017-03-24] MEDS: FENTANYL INJECTION 500 MCG in DEXTROSE 5%-WATER - 90 ML IJ SCH ×2 (07:00→12:45)
[2017-03-24 07:42] LABS: ALBUMIN 1.1 g/dl (3.4-5.0); ALK PHOS 153 U/L (45-117); ANION GAP 12 (8-16); BILIRUBIN,TOTAL 0.2 mg/dL (0.2-1.0); CO2 22 mmol/L (21-32); CREATININE 1.3 mg/dL (0.7-1.3); GLUCOSE,RANDOM 283 mg/dL (74-106); SGOT/AST 46 U/L (15-37); SGPT/ALT 49 U/L (12-78); TOT PROT 3.2 g/dl (6.4-8.2)
[2017-03-24 07:46] LABS: CALCIUM 6.7 mg/dL (8.5-10.1)
[2017-03-24 07:47] LABS: MCHC 32.1 g/dl (32.0-35.9); MEAN CELL VOLUME 81.1 fl (80-96); MEAN PLT VOLUME 9.1 fl (7.5-11.1); PLATELET COUNT 71 K/MM3 (134-434); RDW 21.3 % (11.9-15.9); WHITE BLOOD COUNT 2.5 K/mm3 (4.0-10.0)
[2017-03-24] MEDS ORDERED: PT OWN MED DRAWER 7, Y5N ONE ×4 (08:53→19:36)
[2017-03-24] MEDS: amLODIPine BESYLATE 5 MG TABLET (FP) PO SCH (09:29)
[2017-03-24] MEDS: RITONAVIR ORAL SOLUTION 80 MG/ML PO SCH (09:29)
[2017-03-24] MEDS: DARUNAVIR ETHANOLATE 100 MG/ML BULK BOTTLE PO SCH (09:29)
[2017-03-24] MEDS: EMTRICITABINE 200MG/TENOFOVIR 300MG PO SCH (09:30)
[2017-03-24] MEDS: methylPREDNISolone NA SUCC 40 MG/1 ML VIAL IVPB SCH ×3 (09:30→17:52)
[2017-03-24] MEDS: PANTOPRAZOLE SODIUM 100 ML IVPB SCH (09:30)
[2017-03-24 09:31] LABS: ANISOCYTOSIS 2+; HYPOCHROMIA 1+; POLYCHROMASIA 1+
--- NOTE | 2017-03-24 09:51 | PN ---
Progress Note (short form) - Note Progress Note: PULM / CCM Pt seen & examined in the ICU. Remains sedated, Intubated on the Vent w/ intermittent periods of hypoxia. Active Medications Acetaminophen (Tylenol -) 650 mg PO Q6H PRN PRN Reason: FEVER OR PAIN Albuterol Sulfate (Ventolin Hfa Inhaler -) 2 puff IH Q4H PRN PRN Reason: SHORT OF BREATH/WHEEZING Amlodipine Besylate (Norvasc -) 5 mg PO DAILY [facility] Last Admin: 03/24/17 09:29 Dose: Not Given Darunavir (Prezista) 800 mg PO DAILY [facility] Last Admin: 03/24/17 09:29 Dose: 800 mg Emtricitabine/Tenofovir (Truvada) 1 tab PO DAILY [facility] Last Admin: 03/24/17 09:30 Dose: 1 tab Guaifenesin (Robitussin -) 10 ml PO Q4H PRN Last Admin: 03/20/17 09:54 Dose: 10 ml Pantoprazole Sodium (Protonix 40mg Ivpb (Pre-Docked)) 100 mls @ 200 mls/hr IVPB DAILY [facility] Last Admin: 03/24/17 09:30 Dose: 200 mls/hr Propofol (Diprivan -) 100 mls @ 7.648 mls/hr IVPB TITR ANGUS; 20 MCG/KG/MIN PRN Reason: Protocol Last Admin: 03/24/17 11:45 Dose: Not Given Midazolam HCl 100 mg/ Sodium (Chloride) 100 mls @ 4 mls/hr IVPB TITR ANGUS; 4 MG/ HR PRN Reason: Protocol Last Admin: 03/24/17 16:30 Dose: Not Given Fentanyl 500 mcg/ Dextrose 100 mls @ 5 mls/hr IJ TITR ANGUS PRN Reason: 25 MCG/HR Last Admin: 03/24/17 12:45 Dose: Not Given Ganciclovir 165 mg/ Sodium (Chloride) 100 mls @ 100 mls/hr IVPB BID@0400,1600 [facility] Last Admin: 03/24/17 16:20 Dose: 100 mls/hr Insulin Aspart (Novolog Vial Sliding Scale -) 1 vial SQ ACHS ANGUS PRN Reason: Protocol Last Admin: 03/24/17 16:24 Dose: 15 units Methylprednisolone Sodium Succinate (Solu-Medrol -) 40 mg IVPB Q8H-IV ANGUS Last Admin: 03/24/17 17:52 Dose: 40 mg Ritonavir (Norvir Oral Solution -) 100 mg PO DAILY ANGUS Last Admin: 03/24/17 09:29 Dose: 100 mg Trimethoprim/Sulfamethoxazole (Bactrim Injection -) 380 mg IVPB Q8H-IV ANGUS Last Admin: 03/24/17 17:52 Dose: 380 mg V/S Period Temp Pulse Resp BP Sys/De Oliveira Pulse Ox Last 24 Hr 97.3 F-98.2 F 78-90 17-24 100-125/58-88 90-92 Intake & Output 03/21/17 03/22/17 03/23/17 03/24/17 23:59 23:59 23:59 23:59 Intake Total 3145 3005 3121 3018 Output Total 19990 900 Balance 0534 825 5356 2118 Weight 64.949 kg 65.544 kg 67.784 kg 70.987 kg GEN: Middle aged man, in bed, intubated & sedated HEENT: PERRL, an-icteric, chemotactic, MMM PULM: CTAB CV: nml S1, S2, RR, no G/M/R ABD: Protuberant, +BS S/S N/T X4Q EXT: + Pulses, WWPX4, no edema. SKIN: Warm, dry, normal turgor, no rashes or lesions noted NEURO: Sedated on the Vent Microbiology 03/16/17 11:00 Bronchial Washings - Right Upper Lobe AFB Smear Concentration - Final 03/16/17 11:00 Bronchial Washings - Right Upper Lobe Mycobacterial Culture - Preliminary 03/20/17 08:51 Sputum - Endotrachea Suction/Ventilator AFB Smear Concentration - Final 03/20/17 08:51 Sputum - Endotrachea Suction/Ventilator Direct Acid Fast Bacilli Smear - Final 03/20/17 08:51 Sputum - Endotrachea Suction/Ventilator Mycobacterial Culture - Preliminary 03/16/17 11:00 Bronchial Washings - Right Upper Lobe + Cytomegalovirus Culture - Final 03/20/17 14:30 Urine - Urine [place] Urine Culture - Final NO GROWTH OBTAINED 03/20/17 08:51 Sputum - Endotrachea Suction/Ventilator Gram Stain - Final 03/20/17 08:51 Sputum - Endotrachea Suction/Ventilator Sputum Culture - Final NORMAL RESPIRATORY DEBORAH 03/20/17 14:30 Sputum - Endotrachea Suction/Ventilator JYOTI Preparation - Preliminary 03/20/17 14:30 Sputum - Endotrachea Suction/Ventilator Fungal Culture - Preliminary 03/20/17 14:30 Urine For Antigen Detection Legionella Antigen - Final 03/20/17 14:30 Urine For Antigen Detection Streptococcus pneumoniae Antigen (M - Final 03/16/17 09:30 Blood - Peripheral Venous Blood Culture - Final NO GROWTH AFTER 5 DAYS INCUBATION 03/16/17 09:30 Blood - Peripheral Venous Blood Culture - Final NO GROWTH AFTER 5 DAYS INCUBATION 03/16/17 11:00 Bronchial Washings - Right Upper Lobe Mycobacteria (PCR) - Preliminary 03/16/17 11:00 Bronchial Washings - Right Upper Lobe Gram Stain - Final 03/16/17 11:00 Bronchial Washings - Right Upper Lobe Bronchoalveolar Lavage Culture - Final Yeast Like Organism 03/16/17 11:00 Bronchial Washings - Right Upper Lobe JYOTI Preparation - Preliminary 03/16/17 11:00 Bronchial Washings - Right Upper Lobe Fungal Culture - Preliminary 03/08/17 14:25 Serum Cryptococcal Antigen - Final 03/08/17 14:25 Blood - Peripheral Venous Mycobacterial Culture - Preliminary 03/08/17 14:25 Blood - Peripheral Venous TB Test (QFT) (ELOY) - Final 03/03/17 05:18 Blood - Peripheral Venous Blood Culture - Final NO GROWTH AFTER 5 DAYS INCUBATION 03/03/17 05:18 Blood - Peripheral Venous Blood Culture - Final NO GROWTH AFTER 5 DAYS INCUBATION 03/03/17 06:30 Urine - Urine Clean Catch Urine Culture - Final Pseudomonas Aeruginosa 03/03/17 04:38 Throat Throat Culture - Final NO BETA HEMOLYTIC STREPTOCOCCI ISOLATED 03/03/17 04:38 Throat Group A Strep Rapid Antigen - Final CXR 03/24: ETT in good position, NGT coursing through the radiographic view, no CVC, multi lobar pna (My Read) ASSESS: This is a 66 y/o man w/ Resp Fail, HIV/AIDs and PCP PNA +/- CMV pneumonitis. PLAN: -Full Vent Support -LPV -Sedation for rest on the Vent -Wean FiO2 as tolerated -Nebs -Vent Bundle -Cont Bactrim -Cont Solumed 40 BID -Start Gancyclovir --> Consider focarnet -GRAF -Strict I's & O's -Trend BUN/Cr -Replete tammy prn -TFs -FSs -SS -SQH -Pepcid (Vented) Anil Baptiste, [facility] [id number] PULM / CCM
[2017-03-24] MEDS: PROPOFOL 100 ML IVPB SCH (11:45)
[2017-03-24] MEDS: MIDAZOLAM 100 MG in SODIUM CHLORIDE 100 ML IVPB SCH ×2 (15:30→16:30)
--- NOTE | 2017-03-24 15:48 | PN ---
Progress Note, Physician Chief Complaint: Patient Remained indubated sedated, still tachepnic History of Present Illness: 66 yrs old man admitted with recurrent pneumonia, developed respiratory failure , w/u revealed HIV with AIDs and PCP pneumonia, intubated on treatment of PCP pneumonia. HIV. - Current Medication List Current Medications: Active Medications Acetaminophen (Tylenol -) 650 mg PO Q6H PRN PRN Reason: FEVER OR PAIN Albuterol Sulfate (Ventolin Hfa Inhaler -) 2 puff IH Q4H PRN PRN Reason: SHORT OF BREATH/WHEEZING Amlodipine Besylate (Norvasc -) 5 mg PO DAILY [facility] Last Admin: 03/24/17 09:29 Dose: Not Given Darunavir (Prezista) 800 mg PO DAILY [facility] Last Admin: 03/24/17 09:29 Dose: 800 mg Emtricitabine/Tenofovir (Truvada) 1 tab PO DAILY [facility] Last Admin: 03/24/17 09:30 Dose: 1 tab Guaifenesin (Robitussin -) 10 ml PO Q4H PRN Last Admin: 03/20/17 09:54 Dose: 10 ml Pantoprazole Sodium (Protonix 40mg Ivpb (Pre-Docked)) 100 mls @ 200 mls/hr IVPB DAILY [facility] Last Admin: 03/24/17 09:30 Dose: 200 mls/hr Propofol (Diprivan -) 100 mls @ 7.648 mls/hr IVPB TITR ANGUS; 20 MCG/KG/MIN PRN Reason: Protocol Last Admin: 03/24/17 11:45 Dose: Not Given Midazolam HCl 100 mg/ Sodium (Chloride) 100 mls @ 4 mls/hr IVPB TITR ANGUS; 4 MG/ HR PRN Reason: Protocol Last Admin: 03/23/17 15:31 Dose: 2 mls/hr Fentanyl 500 mcg/ Dextrose 100 mls @ 5 mls/hr IJ TITR ANGUS PRN Reason: 25 MCG/HR Last Admin: 03/24/17 12:45 Dose: Not Given Ganciclovir 165 mg/ Sodium (Chloride) 100 mls @ 100 mls/hr IVPB BID@0400,1600 [facility] Last Admin: 03/24/17 04:00 Dose: 100 mls/hr Insulin Aspart (Novolog Vial Sliding Scale -) 1 vial SQ ACHS ANGUS PRN Reason: Protocol Last Admin: 03/24/17 11:05 Dose: 15 units Methylprednisolone Sodium Succinate (Solu-Medrol -) 40 mg IVPB Q8H-IV [facility] Last Admin: 03/24/17 09:30 Dose: 40 mg Ritonavir (Norvir Oral Solution -) 100 mg PO DAILY [facility] Last Admin: 03/24/17 09:29 Dose: 100 mg Trimethoprim/Sulfamethoxazole (Bactrim Injection -) 380 mg IVPB Q8H-IV [facility] Last Admin: 03/24/17 09:28 Dose: 380 mg - Objective Vital Signs: Vital Signs Temperature 97.5 F L 03/24/17 14:00 Pulse Rate 83 03/24/17 14:00 Respiratory Rate 21 03/24/17 14:26 Blood Pressure 109/65 03/24/17 14:00 O2 Sat by Pulse Oximetry (%) 90 L 03/24/17 08:32 P Exam; Elderly man Sedated, intubated, having respiratory distress. HEENT: ET and NG tube at place, mm moist NECK; No JVD No Bruit CHEST: B/L CVS; S1S2 R, no m/g/r ABD: No distention, non tender Bs +, rectal tube at place EXT: +edema feet, no calf tenderness, Pulses + [employer]: Sedated, intubated Labs: CBC, BMP 03/24/17 05:20 03/24/17 05:20 INR, PTT INR 1.28 (0.82-1.09) H 03/10/17 06:30 Problem List - Problems (1) Respiratory failure Assessment/Plan: Due to Interstitial pneumonia, CMV, fungus and TB -ve, PCP + on Bactrim and IV steroids, discuses with ID attending and patient family, no improvement in respiratory status, Ventilator management as critical care. 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 Code(s): B20 - HUMAN IMMUNODEFICIENCY VIRUS [HIV] DISEASE (3) Pneumocystis carinii pneumonia Assessment/Plan: Sever with respiratory failure on Bactrim, and IV Prednisone Code(s): B59 - PNEUMOCYSTOSIS (4) Diabetes Assessment/Plan: Steroid induced, optimize Glycemic control. Code(s): E11.9 - TYPE 2 DIABETES MELLITUS WITHOUT COMPLICATIONS (5) HTN (hypertension) Assessment/Plan: Well controlled Code(s): I10 - ESSENTIAL (PRIMARY) HYPERTENSION (6) Pancytopenia Assessment/Plan: Drug induced, disease process or IRS F/u CBc, BMP Code(s): D61.818 - OTHER PANCYTOPENIA (7) LEXI (acute kidney injury) Assessment/Plan: Can be due to Bactrimor IRS F/u Renal function, will consider renal consult in am. Code(s): N17.9 - ACUTE KIDNEY FAILURE, UNSPECIFIED
[2017-03-24] MEDS: ARTIFICIAL TEARS (POLYVINYL ALCOHOL 1.4%) OPTH DROPS OU SCH (22:24)
[2017-03-24] MEDS ORDERED: CALCIUM GLUCONATE 10% - 1,000 MG/10 ML VIAL IVPB ONE (23:40)
[2017-03-25] MEDS: SULFAMETHOXAZOLE 80 MG/TRIMETHOPRIM 16 MG/ML VIAL IVPB SCH ×3 (01:48→18:15)
[2017-03-25] MEDS: methylPREDNISolone NA SUCC 40 MG/1 ML VIAL IVPB SCH ×3 (01:48→18:16)
[2017-03-25] MEDS: SODIUM CHLORIDE IVPB SCH ×2 (04:00→15:59)
[2017-03-25] MEDS: GANCICLOVIR IVPB SCH ×2 (04:00→15:59)
[2017-03-25] MEDS: INSULIN SLIDING SCALE (NOVOLOG) 1 VIAL SQ SCH ×4 (06:02→21:56)
[2017-03-25 06:33] LABS: MCH 25.7 pg (25.7-33.7); MCHC 32.2 g/dl (32.0-35.9); MEAN CELL VOLUME 79.9 fl (80-96); MEAN PLT VOLUME 9.5 fl (7.5-11.1); PLATELET COUNT 78 K/MM3 (134-434); RDW 19.9 % (11.9-15.9)
[2017-03-25 06:51] LABS: INR 1.08 (0.82-1.09); PROTHROMBIN TIME (PATIENT) 11.9 SEC (9.98-11.88)
--- NOTE | 2017-03-25 07:11 | PN ---
Progress Note, Physician Chief Complaint: ID Situation remains dire Hypoxemic on 70 % FIO2 Meds Solumedrol increased Bactrim Cytovene ART Darunivir Norvir Truvada Vented - Current Medication List Current Medications: Active Medications Acetaminophen (Tylenol -) 650 mg PO Q6H PRN PRN Reason: FEVER OR PAIN Albuterol Sulfate (Ventolin Hfa Inhaler -) 2 puff IH Q4H PRN PRN Reason: SHORT OF BREATH/WHEEZING Amlodipine Besylate (Norvasc -) 5 mg PO DAILY [facility] Last Admin: 03/24/17 09:29 Dose: Not Given Artificial Tears (Artificial Tears) 1 drop OU BID [facility] Last Admin: 03/24/17 22:24 Dose: 1 drop Darunavir (Prezista) 800 mg PO DAILY [facility] Last Admin: 03/24/17 09:29 Dose: 800 mg Emtricitabine/Tenofovir (Truvada) 1 tab PO DAILY [facility] Last Admin: 03/24/17 09:30 Dose: 1 tab Guaifenesin (Robitussin -) 10 ml PO Q4H PRN Last Admin: 03/20/17 09:54 Dose: 10 ml Pantoprazole Sodium (Protonix 40mg Ivpb (Pre-Docked)) 100 mls @ 200 mls/hr IVPB DAILY [facility] Last Admin: 03/24/17 09:30 Dose: 200 mls/hr Propofol (Diprivan -) 100 mls @ 7.648 mls/hr IVPB TITR [facility]; 20 MCG/KG/MIN PRN Reason: Protocol Last Admin: 03/24/17 11:45 Dose: Not Given Midazolam HCl 100 mg/ Sodium (Chloride) 100 mls @ 4 mls/hr IVPB TITR [facility]; 4 MG/ HR PRN Reason: Protocol Last Admin: 03/24/17 16:30 Dose: Not Given Fentanyl 500 mcg/ Dextrose 100 mls @ 5 mls/hr IJ TITR [facility] PRN Reason: 25 MCG/HR Last Admin: 03/24/17 12:45 Dose: Not Given Ganciclovir 165 mg/ Sodium (Chloride) 100 mls @ 100 mls/hr IVPB BID@0400,1600 [facility] Last Admin: 03/25/17 04:00 Dose: 100 mls/hr Insulin Aspart (Novolog Vial Sliding Scale -) 1 vial SQ ACHS [facility] PRN Reason: Protocol Last Admin: 03/25/17 06:02 Dose: 15 units Methylprednisolone Sodium Succinate (Solu-Medrol -) 40 mg IVPB Q8H-IV [facility] Last Admin: 03/25/17 01:48 Dose: 40 mg Ritonavir (Norvir Oral Solution -) 100 mg PO DAILY [facility] Last Admin: 03/24/17 09:29 Dose: 100 mg Trimethoprim/Sulfamethoxazole (Bactrim Injection -) 380 mg IVPB Q8H-IV [facility] Last Admin: 03/25/17 01:48 Dose: 380 mg - Objective Vital Signs: Vital Signs Temperature 97.5 F L 03/25/17 06:00 Pulse Rate 83 03/25/17 06:00 Respiratory Rate 21 03/25/17 06:00 Blood Pressure 113/62 03/25/17 06:00 O2 Sat by Pulse Oximetry (%) 93 L 03/24/17 22:00 Constitutional: Yes: Other (INtubated) Neck: Yes: WNL, Supple Cardiovascular: Yes: Regular Rate and Rhythm, S1, S2. No: Murmur Respiratory: Yes: WNL, Regular, CTA Bilaterally. No: Rhonchi Gastrointestinal: Yes: WNL, Normal Bowel Sounds, Soft. No: Tenderness, Tenderness, Rebound Extremities: No: Cold, Cool, Cyanosis Edema: Yes (Hands) Labs: CBC, BMP 03/25/17 05:15 INR, PTT INR 1.08 (0.82-1.09) 03/25/17 05:15 Fibrinogen 415.0 mg/dL (238-498) 03/25/17 05:15 Problem List - Problems (1) AIDS Code(s): B20 - HUMAN IMMUNODEFICIENCY VIRUS [HIV] DISEASE (2) Interstitial pneumonitis Code(s): J84.89 - OTHER SPECIFIED INTERSTITIAL PULMONARY DISEASES (3) Diabetes Code(s): E11.9 - TYPE 2 DIABETES MELLITUS WITHOUT COMPLICATIONS Assessment/Plan Microbiology 03/20/17 14:30 Urine For Antigen Detection Legionella Antigen - Final 03/20/17 14:30 Urine For Antigen Detection Streptococcus pneumoniae Antigen (M - Final 03/20/17 14:30 Urine - Urine [place] Urine Culture - Final NO GROWTH OBTAINED 03/20/17 08:51 Sputum - Endotrachea Suction/Ventilator Gram Stain - Final 03/20/17 08:51 Sputum - Endotrachea Suction/Ventilator Sputum Culture - Final NORMAL RESPIRATORY DEBORAH 03/20/17 14:30 Sputum - Endotrachea Suction/Ventilator JYOTI Preparation - Preliminary 03/20/17 14:30 Sputum - Endotrachea Suction/Ventilator Fungal Culture - Preliminary 03/16/17 11:00 Bronchial Washings - Right Upper Lobe Mycobacteria (PCR) - Preliminary Laboratory Tests 03/24/17 03/24/17 03/25/17 05:20 05:20 05:15 WBC 2.5 L Pending Hgb 8.6 L 8.2 L Plt Count 71 L 78 L BUN 39 H Creatinine 1.3 Creat Clearance w eGFR 55.06 Calcium 6.7 L* AST 46 H ALT 49 Alkaline Phosphatase 153 H Albumin 1.1 L Assessment Respiratory failure Progressive infiltrates related to IRIS wiath underlying pneumonia Pneumocystis CMV pneumonitis AIDS T cells 5 Diabetes Pancytopenia Acute kidney injury Despite all intensive efforts this patients condition continues to worsen Family needs to be appraised of his critical and possibly preterminal status Pentam should be avoided due to Cr Cl concerns Critical care time spent 40 minutes today Discussed with MARIA ESTHER Reina MD
[2017-03-25 07:12] LABS: ALBUMIN 1.1 g/dl (3.4-5.0); ALK PHOS 147 U/L (45-117); ANION GAP 10 (8-16); BILIRUBIN,TOTAL 0.2 mg/dL (0.2-1.0); CALCIUM 7.1 mg/dL (8.5-10.1); CO2 23 mmol/L (21-32); CREATININE 1.3 mg/dL (0.7-1.3); GLUCOSE,RANDOM 227 mg/dL (74-106); MAGNESIUM 2.7 mg/dL (1.8-2.4); PHOSPHOROUS 2.1 mg/dL (2.5-4.9); SGOT/AST 57 U/L (15-37); SGPT/ALT 54 U/L (12-78); TOT PROT 3.4 g/dl (6.4-8.2)
[2017-03-25 07:17] LABS: ARTERIAL BLD GAS O2 SATURATION 84.4 % (90-98.9); ARTERIAL BLOOD GAS HCO3 21.4 meq/L (22-26); ARTERIAL BLOOD GAS pH 7.37 (7.35-7.45)
[2017-03-25 07:20] LABS: ALLENS TEST POSITIVE; ART PUNCT SITE RIGHT RADIAL; LPM/O2% 70%; MECH. VENT. YES; PT. ON O2? YES; TYPE OF O2 MECHANICAL VENT; VENT RATE 10; VT/PRESS 450ML
[2017-03-25 07:22] LABS: ARTERIAL BLOOD GAS PO2 52.7 mmHg (80-100)
[2017-03-25 07:27] LABS: ALBUMIN 1.1 g/dl (3.4-5.0); BILIRUBIN,TOTAL 0.1 mg/dL (0.2-1.0); LDH 421 U/L (87-241); SGOT/AST 58 U/L (15-37); SGPT/ALT 54 U/L (12-78); TOT PROT 3.3 g/dl (6.4-8.2)
[2017-03-25 07:28] LABS: ALK PHOS 150 U/L (45-117)
[2017-03-25 07:46] LABS: BILIRUBIN,DIRECT < 0.1 mg/dL (0.0-0.2)
[2017-03-25] MEDS ORDERED: PT OWN MED DRAWER 7, Y5N ONE ×3 (09:13→19:42)
[2017-03-25 09:32] LABS: METAMYELOCYTE 1 % (0-2); PLATELET ESTIMATE DECREASED (NORMAL)
[2017-03-25] MEDS: EMTRICITABINE 200MG/TENOFOVIR 300MG PO SCH (09:42)
[2017-03-25] MEDS: RITONAVIR ORAL SOLUTION 80 MG/ML PO SCH (09:43)
[2017-03-25] MEDS: ARTIFICIAL TEARS (POLYVINYL ALCOHOL 1.4%) OPTH DROPS OU SCH ×2 (09:43→21:56)
[2017-03-25] MEDS: DARUNAVIR ETHANOLATE 100 MG/ML BULK BOTTLE PO SCH (09:43)
[2017-03-25] MEDS: PANTOPRAZOLE SODIUM 100 ML IVPB SCH (09:44)
[2017-03-25] MEDS: amLODIPine BESYLATE 5 MG TABLET (FP) PO SCH (10:00)
--- NOTE | 2017-03-25 10:52 | PN ---
Progress Note (short form) - Note Progress Note: elias Note: PULM / CCM Pt seen & examined in the ICU. 24HR: -fio2 increased overnight, Cxr maybe worse -no shock -afebrile Active Medications Acetaminophen (Tylenol -) 650 mg PO Q6H PRN PRN Reason: FEVER OR PAIN Albuterol Sulfate (Ventolin Hfa Inhaler -) 2 puff IH Q4H PRN PRN Reason: SHORT OF BREATH/WHEEZING Amlodipine Besylate (Norvasc -) 5 mg PO DAILY [facility] Last Admin: 03/24/17 09:29 Dose: Not Given Artificial Tears (Artificial Tears) 1 drop OU BID [facility] Last Admin: 03/25/17 09:43 Dose: 1 drop Darunavir (Prezista) 800 mg PO DAILY [facility] Last Admin: 03/25/17 09:43 Dose: 800 mg Emtricitabine/Tenofovir (Truvada) 1 tab PO DAILY [facility] Last Admin: 03/25/17 09:42 Dose: 1 tab Guaifenesin (Robitussin -) 10 ml PO Q4H PRN Last Admin: 03/20/17 09:54 Dose: 10 ml Pantoprazole Sodium (Protonix 40mg Ivpb (Pre-Docked)) 100 mls @ 200 mls/hr IVPB DAILY [facility] Last Admin: 03/25/17 09:44 Dose: 200 mls/hr Propofol (Diprivan -) 100 mls @ 7.648 mls/hr IVPB TITR ANGUS; 20 MCG/KG/MIN PRN Reason: Protocol Last Admin: 03/24/17 11:45 Dose: Not Given Midazolam HCl 100 mg/ Sodium (Chloride) 100 mls @ 4 mls/hr IVPB TITR ANGUS; 4 MG/ HR PRN Reason: Protocol Last Admin: 03/24/17 16:30 Dose: Not Given Fentanyl 500 mcg/ Dextrose 100 mls @ 5 mls/hr IJ TITR ANGUS PRN Reason: 25 MCG/HR Last Admin: 03/24/17 12:45 Dose: Not Given Ganciclovir 165 mg/ Sodium (Chloride) 100 mls @ 100 mls/hr IVPB BID@0400,1600 [facility] Last Admin: 03/25/17 04:00 Dose: 100 mls/hr Insulin Aspart (Novolog Vial Sliding Scale -) 1 vial SQ ACHS ANGUS PRN Reason: Protocol Last Admin: 03/25/17 06:02 Dose: 15 units Methylprednisolone Sodium Succinate (Solu-Medrol -) 40 mg IVPB Q8H-IV [facility] Last Admin: 03/25/17 09:44 Dose: 40 mg Ritonavir (Norvir Oral Solution -) 100 mg PO DAILY [facility] Last Admin: 03/25/17 09:43 Dose: 100 mg Trimethoprim/Sulfamethoxazole (Bactrim Injection -) 380 mg IVPB Q8H-IV [facility] Last Admin: 03/25/17 09:42 Dose: 380 mg CBC, BMP 03/25/17 05:15 03/25/17 05:15 Vital Signs Temp 97.4 F L 03/25/17 10:00 Pulse 84 03/25/17 10:23 Resp 22 03/25/17 10:23 BP 116/67 03/25/17 10:00 Pulse Ox 98 03/25/17 10:24 Intake & Output 03/24/17 03/24/17 03/25/17 11:59 23:59 11:59 Intake Total 1104 2202 1104 Output Total 500 650 300 Balance 604 1552 804 Weight 70.987 kg 72.121 kg Intake: IV 149 212 149 Versed - 100 mg In Normal 14 32 14 Saline - 100 ml @ 4 MG/ HR 4 mls/hr IVPB TITR [facility] Rx#:[id number] Cytovene (Restricted To 100 100 100 Id) - 165 mg In Normal Saline - 100 ml @ 100 mls /hr IVPB BID@0400,1600 [facility] Rx#:[id number] fentanyl 35 80 35 IVPB 500 950 500 Oral 0 Tube Feeding 315 720 315 Tube Irrigant 140 320 140 Output: Urine 500 650 300 [place] 500 650 300 Other: Voiding Method External Catheter External Catheter External Catheter # Unmeasured Voids [place] 1 Bowel Movement Yes: flexiseal Yes: flexiseal Weight Measurement Method Built in [facility] Built in [facility] GEN: Middle aged man, in bed, intubated & sedated HEENT: PERRL @ 4mm , an-icteric, PULM:diminished bases L> R, scattered rhonchi, bronchial CV: nml S1, S2, RR, no G/M/R ABD: Protuberant, +BS S/S N/T X4Q EXT: + Pulses, WWPX4, no edema. SKIN: Warm, dry, normal turgor, no rashes or lesions noted NEURO: Sedated on the Vent Active Medications Acetaminophen (Tylenol -) 650 mg PO Q6H PRN PRN Reason: FEVER OR PAIN Albuterol Sulfate (Ventolin Hfa Inhaler -) 2 puff IH Q4H PRN PRN Reason: SHORT OF BREATH/WHEEZING Amlodipine Besylate (Norvasc -) 5 mg PO DAILY [facility] Last Admin: 03/24/17 09:29 Dose: Not Given Artificial Tears (Artificial Tears) 1 drop OU BID [facility] Last Admin: 03/25/17 09:43 Dose: 1 drop Darunavir (Prezista) 800 mg PO DAILY [facility] Last Admin: 03/25/17 09:43 Dose: 800 mg Emtricitabine/Tenofovir (Truvada) 1 tab PO DAILY [facility] Last Admin: 03/25/17 09:42 Dose: 1 tab Guaifenesin (Robitussin -) 10 ml PO Q4H PRN Last Admin: 03/20/17 09:54 Dose: 10 ml Pantoprazole Sodium (Protonix 40mg Ivpb (Pre-Docked)) 100 mls @ 200 mls/hr IVPB DAILY [facility] Last Admin: 03/25/17 09:44 Dose: 200 mls/hr Propofol (Diprivan -) 100 mls @ 7.648 mls/hr IVPB TITR ANGUS; 20 MCG/KG/MIN PRN Reason: Protocol Last Admin: 03/24/17 11:45 Dose: Not Given Midazolam HCl 100 mg/ Sodium (Chloride) 100 mls @ 4 mls/hr IVPB TITR ANGUS; 4 MG/ HR PRN Reason: Protocol Last Admin: 03/24/17 16:30 Dose: Not Given Fentanyl 500 mcg/ Dextrose 100 mls @ 5 mls/hr IJ TITR ANGUS PRN Reason: 25 MCG/HR Last Admin: 03/24/17 12:45 Dose: Not Given Ganciclovir 165 mg/ Sodium (Chloride) 100 mls @ 100 mls/hr IVPB BID@0400,1600 [facility] Last Admin: 03/25/17 04:00 Dose: 100 mls/hr Insulin Aspart (Novolog Vial Sliding Scale -) 1 vial SQ ACHS ANGUS PRN Reason: Protocol Last Admin: 03/25/17 06:02 Dose: 15 units Methylprednisolone Sodium Succinate (Solu-Medrol -) 40 mg IVPB Q8H-IV [facility] Last Admin: 03/25/17 09:44 Dose: 40 mg Ritonavir (Norvir Oral Solution -) 100 mg PO DAILY [facility] Last Admin: 03/25/17 09:43 Dose: 100 mg Trimethoprim/Sulfamethoxazole (Bactrim Injection -) 380 mg IVPB Q8H-IV [facility] Last Admin: 03/25/17 09:42 Dose: 380 mg CXR 03/24: ETT ok position (a bit low but chin down), multifocal inflitrate L > R. ASSESS: This is a 66 y/o man w/ Resp Fail, HIV/AIDs and PCP PNA +/- CMV pneumonitis. PLAN: -Full Vent Support -Sedation vacation when Fio2 down -Wean FiO2 as tolerated -Nebs -Vent Bundle -Cont Bactrim -Cont Solumed , increase -Start Gancyclovir --> Consider focarnet if resistance suspected -ARV as per ID -Strict I's & O's -Trend BUN/Cr -Replete e-lytes prn -TFs -FSs -SS -SQH -Pepcid (Vented) -awaiting DNA amplicification to take off of TB precautions Donnell Zaragoza ACNP-BC [id number] PULM / CCM 35min CCT Critical Care Total Critical Care Time (in minutes): 35 Critical Care Statement: The care of this patient involved high complexity decision making to prevent further life threatening deterioration of the patient 's condition and/or to evalute & treat vital organ system(s) failure or risk of failure.
[2017-03-25] MEDS: PROPOFOL 100 ML IVPB SCH (11:45)
[2017-03-25] MEDS: FENTANYL INJECTION 500 MCG in DEXTROSE 5%-WATER - 90 ML IJ SCH (12:45)
[2017-03-25 14:32] LABS: HIV GENOSUR PRI SEE FILE COPY
[2017-03-25 14:33] LABS: HIV GENOSUR PRI SEE FILE COPY
[2017-03-25 14:34] LABS: HIV GENOSUR PRI SEE FILE COPY; LOG 10 HIV-1 RNA SEE FILE COPY
--- NOTE | 2017-03-25 14:56 | PN ---
Progress Note, Physician Chief Complaint: Patient Remained indubated sedated, still tachepnic History of Present Illness: 66 yrs old man admitted with recurrent pneumonia, developed respiratory failure , w/u revealed HIV with AIDs and PCP pneumonia, intubated on treatment of PCP pneumonia. HIV. - Current Medication List Current Medications: Active Medications Acetaminophen (Tylenol -) 650 mg PO Q6H PRN PRN Reason: FEVER OR PAIN Albuterol Sulfate (Ventolin Hfa Inhaler -) 2 puff IH Q4H PRN PRN Reason: SHORT OF BREATH/WHEEZING Amlodipine Besylate (Norvasc -) 5 mg PO DAILY [facility]S [facility] Last Admin: 03/25/17 10:00 Dose: Not Given Artificial Tears (Artificial Tears) 1 drop OU BID [facility]S [facility] Last Admin: 03/25/17 09:43 Dose: 1 drop Darunavir (Prezista) 800 mg PO DAILY [facility] B[facility]S [facility] Last Admin: 03/25/17 09:43 Dose: 800 mg Emtricitabine/Tenofovir (Truvada) 1 tab PO DAILY [facility] 234 B[facility]S [facility] Last Admin: 03/25/17 09:42 Dose: 1 tab Guaifenesin (Robitussin -) 10 ml PO Q4H PRN Last Admin: 03/20/17 09:54 Dose: 10 ml Pantoprazole Sodium (Protonix 40mg Ivpb (Pre-Docked)) 100 mls @ 200 mls/hr IVPB DAILY [facility] 234 B[facility]S [facility] Last Admin: 03/25/17 09:44 Dose: 200 mls/hr Propofol (Diprivan -) 100 mls @ 7.648 mls/hr IVPB TITR ANGUS; 20 MCG/KG/MIN PRN Reason: Protocol Last Admin: 03/25/17 11:45 Dose: Not Given Midazolam HCl 100 mg/ Sodium (Chloride) 100 mls @ 4 mls/hr IVPB TITR ANGUS; 4 MG/ HR PRN Reason: Protocol Last Titration: 03/25/17 14:00 Dose: 5 mg/hr Fentanyl 500 mcg/ Dextrose 100 mls @ 5 mls/hr IJ TITR ANGUS PRN Reason: 25 MCG/HR Last Admin: 03/25/17 12:45 Dose: Not Given Ganciclovir 165 mg/ Sodium (Chloride) 100 mls @ 100 mls/hr IVPB BID@0400,1600 [facility] 234 B[facility]S [facility] Last Admin: 03/25/17 04:00 Dose: 100 mls/hr Insulin Aspart (Novolog Vial Sliding Scale -) 1 vial SQ ACHS [facility] 234 BEDS AT [facility] PRN Reason: Protocol Last Admin: 03/25/17 11:10 Dose: 15 units Methylprednisolone Sodium Succinate (Solu-Medrol -) 40 mg IVPB Q8H-IV [facility] 234 BEDS AT [facility] Last Admin: 03/25/17 09:44 Dose: 40 mg Ritonavir (Norvir Oral Solution -) 100 mg PO DAILY [facility] 234 B[facility]S [facility] Last Admin: 03/25/17 09:43 Dose: 100 mg Trimethoprim/Sulfamethoxazole (Bactrim Injection -) 380 mg IVPB Q8H-IV [facility] 234 BEDS AT [facility] Last Admin: 03/25/17 09:42 Dose: 380 mg - Objective Vital Signs: Vital Signs Temperature 97.6 F 03/25/17 14:00 Pulse Rate 88 03/25/17 14:00 Respiratory Rate 25 H 03/25/17 14:26 Blood Pressure 118/65 03/25/17 14:00 O2 Sat by Pulse Oximetry (%) 98 03/25/17 10:24 P Exam; Elderly man Sedated, intubated, having respiratory distress. HEENT: ET and NG tube at place, mm moist NECK; No JVD No Bruit CHEST: B/L Crepts CVS; S1S2 R, no m/g/r ABD: No distention, non tender Bs +, rectal tube at place EXT: +edema feet, no calf tenderness, Pulses + [employer]: Sedated, intubated Labs: CBC, BMP 03/25/17 05:15 03/25/17 05:15 INR, PTT INR 1.08 (0.82-1.09) 03/25/17 05:15 Fibrinogen 415.0 mg/dL (238-498) 03/25/17 05:15 - ....Imaging Chest X-ray: Report Reviewed (s/p intubationB/L infiltrates) Problem List - Problems (1) Respiratory failure Assessment/Plan: Due to Interstitial pneumonia, CMV, fungus and TB -ve, PCP + on Bactrim and IV steroids, discuses with ID attending and patient family, no improvement in respiratory status, Ventilator management as critical care. 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 Code(s): B20 - HUMAN IMMUNODEFICIENCY VIRUS [HIV] DISEASE (3) Pneumocystis carinii pneumonia Assessment/Plan: Sever with respiratory failure on Bactrim, and IV Prednisone Code(s): B59 - PNEUMOCYSTOSIS (4) Diabetes Assessment/Plan: Steroid induced, optimize Glycemic control. Code(s): E11.9 - TYPE 2 DIABETES MELLITUS WITHOUT COMPLICATIONS (5) HTN (hypertension) Assessment/Plan: Well controlled Code(s): I10 - ESSENTIAL (PRIMARY) HYPERTENSION (6) Pancytopenia Assessment/Plan: Drug induced, disease process or IRS F/u CBc, BMP Code(s): D61.818 - OTHER PANCYTOPENIA (7) LEXI (acute kidney injury) Assessment/Plan: Can be due to Bactrimor IRS F/u Renal function, will consider renal consult in am. Code(s): N17.9 - ACUTE KIDNEY FAILURE, UNSPECIFIED (8) CMV pneumonia Assessment/Plan: On ganciclovir for CMV Pneumonitis ?. Code(s): B25.0 - CYTOMEGALOVIRAL PNEUMONITIS
[2017-03-25] MEDS: MIDAZOLAM 100 MG in SODIUM CHLORIDE 100 ML IVPB SCH ×2 (15:30→16:30)
[2017-03-26] MEDS: SULFAMETHOXAZOLE 80 MG/TRIMETHOPRIM 16 MG/ML VIAL IVPB SCH ×3 (02:00→17:23)
[2017-03-26] MEDS: methylPREDNISolone NA SUCC 40 MG/1 ML VIAL IVPB SCH ×3 (02:00→17:27)
[2017-03-26] MEDS: FENTANYL INJECTION 500 MCG in DEXTROSE 5%-WATER - 90 ML IJ SCH ×2 (03:45→17:24)
[2017-03-26] MEDS: SODIUM CHLORIDE IVPB SCH (03:48)
[2017-03-26] MEDS: GANCICLOVIR IVPB SCH ×3 (03:48→21:16)
[2017-03-26] MEDS: INSULIN SLIDING SCALE (NOVOLOG) 1 VIAL SQ SCH ×4 (06:02→21:17)
[2017-03-26 06:22] LABS: MCH 25.7 pg (25.7-33.7); MCHC 31.9 g/dl (32.0-35.9); MEAN CELL VOLUME 80.4 fl (80-96); MEAN PLT VOLUME 9.9 fl (7.5-11.1); PLATELET COUNT 71 K/MM3 (134-434); RDW 20.5 % (11.9-15.9); WHITE BLOOD COUNT 2.2 K/mm3 (4.0-10.0)
[2017-03-26 06:46] LABS: ALBUMIN 1.1 g/dl (3.4-5.0); ALK PHOS 152 U/L (45-117); ANION GAP 9 (8-16); BILIRUBIN,TOTAL 0.2 mg/dL (0.2-1.0); CO2 24 mmol/L (21-32); CREATININE 1.2 mg/dL (0.7-1.3); GLUCOSE,RANDOM 275 mg/dL (74-106); MAGNESIUM 2.6 mg/dL (1.8-2.4); PHOSPHOROUS 2.3 mg/dL (2.5-4.9); SGOT/AST 74 U/L (15-37); SGPT/ALT 59 U/L (12-78); TOT PROT 3.4 g/dl (6.4-8.2)
[2017-03-26 06:56] LABS: CALCIUM 6.9 mg/dL (8.5-10.1)
--- NOTE | 2017-03-26 07:28 | PN ---
Progress Note (short form) - Note Progress Note: ID Despite every effort to address all of his infectious complications he continues to deteriorate Now on 100 %FIO2 Cytovene Bactrim Solumedrol HAART Microbiology 03/20/17 14:30 Urine - Urine [place] Urine Culture - Final NO GROWTH OBTAINED 03/20/17 08:51 Sputum - Endotrachea Suction/Ventilator Gram Stain - Final 03/20/17 08:51 Sputum - Endotrachea Suction/Ventilator Sputum Culture - Final NORMAL RESPIRATORY DEBORAH 03/16/17 11:00 Bronchial Washings - Right Upper Lobe Gram Stain - Final 03/16/17 11:00 Bronchial Washings - Right Upper Lobe Bronchoalveolar Lavage Culture - Final Yeast Like Organism 03/16/17 11:00 Bronchial Washings - Right Upper Lobe Cytomegalovirus Culture - Final 03/08/17 14:25 Serum Cryptococcal Antigen - Final 03/20/17 14:30 Sputum - Endotrachea Suction/Ventilator JYOTI Preparation - Preliminary 03/20/17 14:30 Sputum - Endotrachea Suction/Ventilator Fungal Culture - Preliminary 03/16/17 11:00 Bronchial Washings - Right Upper Lobe Mycobacteria (PCR) - Preliminary 03/08/17 14:25 Blood - Peripheral Venous Mycobacterial Culture - Preliminary Selected Entries 03/25/17 03/26/17 03/26/17 22:00 02:00 04:00 Temperature 99.4 F 98.3 F Pulse Rate 76 Respiratory 21 Rate Blood Pressure 119/65 Laboratory Tests 03/26/17 03/26/17 05:10 05:10 WBC 2.2 L Plt Count 71 L BUN 39 H Calcium 6.9 L* Total Bilirubin 0.2 D AST 74 H D ALT 59 Alkaline Phosphatase 152 H Assessment Lung injury ARDS Pneumocysitis CMV pneumonitis AIDS Suspected IRIS DM Pancytopenia med related Acute renal injury medication related Respiratory failure Plan Set of blood culture in case bacterial sepsis has intervened Discussion with family regarding end of life care in view of poor prognosis Nuno MIJARES Problem List - Problems (1) AIDS Code(s): B20 - HUMAN IMMUNODEFICIENCY VIRUS [HIV] DISEASE (2) Interstitial pneumonitis Code(s): J84.89 - OTHER SPECIFIED INTERSTITIAL PULMONARY DISEASES (3) Diabetes Code(s): E11.9 - TYPE 2 DIABETES MELLITUS WITHOUT COMPLICATIONS
[2017-03-26 07:38] LABS: ARTERIAL BLD GAS O2 SATURATION 90.2 % (90-98.9); ARTERIAL BLOOD GAS BASE EXCESS -3.2 meq/l (-2-2); ARTERIAL BLOOD GAS PO2 61.4 mmHg (80-100); ARTERIAL BLOOD GAS pH 7.38 (7.35-7.45)
[2017-03-26 07:39] LABS: ALLENS TEST POSITIVE; ART PUNCT SITE RIGHT RADIAL; LPM/O2% 100; MECH. VENT. YES; PT. ON O2? YES; TYPE OF O2 VENT; VENT RATE 10; VT/PRESS 450
[2017-03-26] MEDS ORDERED: PT OWN MED DRAWER 7, Y5N ONE ×3 (08:31→21:04)
[2017-03-26] MEDS: amLODIPine BESYLATE 5 MG TABLET (FP) PO SCH (09:42)
[2017-03-26] MEDS: PANTOPRAZOLE SODIUM 100 ML IVPB SCH (09:46)
[2017-03-26] MEDS: RITONAVIR ORAL SOLUTION 80 MG/ML PO SCH (11:18)
[2017-03-26] MEDS: DARUNAVIR ETHANOLATE 100 MG/ML BULK BOTTLE PO SCH (11:19)
[2017-03-26] MEDS: DEXTROSE 5% IVPB SCH ×2 (11:20→21:16)
[2017-03-26] MEDS: WATER IVPB SCH ×2 (11:20→21:16)
[2017-03-26] MEDS: EMTRICITABINE 200MG/TENOFOVIR 300MG PO SCH (11:20)
[2017-03-26] MEDS: ARTIFICIAL TEARS (POLYVINYL ALCOHOL 1.4%) OPTH DROPS OU SCH ×3 (11:38→21:18)
[2017-03-26] MEDS: MIDAZOLAM 100 MG in SODIUM CHLORIDE 100 ML IVPB SCH ×2 (12:40→17:23)
--- NOTE | 2017-03-26 14:41 | PN ---
Physical Exam: SUBJECTIVE: Patient seen and examined in ICU. He is intubated and sedated. OBJECTIVE: Vital Signs Period Temp Pulse Resp BP Sys/De Oliveira Pulse Ox Last 24 Hr 97 F-99.4 F 75-88 21-28 106-122/52-72 90-93 GENERAL: The patient is awake, alert, and fully oriented, in no acute distress. HEAD: Normal with no signs of trauma. EYES: extraocular movements intact, sclera anicteric, conjunctiva clear. ENT: oropharynx clear without exudates, moist mucous membranes, bleeding in his lower lip. NECK: Trachea midline, full range of motion, supple. LUNGS: clear to auscultation bilaterally, no wheezes, no crackles, no accessory muscle use. HEART: Regular rate and rhythm, S1, S2 without murmur, rub or gallop. ABDOMEN: Soft, nondistended, hypoactive bowel sounds, tenderness and guarding, longitudinal scar in mid abdomen, well healing, no drainage, erythema. EXTREMITIES: warm, well-perfused, trace edema. NEUROLOGICAL: No facial asymmetry, normal speech, gait not observed. PSYCH: Normal mood, normal affect. SKIN: Warm, dry, normal turgor, no rashes. Laboratory Results - last 24 hr 03/20/17 03/25/17 03/25/17 06:05 16:08 21:50 WBC RBC Hgb Hct MCV MCHC RDW Plt Count MPV Puncture Site ABG pH ABG pCO2 at Pt Temp ABG pO2 at Pt Temp ABG HCO3 ABG O2 Sat (Measured) ABG O2 Content ABG Base Excess Enrico Test O2 Delivery Device Oxygen Flow Rate Vent Mode Vent Rate Mechanical Rate PEEP Pressure Support Vent Sodium Potassium Chloride Carbon Dioxide Anion Gap BUN Creatinine Creat Clearance w eGFR POC Glucometer [phone] Random Glucose Calcium Phosphorus Magnesium Total Bilirubin AST ALT Alkaline Phosphatase Total Protein Albumin HLA-B*5701 Negative 03/26/17 03/26/17 03/26/17 04:58 05:10 05:10 WBC 2.2 L RBC 3.16 L Hgb 8.1 L Hct 25.4 L MCV 80.4 MCHC 31.9 L RDW 20.5 H Plt Count 71 L MPV 9.9 Puncture Site ABG pH ABG pCO2 at Pt Temp ABG pO2 at Pt Temp ABG HCO3 ABG O2 Sat (Measured) ABG O2 Content ABG Base Excess Enrico Test O2 Delivery Device Oxygen Flow Rate Vent Mode Vent Rate Mechanical Rate PEEP Pressure Support Vent Sodium 129 L Potassium 5.6 H Chloride 96 L Carbon Dioxide 24 Anion Gap 9 BUN 39 H Creatinine 1.2 Creat Clearance w eGFR > 60 POC Glucometer 198.23079 Random Glucose 275 H D Calcium 6.9 L* Phosphorus 2.3 L Magnesium 2.6 H Total Bilirubin 0.2 D AST 74 H D ALT 59 Alkaline Phosphatase 152 H Total Protein 3.4 L Albumin 1.1 L HLA-B*5701 03/26/17 03/26/17 07:00 11:46 WBC RBC Hgb Hct MCV MCHC RDW Plt Count MPV Puncture Site Right radial ABG pH 7.38 ABG pCO2 at Pt Temp 36.3 ABG pO2 at Pt Temp 61.4 L ABG HCO3 21.0 L ABG O2 Sat (Measured) 90.2 ABG O2 Content 9.8 L* ABG Base Excess -3.2 L Enrico Test Positive O2 Delivery Device Vent Oxygen Flow Rate 100 Vent Mode A/c Vent Rate 10 Mechanical Rate Yes PEEP 5.0 Pressure Support Vent 450 Sodium Potassium Chloride Carbon Dioxide Anion Gap BUN Creatinine Creat Clearance w eGFR POC Glucometer [phone] Random Glucose Calcium Phosphorus Magnesium Total Bilirubin AST ALT Alkaline Phosphatase Total Protein Albumin HLA-B*5701 Active Medications Generic Name Dose Route Start Last Admin Trade Name Freq PRN Reason Stop Dose Admin Acetaminophen 650 mg 03/20/17 08:52 Tylenol - PO Q6H PRN FEVER OR PAIN Albuterol Sulfate 2 puff 03/20/17 08:52 Ventolin Hfa Inhaler - IH Q4H PRN SHORT OF BREATH/WHEEZING Amlodipine Besylate 5 mg 03/20/17 10:00 03/26/17 09:42 Norvasc - PO 5 mg DAILY ANGUS Administration Artificial Tears 1 drop 03/24/17 22:00 03/26/17 11:39 Artificial Tears OU 1 drop BID ANGUS Administration Darunavir 800 mg 03/16/17 10:15 03/26/17 11:19 Prezista PO 800 mg DAILY ANGUS Administration Emtricitabine/Tenofovir 1 tab 03/16/17 10:15 03/26/17 11:20 Truvada PO 1 tab DAILY ANGUS Administration Guaifenesin 10 ml 03/20/17 08:52 03/20/17 09:54 Robitussin - PO 10 ml Q4H PRN Administration Pantoprazole Sodium 100 mls @ 200 mls/hr 03/16/17 14:00 03/26/17 09:46 Protonix 40mg Ivpb (Pre-Docked) IVPB 200 mls/hr DAILY ANGUS Administration Propofol 100 mls @ 7.648 mls/hr 03/20/17 11:45 03/25/17 11:45 Diprivan - IVPB Not Given TITR ANGUS Protocol 20 MCG/KG/MIN Midazolam HCl 100 mg/ Sodium 100 mls @ 4 mls/hr 03/20/17 16:30 03/26/17 12:40 Chloride IVPB 5 mls/hr TITR ANGUS Administration Protocol 4 MG/HR Fentanyl 500 mcg/ Dextrose 100 mls @ 5 mls/hr 03/22/17 12:45 03/26/17 03:45 IJ 5 mls/hr TITR ANGUS Administration 25 MCG/HR Ganciclovir 325 mg/ Dextrose 100 mls @ 100 mls/hr 03/26/17 10:00 03/26/17 11:20 IVPB 100 mls/hr BID ANGUS Administration Insulin Aspart 1 vial 03/20/17 11:00 03/26/17 11:51 Novolog Vial Sliding Scale - SQ 15 units ACHS ANGUS Administration Protocol Methylprednisolone Sodium Succinate 40 mg 03/24/17 10:00 03/26/17 09:42 Solu-Medrol - IVPB 40 mg Q8H-IV ANGUS Administration Ritonavir 100 mg 03/16/17 10:30 03/26/17 11:18 Norvir Oral Solution - PO 100 mg DAILY ANGUS Administration Trimethoprim/Sulfamethoxazole 380 mg 03/20/17 10:00 03/26/17 11:18 Bactrim Injection - IVPB 380 mg Q8H-IV ANGUS Administration bronchial washings pathology: no malignant cells. Macrophages and scattered fungal cells consistent with pneumocystis, claudia present on gram stain likely due to colonization or contamination. No acid fast bacilli seen. ASSESSMENT/PLAN: 66 year old male with acute respiratory failure, bilateral pneumonia and HIV who was admitted to ICU s/p respiratory failure. 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, CMV -beta 1,3 d glucan elevated, -CMV IgG positive started Ganciclovir -continue antibiotics; bactrim and Solu-medrol -f/u ID recommendations -f/u CXR, improved today AIDS: -treated with Darunavir, Ritonavir, Emtricitabine/Tenofovir -CD 4 1.7, CD4/CD8 ratio 0.04 -family present at bedside today -spontaneous breathing trials as tolerated when mental status improved -on isolation precautions due to risk of TB, still waiting for final results -will monitor for IRIS DM: -BGMs -ISS HTN: -held Norvasc DVT PPX: Lovenox 40 mg qd GI PPX: none Disposition: Monitor in ICU, discussed with family today, they will have conversation about end of life care Problem List - Problems (1) AIDS Code(s): B20 - HUMAN IMMUNODEFICIENCY VIRUS [HIV] DISEASE (2) Bilateral pneumonia Code(s): J18.9 - PNEUMONIA, UNSPECIFIED ORGANISM Qualifiers: 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 - New Patient This patient is new to me today: No - Critical Care Critical Care patient: Yes Total Critical Care Time (in minutes): 40 Critical Care Statement: The care of this patient involved high complexity decision making to prevent further life threatening deterioration of the patient 's condition and/or to evalute & treat vital organ system(s) failure or risk of failure.
--- NOTE | 2017-03-26 15:51 | PN ---
Teaching Attending Note Name of Resident: Bessy Eaton ATTENDING PHYSICIAN STATEMENT I saw and evaluated the patient. I reviewed the resident's note and discussed the case with the resident. I agree with the resident's findings and plan as documented. SUBJECTIVE: Patient seen and examined in the ICU. Remains intubated and sedated. 100% FiO2. Sedated on Versed and Fentanyl. No pressors. Intake & Output 03/23/17 03/24/17 03/25/17 03/26/17 23:59 23:59 23:59 23:59 Intake Total 3121 3306 2803 1125 Output Total 2050 1150 2250 2500 Balance 1071 2156 553 -1375 Weight 149 lb 7 oz 156 lb 8 oz 159 lb 161 lb 3.2 oz Last Vital Signs Temp Pulse Resp BP Pulse Ox 98.0 F 82 27 H 111/60 92 L 03/26/17 14:00 03/26/17 14:00 03/26/17 14:00 03/26/17 14:00 03/26/17 09:53 Active Medications Acetaminophen (Tylenol -) 650 mg PO Q6H PRN PRN Reason: FEVER OR PAIN Albuterol Sulfate (Ventolin Hfa Inhaler -) 2 puff IH Q4H PRN PRN Reason: SHORT OF BREATH/WHEEZING Amlodipine Besylate (Norvasc -) 5 mg PO DAILY [facility] Last Admin: 03/26/17 09:42 Dose: 5 mg Artificial Tears (Artificial Tears) 1 drop OU BID ANGUS Last Admin: 03/26/17 11:39 Dose: 1 drop Darunavir (Prezista) 800 mg PO DAILY ANGUS Last Admin: 03/26/17 11:19 Dose: 800 mg Emtricitabine/Tenofovir (Truvada) 1 tab PO DAILY ANGUS Last Admin: 03/26/17 11:20 Dose: 1 tab Guaifenesin (Robitussin -) 10 ml PO Q4H PRN Last Admin: 03/20/17 09:54 Dose: 10 ml Pantoprazole Sodium (Protonix 40mg Ivpb (Pre-Docked)) 100 mls @ 200 mls/hr IVPB DAILY ANGUS Last Admin: 03/26/17 09:46 Dose: 200 mls/hr Propofol (Diprivan -) 100 mls @ 7.648 mls/hr IVPB TITR ANGUS; 20 MCG/KG/MIN PRN Reason: Protocol Last Admin: 03/25/17 11:45 Dose: Not Given Midazolam HCl 100 mg/ Sodium (Chloride) 100 mls @ 4 mls/hr IVPB TITR ANGUS; 4 MG/ HR PRN Reason: Protocol Last Admin: 03/26/17 12:40 Dose: 5 mls/hr Fentanyl 500 mcg/ Dextrose 100 mls @ 5 mls/hr IJ TITR ANGUS PRN Reason: 25 MCG/HR Last Admin: 03/26/17 03:45 Dose: 5 mls/hr Ganciclovir 325 mg/ Dextrose 100 mls @ 100 mls/hr IVPB BID ANGUS Last Admin: 03/26/17 11:20 Dose: 100 mls/hr Insulin Aspart (Novolog Vial Sliding Scale -) 1 vial SQ ACHS ANGUS PRN Reason: Protocol Last Admin: 03/26/17 11:51 Dose: 15 units Methylprednisolone Sodium Succinate (Solu-Medrol -) 40 mg IVPB Q8H-IV ANGUS Last Admin: 03/26/17 09:42 Dose: 40 mg Ritonavir (Norvir Oral Solution -) 100 mg PO DAILY ANGUS Last Admin: 03/26/17 11:18 Dose: 100 mg Trimethoprim/Sulfamethoxazole (Bactrim Injection -) 380 mg IVPB Q8H-IV ANGUS Last Admin: 03/26/17 11:18 Dose: 380 mg Gen: intubated, sedated Heart: RRR Lung: scattered rhonchi Abd: soft, nontender Ext: no edema Laboratory Results - last 24 hr 03/20/17 03/25/17 03/25/17 06:05 16:08 21:50 WBC RBC Hgb Hct MCV MCHC RDW Plt Count MPV Puncture Site ABG pH ABG pCO2 at Pt Temp ABG pO2 at Pt Temp ABG HCO3 ABG O2 Sat (Measured) ABG O2 Content ABG Base Excess Enrico Test O2 Delivery Device Oxygen Flow Rate Vent Mode Vent Rate Mechanical Rate PEEP Pressure Support Vent Sodium Potassium Chloride Carbon Dioxide Anion Gap BUN Creatinine Creat Clearance w eGFR POC Glucometer 243.32527 242.78935 Random Glucose Calcium Phosphorus Magnesium Total Bilirubin AST ALT Alkaline Phosphatase Total Protein Albumin HLA-B*5701 Negative 03/26/17 03/26/17 03/26/17 04:58 05:10 05:10 WBC 2.2 L RBC 3.16 L Hgb 8.1 L Hct 25.4 L MCV 80.4 MCHC 31.9 L RDW 20.5 H Plt Count 71 L MPV 9.9 Puncture Site ABG pH ABG pCO2 at Pt Temp ABG pO2 at Pt Temp ABG HCO3 ABG O2 Sat (Measured) ABG O2 Content ABG Base Excess Enrico Test O2 Delivery Device Oxygen Flow Rate Vent Mode Vent Rate Mechanical Rate PEEP Pressure Support Vent Sodium 129 L Potassium 5.6 H Chloride 96 L Carbon Dioxide 24 Anion Gap 9 BUN 39 H Creatinine 1.2 Creat Clearance w eGFR > 60 POC Glucometer 198.21571 Random Glucose 275 H D Calcium 6.9 L* Phosphorus 2.3 L Magnesium 2.6 H Total Bilirubin 0.2 D AST 74 H D ALT 59 Alkaline Phosphatase 152 H Total Protein 3.4 L Albumin 1.1 L HLA-B*5701 03/26/17 03/26/17 07:00 11:46 WBC RBC Hgb Hct MCV MCHC RDW Plt Count MPV Puncture Site Right radial ABG pH 7.38 ABG pCO2 at Pt Temp 36.3 ABG pO2 at Pt Temp 61.4 L ABG HCO3 21.0 L ABG O2 Sat (Measured) 90.2 ABG O2 Content 9.8 L* ABG Base Excess -3.2 L Enrico Test Positive O2 Delivery Device Vent Oxygen Flow Rate 100 Vent Mode A/c Vent Rate 10 Mechanical Rate Yes PEEP 5.0 Pressure Support Vent 450 Sodium Potassium Chloride Carbon Dioxide Anion Gap BUN Creatinine Creat Clearance w eGFR POC Glucometer 362.14096 Random Glucose Calcium Phosphorus Magnesium Total Bilirubin AST ALT Alkaline Phosphatase Total Protein Albumin HLA-B*5701 ASSESSMENT AND PLAN: Acute Hypoxic Respiratory Failure AIDS/HIV Pneumocystis Pneumonia DM (?) IRIS Problem List - Problems (1) Bilateral pneumonia Code(s): J18.9 - PNEUMONIA, UNSPECIFIED ORGANISM Qualifiers: 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 - antibiotic coverage by ID - continue ART - continue medrol at current dose - taper Fio2 to keep SpO2 >90% - daily sedation vacations to assess mental status - spontaneous breathing trials as tolerated when mental status improved - enteral feeds - glucose control - DVT/GI prophylaxis - continue ICU monitoring - prognosis remains guarded as no significant improvement despite antimicrobial therapy - may need tracheostomy as unable to be weaned thus far Dr Cazares Critical care time spent in reviewing chart, evaluating patient and formulating plan 40 min Problem List - Problems (1) Bilateral pneumonia Code(s): J18.9 - PNEUMONIA, UNSPECIFIED ORGANISM Qualifiers: 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
--- NOTE | 2017-03-26 17:23 | PN ---
Progress Note, Physician Chief Complaint: Patient Remained indubated sedated, still tachepnic History of Present Illness: 66 yrs old man admitted with recurrent pneumonia, developed respiratory failure , w/u revealed HIV with AIDs and PCP pneumonia, intubated on treatment of PCP pneumonia. HIV. - Current Medication List Current Medications: Active Medications Acetaminophen (Tylenol -) 650 mg PO Q6H PRN PRN Reason: FEVER OR PAIN Albuterol Sulfate (Ventolin Hfa Inhaler -) 2 puff IH Q4H PRN PRN Reason: SHORT OF BREATH/WHEEZING Amlodipine Besylate (Norvasc -) 5 mg PO DAILY [facility] Last Admin: 03/26/17 09:42 Dose: 5 mg Artificial Tears (Artificial Tears) 1 drop OU BID [facility] Last Admin: 03/26/17 11:39 Dose: 1 drop Darunavir (Prezista) 800 mg PO DAILY [facility] Last Admin: 03/26/17 11:19 Dose: 800 mg Emtricitabine/Tenofovir (Truvada) 1 tab PO DAILY [facility] Last Admin: 03/26/17 11:20 Dose: 1 tab Guaifenesin (Robitussin -) 10 ml PO Q4H PRN Last Admin: 03/20/17 09:54 Dose: 10 ml Pantoprazole Sodium (Protonix 40mg Ivpb (Pre-Docked)) 100 mls @ 200 mls/hr IVPB DAILY [facility] Last Admin: 03/26/17 09:46 Dose: 200 mls/hr Propofol (Diprivan -) 100 mls @ 7.648 mls/hr IVPB TITR ANGUS; 20 MCG/KG/MIN PRN Reason: Protocol Last Admin: 03/25/17 11:45 Dose: Not Given Midazolam HCl 100 mg/ Sodium (Chloride) 100 mls @ 4 mls/hr IVPB TITR ANGUS; 4 MG/ HR PRN Reason: Protocol Last Admin: 03/26/17 12:40 Dose: 5 mls/hr Fentanyl 500 mcg/ Dextrose 100 mls @ 5 mls/hr IJ TITR ANGUS PRN Reason: 25 MCG/HR Last Admin: 03/26/17 03:45 Dose: 5 mls/hr Ganciclovir 325 mg/ Dextrose 100 mls @ 100 mls/hr IVPB BID [facility] Last Admin: 03/26/17 11:20 Dose: 100 mls/hr Insulin Aspart (Novolog Vial Sliding Scale -) 1 vial SQ ACHS [facility] PRN Reason: Protocol Last Admin: 03/26/17 11:51 Dose: 15 units Methylprednisolone Sodium Succinate (Solu-Medrol -) 40 mg IVPB Q8H-IV ANGUS Last Admin: 03/26/17 09:42 Dose: 40 mg Ritonavir (Norvir Oral Solution -) 100 mg PO DAILY [facility] Last Admin: 03/26/17 11:18 Dose: 100 mg Trimethoprim/Sulfamethoxazole (Bactrim Injection -) 380 mg IVPB Q8H-IV ANGUS Last Admin: 03/26/17 11:18 Dose: 380 mg - Objective Vital Signs: Vital Signs Temperature 98.0 F 03/26/17 14:00 Pulse Rate 80 03/26/17 17:00 Respiratory Rate 25 H 03/26/17 17:00 Blood Pressure 114/63 03/26/17 17:00 O2 Sat by Pulse Oximetry (%) 92 L 03/26/17 09:53 Elderly man Sedated, intubated, having respiratory distress. HEENT: ET and NG tube at place, mm moist NECK; No JVD No Bruit CHEST: B/L Crepts CVS; S1S2 R, no m/g/r ABD: No distention, non tender Bs +, rectal tube at place EXT: +edema feet, no calf tenderness, Pulses + Labs: CBC, BMP 03/26/17 05:10 03/26/17 05:10 INR, PTT INR 1.08 (0.82-1.09) 03/25/17 05:15 Fibrinogen 415.0 mg/dL (238-498) 03/25/17 05:15 Problem List - Problems (1) Respiratory failure Assessment/Plan: Due to Interstitial pneumonia, CMV, fungus and TB -ve, PCP + on Bactrim and IV steroids, discuses with ID attending and patient family, no improvement in respiratory status, Ventilator management as critical care. 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 Code(s): B20 - HUMAN IMMUNODEFICIENCY VIRUS [HIV] DISEASE (3) Pneumocystis carinii pneumonia Assessment/Plan: Sever with respiratory failure on Bactrim, and IV Prednisone Code(s): B59 - PNEUMOCYSTOSIS (4) Diabetes Assessment/Plan: Steroid induced, optimize Glycemic control. Code(s): E11.9 - TYPE 2 DIABETES MELLITUS WITHOUT COMPLICATIONS (5) HTN (hypertension) Assessment/Plan: Well controlled Code(s): I10 - ESSENTIAL (PRIMARY) HYPERTENSION (6) Pancytopenia Assessment/Plan: Drug induced, disease process or IRS F/u CBc, BMP Code(s): D61.818 - OTHER PANCYTOPENIA (7) LEXI (acute kidney injury) Assessment/Plan: Can be due to Bactrimor IRS F/u Renal function, will consider renal consult in am. Code(s): N17.9 - ACUTE KIDNEY FAILURE, UNSPECIFIED (8) CMV pneumonia Assessment/Plan: On ganciclovir for CMV Pneumonitis ?. Code(s): B25.0 - CYTOMEGALOVIRAL PNEUMONITIS
[2017-03-26] MEDS: PROPOFOL 100 ML IVPB SCH (17:25)
[2017-03-27] MEDS ORDERED: INSULIN (NOVOLOG) ASPART 100 UNITS/ML 10ML VIAL ONE (00:17)
[2017-03-27] MEDS: SULFAMETHOXAZOLE 80 MG/TRIMETHOPRIM 16 MG/ML VIAL IVPB SCH ×2 (02:00→09:28)
[2017-03-27] MEDS: methylPREDNISolone NA SUCC 40 MG/1 ML VIAL IVPB SCH ×3 (02:00→18:35)
[2017-03-27 06:33] LABS: MCH 25.7 pg (25.7-33.7); MCHC 32.1 g/dl (32.0-35.9); MEAN CELL VOLUME 79.9 fl (80-96); MEAN PLT VOLUME 9.8 fl (7.5-11.1); PLATELET COUNT 61 K/MM3 (134-434); RDW 20.3 % (11.9-15.9)
[2017-03-27] MEDS: INSULIN SLIDING SCALE (NOVOLOG) 1 VIAL SQ SCH ×4 (06:43→21:42)
[2017-03-27 07:01] LABS: ALBUMIN 1.1 g/dl (3.4-5.0); ALK PHOS 138 U/L (45-117); ANION GAP 10 (8-16); BILIRUBIN,TOTAL 0.2 mg/dL (0.2-1.0); CALCIUM 7.2 mg/dL (8.5-10.1); CO2 24 mmol/L (21-32); CREATININE 1.2 mg/dL (0.7-1.3); GLUCOSE,RANDOM 284 mg/dL (74-106); SGOT/AST 68 U/L (15-37); SGPT/ALT 62 U/L (12-78); TOT PROT 3.4 g/dl (6.4-8.2)
[2017-03-27] MEDS ORDERED: PT OWN MED DRAWER 7, Y5N ONE (09:04)
[2017-03-27] MEDS: MIDAZOLAM 100 MG in SODIUM CHLORIDE 100 ML IVPB SCH ×2 (09:21→17:45)
[2017-03-27] MEDS: DARUNAVIR ETHANOLATE 100 MG/ML BULK BOTTLE PO SCH (09:24)
[2017-03-27] MEDS: EMTRICITABINE 200MG/TENOFOVIR 300MG PO SCH (09:24)
[2017-03-27] MEDS: amLODIPine BESYLATE 5 MG TABLET (FP) PO SCH (09:25)
[2017-03-27] MEDS: RITONAVIR ORAL SOLUTION 80 MG/ML PO SCH (09:26)
--- NOTE | 2017-03-27 09:45 | PN ---
Progress Note (short form) - Note Progress Note: remains intubated now on FiO2 100% cxray with increased congestion intubated/sedated Vital Signs Period Temp Pulse Resp BP Sys/De Oliveira Pulse Ox Last 24 Hr 98.0 F-98.6 F 75-86 20-27 108-130/59-84 92 cor-rrr lungs decreased bs at bases abd soft,nt ext +edema of hands, trace edema of feet cxray increased infiltrates 03/27/17 05:15 03/27/17 05:15 Current Medications Acetaminophen (Tylenol -) 650 mg PO Q6H PRN PRN Reason: FEVER OR PAIN Albuterol Sulfate (Ventolin Hfa Inhaler -) 2 puff IH Q4H PRN PRN Reason: SHORT OF BREATH/WHEEZING Amlodipine Besylate (Norvasc -) 5 mg PO DAILY [facility] Last Admin: 03/27/17 09:25 Dose: 5 mg Artificial Tears (Artificial Tears) 1 drop OU BID [facility] Last Admin: 03/26/17 21:18 Dose: 1 drop Darunavir (Prezista) 800 mg PO DAILY [facility] Last Admin: 03/27/17 09:24 Dose: 800 mg Emtricitabine/Tenofovir (Truvada) 1 tab PO DAILY [facility] Last Admin: 03/27/17 09:24 Dose: 1 tab Guaifenesin (Robitussin -) 10 ml PO Q4H PRN Last Admin: 03/20/17 09:54 Dose: 10 ml Pantoprazole Sodium (Protonix 40mg Ivpb (Pre-Docked)) 100 mls @ 200 mls/hr IVPB DAILY [facility] Last Admin: 03/26/17 09:46 Dose: 200 mls/hr Propofol (Diprivan -) 100 mls @ 7.648 mls/hr IVPB TITR ANGUS; 20 MCG/KG/MIN PRN Reason: Protocol Last Admin: 03/26/17 17:25 Dose: Not Given Midazolam HCl 100 mg/ Sodium (Chloride) 100 mls @ 4 mls/hr IVPB TITR ANGUS; 4 MG/ HR PRN Reason: Protocol Last Admin: 03/27/17 09:21 Dose: 5 mls/hr Fentanyl 500 mcg/ Dextrose 100 mls @ 5 mls/hr IJ TITR ANGUS PRN Reason: 25 MCG/HR Last Admin: 03/26/17 17:24 Dose: 5 mls/hr Ganciclovir 325 mg/ Dextrose 100 mls @ 100 mls/hr IVPB BID [facility] Last Admin: 03/26/17 21:16 Dose: 100 mls/hr Insulin Aspart (Novolog Vial Sliding Scale -) 1 vial SQ ACHS [facility] PRN Reason: Protocol Last Admin: 03/27/17 06:43 Dose: 15 units Methylprednisolone Sodium Succinate (Solu-Medrol -) 40 mg IVPB Q8H-IV [facility] Last Admin: 03/27/17 09:24 Dose: 40 mg Ritonavir (Norvir Oral Solution -) 100 mg PO DAILY [facility] Last Admin: 03/27/17 09:26 Dose: 100 mg Trimethoprim/Sulfamethoxazole (Bactrim Injection -) 380 mg IVPB Q8H-IV [facility] Last Admin: 03/27/17 09:28 Dose: 380 mg a/p AIDS with PCP/CMV continue art continue bactrim/cytovene/steroids hemodynamically stable with worsening respiratory status suggest trial of diuresis overall prognosis is poor
[2017-03-27] MEDS: PANTOPRAZOLE SODIUM 100 ML IVPB SCH (09:55)
[2017-03-27] MEDS ORDERED: FUROSEMIDE 40 MG/4 ML INJECTABLE VIAL IVPUSH ONE (11:06)
[2017-03-27 12:33] LABS: ARTERIAL BLOOD GAS BASE EXCESS -3.3 meq/l (-2-2); ARTERIAL BLOOD GAS HCO3 21.4 meq/L (22-26); ARTERIAL BLOOD GAS PO2 77.6 mmHg (80-100); ARTERIAL BLOOD GAS pH 7.35 (7.35-7.45)
[2017-03-27 12:34] LABS: ALLENS TEST POSITIVE; ART PUNCT SITE RIGHT RADIAL; LPM/O2% 100%; MECH. VENT. ESPRIT; PT. ON O2? YES; TYPE OF O2 MEC.VENT; VENT RATE 10; VT/PRESS 450
[2017-03-27] MEDS: PROPOFOL 100 ML IVPB SCH (12:34)
[2017-03-27] MEDS ORDERED: FUROSEMIDE 40 MG/4 ML INJECTABLE VIAL ONE (12:36)
[2017-03-27] MEDS: ARTIFICIAL TEARS (POLYVINYL ALCOHOL 1.4%) OPTH DROPS OU SCH ×2 (12:49→21:45)
[2017-03-27] MEDS: GANCICLOVIR IVPB SCH ×2 (12:50→21:45)
[2017-03-27] MEDS: WATER IVPB SCH ×3 (12:50→21:45)
[2017-03-27] MEDS: DEXTROSE 5% IVPB SCH ×3 (12:50→21:45)
--- NOTE | 2017-03-27 13:19 | PN ---
Teaching Attending Note Name of Resident: Bessy Eaton ATTENDING PHYSICIAN STATEMENT I saw and evaluated the patient. I reviewed the resident's note and discussed the case with the resident. I agree with the resident's findings and plan as documented. SUBJECTIVE: Patient seen and examined in the ICU. Remains intubated and sedated. 100% FiO2. Sedated on Versed and Fentanyl. No pressors. CXR: Worsening bilateral infiltrates Intake & Output 03/24/17 03/25/17 03/26/17 03/27/17 23:59 23:59 23:59 23:59 Intake Total 3306 2803 3026 1400 Output Total 1150 2250 2500 1300 Balance 2156 553 526 100 Weight 156 lb 8 oz 159 lb 161 lb 3.2 oz 165 lb 2.02 oz Last Vital Signs Temp Pulse Resp BP Pulse Ox 98.0 F 86 31 H 126/74 92 L 03/27/17 12:00 03/27/17 12:00 03/27/17 12:04 03/27/17 12:00 03/27/17 09:43 Active Medications Acetaminophen (Tylenol -) 650 mg PO Q6H PRN PRN Reason: FEVER OR PAIN Albuterol Sulfate (Ventolin Hfa Inhaler -) 2 puff IH Q4H PRN PRN Reason: SHORT OF BREATH/WHEEZING Amlodipine Besylate (Norvasc -) 5 mg PO DAILY [facility] Last Admin: 03/27/17 09:25 Dose: 5 mg Artificial Tears (Artificial Tears) 1 drop OU BID [facility] Last Admin: 03/27/17 12:49 Dose: 1 drop Darunavir (Prezista) 800 mg PO DAILY [facility] Last Admin: 03/27/17 09:24 Dose: 800 mg Emtricitabine/Tenofovir (Truvada) 1 tab PO DAILY [facility] Last Admin: 03/27/17 09:24 Dose: 1 tab Guaifenesin (Robitussin -) 10 ml PO Q4H PRN Last Admin: 03/20/17 09:54 Dose: 10 ml Pantoprazole Sodium (Protonix 40mg Ivpb (Pre-Docked)) 100 mls @ 200 mls/hr IVPB DAILY [facility] Last Admin: 03/27/17 09:55 Dose: 200 mls/hr Propofol (Diprivan -) 100 mls @ 7.648 mls/hr IVPB TITR [facility]; 20 MCG/KG/MIN PRN Reason: Protocol Last Admin: 03/27/17 12:34 Dose: Not Given Midazolam HCl 100 mg/ Sodium (Chloride) 100 mls @ 4 mls/hr IVPB TITR ANGUS; 4 MG/ HR PRN Reason: Protocol Last Admin: 03/27/17 09:21 Dose: 5 mls/hr Fentanyl 500 mcg/ Dextrose 100 mls @ 5 mls/hr IJ TITR [facility] PRN Reason: 25 MCG/HR Last Admin: 03/26/17 17:24 Dose: 5 mls/hr Ganciclovir 325 mg/ Dextrose 100 mls @ 100 mls/hr IVPB BID [facility] Last Admin: 03/27/17 12:50 Dose: 100 mls/hr Insulin Aspart (Novolog Vial Sliding Scale -) 1 vial SQ ACHS [facility] PRN Reason: Protocol Last Admin: 03/27/17 12:49 Dose: 15 units Methylprednisolone Sodium Succinate (Solu-Medrol -) 40 mg IVPB Q8H-IV [facility] Last Admin: 03/27/17 09:24 Dose: 40 mg Ritonavir (Norvir Oral Solution -) 100 mg PO DAILY [facility] Last Admin: 03/27/17 09:26 Dose: 100 mg Trimethoprim/Sulfamethoxazole (Bactrim Injection -) 380 mg IVPB Q8H-IV [facility] Last Admin: 03/27/17 09:28 Dose: 380 mg Gen: intubated, sedated Heart: RRR Lung: scattered rhonchi Abd: soft, nontender Ext: no edema Laboratory Results - last 24 hr 03/20/17 03/26/17 03/26/17 06:05 16:28 21:11 WBC RBC Hgb Hct MCV MCHC RDW Plt Count MPV Puncture Site ABG pH ABG pCO2 at Pt Temp ABG pO2 at Pt Temp ABG HCO3 ABG O2 Sat (Measured) ABG O2 Content ABG Base Excess Enrico Test O2 Delivery Device Oxygen Flow Rate Vent Mode Vent Rate Mechanical Rate PEEP Pressure Support Vent Sodium Potassium Chloride Carbon Dioxide Anion Gap BUN Creatinine Creat Clearance w eGFR POC Glucometer 296.72572 346.51616 Random Glucose Calcium Total Bilirubin AST ALT Alkaline Phosphatase Total Protein Albumin HLA-B*5701 Negative 03/27/17 03/27/17 03/27/17 05:15 05:15 06:19 WBC 2.0 L RBC 2.88 L Hgb 7.4 L Hct 23.0 L MCV 79.9 L MCHC 32.1 RDW 20.3 H Plt Count 61 L MPV 9.8 Puncture Site ABG pH ABG pCO2 at Pt Temp ABG pO2 at Pt Temp ABG HCO3 ABG O2 Sat (Measured) ABG O2 Content ABG Base Excess Enrico Test O2 Delivery Device Oxygen Flow Rate Vent Mode Vent Rate Mechanical Rate PEEP Pressure Support Vent Sodium 130 L Potassium 5.3 H Chloride 96 L Carbon Dioxide 24 Anion Gap 10 BUN 37 H Creatinine 1.2 Creat Clearance w eGFR > 60 POC Glucometer 307.08802 Random Glucose 284 H Calcium 7.2 L Total Bilirubin 0.2 AST 68 H ALT 62 Alkaline Phosphatase 138 H Total Protein 3.4 L Albumin 1.1 L HLA-B*5701 03/27/17 03/27/17 12:25 12:32 WBC RBC Hgb Hct MCV MCHC RDW Plt Count MPV Puncture Site Right radial ABG pH 7.35 ABG pCO2 at Pt Temp 39.9 ABG pO2 at Pt Temp 77.6 L D ABG HCO3 21.4 L ABG O2 Sat (Measured) 95.0 ABG O2 Content 10.6 L ABG Base Excess -3.3 L Enrico Test Positive O2 Delivery Device Mec.vent Oxygen Flow Rate 100% Vent Mode A/c Vent Rate 10 Mechanical Rate Esprit PEEP 7.0 Pressure Support Vent 450 Sodium Potassium Chloride Carbon Dioxide Anion Gap BUN Creatinine Creat Clearance w eGFR POC Glucometer 260.89813 Random Glucose Calcium Total Bilirubin AST ALT Alkaline Phosphatase Total Protein Albumin HLA-B*5701 ASSESSMENT AND PLAN: Acute Hypoxic Respiratory Failure ARDS AIDS/HIV Pneumocystis Pneumonia DM (?) IRIS Problem List - Problems (1) Bilateral pneumonia Code(s): J18.9 - PNEUMONIA, UNSPECIFIED ORGANISM Qualifiers: 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 - Lung protective ventilation - antibiotic coverage by ID - continue ART - continue medrol at current dose - taper Fio2 to keep SpO2 >90% - daily sedation vacations to assess mental status - spontaneous breathing trials as tolerated when mental status improved - enteral feeds - glucose control - DVT/GI prophylaxis - continue ICU monitoring - prognosis remains guarded as no significant improvement despite antimicrobial therapy - may need tracheostomy as unable to be weaned thus far Dr Cazares Critical care time spent in reviewing chart, evaluating patient and formulating plan 40 min Problem List - Problems (1) Bilateral pneumonia Code(s): J18.9 - PNEUMONIA, UNSPECIFIED ORGANISM Qualifiers: 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
--- NOTE | 2017-03-27 15:49 | PN ---
Progress Note, Physician Chief Complaint: Patient Remained intubated sedated, still respiratory status is poor required Vent support.. History of Present Illness: 66 yrs old man admitted with recurrent pneumonia, developed respiratory failure , w/u revealed HIV with AIDs and PCP pneumonia, intubated on treatment of PCP/ CMV pneumonia. and HIV. - Current Medication List Current Medications: Active Medications Acetaminophen (Tylenol -) 650 mg PO Q6H PRN PRN Reason: FEVER OR PAIN Albuterol Sulfate (Ventolin Hfa Inhaler -) 2 puff IH Q4H PRN PRN Reason: SHORT OF BREATH/WHEEZING Amlodipine Besylate (Norvasc -) 5 mg PO DAILY [facility] Last Admin: 03/27/17 09:25 Dose: 5 mg Artificial Tears (Artificial Tears) 1 drop OU BID [facility] Last Admin: 03/27/17 12:49 Dose: 1 drop Chlorhexidine Gluconate (Peridex -) 15 ml MM BID [facility] Darunavir (Prezista) 800 mg PO DAILY [facility] Last Admin: 03/27/17 09:24 Dose: 800 mg Emtricitabine/Tenofovir (Truvada) 1 tab PO DAILY [facility] Last Admin: 03/27/17 09:24 Dose: 1 tab Guaifenesin (Robitussin -) 10 ml PO Q4H PRN Last Admin: 03/20/17 09:54 Dose: 10 ml Pantoprazole Sodium (Protonix 40mg Ivpb (Pre-Docked)) 100 mls @ 200 mls/hr IVPB DAILY [facility] Last Admin: 03/27/17 09:55 Dose: 200 mls/hr Propofol (Diprivan -) 100 mls @ 7.648 mls/hr IVPB TITR [facility]; 20 MCG/KG/MIN PRN Reason: Protocol Last Admin: 03/27/17 12:34 Dose: Not Given Midazolam HCl 100 mg/ Sodium (Chloride) 100 mls @ 4 mls/hr IVPB TITR ANG[facility]; 4 MG/ HR PRN Reason: Protocol Last Admin: 03/27/17 09:21 Dose: 5 mls/hr Fentanyl 500 mcg/ Dextrose 100 mls @ 5 mls/hr IJ TITR [facility] PRN Reason: 25 MCG/HR Last Admin: 03/26/17 17:24 Dose: 5 mls/hr Ganciclovir 325 mg/ Dextrose 100 mls @ 100 mls/hr IVPB BID [facility] Last Admin: 03/27/17 12:50 Dose: 100 mls/hr Insulin Aspart (Novolog Vial Sliding Scale -) 1 vial SQ ACHS [facility] PRN Reason: Protocol Last Admin: 03/27/17 12:49 Dose: 15 units Methylprednisolone Sodium Succinate (Solu-Medrol -) 40 mg IVPB Q8H-IV [facility] Last Admin: 03/27/17 09:24 Dose: 40 mg Ritonavir (Norvir Oral Solution -) 100 mg PO DAILY [facility] Last Admin: 03/27/17 09:26 Dose: 100 mg Trimethoprim/Sulfamethoxazole (Bactrim Injection -) 380 mg IVPB Q8H-IV [facility] Last Admin: 03/27/17 09:28 Dose: 380 mg - Objective Vital Signs: Vital Signs Temperature 97.9 F 03/27/17 14:00 Pulse Rate 97 H 03/27/17 14:00 Respiratory Rate 26 H 03/27/17 14:08 Blood Pressure 106/69 03/27/17 14:00 O2 Sat by Pulse Oximetry (%) 92 L 03/27/17 09:43 P Examination: Elderly man Sedated, intubated, having respiratory distress. HEENT: ET and NG tube at place, mm moist NECK; No JVD No Bruit CHEST: B/L Crepts and decrease AE at bases CVS; S1S2 R, no m/g/r ABD: No distention, non tender Bs +, rectal tube at place EXT: +edema feet, no calf tenderness, Pulses + Labs: CBC, BMP 03/27/17 05:15 03/27/17 05:15 INR, PTT INR 1.08 (0.82-1.09) 03/25/17 05:15 Fibrinogen 415.0 mg/dL (238-498) 03/25/17 05:15 - ....Imaging Chest X-ray: Report Reviewed (Worsening congestion and Pleural effusion) Problem List - Problems (1) Respiratory failure Assessment/Plan: Due to Interstitial pneumonia, CMV, fungus and TB -ve, PCP + on Bactrim and IV steroids and CMV treatment , no improvement in respiratory status, Ventilator management as critical care. Code(s): J96.90 - RESPIRATORY FAILURE, UNSP, UNSP W HYPOXIA OR HYPERCAPNIA Qualifiers: Chronicity: acute Respiratory failure complication: hypoxia and hypercapnia Qualified Code(s): J96.01 - Acute respiratory failure with hypoxia (2) AIDS Assessment/Plan: Newly diagnosed AID CD4 C on HAART, worsening renal functions and Pancytopenia, either drug toxicity or IRS ??, Close monitoring of renal function sand CBC. Code(s): B20 - HUMAN IMMUNODEFICIENCY VIRUS [HIV] DISEASE (3) Pneumocystis carinii pneumonia Assessment/Plan: Sever with respiratory failure on Bactrim, and IV Methyl Predispose Code(s): B59 - PNEUMOCYSTOSIS (4) Diabetes Assessment/Plan: Steroid induced, optimize Glycemic control.sa per critical care team. Code(s): E11.9 - TYPE 2 DIABETES MELLITUS WITHOUT COMPLICATIONS (5) HTN (hypertension) Assessment/Plan: Well controlled Code(s): I10 - ESSENTIAL (PRIMARY) HYPERTENSION (6) Pancytopenia Assessment/Plan: Drug induced, disease process or Immune reconstitution syndrome, persistent thrombocyropemnia, Neutrogena and anemia Code(s): D61.818 - OTHER PANCYTOPENIA (7) LEXI (acute kidney injury) Assessment/Plan: Can be due to Bactrim or IRS F/u Renal function, GFR remained > 60 . Code(s): N17.9 - ACUTE KIDNEY FAILURE, UNSPECIFIED (8) CMV pneumonia Assessment/Plan: On ganciclovir for CMV Pneumonitis ?. Code(s): B25.0 - CYTOMEGALOVIRAL PNEUMONITIS
--- NOTE | 2017-03-27 16:12 | PN ---
Physical Exam: SUBJECTIVE: Patient seen and examined. He is sedated, on mechanical vent. OBJECTIVE: Vital Signs Period Temp Pulse Resp BP Sys/De Oliveira Pulse Ox Last 24 Hr 97.9 F-98.6 F 77-97 20-31 106-131/62-84 92-92 GENERAL: The patient is awake, alert, and fully oriented, in no acute distress. HEAD: Normal with no signs of trauma. EYES: extraocular movements intact, sclera anicteric, conjunctiva clear. ENT: oropharynx clear without exudates, moist mucous membranes, bleeding in his lower lip. NECK: Trachea midline, full range of motion, supple. LUNGS: coarse breath sounds bilaterally, no wheezes, no crackles, no accessory muscle use. HEART: Regular rate and rhythm, S1, S2 without murmur, rub or gallop. ABDOMEN: Soft, nondistended, hypoactive bowel sounds, tenderness and guarding, longitudinal scar in mid abdomen, well healing, no drainage, erythema. EXTREMITIES: warm, well-perfused, trace edema. NEUROLOGICAL: No facial asymmetry, normal speech, gait not observed. PSYCH: Normal mood, normal affect. SKIN: Warm, dry, normal turgor, no rashes. Laboratory Results - last 24 hr 03/26/17 03/26/17 03/27/17 16:28 21:11 05:15 WBC 2.0 L RBC 2.88 L Hgb 7.4 L Hct 23.0 L MCV 79.9 L MCHC 32.1 RDW 20.3 H Plt Count 61 L MPV 9.8 Puncture Site ABG pH ABG pCO2 at Pt Temp ABG pO2 at Pt Temp ABG HCO3 ABG O2 Sat (Measured) ABG O2 Content ABG Base Excess Enrico Test O2 Delivery Device Oxygen Flow Rate Vent Mode Vent Rate Mechanical Rate PEEP Pressure Support Vent Sodium Potassium Chloride Carbon Dioxide Anion Gap BUN Creatinine Creat Clearance w eGFR POC Glucometer 296.59264 346.20747 Random Glucose Calcium Total Bilirubin AST ALT Alkaline Phosphatase Total Protein Albumin 03/27/17 03/27/17 03/27/17 05:15 06:19 12:25 WBC RBC Hgb Hct MCV MCHC RDW Plt Count MPV Puncture Site Right radial ABG pH 7.35 ABG pCO2 at Pt Temp 39.9 ABG pO2 at Pt Temp 77.6 L D ABG HCO3 21.4 L ABG O2 Sat (Measured) 95.0 ABG O2 Content 10.6 L ABG Base Excess -3.3 L Enrico Test Positive O2 Delivery Device Mec.vent Oxygen Flow Rate 100% Vent Mode A/c Vent Rate 10 Mechanical Rate Esprit PEEP 7.0 Pressure Support Vent 450 Sodium 130 L Potassium 5.3 H Chloride 96 L Carbon Dioxide 24 Anion Gap 10 BUN 37 H Creatinine 1.2 Creat Clearance w eGFR > 60 POC Glucometer 307.95865 Random Glucose 284 H Calcium 7.2 L Total Bilirubin 0.2 AST 68 H ALT 62 Alkaline Phosphatase 138 H Total Protein 3.4 L Albumin 1.1 L 03/27/17 12:32 WBC RBC Hgb Hct MCV MCHC RDW Plt Count MPV Puncture Site ABG pH ABG pCO2 at Pt Temp ABG pO2 at Pt Temp ABG HCO3 ABG O2 Sat (Measured) ABG O2 Content ABG Base Excess Enrico Test O2 Delivery Device Oxygen Flow Rate Vent Mode Vent Rate Mechanical Rate PEEP Pressure Support Vent Sodium Potassium Chloride Carbon Dioxide Anion Gap BUN Creatinine Creat Clearance w eGFR POC Glucometer 260.50905 Random Glucose Calcium Total Bilirubin AST ALT Alkaline Phosphatase Total Protein Albumin Active Medications Generic Name Dose Route Start Last Admin Trade Name Freq PRN Reason Stop Dose Admin Acetaminophen 650 mg 03/20/17 08:52 Tylenol - PO Q6H PRN FEVER OR PAIN Albuterol Sulfate 2 puff 03/20/17 08:52 Ventolin Hfa Inhaler - IH Q4H PRN SHORT OF BREATH/WHEEZING Amlodipine Besylate 5 mg 03/20/17 10:00 03/27/17 09:25 Norvasc - PO 5 mg DAILY [facility] Administration Artificial Tears 1 drop 03/24/17 22:00 03/27/17 12:49 Artificial Tears OU 1 drop BID [facility] Administration Chlorhexidine Gluconate 15 ml 03/27/17 22:00 Peridex - MM BID [facility] Darunavir 800 mg 03/16/17 10:15 03/27/17 09:24 Prezista PO 800 mg DAILY [facility] Administration Emtricitabine/Tenofovir 1 tab 03/16/17 10:15 03/27/17 09:24 Truvada PO 1 tab DAILY [facility] Administration Guaifenesin 10 ml 03/20/17 08:52 03/20/17 09:54 Robitussin - PO 10 ml Q4H PRN Administration Pantoprazole Sodium 100 mls @ 200 mls/hr 03/16/17 14:00 03/27/17 09:55 Protonix 40mg Ivpb (Pre-Docked) IVPB 200 mls/hr DAILY [facility] Administration Propofol 100 mls @ 7.648 mls/hr 03/20/17 11:45 03/27/17 12:34 Diprivan - IVPB Not Given TITR [facility] Protocol 20 MCG/KG/MIN Midazolam HCl 100 mg/ Sodium 100 mls @ 4 mls/hr 03/20/17 16:30 03/27/17 09:21 Chloride IVPB 5 mls/hr TITR [facility] Administration Protocol 4 MG/HR Fentanyl 500 mcg/ Dextrose 100 mls @ 5 mls/hr 03/22/17 12:45 03/26/17 17:24 IJ 5 mls/hr TITR ANG[facility] Administration 25 MCG/HR Ganciclovir 325 mg/ Dextrose 100 mls @ 100 mls/hr 03/26/17 10:00 03/27/17 12:50 IVPB 100 mls/hr BID [facility] Administration Insulin Aspart 1 vial 03/20/17 11:00 03/27/17 12:49 Novolog Vial Sliding Scale - SQ 15 units ACHS [facility] Administration Protocol Methylprednisolone Sodium Succinate 40 mg 03/24/17 10:00 03/27/17 09:24 Solu-Medrol - IVPB 40 mg Q8H-IV [facility] Administration Ritonavir 100 mg 03/16/17 10:30 03/27/17 09:26 Norvir Oral Solution - PO 100 mg DAILY [facility] Administration Trimethoprim/Sulfamethoxazole 380 mg 03/20/17 10:00 03/27/17 09:28 Bactrim Injection - IVPB 380 mg Q8H-IV [facility] Administration bronchial washings pathology: no malignant cells. Macrophages and scattered fungal cells consistent with pneumocystis, claudia present on gram stain likely due to colonization or contamination. No acid fast bacilli seen. ASSESSMENT/PLAN: 66 year old male with acute respiratory failure, bilateral pneumonia and HIV who was admitted to ICU s/p respiratory failure. Acute hypoxic respiratory failure due to ARDS: -sedated on volume assist control with 100% FiO2, -changed Vt to 400 ml and increased RR to 18. We want to aim for plateau pressure of 30 and less. 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, CMV -beta 1,3 d glucan elevated, -CMV IgG positive started Ganciclovir -started pentamidine 300 mg IV qd for PCP, discussed with Dr Slater -f/u ID recommendations, will check amylase and lipase later today and BGM q6H -monitoring electrolytes AIDS: -treated with Darunavir, Ritonavir, Emtricitabine/Tenofovir -CD 4 1.7, CD4/CD8 ratio 0.04 -family present at bedside today -spontaneous breathing trials as tolerated when mental status improved -on isolation precautions due to risk of TB, still waiting for final results -will monitor for IRIS DM: -BGMs -ISS HTN: -held Norvasc DVT PPX: Lovenox 40 mg qd GI PPX: none Disposition: Monitor in ICU, discussed with family today, they would like tracheostomy done this week and his health care proxy signed DNR/DNI Problem List - Problems (1) AIDS Code(s): B20 - HUMAN IMMUNODEFICIENCY VIRUS [HIV] DISEASE (2) Bilateral pneumonia Code(s): J18.9 - PNEUMONIA, UNSPECIFIED ORGANISM (3) Diabetes Code(s): E11.9 - TYPE 2 DIABETES MELLITUS WITHOUT COMPLICATIONS Visit type - Emergency Visit Emergency Visit: Yes ED Registration Date: 03/03/17 Care time: The patient presented to the Emergency Department on the above date and was hospitalized for further evaluation of their emergent condition. - New Patient This patient is new to me today: No - Critical Care Critical Care patient: Yes Total Critical Care Time (in minutes): 40 Critical Care Statement: The care of this patient involved high complexity decision making to prevent further life threatening deterioration of the patient 's condition and/or to evalute & treat vital organ system(s) failure or risk of failure.
[2017-03-27] MEDS ORDERED: [UNRECOGNIZED DRUG - OTHER] IVPB SCH (16:45)
[2017-03-27 17:36] LABS: AMYLASE 136 U/L (25-115)
[2017-03-27] MEDS ORDERED: HEMOQUE TEST 1 EACH EACH ONE (17:39)
[2017-03-27] MEDS: FENTANYL INJECTION 500 MCG in DEXTROSE 5%-WATER - 90 ML IJ SCH (17:51)
[2017-03-27] MEDS: PENTAMIDINE ISETHIONATE IVPB SCH (18:01)
[2017-03-27 18:51] LABS: ARTERIAL BLD GAS O2 SATURATION 99.7 % (90-98.9); ARTERIAL BLOOD GAS BASE EXCESS -2.5 meq/l (-2-2); ARTERIAL BLOOD GAS HCO3 22.9 meq/L (22-26); ARTERIAL BLOOD GAS pH 7.32 (7.35-7.45)
[2017-03-27 18:56] LABS: ALLENS TEST POSITIVE; ART PUNCT SITE RIGHT RADIAL; LPM/O2% 100%; MECH. VENT. YES; PT. ON O2? YES; TYPE OF O2 MECHANICAL VENT; VENT RATE 18; VT/PRESS 400ML
[2017-03-27] MEDS: CHLORHEXIDINE GLUCONATE 0.12% 15ML CUP MM SCH (21:45)
[2017-03-28] MEDS: methylPREDNISolone NA SUCC 40 MG/1 ML VIAL IVPB SCH ×3 (01:24→17:07)
[2017-03-28] MEDS: INSULIN SLIDING SCALE (NOVOLOG) 1 VIAL SQ SCH ×4 (06:05→22:58)
[2017-03-28 06:31] LABS: MCHC 32.1 g/dl (32.0-35.9); MEAN CELL VOLUME 80.9 fl (80-96); MEAN PLT VOLUME 9.9 fl (7.5-11.1); PLATELET COUNT 48 K/MM3 (134-434)
[2017-03-28 06:59] LABS: ALK PHOS 141 U/L (45-117); ANION GAP 9 (8-16); BILIRUBIN,TOTAL 0.1 mg/dL (0.2-1.0); CO2 26 mmol/L (21-32); CREATININE 1.3 mg/dL (0.7-1.3); GLUCOSE,RANDOM 211 mg/dL (74-106); SGOT/AST 81 U/L (15-37); SGPT/ALT 71 U/L (12-78); TOT PROT 3.2 g/dl (6.4-8.2)
[2017-03-28 07:24] LABS: WHITE BLOOD COUNT 1.9 K/mm3 (4.0-10.0)
--- NOTE | 2017-03-28 08:02 | PN ---
Progress Note, Physician Chief Complaint: ID Patient seen in ICU all notes reviewed and case discussed with residents Tila Cytovene Steroids HAART His ventilatory status has improved and his Chest xray is better ! - Current Medication List Current Medications: Active Medications Acetaminophen (Tylenol -) 650 mg PO Q6H PRN PRN Reason: FEVER OR PAIN Albuterol Sulfate (Ventolin Hfa Inhaler -) 2 puff IH Q4H PRN PRN Reason: SHORT OF BREATH/WHEEZING Amlodipine Besylate (Norvasc -) 5 mg PO DAILY [facility] Last Admin: 03/27/17 09:25 Dose: 5 mg Artificial Tears (Artificial Tears) 1 drop OU BID [facility] Last Admin: 03/27/17 21:45 Dose: 1 drop Chlorhexidine Gluconate (Peridex -) 15 ml MM BID [facility] Last Admin: 03/27/17 21:45 Dose: 15 ml Darunavir (Prezista) 800 mg PO DAILY [facility] Last Admin: 03/27/17 09:24 Dose: 800 mg Emtricitabine/Tenofovir (Truvada) 1 tab PO DAILY [facility] Last Admin: 03/27/17 09:24 Dose: 1 tab Guaifenesin (Robitussin -) 10 ml PO Q4H PRN Last Admin: 03/20/17 09:54 Dose: 10 ml Pantoprazole Sodium (Protonix 40mg Ivpb (Pre-Docked)) 100 mls @ 200 mls/hr IVPB DAILY [facility] Last Admin: 03/27/17 09:55 Dose: 200 mls/hr Propofol (Diprivan -) 100 mls @ 7.648 mls/hr IVPB TITR [facility]; 20 MCG/KG/MIN PRN Reason: Protocol Last Admin: 03/27/17 12:34 Dose: Not Given Fentanyl 500 mcg/ Dextrose 100 mls @ 5 mls/hr IJ TITR [facility] PRN Reason: 25 MCG/HR Last Admin: 03/27/17 17:51 Dose: 5 mls/hr Ganciclovir 325 mg/ Dextrose 100 mls @ 100 mls/hr IVPB BID [facility] Last Admin: 03/27/17 21:45 Dose: 100 mls/hr Pentamidine Isethionate 300 mg (/ Dextrose) 265 mls @ 176.667 mls/hr IVPB DAILY [facility] PRN Reason: Protocol Last Admin: 03/27/17 18:01 Dose: 176.667 mls/hr Insulin Aspart (Novolog Vial Sliding Scale -) 1 vial SQ ACHS [facility] PRN Reason: Protocol Last Admin: 03/28/17 06:05 Dose: 10 units Methylprednisolone Sodium Succinate (Solu-Medrol -) 40 mg IVPB Q8H-IV [facility] Last Admin: 03/28/17 01:24 Dose: 40 mg Ritonavir (Norvir Oral Solution -) 100 mg PO DAILY [facility] Last Admin: 03/27/17 09:26 Dose: 100 mg - Objective Vital Signs: Vital Signs Temperature 98.1 F 03/28/17 06:00 Pulse Rate 78 03/28/17 06:00 Respiratory Rate 22 03/28/17 07:10 Blood Pressure 106/63 03/28/17 06:00 O2 Sat by Pulse Oximetry (%) 92 L 03/27/17 21:00 Constitutional: Yes: Other (INtubated) Cardiovascular: Yes: Regular Rate and Rhythm, S1, S2 Respiratory: Yes: WNL, Regular, CTA Bilaterally Gastrointestinal: Yes: WNL, Normal Bowel Sounds, Soft. No: Tenderness, Epigastrium Extremities: No: Cold, Cool, Cyanosis Edema: No Labs: CBC, BMP 03/28/17 05:20 03/28/17 05:20 INR, PTT INR 1.08 (0.82-1.09) 03/25/17 05:15 Fibrinogen 415.0 mg/dL (238-498) 03/25/17 05:15 Problem List - Problems (1) AIDS Code(s): B20 - HUMAN IMMUNODEFICIENCY VIRUS [HIV] DISEASE (2) Interstitial pneumonitis Code(s): J84.89 - OTHER SPECIFIED INTERSTITIAL PULMONARY DISEASES (3) Diabetes Code(s): E11.9 - TYPE 2 DIABETES MELLITUS WITHOUT COMPLICATIONS Assessment/Plan Microbiology 03/20/17 08:51 Sputum - Endotrachea Suction/Ventilator Gram Stain - Final 03/20/17 08:51 Sputum - Endotrachea Suction/Ventilator Sputum Culture - Final [facility] Laboratory Tests 03/08/17 03/15/17 03/16/17 14:46 08:00 11:00 WBC Hgb Plt Count BUN Creatinine Creat Clearance w eGFR AST ALT Alkaline Phosphatase Absolute CD4 [place] 5 L HIV-1 RNA (PCR) [id number] Pneumocyst carinii Smear Positive H 03/28/17 03/28/17 05:20 05:20 WBC 1.9 L* Hgb 7.3 L Plt Count 48 L D BUN 39 H Creatinine 1.3 Creat Clearance w eGFR 55.06 AST 81 H ALT 71 Alkaline Phosphatase 141 H Absolute CD4 [place] HIV-1 RNA (PCR) Pneumocyst carinii Smear Assessment Interstitial Pneumonitis Pneumocystis CMV Respiratory failure ARDS Component of fluid overload ( Bactrim a lot of fluid) Diabetes Pancytopenia on way down expected from Bactrim and Cytovene Acute renal injury Plan I would get hematology to see patient tomorrow we may be able to stop Bactrim it would be 21 days ! Continue Cytovene ART Lasix tyler continue this has helped greatly 38 minutes spent providing critical acre analysis Nuno Reina MD
[2017-03-28] MEDS ORDERED: PT OWN MED DRAWER 7, Y5N ONE (10:12)
[2017-03-28] MEDS: amLODIPine BESYLATE 5 MG TABLET (FP) PO SCH (10:14)
[2017-03-28] MEDS: EMTRICITABINE 200MG/TENOFOVIR 300MG PO SCH (10:15)
[2017-03-28] MEDS: RITONAVIR ORAL SOLUTION 80 MG/ML PO SCH (10:16)
[2017-03-28] MEDS: DARUNAVIR ETHANOLATE 100 MG/ML BULK BOTTLE PO SCH (10:17)
[2017-03-28] MEDS: PANTOPRAZOLE SODIUM 100 ML IVPB SCH (11:12)
[2017-03-28] MEDS: DEXTROSE 5% IVPB SCH ×3 (11:13→22:49)
[2017-03-28] MEDS: WATER IVPB SCH ×3 (11:13→22:49)
[2017-03-28] MEDS: GANCICLOVIR IVPB SCH ×2 (11:13→22:49)
[2017-03-28] MEDS: ARTIFICIAL TEARS (POLYVINYL ALCOHOL 1.4%) OPTH DROPS OU SCH ×2 (11:13→22:48)
[2017-03-28] MEDS: CHLORHEXIDINE GLUCONATE 0.12% 15ML CUP MM SCH ×2 (11:14→22:49)
[2017-03-28] MEDS ORDERED: MIDAZOLAM 100 MG in SODIUM CHLORIDE 100 ML IVPB SCH (11:45)
--- NOTE | 2017-03-28 11:49 | PN ---
Physical Exam: SUBJECTIVE: Patient seen and examined. He is sedated and intubated. OBJECTIVE: Vital Signs Period Temp Pulse Resp BP Sys/De Oliveira Pulse Ox Last 24 Hr 97.8 F-98.9 F 74-97 19-31 96-126/55-74 92-94 GENERAL: The patient is awake, alert, and fully oriented, in no acute distress. HEAD: Normal with no signs of trauma. EYES: extraocular movements intact, sclera anicteric, conjunctiva clear. ENT: oropharynx clear without exudates, moist mucous membranes, bleeding in his lower lip. NECK: Trachea midline, full range of motion, supple. LUNGS: coarse breath sounds bilaterally, no wheezes, no crackles, no accessory muscle use. HEART: Regular rate and rhythm, S1, S2 without murmur, rub or gallop. ABDOMEN: Soft, nondistended, hypoactive bowel sounds, tenderness and guarding, longitudinal scar in mid abdomen, well healing, no drainage, erythema. EXTREMITIES: warm, well-perfused, trace edema. NEUROLOGICAL: No facial asymmetry, normal speech, gait not observed. PSYCH: Normal mood, normal affect. SKIN: Warm, dry, normal turgor, no rashes. Laboratory Results - last 24 hr 03/25/17 03/27/17 03/27/17 05:15 12:25 12:32 WBC RBC Hgb Hct MCV MCHC RDW Plt Count MPV Puncture Site Right radial ABG pH 7.35 ABG pCO2 at Pt Temp 39.9 ABG pO2 at Pt Temp 77.6 L D ABG HCO3 21.4 L ABG O2 Sat (Measured) 95.0 ABG O2 Content 10.6 L ABG Base Excess -3.3 L Enrico Test Positive O2 Delivery Device Mec.vent Oxygen Flow Rate 100% Vent Mode A/c Vent Rate 10 Mechanical Rate Esprit PEEP 7.0 Pressure Support Vent 450 Sodium Potassium Chloride Carbon Dioxide Anion Gap BUN Creatinine Creat Clearance w eGFR POC Glucometer [phone] Random Glucose Calcium Total Bilirubin AST ALT Alkaline Phosphatase Total Protein Albumin Total Amylase Lipase CMV DNA Qual PCR Positive H 03/27/17 03/27/17 03/27/17 17:17 17:47 18:45 WBC RBC Hgb Hct MCV MCHC RDW Plt Count MPV Puncture Site Right radial ABG pH 7.32 L ABG pCO2 at Pt Temp 45.5 H ABG pO2 at Pt Temp 251.0 H* ABG HCO3 22.9 ABG O2 Sat (Measured) 99.7 H* ABG O2 Content 11.8 L ABG Base Excess -2.5 L Enrico Test Positive O2 Delivery Device Mechanical vent Oxygen Flow Rate 100% Vent Mode A/c Vent Rate 18 Mechanical Rate Yes PEEP 7.0 Pressure Support Vent 400ml Sodium Potassium Chloride Carbon Dioxide Anion Gap BUN Creatinine Creat Clearance w eGFR POC Glucometer [phone] Random Glucose Calcium Total Bilirubin AST ALT Alkaline Phosphatase Total Protein Albumin Total Amylase 136 H Lipase 106 CMV DNA Qual PCR 03/27/17 03/28/17 03/28/17 21:32 05:20 05:20 WBC 1.9 L* RBC 2.82 L Hgb 7.3 L Hct 22.8 L MCV 80.9 MCHC 32.1 RDW 21.0 H Plt Count 48 L D MPV 9.9 Puncture Site ABG pH ABG pCO2 at Pt Temp ABG pO2 at Pt Temp ABG HCO3 ABG O2 Sat (Measured) ABG O2 Content ABG Base Excess Enrico Test O2 Delivery Device Oxygen Flow Rate Vent Mode Vent Rate Mechanical Rate PEEP Pressure Support Vent Sodium 131 L Potassium 4.8 Chloride 96 L Carbon Dioxide 26 Anion Gap 9 BUN 39 H Creatinine 1.3 Creat Clearance w eGFR 55.06 POC Glucometer [phone] Random Glucose 211 H D Calcium 7.0 L Total Bilirubin 0.1 L D AST 81 H ALT 71 Alkaline Phosphatase 141 H Total Protein 3.2 L Albumin 1.0 L Total Amylase Lipase CMV DNA Qual PCR 03/28/17 05:29 WBC RBC Hgb Hct MCV MCHC RDW Plt Count MPV Puncture Site ABG pH ABG pCO2 at Pt Temp ABG pO2 at Pt Temp ABG HCO3 ABG O2 Sat (Measured) ABG O2 Content ABG Base Excess Enrico Test O2 Delivery Device Oxygen Flow Rate Vent Mode Vent Rate Mechanical Rate PEEP Pressure Support Vent Sodium Potassium Chloride Carbon Dioxide Anion Gap BUN Creatinine Creat Clearance w eGFR POC Glucometer [phone] Random Glucose Calcium Total Bilirubin AST ALT Alkaline Phosphatase Total Protein Albumin Total Amylase Lipase CMV DNA Qual PCR Active Medications Generic Name Dose Route Start Last Admin Trade Name Freq PRN Reason Stop Dose Admin Acetaminophen 650 mg 03/20/17 08:52 Tylenol - PO Q6H PRN FEVER OR PAIN Albuterol Sulfate 2 puff 03/20/17 08:52 Ventolin Hfa Inhaler - IH Q4H PRN SHORT OF BREATH/WHEEZING Amlodipine Besylate 5 mg 03/20/17 10:00 03/28/17 10:14 Norvasc - PO 5 mg DAILY ANGUS Administration Artificial Tears 1 drop 03/24/17 22:00 03/28/17 11:13 Artificial Tears OU 1 drop BID ANGUS Administration Chlorhexidine Gluconate 15 ml 03/27/17 22:00 03/28/17 11:14 Peridex - MM 15 ml BID ANGUS Administration Darunavir 800 mg 03/16/17 10:15 03/28/17 10:17 Prezista PO 800 mg DAILY ANGUS Administration Emtricitabine/Tenofovir 1 tab 03/16/17 10:15 03/28/17 10:15 Truvada PO 1 tab DAILY ANGUS Administration Furosemide 40 mg 03/28/17 11:43 Lasix Injection - IVPUSH 03/28/17 11:44 ONCE ONE Guaifenesin 10 ml 03/20/17 08:52 03/20/17 09:54 Robitussin - PO 10 ml Q4H PRN Administration Pantoprazole Sodium 100 mls @ 200 mls/hr 03/16/17 14:00 03/28/17 11:12 Protonix 40mg Ivpb (Pre-Docked) IVPB 200 mls/hr DAILY ANGUS Administration Propofol 100 mls @ 7.648 mls/hr 03/20/17 11:45 03/27/17 12:34 Diprivan - IVPB Not Given TITR ANGUS Protocol 20 MCG/KG/MIN Fentanyl 500 mcg/ Dextrose 100 mls @ 5 mls/hr 03/22/17 12:45 03/27/17 17:51 IJ 5 mls/hr TITR ANGUS Administration 25 MCG/HR Ganciclovir 325 mg/ Dextrose 100 mls @ 100 mls/hr 03/26/17 10:00 03/28/17 11:13 IVPB 100 mls/hr BID ANGUS Administration Pentamidine Isethionate 300 mg 265 mls @ 176.667 mls/hr 03/27/17 18:00 18:01 / Dextrose IVPB 176.667 mls/hr DAILY ANGUS Administration Protocol Midazolam HCl 100 mg/ Sodium 100 mls @ 4 mls/hr 03/28/17 11:45 Chloride IVPB TITR ANGUS Protocol 4 MG/HR Insulin Aspart 1 vial 03/20/17 11:00 03/28/17 06:05 Novolog Vial Sliding Scale - SQ 10 units ACHS ANGUS Administration Protocol Methylprednisolone Sodium Succinate 40 mg 03/24/17 10:00 03/28/17 10:16 Solu-Medrol - IVPB 40 mg Q8H-IV ANGUS Administration Ritonavir 100 mg 03/16/17 10:30 03/28/17 10:16 Norvir Oral Solution - PO 100 mg DAILY ANGUS Administration bronchial washings pathology: no malignant cells. Macrophages and scattered fungal cells consistent with pneumocystis, claudia present on gram stain likely due to colonization or contamination. No acid fast bacilli seen. ASSESSMENT/PLAN: 66 year old male with acute respiratory failure, bilateral pneumonia and HIV who was admitted to ICU s/p respiratory failure. Acute hypoxic respiratory failure: -sedated on volume assist control with 70% FiO2, -Vt to 400 ml and increased RR to 14, low suspicion for ARDS - We want to aim for plateau pressure of 30 and less. 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 Norvasc DVT PPX: no GI PPX: none Disposition: Monitor in ICU, discussed with family today, they would like tracheostomy done this week and his health care proxy signed DNR doc. 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 - New Patient This patient is new to me today: No - Critical Care Critical Care patient: Yes Total Critical Care Time (in minutes): 45 Critical Care Statement: The care of this patient involved high complexity decision making to prevent further life threatening deterioration of the patient 's condition and/or to evalute & treat vital organ system(s) failure or risk of failure.
[2017-03-28] MEDS ORDERED: FUROSEMIDE 40 MG/4 ML INJECTABLE VIAL IVPUSH ONE ×2 (12:00→14:58)
[2017-03-28] MEDS ORDERED: PROPOFOL 20 ML ONE (12:22)
[2017-03-28] MEDS ORDERED: ROCURONIUM BROMIDE 50 MG/5 ML VIAL IV ONE (12:54)
[2017-03-28] MEDS ORDERED: PROPOFOL 200 MG/20 ML VIAL IVPUSH ONE (12:56)
--- NOTE | 2017-03-28 12:57 | PROC ---
<Chapin Martin - Last Filed: 03/28/17 12:56> Intubation - Intubation Reason for Intubation: Respiratory Failure Time of Intubation: 12:50 Intubation Method: orotracheal Blade used: Glidescope Tube Size (cm): 8.0 Tube position @ lip (cm): 24 Tube position confirmed by: Chest x-ray, Breath sounds Breath Sounds after Intubation: equal Post Intubation Xray: Yes <Storm Alatorre MD - Last Filed: 03/28/17 13:34> Procedure Note Procedure: I supervised and was present during the entire procedure. Storm Alatorre MD
[2017-03-28] MEDS: PENTAMIDINE ISETHIONATE IVPB SCH (13:15)
[2017-03-28] MEDS: FENTANYL INJECTION 500 MCG in DEXTROSE 5%-WATER - 90 ML IJ SCH (13:25)
--- NOTE | 2017-03-28 13:39 | PN ---
Teaching Attending Note Name of Resident: Chapin Martin ATTENDING PHYSICIAN STATEMENT I saw and evaluated the patient. I reviewed the resident's note and discussed the case with the resident. I agree with the resident's findings and plan as documented. SUBJECTIVE: Pt seen and examined in the ICU. Remains intubated, sedated. Vented on volume assist control with 70% FiO2 PEEP 7. Reintubated as tidal volumes low and audible leak heard. +Copious secretions in airway. OBJECTIVE: Last Vital Signs Temp Pulse Resp BP Pulse Ox 98.3 F 76 20 113/64 94 L 03/28/17 10:00 03/28/17 12:00 03/28/17 12:00 03/28/17 12:00 03/28/17 10:30 Intake & Output 03/25/17 03/26/17 03/27/17 03/28/17 23:59 23:59 23:59 23:59 Intake Total 2803 3026 1500 900 Output Total 2250 2500 3100 1200 Balance 553 526 -1600 -300 Weight 159 lb 161 lb 3.2 oz 165 lb 2.02 oz 163 lb 2.273 oz Gen: intubated, sedated Heart: RRR Lung: bilateral rhonchi Abd: soft, nontender Ext: + edema CBC, BMP 03/28/17 05:20 03/28/17 05:20 Active Medications Acetaminophen (Tylenol -) 650 mg PO Q6H PRN PRN Reason: FEVER OR PAIN Albuterol Sulfate (Ventolin Hfa Inhaler -) 2 puff IH Q4H PRN PRN Reason: SHORT OF BREATH/WHEEZING Amlodipine Besylate (Norvasc -) 5 mg PO DAILY ANGUS Last Admin: 03/28/17 10:14 Dose: 5 mg Artificial Tears (Artificial Tears) 1 drop OU BID ANGUS Last Admin: 03/28/17 11:13 Dose: 1 drop Chlorhexidine Gluconate (Peridex -) 15 ml MM BID ANGUS Last Admin: 03/28/17 11:14 Dose: 15 ml Darunavir (Prezista) 800 mg PO DAILY ANGUS Last Admin: 03/28/17 10:17 Dose: 800 mg Emtricitabine/Tenofovir (Truvada) 1 tab PO DAILY ANGUS Last Admin: 03/28/17 10:15 Dose: 1 tab Guaifenesin (Robitussin -) 10 ml PO Q4H PRN Last Admin: 03/20/17 09:54 Dose: 10 ml Pantoprazole Sodium (Protonix 40mg Ivpb (Pre-Docked)) 100 mls @ 200 mls/hr IVPB DAILY ANGUS Last Admin: 03/28/17 11:12 Dose: 200 mls/hr Fentanyl 500 mcg/ Dextrose 100 mls @ 5 mls/hr IJ TITR ANGUS PRN Reason: 25 MCG/HR Last Admin: 03/28/17 13:25 Dose: 5 mls/hr Ganciclovir 325 mg/ Dextrose 100 mls @ 100 mls/hr IVPB BID ANGUS Last Admin: 03/28/17 11:13 Dose: 100 mls/hr Pentamidine Isethionate 300 mg (/ Dextrose) 265 mls @ 176.667 mls/hr IVPB DAILY ANGUS PRN Reason: Protocol Last Admin: 03/28/17 13:15 Dose: 176.667 mls/hr Midazolam HCl 100 mg/ Sodium (Chloride) 100 mls @ 4 mls/hr IVPB TITR ANGUS; 4 MG/ HR PRN Reason: Protocol Last Admin: 03/28/17 13:25 Dose: 4 mls/hr Insulin Aspart (Novolog Vial Sliding Scale -) 1 vial SQ ACHS ANGUS PRN Reason: Protocol Last Admin: 03/28/17 06:05 Dose: 10 units Methylprednisolone Sodium Succinate (Solu-Medrol -) 40 mg IVPB Q8H-IV ANGUS Last Admin: 03/28/17 10:16 Dose: 40 mg Ritonavir (Norvir Oral Solution -) 100 mg PO DAILY [facility] Last Admin: 03/28/17 10:16 Dose: 100 mg ASSESSMENT AND PLAN: Acute Hypoxic Respiratory Failure AIDS/HIV Pneumocystis/CMV Pneumonia Volume Overload Pancytopenia DM - antibiotic coverage by ID - continue ART - continue medrol at current dose - taper Fio2 to keep SpO2 >90% - daily sedation vacations to assess mental status - spontaneous breathing trials as tolerated when mental status improved - enteral feeds - glucose control - DVT/GI prophylaxis - continue ICU monitoring - prognosis remains guarded as no significant improvement despite antimicrobial therapy - will need tracheostomy as unable to be weaned thus far, continue discussions with family regarding goals of care critical care time spent in reviewing chart, evaluating patient and formulating plan 36 min
--- NOTE | 2017-03-28 13:51 | PN ---
Progress Note, Physician Chief Complaint: Patient Remained intubated sedated, still respiratory status is poor required Vent support.. History of Present Illness: 66 yrs old man admitted with recurrent pneumonia, developed respiratory failure , w/u revealed HIV with AIDs and PCP pneumonia, intubated on treatment of PCP/ CMV pneumonia. and HIV. - Current Medication List Current Medications: Active Medications Acetaminophen (Tylenol -) 650 mg PO Q6H PRN PRN Reason: FEVER OR PAIN Albuterol Sulfate (Ventolin Hfa Inhaler -) 2 puff IH Q4H PRN PRN Reason: SHORT OF BREATH/WHEEZING Amlodipine Besylate (Norvasc -) 5 mg PO DAILY [facility] Last Admin: 03/28/17 10:14 Dose: 5 mg Artificial Tears (Artificial Tears) 1 drop OU BID ANGUS Last Admin: 03/28/17 11:13 Dose: 1 drop Chlorhexidine Gluconate (Peridex -) 15 ml MM BID [facility] Last Admin: 03/28/17 11:14 Dose: 15 ml Darunavir (Prezista) 800 mg PO DAILY [facility] Last Admin: 03/28/17 10:17 Dose: 800 mg Emtricitabine/Tenofovir (Truvada) 1 tab PO DAILY ANGUS Last Admin: 03/28/17 10:15 Dose: 1 tab Guaifenesin (Robitussin -) 10 ml PO Q4H PRN Last Admin: 03/20/17 09:54 Dose: 10 ml Pantoprazole Sodium (Protonix 40mg Ivpb (Pre-Docked)) 100 mls @ 200 mls/hr IVPB DAILY [facility] Last Admin: 03/28/17 11:12 Dose: 200 mls/hr Fentanyl 500 mcg/ Dextrose 100 mls @ 5 mls/hr IJ TITR ANGUS PRN Reason: 25 MCG/HR Last Admin: 03/28/17 13:25 Dose: 5 mls/hr Ganciclovir 325 mg/ Dextrose 100 mls @ 100 mls/hr IVPB BID ANGUS Last Admin: 03/28/17 11:13 Dose: 100 mls/hr Pentamidine Isethionate 300 mg (/ Dextrose) 265 mls @ 176.667 mls/hr IVPB DAILY ANGUS PRN Reason: Protocol Last Admin: 03/28/17 13:15 Dose: 176.667 mls/hr Midazolam HCl 100 mg/ Sodium (Chloride) 100 mls @ 4 mls/hr IVPB TITR ANGUS; 4 MG/ HR PRN Reason: Protocol Last Admin: 03/28/17 13:25 Dose: 4 mls/hr Insulin Aspart (Novolog Vial Sliding Scale -) 1 vial SQ ACHS ANGUS PRN Reason: Protocol Last Admin: 03/28/17 06:05 Dose: 10 units Methylprednisolone Sodium Succinate (Solu-Medrol -) 40 mg IVPB Q8H-IV ANGUS Last Admin: 03/28/17 10:16 Dose: 40 mg Ritonavir (Norvir Oral Solution -) 100 mg PO DAILY ANGUS Last Admin: 03/28/17 10:16 Dose: 100 mg - Objective Vital Signs: Vital Signs Temperature 97.3 F L 03/28/17 13:40 Pulse Rate 74 03/28/17 13:40 Respiratory Rate 20 03/28/17 13:40 Blood Pressure 143/72 03/28/17 13:40 O2 Sat by Pulse Oximetry (%) 94 L 03/28/17 10:30 P Examination: Elderly man Sedated, intubated, having respiratory distress. HEENT: ET and oral feeding tube at place, mm moist NECK; No JVD No Bruit CHEST: B/L Crepts and decrease AE at bases CVS; S1S2 R, no m/g/r ABD: No distention, non tender Bs +, rectal tube at place EXT: +edema feet, no calf tenderness, Pulses + Labs: CBC, BMP 03/28/17 05:20 03/28/17 05:20 INR, PTT INR 1.08 (0.82-1.09) 03/25/17 05:15 Fibrinogen 415.0 mg/dL (238-498) 03/25/17 05:15 Problem List - Problems (1) Respiratory failure Assessment/Plan: Due to Interstitial pneumonia, CMV, fungus and TB -ve, PCP + on Bactrim and IV steroids and CMV treatment , no improvement in respiratory status, Ventilator management as critical care. Code(s): J96.90 - RESPIRATORY FAILURE, UNSP, UNSP W HYPOXIA OR HYPERCAPNIA Qualifiers: Chronicity: acute Respiratory failure complication: hypoxia and hypercapnia Qualified Code(s): J96.01 - Acute respiratory failure with hypoxia (2) AIDS Assessment/Plan: Newly diagnosed AID CD4 C on HAART, worsening renal functions and Pancytopenia, either drug toxicity or IRS ??, Close monitoring of renal function sand CBC. Code(s): B20 - HUMAN IMMUNODEFICIENCY VIRUS [HIV] DISEASE (3) Pneumocystis carinii pneumonia Assessment/Plan: Sever with respiratory failure on Bactrim, and IV Methyl Predispose Code(s): B59 - PNEUMOCYSTOSIS (4) Diabetes Assessment/Plan: Steroid induced, optimize Glycemic control.sa per critical care team. Code(s): E11.9 - TYPE 2 DIABETES MELLITUS WITHOUT COMPLICATIONS (5) HTN (hypertension) Assessment/Plan: Well controlled Code(s): I10 - ESSENTIAL (PRIMARY) HYPERTENSION (6) Pancytopenia Assessment/Plan: Drug induced, disease process or Immune reconstitution syndrome, persistent thrombocyropenia, Neutropenia and anemia are worsening. Code(s): D61.818 - OTHER PANCYTOPENIA (7) LEXI (acute kidney injury) Assessment/Plan: Can be due to Bactrim or IRS F/u Renal function, GFR remained > 60 . Code(s): N17.9 - ACUTE KIDNEY FAILURE, UNSPECIFIED (8) CMV pneumonia Assessment/Plan: On ganciclovir for CMV Pneumonitis ?. Code(s): B25.0 - CYTOMEGALOVIRAL PNEUMONITIS (9) Severe malnutrition Assessment/Plan: albumin 1 sever malnutrition cont nutritional support Code(s): E43 - UNSPECIFIED SEVERE PROTEIN-CALORIE MALNUTRITION (10) Volume excess Assessment/Plan: cont Lasix Code(s): E87.70 - FLUID OVERLOAD, UNSPECIFIED
[2017-03-28] MEDS ORDERED: FUROSEMIDE 40 MG/4 ML INJECTABLE VIAL ONE (15:41)
[2017-03-28] MEDS ORDERED: TBO-FILGRASTIM 300 MCG/0.5 ML DISP.SYRINGE SQ ONE (16:57)
[2017-03-28 18:01] LABS: ALLENS TEST POSITIVE; ART PUNCT SITE RIGHT RADIAL; ARTERIAL BLD GAS O2 SATURATION 87.4 % (90-98.9); ARTERIAL BLOOD GAS HCO3 22.6 meq/L (22-26); LPM/O2% 90; MECH. VENT. YES; PT. ON O2? YES; TYPE OF O2 VENT
[2017-03-28 18:02] LABS: ARTERIAL BLOOD GAS PO2 59.4 mmHg (80-100); VENT RATE 14; VT/PRESS 400
--- NOTE | 2017-03-28 23:01 | CONSULT ---
Consult - text type - Consultation Consultation Note: PAtient seen and examined 66 year old male with a significant past medical history of HTN and diabetes admitted with complaints of fever for over a week. Patient is intubated. Diagnosed with HIV/AIDS. Being treated for PCP pneumonia, CMV pneumonia - Smoking History Smoking history: Never smoked - Allergies Allergies/Adverse Reactions: Allergies Allergy/AdvReac Type Severity Reaction Status Date / Time No Known Allergies Allergy Verified 03/03/17 04:55 - Home Medications Home Medications: Ambulatory Orders RX: Amlodipine Besylate/Benazepril [Lotrel 5-40 mg Capsule] 1 each PO DAILY RX: Aspirin [Aspirin EC] 81 mg PO DAILY 02/20/17 Home Medication List Medication Instructions Recorded Confirmed Type Amlodipine Besylate/Benazepril 1 each PO DAILY 02/20/17 03/03/17 History [Lotrel 5-40 mg Capsule] Aspirin [Aspirin EC] 81 mg PO DAILY 02/20/17 03/03/17 History Active Medications Generic Name Dose Route Start Last Admin Trade Name Freq PRN Reason Stop Dose Admin Acetaminophen 650 mg 03/20/17 08:52 Tylenol - PO Q6H PRN FEVER OR PAIN Albuterol Sulfate 2 puff 03/20/17 08:52 Ventolin Hfa Inhaler - IH Q4H PRN SHORT OF BREATH/WHEEZING Amlodipine Besylate 5 mg 03/20/17 10:00 03/29/17 09:51 Norvasc - PO 5 mg DAILY ANGUS Administration Artificial Tears 1 drop 03/24/17 22:00 03/28/17 22:48 Artificial Tears OU 1 drop BID ANGUS Administration Chlorhexidine Gluconate 15 ml 03/27/17 22:00 03/29/17 09:50 Peridex - MM 15 ml BID ANGUS Administration Darunavir 800 mg 03/16/17 10:15 03/28/17 10:17 Prezista PO 800 mg DAILY ANGUS Administration Emtricitabine/Tenofovir 1 tab 03/16/17 10:15 03/29/17 09:47 Truvada PO 1 tab DAILY ANGUS Administration Guaifenesin 10 ml 03/20/17 08:52 03/20/17 09:54 Robitussin - PO 10 ml Q4H PRN Administration Pantoprazole Sodium 100 mls @ 200 mls/hr 03/16/17 14:00 03/29/17 09:50 Protonix 40mg Ivpb (Pre-Docked) IVPB 200 mls/hr DAILY ANGUS Administration Fentanyl 500 mcg/ Dextrose 100 mls @ 5 mls/hr 03/22/17 12:45 03/28/17 13:25 IJ 5 mls/hr TITR ANGUS Administration 25 MCG/HR Ganciclovir 325 mg/ Dextrose 100 mls @ 100 mls/hr 03/26/17 10:00 03/29/17 09:46 IVPB 100 mls/hr BID ANGUS Administration Pentamidine Isethionate 300 mg 265 mls @ 176.667 mls/hr 03/27/17 18:00 13:15 / Dextrose IVPB 176.667 mls/hr DAILY ANGUS Administration Protocol Vancomycin HCl 1,250 mg/ 250 mls @ 250 mls/hr 03/29/17 08:12 Dextrose IVPB 03/29/17 09:11 ONCE ONE Protocol Insulin Aspart 1 vial 03/20/17 11:00 03/29/17 07:37 Novolog Vial Sliding Scale - SQ 5 units ACHS ANGUS Administration Protocol Methylprednisolone Sodium Succinate 40 mg 03/24/17 10:00 03/29/17 09:46 Solu-Medrol - IVPB 40 mg Q8H-IV ANGUS Administration Ritonavir 100 mg 03/16/17 10:30 03/29/17 09:47 Norvir Oral Solution - PO 100 mg DAILY ANGUS Administration Tbo-Filgrastim 480 mcg 03/29/17 10:00 Granix - SQ DAILY ANGUS Physical Exam Vital Signs: Afebrile VSS Cardiovascular: Yes: Regular Rate and Rhythm Respiratory: Yes: Regular, Gastrointestinal: Yes: Normal Bowel Sounds, Soft Extremities: edema 1+ b/l Labs reviewed Assessment/Plan 66 y/o patient with HIV/AIDS , PCP/CMV pneumonia, CHF, had been on bactrim, on ganciclovir we have beed consulted for pancytopenia, leukopenia Suspect due to bactrim, ganciclovir bactrim was stopped on ganciclovir/pentamidine check B12/folate/TSH/fT4/hemolysis labs/erythropoietin level dose neupogen will dose procrit based on epo level transfuse PRBCs for <7 transfuse monodonor platelets if actively bleeding
[2017-03-29] MEDS: methylPREDNISolone NA SUCC 40 MG/1 ML VIAL IVPB SCH ×3 (02:16→17:20)
[2017-03-29 06:56] LABS: MCH 26.5 pg (25.7-33.7); MCHC 32.4 g/dl (32.0-35.9); MEAN CELL VOLUME 81.8 fl (80-96); MEAN PLT VOLUME 9.3 fl (7.5-11.1); RDW 21.5 % (11.9-15.9)
[2017-03-29 07:04] LABS: INR 1.12 (0.82-1.09); PROTHROMBIN TIME (PATIENT) 12.3 SEC (9.98-11.88)
[2017-03-29 07:07] LABS: ACTIVATED PTT 25.3 SECONDS (26.9-34.4)
[2017-03-29 07:24] LABS: WHITE BLOOD COUNT 0.8 K/mm3 (4.0-10.0)
[2017-03-29 07:25] LABS: ANION GAP 10 (8-16); BILIRUBIN,TOTAL 0.4 mg/dL (0.2-1.0); CALCIUM 7.1 mg/dL (8.5-10.1); CO2 27 mmol/L (21-32); CREATININE 1.4 mg/dL (0.7-1.3); GLUCOSE,RANDOM 130 mg/dL (74-106); PLATELET COUNT 31 K/MM3 (134-434); SGOT/AST 81 U/L (15-37); SGPT/ALT 91 U/L (12-78); TOT PROT 3.4 g/dl (6.4-8.2)
[2017-03-29 07:33] LABS: ALK PHOS 155 U/L (45-117); THYROID STIMULATING HORMONE 0.13 uIU/ml (0.358-3.74)
[2017-03-29] MEDS: INSULIN SLIDING SCALE (NOVOLOG) 1 VIAL SQ SCH ×4 (07:37→21:52)
[2017-03-29 07:51] LABS: FERRITIN 942.577 ng/ml (16.4-293.9)
[2017-03-29 08:01] LABS: ARTERIAL BLOOD GAS pH 7.36 (7.35-7.45)
[2017-03-29 08:02] LABS: ARTERIAL BLD GAS O2 SATURATION 97.4 % (90-98.9); ARTERIAL BLOOD GAS BASE EXCESS 2.2 meq/l (-2-2); ARTERIAL BLOOD GAS HCO3 27.4 meq/L (22-26); ARTERIAL BLOOD GAS PO2 98.4 mmHg (80-100)
[2017-03-29 08:03] LABS: ALLENS TEST POSITIVE; ART PUNCT SITE RIGHT RADIAL; LPM/O2% 65%; MECH. VENT. Y; PT. ON O2? YES; TYPE OF O2 VENT; VENT RATE 18; VT/PRESS 400
--- NOTE | 2017-03-29 08:07 | PN ---
Progress Note, Physician Chief Complaint: ID Despite all maximal medical efforts to treat this 66 year old man with profound immunosurpression of AIDS with Bactrim Pentam and gancyclovir steroids and ART he continues to do poorly Assist control now vent 65%FIO2 PEEP 10 - Current Medication List Current Medications: Active Medications Acetaminophen (Tylenol -) 650 mg PO Q6H PRN PRN Reason: FEVER OR PAIN Albuterol Sulfate (Ventolin Hfa Inhaler -) 2 puff IH Q4H PRN PRN Reason: SHORT OF BREATH/WHEEZING Amlodipine Besylate (Norvasc -) 5 mg PO DAILY [facility] Last Admin: 03/28/17 10:14 Dose: 5 mg Artificial Tears (Artificial Tears) 1 drop OU BID [facility] Last Admin: 03/28/17 22:48 Dose: 1 drop Chlorhexidine Gluconate (Peridex -) 15 ml MM BID [facility] Last Admin: 03/28/17 22:49 Dose: 15 ml Darunavir (Prezista) 800 mg PO DAILY [facility] Last Admin: 03/28/17 10:17 Dose: 800 mg Emtricitabine/Tenofovir (Truvada) 1 tab PO DAILY [facility] Last Admin: 03/28/17 10:15 Dose: 1 tab Guaifenesin (Robitussin -) 10 ml PO Q4H PRN Last Admin: 03/20/17 09:54 Dose: 10 ml Pantoprazole Sodium (Protonix 40mg Ivpb (Pre-Docked)) 100 mls @ 200 mls/hr IVPB DAILY [facility] Last Admin: 03/28/17 11:12 Dose: 200 mls/hr Fentanyl 500 mcg/ Dextrose 100 mls @ 5 mls/hr IJ TITR [facility] PRN Reason: 25 MCG/HR Last Admin: 03/28/17 13:25 Dose: 5 mls/hr Ganciclovir 325 mg/ Dextrose 100 mls @ 100 mls/hr IVPB BID [facility] Last Admin: 03/28/17 22:49 Dose: 100 mls/hr Pentamidine Isethionate 300 mg (/ Dextrose) 265 mls @ 176.667 mls/hr IVPB DAILY [facility] PRN Reason: Protocol Last Admin: 03/28/17 13:15 Dose: 176.667 mls/hr Insulin Aspart (Novolog Vial Sliding Scale -) 1 vial SQ ACHS [facility] PRN Reason: Protocol Last Admin: 03/29/17 07:37 Dose: 5 units Methylprednisolone Sodium Succinate (Solu-Medrol -) 40 mg IVPB Q8H-IV [facility] Last Admin: 03/29/17 02:16 Dose: 40 mg Ritonavir (Norvir Oral Solution -) 100 mg PO DAILY [facility] Last Admin: 03/28/17 10:16 Dose: 100 mg - Objective Vital Signs: Vital Signs Temperature 98.7 F 03/29/17 05:42 Pulse Rate 77 03/29/17 05:42 Respiratory Rate 21 03/29/17 07:20 Blood Pressure 96/57 03/29/17 05:42 O2 Sat by Pulse Oximetry (%) 94 L 03/28/17 10:30 Labs: CBC, BMP 03/29/17 05:20 03/29/17 05:20 INR, PTT INR 1.12 (0.82-1.09) 03/29/17 05:20 Fibrinogen 581.0 mg/dL (238-498) H D 03/29/17 05:20 Problem List - Problems (1) AIDS Code(s): B20 - HUMAN IMMUNODEFICIENCY VIRUS [HIV] DISEASE (2) Interstitial pneumonitis Code(s): J84.89 - OTHER SPECIFIED INTERSTITIAL PULMONARY DISEASES (3) Diabetes Code(s): E11.9 - TYPE 2 DIABETES MELLITUS WITHOUT COMPLICATIONS Assessment/Plan Microbiology 03/20/17 08:51 Sputum - Endotrachea Suction/Ventilator AFB Smear Concentration - Final 03/20/17 08:51 Sputum - Endotrachea Suction/Ventilator Direct Acid Fast Bacilli Smear - Final 03/27/17 20:05 Blood - Peripheral Venous Blood Culture - Preliminary Pending Organism 03/27/17 20:00 Blood - Peripheral Venous Blood Culture - Preliminary Pending Organism 03/20/17 08:51 Sputum - Endotrachea Suction/Ventilator Mycobacterial Culture - Preliminary Laboratory Tests 03/27/17 03/28/17 03/29/17 05:15 05:20 05:20 WBC 2.0 L 1.9 L* 0.8 L* D Hgb 7.4 L Hct 22.7 L Plt Count 31 L* D Laboratory Tests 03/29/17 05:20 BUN 49 H D Creatinine 1.4 H Creat Clearance w eGFR 50.55 Assessment New finding gram positive bacteremia on "surveillance blood cultures"!!! AIDS ARDS CMV pneumonitis Pneumocystis pneumonitis Acute kidney injury Neutropenia secondary combination of sepsis cytovene and Bactrim Diabetes Advanced age with DM and AIDS poor prognosis Plan Continue Cytovene Pentam Vancomcycin 1.25mg stat Neupogen 480ug stat Prognosis remains critical and do not feel he is likely to survive the above problems Tracheostomy considered Critical care time spent 35 minutes Nuno MIJARES
[2017-03-29 08:13] LABS: FREE T4 0.25 ng/dl (0.76-1.16)
[2017-03-29] MEDS ORDERED: PT OWN MED DRAWER 7, Y5N ONE ×2 (09:02→20:49)
[2017-03-29] MEDS: DEXTROSE 5% IVPB SCH ×3 (09:46→21:52)
[2017-03-29] MEDS: GANCICLOVIR IVPB SCH ×2 (09:46→21:52)
[2017-03-29] MEDS: WATER IVPB SCH ×3 (09:46→21:52)
[2017-03-29] MEDS: EMTRICITABINE 200MG/TENOFOVIR 300MG PO SCH (09:47)
[2017-03-29] MEDS: RITONAVIR ORAL SOLUTION 80 MG/ML PO SCH (09:47)
[2017-03-29] MEDS: PANTOPRAZOLE SODIUM 100 ML IVPB SCH (09:50)
[2017-03-29] MEDS: CHLORHEXIDINE GLUCONATE 0.12% 15ML CUP MM SCH ×2 (09:50→21:52)
[2017-03-29] MEDS: amLODIPine BESYLATE 5 MG TABLET (FP) PO SCH (09:51)
[2017-03-29] MEDS: ARTIFICIAL TEARS (POLYVINYL ALCOHOL 1.4%) OPTH DROPS OU SCH ×2 (10:18→22:22)
[2017-03-29] MEDS: PENTAMIDINE ISETHIONATE IVPB SCH (10:18)
[2017-03-29] MEDS: FENTANYL INJECTION 500 MCG in DEXTROSE 5%-WATER - 90 ML IJ SCH ×2 (10:22→21:51)
[2017-03-29] MEDS ORDERED: VANCOMYCIN 1,250 MG in DEXTROSE 5%-WATER - 250 ML IVPB ONE (11:00)
[2017-03-29] MEDS: TBO-FILGRASTIM 480 MCG/0.8 ML DISP.SYRIN SQ SCH (12:19)
--- NOTE | 2017-03-29 13:09 | PN ---
Teaching Attending Note Name of Resident: Bessy Eaton ATTENDING PHYSICIAN STATEMENT I saw and evaluated the patient. I reviewed the resident's note and discussed the case with the resident. I agree with the resident's findings and plan as documented. SUBJECTIVE: Patient seen and examined in the ICU. Remains intubated and sedated. 65%FiO2 / PEEP 10. Sedated. No pressors. Noted new gram (+) Bacteremia. CXR: Bilateral infiltrates Intake & Output 03/26/17 03/27/17 03/28/17 03/29/17 23:59 23:59 23:59 23:59 Intake Total 3026 2800 2055 100 Output Total 2500 3100 2800 550 Balance 526 -300 -745 -450 Weight 161 lb 3.2 oz 165 lb 2.02 oz 163 lb 2.273 oz 155 lb 10.342 oz Last Vital Signs Temp Pulse Resp BP Pulse Ox 98.3 F 76 23 92/55 97 03/29/17 10:00 03/29/17 12:00 03/29/17 12:05 03/29/17 12:00 03/29/17 11:08 Active Medications Acetaminophen (Tylenol -) 650 mg PO Q6H PRN PRN Reason: FEVER OR PAIN Albuterol Sulfate (Ventolin Hfa Inhaler -) 2 puff IH Q4H PRN PRN Reason: SHORT OF BREATH/WHEEZING Amlodipine Besylate (Norvasc -) 5 mg PO DAILY [facility] Last Admin: 03/29/17 09:51 Dose: 5 mg Artificial Tears (Artificial Tears) 1 drop OU BID [facility] Last Admin: 03/29/17 10:18 Dose: 1 drop Chlorhexidine Gluconate (Peridex -) 15 ml MM BID [facility] Last Admin: 03/29/17 09:50 Dose: 15 ml Darunavir (Prezista) 800 mg PO DAILY [facility] Last Admin: 03/28/17 10:17 Dose: 800 mg Emtricitabine/Tenofovir (Truvada) 1 tab PO DAILY [facility] Last Admin: 03/29/17 09:47 Dose: 1 tab Guaifenesin (Robitussin -) 10 ml PO Q4H PRN Last Admin: 03/20/17 09:54 Dose: 10 ml Pantoprazole Sodium (Protonix 40mg Ivpb (Pre-Docked)) 100 mls @ 200 mls/hr IVPB DAILY [facility] Last Admin: 03/29/17 09:50 Dose: 200 mls/hr Fentanyl 500 mcg/ Dextrose 100 mls @ 5 mls/hr IJ TITR [facility] PRN Reason: 25 MCG/HR Last Admin: 03/29/17 10:22 Dose: 10 mls/hr Ganciclovir 325 mg/ Dextrose 100 mls @ 100 mls/hr IVPB BID [facility] Last Admin: 03/29/17 09:46 Dose: 100 mls/hr Pentamidine Isethionate 300 mg (/ Dextrose) 265 mls @ 176.667 mls/hr IVPB DAILY [facility] PRN Reason: Protocol Last Admin: 03/29/17 10:18 Dose: 176.667 mls/hr Insulin Aspart (Novolog Vial Sliding Scale -) 1 vial SQ ACHS [facility] PRN Reason: Protocol Last Admin: 03/29/17 12:34 Dose: 5 units Methylprednisolone Sodium Succinate (Solu-Medrol -) 40 mg IVPB Q8H-IV [facility] Last Admin: 03/29/17 09:46 Dose: 40 mg Ritonavir (Norvir Oral Solution -) 100 mg PO DAILY [facility] Last Admin: 03/29/17 09:47 Dose: 100 mg Tbo-Filgrastim (Granix -) 480 mcg SQ DAILY [facility] Last Admin: 03/29/17 12:19 Dose: 480 mcg Gen: intubated, sedated Heart: RRR Lung: Bilateral rhonchi Abd: soft, nontender Ext: no edema Laboratory Results - last 24 hr 03/28/17 03/28/17 03/28/17 12:13 16:58 17:45 WBC RBC Hgb Hct MCV MCHC RDW Plt Count MPV Retic Count INR PTT (Actin FS) Fibrinogen Anticoagulation Therapy Puncture Site Right radial ABG pH 7.30 L ABG pCO2 at Pt Temp 47.0 H ABG pO2 at Pt Temp 59.4 L D ABG HCO3 22.6 ABG O2 Sat (Measured) 87.4 L ABG O2 Content 9.8 L* ABG Base Excess -3.0 L Enrico Test Positive O2 Delivery Device Vent Oxygen Flow Rate 90 Vent Mode A/c Vent Rate 14 Mechanical Rate Yes PEEP 7.0 Pressure Support Vent 400 Sodium Potassium Chloride Carbon Dioxide Anion Gap BUN Creatinine Creat Clearance w eGFR POC Glucometer 214.96253 303.38474 Random Glucose Calcium Ferritin Total Bilirubin AST ALT Alkaline Phosphatase Total Protein Albumin Vitamin B12 TSH Free T4 03/28/17 03/29/17 03/29/17 22:57 05:20 05:20 WBC 0.8 L* D RBC 2.78 L Hgb 7.4 L Hct 22.7 L MCV 81.8 MCHC 32.4 RDW 21.5 H Plt Count 31 L* D MPV 9.3 Retic Count INR PTT (Actin FS) Fibrinogen Anticoagulation Therapy Puncture Site ABG pH ABG pCO2 at Pt Temp ABG pO2 at Pt Temp ABG HCO3 ABG O2 Sat (Measured) ABG O2 Content ABG Base Excess Enrico Test O2 Delivery Device Oxygen Flow Rate Vent Mode Vent Rate Mechanical Rate PEEP Pressure Support Vent Sodium 134 L Potassium 4.1 Chloride 97 L Carbon Dioxide 27 Anion Gap 10 BUN 49 H D Creatinine 1.4 H Creat Clearance w eGFR 50.55 POC Glucometer [phone] Random Glucose 130 H D Calcium 7.1 L Ferritin Total Bilirubin 0.4 D AST 81 H ALT 91 H D Alkaline Phosphatase 155 H Total Protein 3.4 L Albumin 1.0 L Vitamin B12 TSH 0.13 L Free T4 03/29/17 03/29/17 03/29/17 05:20 05:20 05:20 WBC RBC Hgb Hct MCV MCHC RDW Plt Count MPV Retic Count 6.35 H INR 1.12 PTT (Actin FS) 25.3 L Fibrinogen 581.0 H D Anticoagulation Therapy Puncture Site ABG pH ABG pCO2 at Pt Temp ABG pO2 at Pt Temp ABG HCO3 ABG O2 Sat (Measured) ABG O2 Content ABG Base Excess Enrico Test O2 Delivery Device Oxygen Flow Rate Vent Mode Vent Rate Mechanical Rate PEEP Pressure Support Vent Sodium Potassium Chloride Carbon Dioxide Anion Gap BUN Creatinine Creat Clearance w eGFR POC Glucometer Random Glucose Calcium Ferritin 942.577 H Total Bilirubin AST ALT Alkaline Phosphatase Total Protein Albumin Vitamin B12 683 TSH Free T4 0.25 L 03/29/17 03/29/17 05:49 07:55 WBC RBC Hgb Hct MCV MCHC RDW Plt Count MPV Retic Count INR PTT (Actin FS) Fibrinogen Anticoagulation Therapy Y Puncture Site Right radial ABG pH 7.36 ABG pCO2 at Pt Temp 50.3 H ABG pO2 at Pt Temp 98.4 D ABG HCO3 27.4 H ABG O2 Sat (Measured) 97.4 ABG O2 Content 9.2 L* ABG Base Excess 2.2 H Enrico Test Positive O2 Delivery Device Vent Oxygen Flow Rate 65% Vent Mode A/c Vent Rate 18 Mechanical Rate Y PEEP 10.0 Pressure Support Vent 400 Sodium Potassium Chloride Carbon Dioxide Anion Gap BUN Creatinine Creat Clearance w eGFR POC Glucometer 159.97001 Random Glucose Calcium Ferritin Total Bilirubin AST ALT Alkaline Phosphatase Total Protein Albumin Vitamin B12 TSH Free T4 ASSESSMENT AND PLAN: Acute Hypoxic Respiratory Failure ARDS AIDS/HIV Pneumocystis Pneumonia DM Suspected IRIS GM (+) Bacteremia Problem List - Problems (1) Bilateral pneumonia Code(s): J18.9 - PNEUMONIA, UNSPECIFIED ORGANISM Qualifiers: 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 - Lung protective ventilation - antibiotic coverage by ID - ART - ECHO - Medrol at current dose - Taper Fio2 to keep SpO2 >90% - Daily sedation vacations to assess mental status - Enteral feeds - glucose control - DVT/GI prophylaxis - prognosis remains poor as no significant improvement despite antimicrobial therapy Dr Cazares Critical care time spent in reviewing chart, evaluating patient and formulating plan 40 min Problem List - Problems (1) Bilateral pneumonia Code(s): J18.9 - PNEUMONIA, UNSPECIFIED ORGANISM Qualifiers: 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
--- NOTE | 2017-03-29 15:08 | PN ---
Progress Note (short form) - Note Progress Note: Patient seen and examined intubated on fentanyl Last Vital Signs Temp Pulse Resp BP Pulse Ox 98.5 F 76 22 106/59 97 03/29/17 13:13 03/29/17 13:13 03/29/17 14:10 03/29/17 13:13 03/29/17 11:08 Cor: RSR, No murmurs, No gallops Lungs: Clear to P&A Abd: Soft, Normal bowel sounds, No organomegaly Ext:No significant edema Abnormal Lab Results 03/28/17 03/29/17 03/29/17 17:45 05:20 05:20 WBC 0.8 L* D RBC 2.78 L Hgb 7.4 L Hct 22.7 L RDW 21.5 H Plt Count 31 L* D Retic Count PTT (Actin FS) Fibrinogen ABG pH 7.30 L ABG pCO2 at Pt Temp 47.0 H ABG pO2 at Pt Temp 59.4 L D ABG HCO3 ABG O2 Sat (Measured) 87.4 L ABG O2 Content 9.8 L* ABG Base Excess -3.0 L Sodium 134 L Chloride 97 L BUN 49 H D Creatinine 1.4 H Random Glucose 130 H D Calcium 7.1 L Ferritin AST 81 H ALT 91 H D Alkaline Phosphatase 155 H Total Protein 3.4 L Albumin 1.0 L TSH 0.13 L Free T4 03/29/17 03/29/17 03/29/17 05:20 05:20 05:20 WBC RBC Hgb Hct RDW Plt Count Retic Count 6.35 H PTT (Actin FS) 25.3 L Fibrinogen 581.0 H D ABG pH ABG pCO2 at Pt Temp ABG pO2 at Pt Temp ABG HCO3 ABG O2 Sat (Measured) ABG O2 Content ABG Base Excess Sodium Chloride BUN Creatinine Random Glucose Calcium Ferritin 942.577 H AST ALT Alkaline Phosphatase Total Protein Albumin TSH Free T4 0.25 L 03/29/17 07:55 WBC RBC Hgb Hct RDW Plt Count Retic Count PTT (Actin FS) Fibrinogen ABG pH ABG pCO2 at Pt Temp 50.3 H ABG pO2 at Pt Temp ABG HCO3 27.4 H ABG O2 Sat (Measured) ABG O2 Content 9.2 L* ABG Base Excess 2.2 H Sodium Chloride BUN Creatinine Random Glucose Calcium Ferritin AST ALT Alkaline Phosphatase Total Protein Albumin TSH Free T4 Active Medications Generic Name Dose Route Start Last Admin Trade Name Freq PRN Reason Stop Dose Admin Acetaminophen 650 mg 03/20/17 08:52 Tylenol - PO Q6H PRN FEVER OR PAIN Albuterol Sulfate 2 puff 03/20/17 08:52 Ventolin Hfa Inhaler - IH Q4H PRN SHORT OF BREATH/WHEEZING Amlodipine Besylate 5 mg 03/20/17 10:00 03/29/17 09:51 Norvasc - PO 5 mg DAILY [facility] Administration Artificial Tears 1 drop 03/24/17 22:00 03/29/17 10:18 Artificial Tears OU 1 drop BID [facility] Administration Chlorhexidine Gluconate 15 ml 03/27/17 22:00 03/29/17 09:50 Peridex - MM 15 ml BID [facility] Administration Darunavir 800 mg 03/16/17 10:15 03/28/17 10:17 Prezista PO 800 mg DAILY [facility] Administration Emtricitabine/Tenofovir 1 tab 03/16/17 10:15 03/29/17 09:47 Truvada PO 1 tab DAILY [facility] Administration Guaifenesin 10 ml 03/20/17 08:52 03/20/17 09:54 Robitussin - PO 10 ml Q4H PRN Administration Pantoprazole Sodium 100 mls @ 200 mls/hr 03/16/17 14:00 03/29/17 09:50 Protonix 40mg Ivpb (Pre-Docked) IVPB 200 mls/hr DAILY [facility] Administration Fentanyl 500 mcg/ Dextrose 100 mls @ 5 mls/hr 03/22/17 12:45 03/29/17 10:22 IJ 10 mls/hr TITR [facility] Administration 25 MCG/HR Ganciclovir 325 mg/ Dextrose 100 mls @ 100 mls/hr 03/26/17 10:00 03/29/17 09:46 IVPB 100 mls/hr BID [facility] Administration Pentamidine Isethionate 300 mg 265 mls @ 176.667 mls/hr 03/27/17 18:00 10:18 / Dextrose IVPB 176.667 mls/hr DAILY [facility] Administration Protocol Insulin Aspart 1 vial 03/20/17 11:00 03/29/17 12:34 Novolog Vial Sliding Scale - SQ 5 units ACHS [facility] Administration Protocol Methylprednisolone Sodium Succinate 40 mg 03/24/17 10:00 03/29/17 09:46 Solu-Medrol - IVPB 40 mg Q8H-IV [facility] Administration Ritonavir 100 mg 03/16/17 10:30 03/29/17 09:47 Norvir Oral Solution - PO 100 mg DAILY [facility] Administration Tbo-Filgrastim 480 mcg 03/29/17 11:00 03/29/17 12:19 Granix - SQ 480 mcg DAILY [facility] Administration A/P 66 y/o patient with HIV/AIDS , PCP/CMV pneumonia, CHF, had been on bactrim, on ganciclovir we have beed consulted for pancytopenia, leukopenia Suspect due to bactrim, ganciclovir also bacteremic bactrim was stopped on ganciclovir/pentamidine check B12/folate/TSH/fT4/hemolysis labs/erythropoietin level dose neupogen will dose procrit based on epo level transfuse PRBCs for <7 transfuse monodonor platelets if actively bleeding
[2017-03-29] MEDS ORDERED: TBO-FILGRASTIM 480 MCG/0.8 ML DISP.SYRIN SQ ONE (15:13)
--- NOTE | 2017-03-29 16:04 | PN ---
Progress Note, Physician Chief Complaint: Patient Remained critically sick, worsening pancytopenia, evaluted by Hematology consult, intubated sedated, still respiratory status is poor required Vent, DC Bactrim now on Pentamidine..vanc added. History of Present Illness: 66 yrs old man admitted with recurrent pneumonia, developed respiratory failure , w/u revealed HIV with AIDs and PCP pneumonia, intubated on treatment of PCP/ CMV pneumonia. and HIV. reained critically sick with respiratory failure developed pancytopeia. - Current Medication List Current Medications: Active Medications Acetaminophen (Tylenol -) 650 mg PO Q6H PRN PRN Reason: FEVER OR PAIN Albuterol Sulfate (Ventolin Hfa Inhaler -) 2 puff IH Q4H PRN PRN Reason: SHORT OF BREATH/WHEEZING Amlodipine Besylate (Norvasc -) 5 mg PO DAILY [facility] Last Admin: 03/29/17 09:51 Dose: 5 mg Artificial Tears (Artificial Tears) 1 drop OU BID [facility] Last Admin: 03/29/17 10:18 Dose: 1 drop Chlorhexidine Gluconate (Peridex -) 15 ml MM BID [facility] Last Admin: 03/29/17 09:50 Dose: 15 ml Darunavir (Prezista) 800 mg PO DAILY [facility] Last Admin: 03/28/17 10:17 Dose: 800 mg Emtricitabine/Tenofovir (Truvada) 1 tab PO DAILY [facility] Last Admin: 03/29/17 09:47 Dose: 1 tab Guaifenesin (Robitussin -) 10 ml PO Q4H PRN Last Admin: 03/20/17 09:54 Dose: 10 ml Pantoprazole Sodium (Protonix 40mg Ivpb (Pre-Docked)) 100 mls @ 200 mls/hr IVPB DAILY [facility] Last Admin: 03/29/17 09:50 Dose: 200 mls/hr Fentanyl 500 mcg/ Dextrose 100 mls @ 5 mls/hr IJ TITR [facility] PRN Reason: 25 MCG/HR Last Admin: 03/29/17 10:22 Dose: 10 mls/hr Ganciclovir 325 mg/ Dextrose 100 mls @ 100 mls/hr IVPB BID [facility] Last Admin: 03/29/17 09:46 Dose: 100 mls/hr Pentamidine Isethionate 300 mg (/ Dextrose) 265 mls @ 176.667 mls/hr IVPB DAILY [facility] PRN Reason: Protocol Last Admin: 03/29/17 10:18 Dose: 176.667 mls/hr Insulin Aspart (Novolog Vial Sliding Scale -) 1 vial SQ ACHS [facility] PRN Reason: Protocol Last Admin: 03/29/17 12:34 Dose: 5 units Methylprednisolone Sodium Succinate (Solu-Medrol -) 40 mg IVPB Q8H-IV [facility] Last Admin: 03/29/17 09:46 Dose: 40 mg Ritonavir (Norvir Oral Solution -) 100 mg PO DAILY [facility] Last Admin: 03/29/17 09:47 Dose: 100 mg Tbo-Filgrastim (Granix -) 480 mcg SQ DAILY [facility] Last Admin: 03/29/17 12:19 Dose: 480 mcg - Objective Vital Signs: Vital Signs Temperature 98.5 F 03/29/17 13:13 Pulse Rate 76 03/29/17 13:13 Respiratory Rate 22 03/29/17 14:10 Blood Pressure 106/59 03/29/17 13:13 O2 Sat by Pulse Oximetry (%) 97 03/29/17 11:08 P Examination: Elderly man Sedated, intubated, having respiratory distress. HEENT: ET and oral feeding tube at place, mm moist NECK; No JVD No Bruit CHEST: B/L Crepts and decrease AE at bases CVS; S1S2 R, no m/g/r ABD: No distention, non tender Bs +, rectal tube at place EXT: +edema feet, no calf tenderness, Pulses + Labs: CBC, BMP 03/29/17 05:20 03/29/17 05:20 INR, PTT INR 1.12 (0.82-1.09) 03/29/17 05:20 Fibrinogen 581.0 mg/dL (238-498) H D 03/29/17 05:20 Problem List - Problems (1) Respiratory failure Assessment/Plan: Due to Interstitial pneumonia, CMV, fungus and TB -ve, PCP + on Pentamidine and IV steroids and CMV treatment , no improvement in respiratory status, Ventilator management as critical care. Code(s): J96.90 - RESPIRATORY FAILURE, UNSP, UNSP W HYPOXIA OR HYPERCAPNIA Qualifiers: Chronicity: acute Respiratory failure complication: hypoxia and hypercapnia Qualified Code(s): J96.01 - Acute respiratory failure with hypoxia (2) AIDS Assessment/Plan: Newly diagnosed AID CD4 C on HAART, worsening renal functions and worsening Pancytopenia, either drug toxicity or IRS ??, Close monitoring of renal function sand CBC. Code(s): B20 - HUMAN IMMUNODEFICIENCY VIRUS [HIV] DISEASE (3) Pneumocystis carinii pneumonia Assessment/Plan: Sever with respiratory failure Dc Bactrim switched to Pentaidine due to pancytopenia, , and IV Methyl Predispose Code(s): B59 - PNEUMOCYSTOSIS (4) Diabetes Assessment/Plan: Steroid induced, optimize Glycemic control.sa per critical care team. Code(s): E11.9 - TYPE 2 DIABETES MELLITUS WITHOUT COMPLICATIONS (5) HTN (hypertension) Assessment/Plan: Well controlled Code(s): I10 - ESSENTIAL (PRIMARY) HYPERTENSION (6) Pancytopenia Assessment/Plan: Drug induced, disease process or Immune reconstitution syndrome, persistent thrombocyropenia, Neutropenia and anemia are worsening.hematology input appreciated. Code(s): D61.818 - OTHER PANCYTOPENIA (7) LEXI (acute kidney injury) Assessment/Plan: Can be due to Bactrim or IRS F/u Renal function, GFR remained > 60 . Code(s): N17.9 - ACUTE KIDNEY FAILURE, UNSPECIFIED (8) CMV pneumonia Code(s): B25.0 - CYTOMEGALOVIRAL PNEUMONITIS (9) Severe malnutrition Assessment/Plan: Low albumin , sever malnutrition cont nutritional support Code(s): E43 - UNSPECIFIED SEVERE PROTEIN-CALORIE MALNUTRITION (10) Volume excess Assessment/Plan: cont Lasix Code(s): E87.70 - FLUID OVERLOAD, UNSPECIFIED
--- NOTE | 2017-03-29 18:39 | PN ---
Physical Exam: SUBJECTIVE: Patient seen and examined in ICU. He is still on mech vent. OBJECTIVE: Vital Signs Period Temp Pulse Resp BP Sys/De Oliveira Pulse Ox Last 24 Hr 98 F-98.8 F 72-102 18-28 92-112/55-80 97-100 GENERAL: The patient is awake, alert, and fully oriented, in no acute distress. HEAD: Normal with no signs of trauma. EYES: extraocular movements intact, sclera anicteric, conjunctiva clear. ENT: oropharynx clear without exudates, moist mucous membranes, bleeding in his lower lip. NECK: Trachea midline, full range of motion, supple. LUNGS: coarse breath sounds bilaterally, no wheezes, no crackles, no accessory muscle use. HEART: Regular rate and rhythm, S1, S2 without murmur, rub or gallop. ABDOMEN: Soft, nondistended, hypoactive bowel sounds, tenderness and guarding, longitudinal scar in mid abdomen, well healing, no drainage, erythema. EXTREMITIES: warm, well-perfused, trace edema. NEUROLOGICAL: No facial asymmetry, normal speech, gait not observed. PSYCH: Normal mood, normal affect. SKIN: Warm, dry, normal turgor, no rashes. Laboratory Results - last 24 hr 03/28/17 03/28/17 03/29/17 16:58 22:57 05:20 WBC 0.8 L* D RBC 2.78 L Hgb 7.4 L Hct 22.7 L MCV 81.8 MCHC 32.4 RDW 21.5 H Plt Count 31 L* D MPV 9.3 Retic Count INR PTT (Actin FS) Fibrinogen Anticoagulation Therapy Puncture Site ABG pH ABG pCO2 at Pt Temp ABG pO2 at Pt Temp ABG HCO3 ABG O2 Sat (Measured) ABG O2 Content ABG Base Excess Enrico Test O2 Delivery Device Oxygen Flow Rate Vent Mode Vent Rate Mechanical Rate PEEP Pressure Support Vent Sodium Potassium Chloride Carbon Dioxide Anion Gap BUN Creatinine Creat Clearance w eGFR POC Glucometer [phone] Random Glucose Calcium Ferritin Total Bilirubin AST ALT Alkaline Phosphatase Total Protein Albumin Vitamin B12 TSH Free T4 03/29/17 03/29/17 03/29/17 05:20 05:20 05:20 WBC RBC Hgb Hct MCV MCHC RDW Plt Count MPV Retic Count 6.35 H INR PTT (Actin FS) Fibrinogen Anticoagulation Therapy Puncture Site ABG pH ABG pCO2 at Pt Temp ABG pO2 at Pt Temp ABG HCO3 ABG O2 Sat (Measured) ABG O2 Content ABG Base Excess Enrioc Test O2 Delivery Device Oxygen Flow Rate Vent Mode Vent Rate Mechanical Rate PEEP Pressure Support Vent Sodium 134 L Potassium 4.1 Chloride 97 L Carbon Dioxide 27 Anion Gap 10 BUN 49 H D Creatinine 1.4 H Creat Clearance w eGFR 50.55 POC Glucometer Random Glucose 130 H D Calcium 7.1 L Ferritin 942.577 H Total Bilirubin 0.4 D AST 81 H ALT 91 H D Alkaline Phosphatase 155 H Total Protein 3.4 L Albumin 1.0 L Vitamin B12 683 TSH 0.13 L Free T4 0.25 L 03/29/17 03/29/17 03/29/17 05:20 05:49 07:55 WBC RBC Hgb Hct MCV MCHC RDW Plt Count MPV Retic Count INR 1.12 PTT (Actin FS) 25.3 L Fibrinogen 581.0 H D Anticoagulation Therapy Y Puncture Site Right radial ABG pH 7.36 ABG pCO2 at Pt Temp 50.3 H ABG pO2 at Pt Temp 98.4 D ABG HCO3 27.4 H ABG O2 Sat (Measured) 97.4 ABG O2 Content 9.2 L* ABG Base Excess 2.2 H Enrico Test Positive O2 Delivery Device Vent Oxygen Flow Rate 65% Vent Mode A/c Vent Rate 18 Mechanical Rate Y PEEP 10.0 Pressure Support Vent 400 Sodium Potassium Chloride Carbon Dioxide Anion Gap BUN Creatinine Creat Clearance w eGFR POC Glucometer 159.86332 Random Glucose Calcium Ferritin Total Bilirubin AST ALT Alkaline Phosphatase Total Protein Albumin Vitamin B12 TSH Free T4 03/29/17 12:32 WBC RBC Hgb Hct MCV MCHC RDW Plt Count MPV Retic Count INR PTT (Actin FS) Fibrinogen Anticoagulation Therapy Puncture Site ABG pH ABG pCO2 at Pt Temp ABG pO2 at Pt Temp ABG HCO3 ABG O2 Sat (Measured) ABG O2 Content ABG Base Excess Enrico Test O2 Delivery Device Oxygen Flow Rate Vent Mode Vent Rate Mechanical Rate PEEP Pressure Support Vent Sodium Potassium Chloride Carbon Dioxide Anion Gap BUN Creatinine Creat Clearance w eGFR POC Glucometer [phone] Random Glucose Calcium Ferritin Total Bilirubin AST ALT Alkaline Phosphatase Total Protein Albumin Vitamin B12 TSH Free T4 Active Medications Generic Name Dose Route Start Last Admin Trade Name Freq PRN Reason Stop Dose Admin Acetaminophen 650 mg 03/20/17 08:52 Tylenol - PO Q6H PRN FEVER OR PAIN Albuterol Sulfate 2 puff 03/20/17 08:52 Ventolin Hfa Inhaler - IH Q4H PRN SHORT OF BREATH/WHEEZING Amlodipine Besylate 5 mg 03/20/17 10:00 03/29/17 09:51 Norvasc - PO 5 mg DAILY ANGUS Administration Artificial Tears 1 drop 03/24/17 22:00 03/29/17 10:18 Artificial Tears OU 1 drop BID ANGUS Administration Chlorhexidine Gluconate 15 ml 03/27/17 22:00 03/29/17 09:50 Peridex - MM 15 ml BID ANGUS Administration Darunavir 800 mg 03/16/17 10:15 03/28/17 10:17 Prezista PO 800 mg DAILY ANGUS Administration Emtricitabine/Tenofovir 1 tab 03/16/17 10:15 03/29/17 09:47 Truvada PO 1 tab DAILY ANGUS Administration Guaifenesin 10 ml 03/20/17 08:52 03/20/17 09:54 Robitussin - PO 10 ml Q4H PRN Administration Pantoprazole Sodium 100 mls @ 200 mls/hr 03/16/17 14:00 03/29/17 09:50 Protonix 40mg Ivpb (Pre-Docked) IVPB 200 mls/hr DAILY ANGUS Administration Fentanyl 500 mcg/ Dextrose 100 mls @ 5 mls/hr 03/22/17 12:45 03/29/17 10:22 IJ 10 mls/hr TITR ANGUS Administration 25 MCG/HR Ganciclovir 325 mg/ Dextrose 100 mls @ 100 mls/hr 03/26/17 10:00 03/29/17 09:46 IVPB 100 mls/hr BID ANGUS Administration Pentamidine Isethionate 300 mg 265 mls @ 176.667 mls/hr 03/27/17 18:00 10:18 / Dextrose IVPB 176.667 mls/hr DAILY ANGUS Administration Protocol Insulin Aspart 1 vial 03/20/17 11:00 03/29/17 17:19 Novolog Vial Sliding Scale - SQ 10 units ACHS ANGUS Administration Protocol Methylprednisolone Sodium Succinate 40 mg 03/24/17 10:00 03/29/17 17:20 Solu-Medrol - IVPB 40 mg Q8H-IV ANGUS Administration Ritonavir 100 mg 03/16/17 10:30 03/29/17 09:47 Norvir Oral Solution - PO 100 mg DAILY ANGUS Administration Tbo-Filgrastim 480 mcg 03/29/17 11:00 03/29/17 12:19 Granix - SQ 480 mcg DAILY ANGUS Administration bronchial washings pathology: no malignant cells. Macrophages and scattered fungal cells consistent with pneumocystis, claudia present on gram stain likely due to colonization or contamination. No acid fast bacilli seen. ASSESSMENT/PLAN: 66 year old male with acute respiratory failure, bilateral pneumonia and HIV who was admitted to ICU s/p respiratory failure. 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, CMV -beta 1,3 d glucan elevated, -CMV IgG positive started Ganciclovir -started pentamidine 300 mg IV qd for PCP yesterday, discussed with Dr Slater -f/u ID recommendations, -checked amylase and lipase, amylase elevated -BGM q6H -monitoring electrolytes Pancytopenia: -possible due to side efgfect of HAART medications -given Filgastrim -consulted Oncology - B12/folate/TSH/fT4/hemolysis labs/erythropoietin level pending -neupogen Bacteremia: -blood cultures are pending, gram pos cocci in clusters -consulted ID AIDS: -treated with Darunavir, Ritonavir, Emtricitabine/Tenofovir -CD 4 1.7, CD4/CD8 ratio 0.04 -spontaneous breathing trials as tolerated when mental status improved -on isolation precautions due to risk of TB, still waiting for final results -will monitor for IRIS DM: -BGMs -ISS HTN: -cont. Norvasc DVT PPX: no GI PPX: none Disposition: Monitor in ICU, Problem List - Problems (1) AIDS Code(s): B20 - HUMAN IMMUNODEFICIENCY VIRUS [HIV] DISEASE (2) Bilateral pneumonia Code(s): J18.9 - PNEUMONIA, UNSPECIFIED ORGANISM Qualifiers: 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 - New Patient This patient is new to me today: Yes Date on this admission: 03/29/17 - Critical Care Critical Care patient: Yes Total Critical Care Time (in minutes): 40 Critical Care Statement: The care of this patient involved high complexity decision making to prevent further life threatening deterioration of the patient 's condition and/or to evalute & treat vital organ system(s) failure or risk of failure.
[2017-03-30] MEDS: methylPREDNISolone NA SUCC 40 MG/1 ML VIAL IVPB SCH ×3 (02:05→17:30)
[2017-03-30] MEDS: INSULIN SLIDING SCALE (NOVOLOG) 1 VIAL SQ SCH ×4 (06:13→23:00)
[2017-03-30] MEDS: FENTANYL INJECTION 500 MCG in DEXTROSE 5%-WATER - 90 ML IJ SCH ×3 (06:17→23:34)
[2017-03-30 06:36] LABS: MCHC 31.9 g/dl (32.0-35.9); MEAN CELL VOLUME 81.4 fl (80-96); MEAN PLT VOLUME 9.2 fl (7.5-11.1); RDW 21.9 % (11.9-15.9)
[2017-03-30 06:55] LABS: ANION GAP 10 (8-16); BILIRUBIN,TOTAL 0.2 mg/dL (0.2-1.0); CALCIUM 7.2 mg/dL (8.5-10.1); CO2 27 mmol/L (21-32); CREATININE 1.6 mg/dL (0.7-1.3); GLUCOSE,RANDOM 192 mg/dL (74-106); SGOT/AST 60 U/L (15-37); SGPT/ALT 68 U/L (12-78); TOT PROT 3.3 g/dl (6.4-8.2)
[2017-03-30 06:56] LABS: ALK PHOS 144 U/L (45-117); WHITE BLOOD COUNT 1.1 K/mm3 (4.0-10.0)
[2017-03-30 06:57] LABS: PLATELET COUNT 24 K/MM3 (134-434)
[2017-03-30 07:11] LABS: ALBUMIN 0.8 g/dl (3.4-5.0)
--- NOTE | 2017-03-30 07:56 | PN ---
Progress Note, Physician Chief Complaint: ID Remains intubated No improvement Meds as follows: Truvada Norvir Prezista Gancylcovir Pentam Solumedrol Granix - Current Medication List Current Medications: Active Medications Acetaminophen (Tylenol -) 650 mg PO Q6H PRN PRN Reason: FEVER OR PAIN Albuterol Sulfate (Ventolin Hfa Inhaler -) 2 puff IH Q4H PRN PRN Reason: SHORT OF BREATH/WHEEZING Amlodipine Besylate (Norvasc -) 5 mg PO DAILY [facility] Last Admin: 03/29/17 09:51 Dose: 5 mg Artificial Tears (Artificial Tears) 1 drop OU BID [facility] Last Admin: 03/29/17 22:22 Dose: 1 drop Chlorhexidine Gluconate (Peridex -) 15 ml MM BID [facility] Last Admin: 03/29/17 21:52 Dose: 15 ml Darunavir (Prezista) 800 mg PO DAILY [facility] Last Admin: 03/28/17 10:17 Dose: 800 mg Emtricitabine/Tenofovir (Truvada) 1 tab PO DAILY [facility] Last Admin: 03/29/17 09:47 Dose: 1 tab Guaifenesin (Robitussin -) 10 ml PO Q4H PRN Last Admin: 03/20/17 09:54 Dose: 10 ml Pantoprazole Sodium (Protonix 40mg Ivpb (Pre-Docked)) 100 mls @ 200 mls/hr IVPB DAILY [facility] Last Admin: 03/29/17 09:50 Dose: 200 mls/hr Fentanyl 500 mcg/ Dextrose 100 mls @ 5 mls/hr IJ TITR ANGUS PRN Reason: 25 MCG/HR Last Admin: 03/30/17 06:17 Dose: 10 mls/hr Ganciclovir 325 mg/ Dextrose 100 mls @ 100 mls/hr IVPB BID [facility] Last Admin: 03/29/17 21:52 Dose: 100 mls/hr Pentamidine Isethionate 300 mg (/ Dextrose) 265 mls @ 176.667 mls/hr IVPB DAILY [facility] PRN Reason: Protocol Last Admin: 03/29/17 10:18 Dose: 176.667 mls/hr Insulin Aspart (Novolog Vial Sliding Scale -) 1 vial SQ ACHS ANGUS PRN Reason: Protocol Last Admin: 03/30/17 06:13 Dose: 10 units Methylprednisolone Sodium Succinate (Solu-Medrol -) 40 mg IVPB Q8H-IV ANGUS Last Admin: 03/30/17 02:05 Dose: 40 mg Ritonavir (Norvir Oral Solution -) 100 mg PO DAILY [facility] Last Admin: 03/29/17 09:47 Dose: 100 mg Tbo-Filgrastim (Granix -) 480 mcg SQ DAILY [facility] Last Admin: 03/29/17 12:19 Dose: 480 mcg - Objective Vital Signs: Vital Signs Temperature 98 F 03/30/17 06:00 Pulse Rate 73 03/30/17 06:00 Respiratory Rate 25 H 03/30/17 06:46 Blood Pressure 110/59 03/30/17 06:00 O2 Sat by Pulse Oximetry (%) 96 03/29/17 22:00 Constitutional: Yes: Severe Distress, Other (Distress) Cardiovascular: Yes: Regular Rate and Rhythm, S1, S2. No: Murmur Respiratory: Yes: WNL, Regular, CTA Bilaterally, Rales Gastrointestinal: Yes: WNL, Soft. No: Tenderness Edema: Yes Labs: CBC, BMP 03/30/17 05:20 03/30/17 05:20 INR, PTT INR 1.12 (0.82-1.09) 03/29/17 05:20 Fibrinogen 581.0 mg/dL (238-498) H D 03/29/17 05:20 Problem List - Problems (1) AIDS Code(s): B20 - HUMAN IMMUNODEFICIENCY VIRUS [HIV] DISEASE (2) Interstitial pneumonitis Code(s): J84.89 - OTHER SPECIFIED INTERSTITIAL PULMONARY DISEASES (3) Diabetes Code(s): E11.9 - TYPE 2 DIABETES MELLITUS WITHOUT COMPLICATIONS Assessment/Plan Microbiology 03/29/17 05:35 Blood - Peripheral Venous Blood Culture - Preliminary NO GROWTH OBTAINED AFTER 24 HOURS, INCUBATION TO CONTINUE FOR 4 DAYS. 03/29/17 05:30 Blood - Peripheral Venous Blood Culture - Preliminary NO GROWTH OBTAINED AFTER 24 HOURS, INCUBATION TO CONTINUE FOR 4 DAYS. 03/27/17 20:05 Blood - Peripheral Venous Blood Culture - Preliminary Pending Organism 03/27/17 20:00 Blood - Peripheral Venous Blood Culture - Preliminary Pending Organism Laboratory Tests 03/08/17 03/15/17 03/16/17 14:46 08:00 11:00 WBC Hgb Hct Plt Count BUN Creatinine Creat Clearance w eGFR AST ALT Alkaline Phosphatase Absolute CD4 [place] 5 L CMV DNA Qual PCR HIV-1 RNA (PCR) 63628 HIV-1 RNA (PCR) log10 4.680 Pneumocyst carinii Smear Positive H 03/25/17 03/30/17 03/30/17 05:15 05:20 05:20 WBC 1.1 L* D Hgb 6.3 L* D Hct 19.8 L Plt Count 24 L* D BUN 57 H Creatinine 1.6 H Creat Clearance w eGFR 43.33 AST 60 H D ALT 68 D Alkaline Phosphatase 144 H Absolute CD4 [place] CMV DNA Qual PCR Positive H HIV-1 RNA (PCR) HIV-1 RNA (PCR) log10 Pneumocyst carinii Smear Assessment Acute respiratory failure Pneumocysitis and CMV PNA AIDS T cells 5 Staphylococcocal bacteremia 03/27 post Vancomycin dose Diabetes Panctopenia drug related suuport with Granix Acute renal injury Plan Vancomycin level this am with redose as needed ( less then 15ug) Continue all current meds Prognosis remains poor Critical care time spent today 38minutes
[2017-03-30] MEDS: RITONAVIR ORAL SOLUTION 80 MG/ML PO SCH (10:00)
[2017-03-30] MEDS: EMTRICITABINE 200MG/TENOFOVIR 300MG PO SCH (10:00)
[2017-03-30] MEDS: ARTIFICIAL TEARS (POLYVINYL ALCOHOL 1.4%) OPTH DROPS OU SCH ×2 (10:00→22:55)
[2017-03-30] MEDS: amLODIPine BESYLATE 5 MG TABLET (FP) PO SCH (10:00)
[2017-03-30] MEDS: CHLORHEXIDINE GLUCONATE 0.12% 15ML CUP MM SCH ×2 (10:00→22:50)
[2017-03-30] MEDS ORDERED: PT OWN MED DRAWER 7, Y5N ONE (10:25)
[2017-03-30] MEDS: PANTOPRAZOLE SODIUM 100 ML IVPB SCH (11:00)
[2017-03-30] MEDS ORDERED: CASPOFUNGIN ACETATE 70 MG in SODIUM CHLORIDE 250 ML IVPB ONE (11:22)
--- NOTE | 2017-03-30 11:26 | PN ---
Teaching Attending Note Name of Resident: Bessy Eaton ATTENDING PHYSICIAN STATEMENT I saw and evaluated the patient. I reviewed the resident's note and discussed the case with the resident. I agree with the resident's findings and plan as documented. SUBJECTIVE: Patient seen and examined in the ICU. Remains intubated and sedated. 65% FiO2 / PEEP 8. Sedated. No pressors. (+) Fungemia noted. New acute anemia. CXR: Increasing infiltrates on the right Intake & Output 03/27/17 03/28/17 03/29/17 03/30/17 23:59 23:59 23:59 23:59 Intake Total 2800 2055 2028 600 Output Total 3100 2800 1400 450 Balance -300 -745 628 150 Weight 165 lb 2.02 oz 163 lb 2.273 oz 155 lb 10.342 oz 159 lb 1.6 oz Last Vital Signs Temp Pulse Resp BP Pulse Ox 98 F 74 20 110/57 93 L 03/30/17 10:00 03/30/17 10:38 03/30/17 10:00 03/30/17 10:00 03/30/17 10:38 Active Medications Acetaminophen (Tylenol -) 650 mg PO Q6H PRN PRN Reason: FEVER OR PAIN Albuterol Sulfate (Ventolin Hfa Inhaler -) 2 puff IH Q4H PRN PRN Reason: SHORT OF BREATH/WHEEZING Amlodipine Besylate (Norvasc -) 5 mg PO DAILY [facility] Last Admin: 03/29/17 09:51 Dose: 5 mg Artificial Tears (Artificial Tears) 1 drop OU BID [facility] Last Admin: 03/29/17 22:22 Dose: 1 drop Chlorhexidine Gluconate (Peridex -) 15 ml MM BID [facility] Last Admin: 03/29/17 21:52 Dose: 15 ml Darunavir (Prezista) 800 mg PO DAILY [facility] Last Admin: 03/28/17 10:17 Dose: 800 mg Emtricitabine/Tenofovir (Truvada) 1 tab PO DAILY [facility] Last Admin: 03/29/17 09:47 Dose: 1 tab Guaifenesin (Robitussin -) 10 ml PO Q4H PRN Last Admin: 03/20/17 09:54 Dose: 10 ml Pantoprazole Sodium (Protonix 40mg Ivpb (Pre-Docked)) 100 mls @ 200 mls/hr IVPB DAILY [facility] Last Admin: 03/29/17 09:50 Dose: 200 mls/hr Fentanyl 500 mcg/ Dextrose 100 mls @ 5 mls/hr IJ TITR ANGUS PRN Reason: 25 MCG/HR Last Admin: 03/30/17 06:17 Dose: 10 mls/hr Ganciclovir 325 mg/ Dextrose 100 mls @ 100 mls/hr IVPB BID ANG[facility] Last Admin: 03/29/17 21:52 Dose: 100 mls/hr Pentamidine Isethionate 300 mg (/ Dextrose) 265 mls @ 176.667 mls/hr IVPB DAILY ANGUS PRN Reason: Protocol Last Admin: 03/29/17 10:18 Dose: 176.667 mls/hr Caspofungin 70 mg/ Sodium (Chloride) 250 mls @ 250 mls/hr IV ONCE ONE Stop: 03/30/17 12:21 Caspofungin 50 mg/ Sodium (Chloride) 250 mls @ 250 mls/hr IV DAILY [facility] Insulin Aspart (Novolog Vial Sliding Scale -) 1 vial SQ ACHS ANGUS PRN Reason: Protocol Last Admin: 03/30/17 06:13 Dose: 10 units Methylprednisolone Sodium Succinate (Solu-Medrol -) 40 mg IVPB Q8H-IV [facility] Last Admin: 03/30/17 02:05 Dose: 40 mg Ritonavir (Norvir Oral Solution -) 100 mg PO DAILY [facility] Last Admin: 03/29/17 09:47 Dose: 100 mg Tbo-Filgrastim (Granix -) 480 mcg SQ DAILY [facility] Last Admin: 03/29/17 12:19 Dose: 480 mcg Gen: intubated, sedated Heart: RRR Lung: Bilateral rhonchi Abd: soft, nontender Ext: no edema Laboratory Results - last 24 hr 03/28/17 03/29/17 03/29/17 06:00 05:20 05:20 WBC RBC 2.89 L Hgb Hct MCV MCHC RDW Plt Count MPV Retic Count 6.35 H G6PD RBC Count 272 Sodium Potassium Chloride Carbon Dioxide Anion Gap BUN Creatinine Creat Clearance w eGFR POC Glucometer Random Glucose Calcium Iron 14 L TIBC 142 L Iron Saturation 10 L Erythropoietin 57.0 H Total Bilirubin AST ALT Alkaline Phosphatase Total Protein Albumin Blood Type Antibody Screen Crossmatch 03/29/17 03/29/17 03/29/17 05:49 12:32 17:06 WBC RBC Hgb Hct MCV MCHC RDW Plt Count MPV Retic Count G6PD RBC Count Sodium Potassium Chloride Carbon Dioxide Anion Gap BUN Creatinine Creat Clearance w eGFR POC Glucometer 159.93022 191.70521 223.10416 Random Glucose Calcium Iron TIBC Iron Saturation Erythropoietin Total Bilirubin AST ALT Alkaline Phosphatase Total Protein Albumin Blood Type Antibody Screen Crossmatch 03/29/17 03/30/17 03/30/17 21:21 05:20 05:20 WBC 1.1 L* D RBC 2.43 L Hgb 6.3 L* D Hct 19.8 L MCV 81.4 MCHC 31.9 L RDW 21.9 H Plt Count 24 L* D MPV 9.2 Retic Count G6PD RBC Count Sodium 135 L Potassium 4.3 Chloride 98 Carbon Dioxide 27 Anion Gap 10 BUN 57 H Creatinine 1.6 H Creat Clearance w eGFR 43.33 POC Glucometer 223.03630 Random Glucose 192 H D Calcium 7.2 L Iron TIBC Iron Saturation Erythropoietin Total Bilirubin 0.2 D AST 60 H D ALT 68 D Alkaline Phosphatase 144 H Total Protein 3.3 L Albumin 0.8 L Blood Type Antibody Screen Crossmatch 03/30/17 03/30/17 05:34 08:00 WBC RBC Hgb Hct MCV MCHC RDW Plt Count MPV Retic Count G6PD RBC Count Sodium Potassium Chloride Carbon Dioxide Anion Gap BUN Creatinine Creat Clearance w eGFR POC Glucometer 219.29043 Random Glucose Calcium Iron TIBC Iron Saturation Erythropoietin Total Bilirubin AST ALT Alkaline Phosphatase Total Protein Albumin Blood Type B POSITIVE Antibody Screen Negative Crossmatch See Detail ASSESSMENT AND PLAN: Acute Hypoxic Respiratory Failure ARDS AIDS/HIV Pneumocystis Pneumonia DM Suspected IRIS GM (+) Bacteremia Fungemia Acute anemia Problem List - Problems (1) Bilateral pneumonia Code(s): J18.9 - PNEUMONIA, UNSPECIFIED ORGANISM Qualifiers: 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 - Lung protective ventilation - antibiotic coverage by ID - ART - Medrol at current dose - Taper Fio2 to keep SpO2 >90% - Daily sedation vacations to assess mental status - Enteral feeds - glucose control - DVT/GI prophylaxis - prognosis remains poor as no significant improvement despite antimicrobial therapy - Will have family discussion this AM for [facility] Dr Cazares Critical care time spent in reviewing chart, evaluating patient and formulating plan 40 min Problem List - Problems (1) Bilateral pneumonia Code(s): J18.9 - PNEUMONIA, UNSPECIFIED ORGANISM Qualifiers: 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
[2017-03-30] MEDS: GANCICLOVIR IVPB SCH ×2 (13:34→22:54)
[2017-03-30] MEDS: WATER IVPB SCH ×3 (13:34→22:54)
[2017-03-30] MEDS: DEXTROSE 5% IVPB SCH ×3 (13:34→22:54)
[2017-03-30] MEDS: PENTAMIDINE ISETHIONATE IVPB SCH (13:35)
[2017-03-30] MEDS ORDERED: MIDAZOLAM HCL 2 MG/2 ML SINGLE DOSE VIAL IVPUSH ONE (14:22)
[2017-03-30] MEDS ORDERED: FUROSEMIDE 40 MG/4 ML INJECTABLE VIAL IVPUSH ONE (15:19)
--- NOTE | 2017-03-30 15:28 | PROC ---
Central Line Insertion Indication: Poor Venous Access Risks and Benefits Explained: Yes Consent on Chart: Yes Central Line: Triple Lumen Catheter Anesthesia: 1% Lidocaine Sterile Technique: Yes Ultrasound Guided Assistance: Yes Position: Right Internal Jugular Post Insertion: Yes: Bilateral Breath Sounds, Bilateral Chest Expansion, Chest X-Ray Ordered Sterile Dressing Applied: Yes
[2017-03-30] MEDS: TBO-FILGRASTIM 480 MCG/0.8 ML DISP.SYRIN SQ SCH (15:40)
[2017-03-30] MEDS ORDERED: VANCOMYCIN 1,250 MG in DEXTROSE 5%-WATER - 250 ML IVPB ONE (16:00)
--- NOTE | 2017-03-30 18:21 | PN ---
Progress Note, Physician Chief Complaint: Patient Remained critically sick, worsening pancytopenia, evaluted by Hematology consult on Granix , intubated sedated, still respiratory status is poor required Vent, History of Present Illness: 66 yrs old man admitted with recurrent pneumonia, developed respiratory failure , w/u revealed HIV with AIDs and PCP pneumonia, intubated on treatment of PCP/ CMV pneumonia. and HIV. remained critically sick with respiratory failure developed pancytopeia. - Current Medication List Current Medications: Active Medications Acetaminophen (Tylenol -) 650 mg PO Q6H PRN PRN Reason: FEVER OR PAIN Albuterol Sulfate (Ventolin Hfa Inhaler -) 2 puff IH Q4H PRN PRN Reason: SHORT OF BREATH/WHEEZING Amlodipine Besylate (Norvasc -) 5 mg PO DAILY [facility] Last Admin: 03/30/17 10:00 Dose: 5 mg Artificial Tears (Artificial Tears) 1 drop OU BID [facility] Last Admin: 03/30/17 10:00 Dose: 1 drop Chlorhexidine Gluconate (Peridex -) 15 ml MM BID [facility] Last Admin: 03/30/17 10:00 Dose: 15 ml Darunavir (Prezista) 800 mg PO DAILY [facility] Last Admin: 03/28/17 10:17 Dose: 800 mg Emtricitabine/Tenofovir (Truvada) 1 tab PO DAILY [facility] Last Admin: 03/30/17 10:00 Dose: 1 tab Guaifenesin (Robitussin -) 10 ml PO Q4H PRN Last Admin: 03/20/17 09:54 Dose: 10 ml Pantoprazole Sodium (Protonix 40mg Ivpb (Pre-Docked)) 100 mls @ 200 mls/hr IVPB DAILY [facility] Last Admin: 03/30/17 11:00 Dose: 200 mls/hr Fentanyl 500 mcg/ Dextrose 100 mls @ 5 mls/hr IJ TITR [facility] PRN Reason: 25 MCG/HR Last Admin: 03/30/17 15:39 Dose: 10 mls/hr Ganciclovir 325 mg/ Dextrose 100 mls @ 100 mls/hr IVPB BID [facility] Last Admin: 03/30/17 13:34 Dose: 100 mls/hr Pentamidine Isethionate 300 mg (/ Dextrose) 265 mls @ 176.667 mls/hr IVPB DAILY [facility] PRN Reason: Protocol Last Admin: 03/30/17 13:35 Dose: 176.667 mls/hr Caspofungin 50 mg/ Sodium (Chloride) 250 mls @ 250 mls/hr IVPB DAILY [facility] Insulin Aspart (Novolog Vial Sliding Scale -) 1 vial SQ ACHS [facility] PRN Reason: Protocol Last Admin: 03/30/17 17:27 Dose: 5 units Methylprednisolone Sodium Succinate (Solu-Medrol -) 40 mg IVPB Q8H-IV [facility] Last Admin: 03/30/17 17:30 Dose: 40 mg Ritonavir (Norvir Oral Solution -) 100 mg PO DAILY [facility] Last Admin: 03/30/17 10:00 Dose: 100 mg Tbo-Filgrastim (Granix -) 480 mcg SQ DAILY [facility] Last Admin: 03/30/17 15:40 Dose: 480 mcg - Objective Vital Signs: Vital Signs Temperature 96.6 F L 03/30/17 13:42 Pulse Rate 66 03/30/17 17:00 Respiratory Rate 22 03/30/17 17:00 Blood Pressure 129/61 03/30/17 17:00 O2 Sat by Pulse Oximetry (%) 96 03/30/17 16:24 P Examination: Elderly man Sedated, intubated, having respiratory distress. HEENT: ET and oral feeding tube at place, mm moist NECK; RT IJ at place No JVD No Bruit CHEST: B/L Crepts and decrease AE at bases CVS; S1S2 R, no m/g/r ABD: No distention, non tender Bs +, rectal tube at place EXT: +edema feet, no calf tenderness, Pulses + Labs: CBC, BMP 03/30/17 05:20 03/30/17 05:20 INR, PTT INR 1.12 (0.82-1.09) 03/29/17 05:20 Fibrinogen 581.0 mg/dL (238-498) H D 03/29/17 05:20 Problem List - Problems (1) Respiratory failure Assessment/Plan: Due to Interstitial pneumonia, CMV, fungus and TB -ve, PCP + on Pentamidine and IV steroids and CMV treatment ,add vancomycin and capsofungin no improvement in respiratory status, Ventilator management as critical care. Code(s): J96.90 - RESPIRATORY FAILURE, UNSP, UNSP W HYPOXIA OR HYPERCAPNIA Qualifiers: Chronicity: acute Respiratory failure complication: hypoxia and hypercapnia Qualified Code(s): J96.01 - Acute respiratory failure with hypoxia (2) AIDS Assessment/Plan: Newly diagnosed AID CD4 C on HAART, worsening renal functions and worsening Pancytopenia, either drug toxicity or IRS ??, Close monitoring of renal function sand CBC. Code(s): B20 - HUMAN IMMUNODEFICIENCY VIRUS [HIV] DISEASE (3) Pneumocystis carinii pneumonia Assessment/Plan: Sever with respiratory failure Dc Bactrim switched to Pentaidine due to pancytopenia, , and IV Methyl Predispose Code(s): B59 - PNEUMOCYSTOSIS (4) Diabetes Assessment/Plan: Steroid induced, optimize Glycemic control.sa per critical care team. Code(s): E11.9 - TYPE 2 DIABETES MELLITUS WITHOUT COMPLICATIONS (5) HTN (hypertension) Assessment/Plan: Well controlled Code(s): I10 - ESSENTIAL (PRIMARY) HYPERTENSION (6) Pancytopenia Assessment/Plan: Drug induced, disease process or Immune reconstitution syndrome, persistent thrombocyropenia, Neutropenia and anemia are worsening.hematology input appreciated.on Granix Code(s): D61.818 - OTHER PANCYTOPENIA (7) LEXI (acute kidney injury) Assessment/Plan: Can be due to Bactrim or IRS F/u Renal function, GFR remained .some worsening since yesterday. Code(s): N17.9 - ACUTE KIDNEY FAILURE, UNSPECIFIED (8) CMV pneumonia Assessment/Plan: On ganciclovir for CMV Pneumonitis ?. Code(s): B25.0 - CYTOMEGALOVIRAL PNEUMONITIS (9) Severe malnutrition Assessment/Plan: Low albumin , sever malnutrition cont nutritional support Code(s): E43 - UNSPECIFIED SEVERE PROTEIN-CALORIE MALNUTRITION (10) Volume excess Code(s): E87.70 - FLUID OVERLOAD, UNSPECIFIED
--- NOTE | 2017-03-30 19:10 | PN ---
Progress Note (short form) - Note Progress Note: Patient seen and examined intubated on fentanyl Last Vital Signs Temp Pulse Resp BP Pulse Ox 96.6 F L 66 27 H 129/61 96 03/30/17 13:42 03/30/17 17:00 03/30/17 18:39 03/30/17 17:00 03/30/17 16:24 Cor: RSR, No murmurs, No gallops Lungs: Clear to P&A Abd: Soft, Normal bowel sounds, No organomegaly Ext:No significant edema Abnormal Lab Results 03/28/17 03/29/17 03/29/17 06:00 05:20 05:20 WBC RBC 2.89 L Hgb Hct MCHC RDW Plt Count Retic Count 6.35 H Sodium BUN Creatinine Random Glucose Calcium Iron 14 L TIBC 142 L Iron Saturation 10 L Erythropoietin 57.0 H AST Alkaline Phosphatase Total Protein Albumin Crossmatch 03/30/17 03/30/17 03/30/17 05:20 05:20 08:00 WBC 1.1 L* D RBC 2.43 L Hgb 6.3 L* D Hct 19.8 L MCHC 31.9 L RDW 21.9 H Plt Count 24 L* D Retic Count Sodium 135 L BUN 57 H Creatinine 1.6 H Random Glucose 192 H D Calcium 7.2 L Iron TIBC Iron Saturation Erythropoietin AST 60 H D Alkaline Phosphatase 144 H Total Protein 3.3 L Albumin 0.8 L Crossmatch See Detail Active Medications Generic Name Dose Route Start Last Admin Trade Name Freq PRN Reason Stop Dose Admin Acetaminophen 650 mg 03/20/17 08:52 Tylenol - PO Q6H PRN FEVER OR PAIN Albuterol Sulfate 2 puff 03/20/17 08:52 Ventolin Hfa Inhaler - IH Q4H PRN SHORT OF BREATH/WHEEZING Amlodipine Besylate 5 mg 03/20/17 10:00 03/30/17 10:00 Norvasc - PO 5 mg DAILY [facility] Administration Artificial Tears 1 drop 03/24/17 22:00 03/30/17 10:00 Artificial Tears OU 1 drop BID [facility] Administration Chlorhexidine Gluconate 15 ml 03/27/17 22:00 03/30/17 10:00 Peridex - MM 15 ml BID [facility] Administration Darunavir 800 mg 03/16/17 10:15 03/28/17 10:17 Prezista PO 800 mg DAILY [facility] Administration Emtricitabine/Tenofovir 1 tab 03/16/17 10:15 03/30/17 10:00 Truvada PO 1 tab DAILY [facility] Administration Guaifenesin 10 ml 03/20/17 08:52 03/20/17 09:54 Robitussin - PO 10 ml Q4H PRN Administration Pantoprazole Sodium 100 mls @ 200 mls/hr 03/16/17 14:00 03/30/17 11:00 Protonix 40mg Ivpb (Pre-Docked) IVPB 200 mls/hr DAILY [facility] Administration Fentanyl 500 mcg/ Dextrose 100 mls @ 5 mls/hr 03/22/17 12:45 03/30/17 15:39 IJ 10 mls/hr TITR [facility] Administration 25 MCG/HR Ganciclovir 325 mg/ Dextrose 100 mls @ 100 mls/hr 03/26/17 10:00 03/30/17 13:34 IVPB 100 mls/hr BID [facility] Administration Pentamidine Isethionate 300 mg 265 mls @ 176.667 mls/hr 03/27/17 18:00 13:35 / Dextrose IVPB 176.667 mls/hr DAILY [facility] Administration Protocol Caspofungin 50 mg/ Sodium 250 mls @ 250 mls/hr 03/31/17 10:00 Chloride IVPB DAILY [facility] Insulin Aspart 1 vial 03/20/17 11:00 03/30/17 17:27 Novolog Vial Sliding Scale - SQ 5 units ACHS [facility] Administration Protocol Methylprednisolone Sodium Succinate 40 mg 03/24/17 10:00 03/30/17 17:30 Solu-Medrol - IVPB 40 mg Q8H-IV [facility] Administration Ritonavir 100 mg 03/16/17 10:30 03/30/17 10:00 Norvir Oral Solution - PO 100 mg DAILY [facility] Administration Tbo-Filgrastim 480 mcg 03/29/17 11:00 03/30/17 15:40 Granix - SQ 480 mcg DAILY [facility] Administration A/P 66 y/o patient with HIV/AIDS , PCP/CMV pneumonia, CHF, had been on bactrim, on ganciclovir we have beed consulted for pancytopenia, leukopenia Suspect due to bactrim, ganciclovir also bacteremic bactrim was stopped on ganciclovir/pentamidine dose neupogen will dose procrit based on epo level transfuse PRBCs for <7--6.3 today transfuse monodonor platelets if actively bleeding or platelets < 20,000 monitor CBC/coags closely
[2017-03-30 20:45] LABS: MEAN PLT VOLUME 9.1 fl (7.5-11.1)
[2017-03-30 20:49] LABS: MCH 26.7 pg (25.7-33.7); MCHC 32.2 g/dl (32.0-35.9); MEAN CELL VOLUME 82.9 fl (80-96); RDW 22.4 % (11.9-15.9)
[2017-03-30 20:55] LABS: PLATELET COUNT 22 K/MM3 (134-434); WHITE BLOOD COUNT 1.4 K/mm3 (4.0-10.0)
[2017-03-30] MEDS ORDERED: BENZOIN/ALOE VERA/STORAX/TOLU 58 ML BOTTLE ONE (21:23)
[2017-03-30] MEDS: MIDAZOLAM 100 MG in SODIUM CHLORIDE 100 ML IVPB SCH (21:45)
[2017-03-30] MEDS ORDERED: HEMOQUE TEST 1 EACH EACH ONE (22:58)
[2017-03-30 23:18] LABS: METAMYELOCYTE 2 % (0-2)
[2017-03-30 23:51] LABS: ANISOCYTOSIS 2+; PLATELET ESTIMATE MARKEDLY DECREASED (NORMAL); POLYCHROMASIA OCC
[2017-03-31] MEDS: methylPREDNISolone NA SUCC 40 MG/1 ML VIAL IVPB SCH ×3 (02:17→17:30)
[2017-03-31] MEDS: INSULIN SLIDING SCALE (NOVOLOG) 1 VIAL SQ SCH ×4 (06:06→22:39)
[2017-03-31] MEDS: FENTANYL INJECTION 500 MCG in DEXTROSE 5%-WATER - 90 ML IJ SCH ×2 (06:08→15:09)
[2017-03-31 08:06] LABS: HEMATOCRIT 21.7 % (37.5-51.0)
[2017-03-31 08:13] LABS: ACTIVATED PTT 25.5 SECONDS (26.9-34.4); INR 1.11 (0.82-1.09); PROTHROMBIN TIME (PATIENT) 12.2 SEC (9.98-11.88)
[2017-03-31 08:19] LABS: MCH 27.3 pg (25.7-33.7); MCHC 32.9 g/dl (32.0-35.9); RDW 21.6 % (11.9-15.9)
[2017-03-31 08:22] LABS: ALK PHOS 174 U/L (45-117); ANION GAP 10 (8-16); BILIRUBIN,TOTAL 0.3 mg/dL (0.2-1.0); CALCIUM 7.5 mg/dL (8.5-10.1); CO2 27 mmol/L (21-32); CREATININE 1.8 mg/dL (0.7-1.3); GLUCOSE,RANDOM 151 mg/dL (74-106); SGOT/AST 60 U/L (15-37); SGPT/ALT 61 U/L (12-78); TOT PROT 3.4 g/dl (6.4-8.2)
[2017-03-31 08:24] LABS: WHITE BLOOD COUNT 1.3 K/mm3 (4.0-10.0)
[2017-03-31 08:33] LABS: ALBUMIN 0.8 g/dl (3.4-5.0)
--- NOTE | 2017-03-31 08:59 | PN ---
Progress Note (short form) - Note Progress Note: remains intubated and sedated now on FiO2 80% Vital Signs Period Temp Pulse Resp BP Sys/De Oliveira Pulse Ox Last 24 Hr 96.6 F-98 F 64-92 20-27 101-153/55-80 93-99 cor-rrr lungs decreased bs at bases abd soft,nt ext +edema of hands central line 03/30 CBC, BMP 03/31/17 05:40 03/31/17 05:40 Microbiology 03/29/17 05:35 Blood - Peripheral Venous Blood Culture - Preliminary NO GROWTH OBTAINED AFTER 48 HOURS, INCUBATION TO CONTINUE FOR 3 DAYS. 03/29/17 05:30 Blood - Peripheral Venous Blood Culture - Preliminary NO GROWTH OBTAINED AFTER 48 HOURS, INCUBATION TO CONTINUE FOR 3 DAYS. 03/27/17 20:00 Blood - Peripheral Venous Yeast/Fungus Identification - Preliminary 03/27/17 18:30 Sputum - Endotrachea Suction/Ventilator Gram Stain - Final 03/27/17 18:30 Sputum - Endotrachea Suction/Ventilator Sputum Culture - Final Yeast Like Organism 03/27/17 20:00 Blood - Peripheral Venous Blood Culture - Preliminary Staphylococcus Coagulase Neg Staphylococcus Coagulase Neg#2 Yeast Like Organism 03/27/17 20:05 Blood - Peripheral Venous Blood Culture - Preliminary Staphylococcus Coagulase Neg Staphylococcus Coagulase Neg#2 Laboratory Tests 03/14/17 03/16/17 03/31/17 11:15 11:00 05:40 Random Vancomycin 17.638 CMV DNA Quant PCR [id number] Pneumocyst carinii Smear Positive H Current Medications Acetaminophen (Tylenol -) 650 mg PO Q6H PRN PRN Reason: FEVER OR PAIN Albuterol Sulfate (Ventolin Hfa Inhaler -) 2 puff IH Q4H PRN PRN Reason: SHORT OF BREATH/WHEEZING Amlodipine Besylate (Norvasc -) 5 mg PO DAILY [facility] Last Admin: 03/30/17 10:00 Dose: 5 mg Artificial Tears (Artificial Tears) 1 drop OU BID [facility] Last Admin: 03/30/17 22:55 Dose: 1 drop Chlorhexidine Gluconate (Peridex -) 15 ml MM BID [facility] Last Admin: 03/30/17 22:50 Dose: 15 ml Darunavir (Prezista) 800 mg PO DAILY [facility] Last Admin: 03/28/17 10:17 Dose: 800 mg Emtricitabine/Tenofovir (Truvada) 1 tab PO DAILY [facility] Last Admin: 03/30/17 10:00 Dose: 1 tab Guaifenesin (Robitussin -) 10 ml PO Q4H PRN Last Admin: 03/20/17 09:54 Dose: 10 ml Pantoprazole Sodium (Protonix 40mg Ivpb (Pre-Docked)) 100 mls @ 200 mls/hr IVPB DAILY [facility] Last Admin: 03/30/17 11:00 Dose: 200 mls/hr Fentanyl 500 mcg/ Dextrose 100 mls @ 5 mls/hr IJ TITR [facility] PRN Reason: 25 MCG/HR Last Admin: 03/31/17 06:08 Dose: 10 mls/hr Ganciclovir 325 mg/ Dextrose 100 mls @ 100 mls/hr IVPB BID [facility] Last Admin: 03/30/17 22:54 Dose: 100 mls/hr Pentamidine Isethionate 300 mg (/ Dextrose) 265 mls @ 176.667 mls/hr IVPB DAILY [facility] PRN Reason: Protocol Last Admin: 03/30/17 13:35 Dose: 176.667 mls/hr Caspofungin 50 mg/ Sodium (Chloride) 250 mls @ 250 mls/hr IVPB DAILY [facility] Midazolam HCl 100 mg/ Sodium (Chloride) 100 mls @ 1 mls/hr IVPB TITR [facility]; 1 MG/ HR PRN Reason: Protocol Last Admin: 03/30/17 21:45 Dose: Not Given Insulin Aspart (Novolog Vial Sliding Scale -) 1 vial SQ ACHS [facility] PRN Reason: Protocol Last Admin: 03/31/17 06:06 Dose: 5 units Methylprednisolone Sodium Succinate (Solu-Medrol -) 40 mg IVPB Q8H-IV [facility] Last Admin: 03/31/17 02:17 Dose: 40 mg Midazolam HCl (Versed -) 2 mg IVPUSH Q2H PRN PRN Reason: AGITATION Ritonavir (Norvir Oral Solution -) 100 mg PO DAILY [facility] Last Admin: 03/30/17 10:00 Dose: 100 mg Tbo-Filgrastim (Granix -) 480 mcg SQ DAILY [facility] Last Admin: 03/30/17 15:40 Dose: 480 mcg cxray bilateral infiltrates unchanged a/p AIDS with PCP/CMV continue art continue pentamadine/cytovene day #8 induction/steroids bacteremia- staph epi and yeast cancidas started yesterday on vancomycin by level hemodynamically stable suggest trial of diuresis leukopenia/thrombocytopenia worsening renal function- will adjust antibiotic doses over 35 minutes spent in evaluating this critically ill patient, adjusting meds d/w Dr Cazares overall prognosis is poor
[2017-03-31] MEDS ORDERED: PT OWN MED DRAWER 7, Y5N ONE (09:11)
--- NOTE | 2017-03-31 09:37 | PN ---
Progress Note (short form) - Note Progress Note: Patient seen and examined in the ICU. Remains intubated and sedated. AC mode : parameters increased to 80% / PEEP 10 due to desaturation. Sedated. No pressors. CXR: Minimal change in bilateral infiltrates Intake & Output 03/28/17 03/29/17 03/30/17 03/31/17 23:59 23:59 23:59 23:59 Intake Total 5 8 2963 635 Output Total 2800 1400 1350 200 Balance -854 873 1317 435 Weight 163 lb 2.273 oz 155 lb 10.342 oz 159 lb 1.6 oz 163 lb 6.4 oz Last Vital Signs Temp Pulse Resp BP Pulse Ox 97.8 F 64 26 H 103/55 99 03/31/17 06:00 03/31/17 08:00 03/31/17 09:10 03/31/17 08:00 03/31/17 06:00 Active Medications Acetaminophen (Tylenol -) 650 mg PO Q6H PRN PRN Reason: FEVER OR PAIN Albuterol Sulfate (Ventolin Hfa Inhaler -) 2 puff IH Q4H PRN PRN Reason: SHORT OF BREATH/WHEEZING Amlodipine Besylate (Norvasc -) 5 mg PO DAILY [facility] Last Admin: 03/30/17 10:00 Dose: 5 mg Artificial Tears (Artificial Tears) 1 drop OU BID [facility] Last Admin: 03/30/17 22:55 Dose: 1 drop Chlorhexidine Gluconate (Peridex -) 15 ml MM BID [facility] Last Admin: 03/30/17 22:50 Dose: 15 ml Darunavir (Prezista) 800 mg PO DAILY [facility] Last Admin: 03/28/17 10:17 Dose: 800 mg Emtricitabine/Tenofovir (Truvada) 1 tab PO DAILY [facility] Last Admin: 03/30/17 10:00 Dose: 1 tab Guaifenesin (Robitussin -) 10 ml PO Q4H PRN Last Admin: 03/20/17 09:54 Dose: 10 ml Pantoprazole Sodium (Protonix 40mg Ivpb (Pre-Docked)) 100 mls @ 200 mls/hr IVPB DAILY [facility] Last Admin: 03/30/17 11:00 Dose: 200 mls/hr Fentanyl 500 mcg/ Dextrose 100 mls @ 5 mls/hr IJ TITR [facility] PRN Reason: 25 MCG/HR Last Admin: 03/31/17 06:08 Dose: 10 mls/hr Caspofungin 50 mg/ Sodium (Chloride) 250 mls @ 250 mls/hr IVPB DAILY [facility] Midazolam HCl 100 mg/ Sodium (Chloride) 100 mls @ 1 mls/hr IVPB TITR [facility]; 1 MG/ HR PRN Reason: Protocol Last Admin: 03/30/17 21:45 Dose: Not Given Ganciclovir 200 mg/ Dextrose 100 mls @ 100 mls/hr IVPB BID [facility] Pentamidine Isethionate 225 mg (/ Dextrose) 261.25 mls @ 261.25 mls/hr IVPB DAILY [facility] PRN Reason: Protocol Insulin Aspart (Novolog Vial Sliding Scale -) 1 vial SQ ACHS [facility] PRN Reason: Protocol Last Admin: 03/31/17 06:06 Dose: 5 units Methylprednisolone Sodium Succinate (Solu-Medrol -) 40 mg IVPB Q8H-IV [facility] Last Admin: 03/31/17 02:17 Dose: 40 mg Midazolam HCl (Versed -) 2 mg IVPUSH Q2H PRN PRN Reason: AGITATION Ritonavir (Norvir Oral Solution -) 100 mg PO DAILY [facility] Last Admin: 03/30/17 10:00 Dose: 100 mg Tbo-Filgrastim (Granix -) 480 mcg SQ DAILY [facility] Last Admin: 03/30/17 15:40 Dose: 480 mcg Gen: intubated, sedated Heart: RRR Lung: Bilateral rhonchi Abd: soft, nontender Ext: no edema Laboratory Results - last 24 hr 03/28/17 03/29/17 03/29/17 06:00 05:20 05:20 WBC Corrected WBC (auto) RBC 2.89 L Hgb Hct 21.7 L MCV MCHC RDW Plt Count MPV Neutrophils % Lymphocytes % Monocytes % Eosinophils % Band Neutrophils Metamyelocytes Myelocytes Nucleated RBCs Platelet Estimate Polychromasia Basophilic Stippling Anisocytosis Retic Count 6.35 H G6PD RBC Count 272 INR PTT (Actin FS) Fibrinogen Sodium Potassium Chloride Carbon Dioxide Anion Gap BUN Creatinine Creat Clearance w eGFR POC Glucometer Random Glucose Calcium Iron 14 L TIBC 142 L Iron Saturation 10 L Erythropoietin 57.0 H Total Bilirubin AST ALT Alkaline Phosphatase Total Protein Albumin Folate 1158 Folate Hemolysate 251.3 Random Vancomycin Blood Type Antibody Screen Crossmatch 03/30/17 03/30/17 03/30/17 08:00 13:20 13:42 WBC Corrected WBC (auto) RBC Hgb Hct MCV MCHC RDW Plt Count MPV Neutrophils % Lymphocytes % Monocytes % Eosinophils % Band Neutrophils Metamyelocytes Myelocytes Nucleated RBCs Platelet Estimate Polychromasia Basophilic Stippling Anisocytosis Retic Count G6PD RBC Count INR PTT (Actin FS) Fibrinogen Sodium Potassium Chloride Carbon Dioxide Anion Gap BUN Creatinine Creat Clearance w eGFR POC Glucometer [phone] Random Glucose Calcium Iron TIBC Iron Saturation Erythropoietin Total Bilirubin AST ALT Alkaline Phosphatase Total Protein Albumin Folate Folate Hemolysate Random Vancomycin 9.412 Blood Type B POSITIVE Antibody Screen Negative Crossmatch See Detail 03/30/17 03/30/17 03/30/17 17:27 19:45 23:02 WBC 1.4 L* Corrected WBC (auto) 1.19 RBC 2.83 L Hgb 7.6 L D Hct 23.5 L D MCV 82.9 MCHC 32.2 RDW 22.4 H Plt Count 22 L* MPV 9.1 Neutrophils % 60.0 D Lymphocytes % 4.0 L D Monocytes % 6.0 Eosinophils % 4.0 D Band Neutrophils 20.0 H D Metamyelocytes 2 D Myelocytes 4 H Nucleated RBCs 18 H* Platelet Estimate Markedly decreased Polychromasia Occ Basophilic Stippling Occ Anisocytosis 2+ Retic Count G6PD RBC Count INR PTT (Actin FS) Fibrinogen Sodium Potassium Chloride Carbon Dioxide Anion Gap BUN Creatinine Creat Clearance w eGFR POC Glucometer [phone] Random Glucose Calcium Iron TIBC Iron Saturation Erythropoietin Total Bilirubin AST ALT Alkaline Phosphatase Total Protein Albumin Folate Folate Hemolysate Random Vancomycin Blood Type Antibody Screen Crossmatch 03/31/17 03/31/17 03/31/17 05:19 05:40 05:40 WBC 1.3 L* Corrected WBC (auto) RBC 2.78 L Hgb 7.6 L Hct 23.1 L MCV 83.0 MCHC 32.9 RDW 21.6 H Plt Count MPV 8.5 Neutrophils % Lymphocytes % Monocytes % Eosinophils % Band Neutrophils Metamyelocytes Myelocytes Nucleated RBCs Platelet Estimate Polychromasia Basophilic Stippling Anisocytosis Retic Count G6PD RBC Count INR PTT (Actin FS) Fibrinogen Sodium Potassium Chloride Carbon Dioxide Anion Gap BUN Creatinine Creat Clearance w eGFR POC Glucometer [phone] Random Glucose Calcium Iron TIBC Iron Saturation Erythropoietin Total Bilirubin AST ALT Alkaline Phosphatase Total Protein Albumin Folate Folate Hemolysate Random Vancomycin 17.638 Blood Type Antibody Screen Crossmatch 03/31/17 03/31/17 05:40 05:40 WBC Corrected WBC (auto) RBC Hgb Hct MCV MCHC RDW Plt Count MPV Neutrophils % Lymphocytes % Monocytes % Eosinophils % Band Neutrophils Metamyelocytes Myelocytes Nucleated RBCs Platelet Estimate Polychromasia Basophilic Stippling Anisocytosis Retic Count G6PD RBC Count INR 1.11 PTT (Actin FS) 25.5 L Fibrinogen 655.0 H Sodium 135 L Potassium 4.0 Chloride 98 Carbon Dioxide 27 Anion Gap 10 BUN 68 H Creatinine 1.8 H Creat Clearance w eGFR 37.82 POC Glucometer Random Glucose 151 H D Calcium 7.5 L Iron TIBC Iron Saturation Erythropoietin Total Bilirubin 0.3 D AST 60 H ALT 61 Alkaline Phosphatase 174 H D Total Protein 3.4 L Albumin 0.8 L Folate Folate Hemolysate Random Vancomycin Blood Type Antibody Screen Crossmatch ASSESSMENT AND PLAN: Acute Hypoxic Respiratory Failure ARDS AIDS/HIV Pneumocystis Pneumonia DM Suspected IRIS GM (+) Bacteremia Fungemia Acute anemia LEXI Problem List - Problems (1) Bilateral pneumonia Code(s): J18.9 - PNEUMONIA, UNSPECIFIED ORGANISM Qualifiers: 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 - Lung protective ventilation : wean FiO2 : Ideally I want to leave PEEP around 8 : HIGH RISK FOR PTX - antibiotic coverage by ID - ART - Medrol at current dose - Taper Fio2 to keep SpO2 >90% - Daily sedation vacations to assess mental status - Enteral feeds - glucose control - DVT/GI prophylaxis - prognosis remains poor as no significant improvement despite antimicrobial therapy - Renal evaluation Dr Cazares Critical care time spent in reviewing chart, evaluating patient and formulating plan 40 min Problem List - Problems (1) Bilateral pneumonia Code(s): J18.9 - PNEUMONIA, UNSPECIFIED ORGANISM Qualifiers: 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
[2017-03-31 10:14] LABS: MEAN PLT VOLUME 8.5 fl (7.5-11.1); PLATELET COUNT 15 K/MM3 (134-434)
[2017-03-31] MEDS: PANTOPRAZOLE SODIUM 100 ML IVPB SCH (10:17)
[2017-03-31] MEDS: EMTRICITABINE 200MG/TENOFOVIR 300MG PO SCH (10:17)
[2017-03-31] MEDS: amLODIPine BESYLATE 5 MG TABLET (FP) PO SCH (10:17)
[2017-03-31] MEDS: RITONAVIR ORAL SOLUTION 80 MG/ML PO SCH (10:18)
[2017-03-31] MEDS: WATER IVPB SCH ×3 (10:19→22:33)
[2017-03-31] MEDS: DEXTROSE 5% IVPB SCH ×3 (10:19→22:33)
[2017-03-31] MEDS: GANCICLOVIR IVPB SCH ×2 (10:19→22:33)
[2017-03-31] MEDS: ARTIFICIAL TEARS (POLYVINYL ALCOHOL 1.4%) OPTH DROPS OU SCH ×2 (10:20→22:35)
[2017-03-31] MEDS: CHLORHEXIDINE GLUCONATE 0.12% 15ML CUP MM SCH ×2 (10:20→22:34)
[2017-03-31] MEDS: CASPOFUNGIN ACETATE 50 MG in SODIUM CHLORIDE 250 ML IVPB SCH (11:59)
--- NOTE | 2017-03-31 12:58 | PN ---
Progress Note, Physician Chief Complaint: Patient Remained critically sick, worsening pancytopenia now stable Granix, , intubated sedated, still respiratory status is poor required Vent, History of Present Illness: 66 yrs old man admitted with recurrent pneumonia, developed respiratory failure , w/u revealed HIV with AIDs and PCP pneumonia, intubated on treatment of PCP/ CMV pneumonia. and HIV. remained critically sick with respiratory failure developed pancytopeia.on PCP, Vanco and NRSA coverage, - Current Medication List Current Medications: Active Medications Acetaminophen (Tylenol -) 650 mg PO Q6H PRN PRN Reason: FEVER OR PAIN Albuterol Sulfate (Ventolin Hfa Inhaler -) 2 puff IH Q4H PRN PRN Reason: SHORT OF BREATH/WHEEZING Amlodipine Besylate (Norvasc -) 5 mg PO DAILY [facility] Last Admin: 03/31/17 10:17 Dose: 5 mg Artificial Tears (Artificial Tears) 1 drop OU BID [facility] Last Admin: 03/31/17 10:20 Dose: 1 drop Chlorhexidine Gluconate (Peridex -) 15 ml MM BID [facility] Last Admin: 03/31/17 10:20 Dose: 15 ml Darunavir (Prezista) 800 mg PO DAILY [facility] Last Admin: 03/28/17 10:17 Dose: 800 mg Emtricitabine/Tenofovir (Truvada) 1 tab PO DAILY [facility] Last Admin: 03/31/17 10:17 Dose: 1 tab Guaifenesin (Robitussin -) 10 ml PO Q4H PRN Last Admin: 03/20/17 09:54 Dose: 10 ml Pantoprazole Sodium (Protonix 40mg Ivpb (Pre-Docked)) 100 mls @ 200 mls/hr IVPB DAILY [facility] Last Admin: 03/31/17 10:17 Dose: 200 mls/hr Fentanyl 500 mcg/ Dextrose 100 mls @ 5 mls/hr IJ TITR [facility] PRN Reason: 25 MCG/HR Last Admin: 03/31/17 06:08 Dose: 10 mls/hr Caspofungin 50 mg/ Sodium (Chloride) 250 mls @ 250 mls/hr IVPB DAILY [facility] Last Admin: 03/31/17 11:59 Dose: 250 mls/hr Midazolam HCl 100 mg/ Sodium (Chloride) 100 mls @ 1 mls/hr IVPB TITR [facility]; 1 MG/ HR PRN Reason: Protocol Last Admin: 03/30/17 21:45 Dose: Not Given Ganciclovir 200 mg/ Dextrose 100 mls @ 100 mls/hr IVPB BID [facility] Last Admin: 03/31/17 10:19 Dose: 100 mls/hr Pentamidine Isethionate 225 mg (/ Dextrose) 261.25 mls @ 261.25 mls/hr IVPB DAILY [facility] PRN Reason: Protocol Insulin Aspart (Novolog Vial Sliding Scale -) 1 vial SQ ACHS [facility] PRN Reason: Protocol Last Admin: 03/31/17 12:06 Dose: 10 units Methylprednisolone Sodium Succinate (Solu-Medrol -) 40 mg IVPB Q8H-IV [facility] Last Admin: 03/31/17 10:17 Dose: 40 mg Midazolam HCl (Versed -) 2 mg IVPUSH Q2H PRN PRN Reason: AGITATION Ritonavir (Norvir Oral Solution -) 100 mg PO DAILY [facility] Last Admin: 03/31/17 10:18 Dose: 100 mg Tbo-Filgrastim (Granix -) 480 mcg SQ DAILY [facility] Last Admin: 03/30/17 15:40 Dose: 480 mcg - Objective Vital Signs: Vital Signs Temperature 97.8 F 03/31/17 06:00 Pulse Rate 70 03/31/17 12:00 Respiratory Rate 20 03/31/17 12:00 Blood Pressure 113/53 03/31/17 12:00 O2 Sat by Pulse Oximetry (%) 96 03/31/17 09:00 P Examination: Elderly man Sedated, intubated, having respiratory distress. HEENT: ET and oral feeding tube at place, mm moist NECK; RT IJ at place No JVD No Bruit CHEST: B/L Crepts/rhonci and decrease AE at bases CVS; S1S2 R, no m/g/r ABD: No distention, non tender Bs +, rectal tube at place EXT: +edema feet, no calf tenderness, Pulses + Labs: CBC, BMP 03/31/17 05:40 03/31/17 05:40 INR, PTT INR 1.11 (0.82-1.09) 03/31/17 05:40 Fibrinogen 655.0 mg/dL (238-498) H 03/31/17 05:40 Problem List - Problems (1) Respiratory failure Assessment/Plan: Due to Interstitial pneumonia, CMV, fungus and TB -ve, PCP + on Pentamidine and IV steroids and CMV treatment ,add vancomycin and capsofungin no improvement in respiratory status, Ventilator management as critical care. Code(s): J96.90 - RESPIRATORY FAILURE, UNSP, UNSP W HYPOXIA OR HYPERCAPNIA Qualifiers: Chronicity: acute Respiratory failure complication: hypoxia and hypercapnia Qualified Code(s): J96.01 - Acute respiratory failure with hypoxia (2) AIDS Assessment/Plan: Newly diagnosed AID CD4 C on HAART, worsening renal functions and worsening Pancytopenia, either drug toxicity or IRS ??, Close monitoring of renal function sand CBC. Code(s): B20 - HUMAN IMMUNODEFICIENCY VIRUS [HIV] DISEASE (3) Pneumocystis carinii pneumonia Assessment/Plan: Sever with respiratory failure Dc Bactrim switched to Pentaidine due to pancytopenia, , and IV Methyl Predispose Code(s): B59 - PNEUMOCYSTOSIS (4) Diabetes Assessment/Plan: Steroid induced, optimize Glycemic control.sa per critical care team. Code(s): E11.9 - TYPE 2 DIABETES MELLITUS WITHOUT COMPLICATIONS (5) HTN (hypertension) Assessment/Plan: Well controlled Code(s): I10 - ESSENTIAL (PRIMARY) HYPERTENSION (6) Pancytopenia Assessment/Plan: Drug induced, disease process or Immune reconstitution syndrome, persistent thrombocyropenia, Neutropenia and anemia are worsening.hematology input appreciated.on Granix Code(s): D61.818 - OTHER PANCYTOPENIA (7) LEXI (acute kidney injury) Assessment/Plan: Can be due to Bactrim or IRS F/u Renal function, GFR remained .some worsening since yesterday. Code(s): N17.9 - ACUTE KIDNEY FAILURE, UNSPECIFIED (8) CMV pneumonia Assessment/Plan: On ganciclovir for CMV Pneumonitis ?. Code(s): B25.0 - CYTOMEGALOVIRAL PNEUMONITIS (9) Severe malnutrition
[2017-03-31] MEDS: PENTAMIDINE ISETHIONATE IVPB SCH (13:31)
[2017-03-31] MEDS: TBO-FILGRASTIM 480 MCG/0.8 ML DISP.SYRIN SQ SCH (15:04)
[2017-03-31 16:29] LABS: URINE APPEARANCE CLOUDY; URINE BILIRUBIN NEGATIVE (NEGATIVE); URINE COLOR YELLOW; URINE GLUCOSE (UA) 1+ (NEGATIVE); URINE KETONE NEGATIVE (NEGATIVE); URINE LEUK ESTERASE NEGATIVE (NEGATIVE); URINE NITRITE NEGATIVE (NEGATIVE); URINE UROBILINOGEN NEGATIVE E.U./dl (0.2-1.0)
[2017-03-31 16:31] LABS: URINE BLOOD 2+ (NEGATIVE); URINE PROTEIN 1+ (NEGATIVE)
[2017-03-31 16:32] LABS: URINE BACTERIA RARE /hpf (NONE SEEN); URINE MUCUS RARE; URINE RBC 107 /hpf (0-3); URINE WBC 18 /hpf (3-5); YEAST MANY
[2017-03-31] MEDS: MIDAZOLAM 100 MG in SODIUM CHLORIDE 100 ML IVPB SCH (22:33)
[2017-04-01] MEDS: MIDAZOLAM HCL 2 MG/2 ML SINGLE DOSE VIAL IVPUSH PRN ×3 (01:00→17:43)
[2017-04-01] MEDS: methylPREDNISolone NA SUCC 40 MG/1 ML VIAL IVPB SCH ×3 (01:36→17:28)
[2017-04-01] MEDS: FENTANYL INJECTION 500 MCG in DEXTROSE 5%-WATER - 90 ML IJ SCH ×2 (05:30→15:51)
[2017-04-01] MEDS: INSULIN SLIDING SCALE (NOVOLOG) 1 VIAL SQ SCH ×4 (06:00→22:21)
[2017-04-01 07:03] LABS: MCH 27.3 pg (25.7-33.7); MCHC 32.8 g/dl (32.0-35.9); MEAN CELL VOLUME 83.1 fl (80-96); MEAN PLT VOLUME 10.7 fl (7.5-11.1); RDW 22.7 % (11.9-15.9)
[2017-04-01 07:24] LABS: INR 1.16 (0.82-1.09); PROTHROMBIN TIME (PATIENT) 12.8 SEC (9.98-11.88)
[2017-04-01 07:27] LABS: WHITE BLOOD COUNT 1.6 K/mm3 (4.0-10.0)
[2017-04-01 07:28] LABS: PLATELET COUNT 20 K/MM3 (134-434)
[2017-04-01 07:32] LABS: ALK PHOS 220 U/L (45-117); ANION GAP 11 (8-16); BILIRUBIN,TOTAL 0.2 mg/dL (0.2-1.0); CALCIUM 7.5 mg/dL (8.5-10.1); CO2 27 mmol/L (21-32); CREATININE 2.2 mg/dL (0.7-1.3); GLUCOSE,RANDOM 201 mg/dL (74-106); MAGNESIUM 2.8 mg/dL (1.8-2.4); PHOSPHOROUS 4.3 mg/dL (2.5-4.9); SGOT/AST 55 U/L (15-37); SGPT/ALT 62 U/L (12-78); TOT PROT 3.4 g/dl (6.4-8.2)
[2017-04-01 07:34] LABS: ARTERIAL BLD GAS O2 SATURATION 91.1 % (90-98.9); ARTERIAL BLOOD GAS PO2 63.9 mmHg (80-100); ARTERIAL BLOOD GAS pH 7.35 (7.35-7.45)
[2017-04-01 07:35] LABS: ALLENS TEST POSITIVE; ARTERIAL BLOOD GAS BASE EXCESS -1.9 meq/l (-2-2)
[2017-04-01 07:36] LABS: ART PUNCT SITE RIGHT RADIAL; LPM/O2% 75%; MECH. VENT. ESPRIT; PT. ON O2? YES; TYPE OF O2 MEC.VENT; VENT RATE 18; VT/PRESS 400
--- NOTE | 2017-04-01 07:52 | CONSULT ---
Consult - text type - Consultation Consultation Note: Renal Consult for LEXI This is a 66 year old Gentleman with PMHx of Hypertension who presented with Fever and found to have + HIV and infiltrates/ground glass opacities on CXR consistent with PCP PNA with LEXI with Cr of 1.8. Pt is currently intubated and sedated and not able to provide history. Pt is non-oliguric and has a lopez in place. Has rectal tube with diarrhea. Pt is on IV Ganciclovir. No NSAID administration. No contrast exposure. No overt hypotension. PMhx: as above Allergies: NKDA Family Hx: unknown Social Hx: Unknown ROS: unable to obtain because of clinical status Home Medications Medication Instructions Recorded Amlodipine Besylate/Benazepril 1 each PO DAILY 02/20/17 [Lotrel 5-40 mg Capsule] Aspirin [Aspirin EC] 81 mg PO DAILY 02/20/17 Vital Signs Temperature 98 F 04/01/17 06:00 Pulse Rate 85 04/01/17 06:00 Respiratory Rate 23 04/01/17 06:35 Blood Pressure 141/71 04/01/17 06:00 O2 Sat by Pulse Oximetry (%) 96 03/31/17 22:00 Intake & Output 03/29/17 03/30/17 03/31/17 04/01/17 23:59 23:59 23:59 23:59 Intake Total 2028 2963 2763 600 Output Total 1400 1350 850 450 Balance 628 1613 1913 150 Weight 155 lb 10.342 oz 159 lb 1.6 oz 163 lb 6.4 oz 166 lb 11.2 oz Gen: NAD, sedated on vent HEENT: NC/AT, ET tube in place CVS: RRR, No M/R Lungs: Dec BS, no rales (anterior exam) Abd: Soft NT/ND ext: Trace edema, no clubbing or cyanosis : No bladder distension, lopez in place Neuro: Sedated CBC, BMP 04/01/17 05:00 Laboratory Tests 03/31/17 05:40 Sodium 135 L Potassium 4.0 Chloride 98 Carbon Dioxide 27 Anion Gap 10 BUN 68 H Creatinine 1.8 H Creat Clearance w eGFR 37.82 Calcium 7.5 L Albumin 0.8 L Current Medications Acetaminophen (Tylenol -) 650 mg PO Q6H PRN PRN Reason: FEVER OR PAIN Albuterol Sulfate (Ventolin Hfa Inhaler -) 2 puff IH Q4H PRN PRN Reason: SHORT OF BREATH/WHEEZING Amlodipine Besylate (Norvasc -) 5 mg PO DAILY [facility] Last Admin: 03/31/17 10:17 Dose: 5 mg Artificial Tears (Artificial Tears) 1 drop OU BID [facility] Last Admin: 03/31/17 22:35 Dose: 1 drop Chlorhexidine Gluconate (Peridex -) 15 ml MM BID [facility] Last Admin: 03/31/17 22:34 Dose: 15 ml Darunavir (Prezista) 800 mg PO DAILY [facility] Last Admin: 03/28/17 10:17 Dose: 800 mg Emtricitabine/Tenofovir (Truvada) 1 tab PO DAILY [facility] Last Admin: 03/31/17 10:17 Dose: 1 tab Guaifenesin (Robitussin -) 10 ml PO Q4H PRN Last Admin: 03/20/17 09:54 Dose: 10 ml Pantoprazole Sodium (Protonix 40mg Ivpb (Pre-Docked)) 100 mls @ 200 mls/hr IVPB DAILY [facility] Last Admin: 03/31/17 10:17 Dose: 200 mls/hr Fentanyl 500 mcg/ Dextrose 100 mls @ 5 mls/hr IJ TITR [facility] PRN Reason: 25 MCG/HR Last Admin: 04/01/17 05:30 Dose: 10 mls/hr Caspofungin 50 mg/ Sodium (Chloride) 250 mls @ 250 mls/hr IVPB DAILY [facility] Last Admin: 03/31/17 11:59 Dose: 250 mls/hr Midazolam HCl 100 mg/ Sodium (Chloride) 100 mls @ 1 mls/hr IVPB TITR [facility]; 1 MG/ HR PRN Reason: Protocol Last Admin: 03/31/17 22:33 Dose: Not Given Ganciclovir 200 mg/ Dextrose 100 mls @ 100 mls/hr IVPB BID [facility] Last Admin: 03/31/17 22:33 Dose: 100 mls/hr Pentamidine Isethionate 225 mg (/ Dextrose) 261.25 mls @ 261.25 mls/hr IVPB DAILY [facility] PRN Reason: Protocol Last Admin: 03/31/17 13:31 Dose: 261.25 mls/hr Insulin Aspart (Novolog Vial Sliding Scale -) 1 vial SQ ACHS [facility] PRN Reason: Protocol Last Admin: 04/01/17 06:00 Dose: 10 units Methylprednisolone Sodium Succinate (Solu-Medrol -) 40 mg IVPB Q8H-IV [facility] Last Admin: 04/01/17 01:36 Dose: 40 mg Midazolam HCl (Versed -) 2 mg IVPUSH Q2H PRN PRN Reason: AGITATION Last Admin: 04/01/17 01:00 Dose: 2 mg Ritonavir (Norvir Oral Solution -) 100 mg PO DAILY [facility] Last Admin: 03/31/17 10:18 Dose: 100 mg Tbo-Filgrastim (Granix -) 480 mcg SQ DAILY [facility] Last Admin: 03/31/17 15:04 Dose: 480 mcg A/P 66 year old Gentleman with PMHx of Hypertension who presented with Fever and found to have + HIV and infiltrates/ground glass opacities on CXR consistent with PCP PNA with LEXI with Cr of 1.8. #Non-oliguric Acute Kidney Injury Differential includes medication related injury (Tenofovir/Ganciclovir/Bactrium ) vs. renal hyoperfusion in setting of sepsis vs. AIN FeNa was 0.48% indicating preserved tubular function so less likely ATN from Tenofovir Check Urine Eios to r/o AIN Start IVF NS at 83cc per hour to improve profusion Trend BUN/Cr Keep MAP > 65 avoid contrast or other nephrotoxins dose all meds for Cr Cl less then 40 no hyperkalmeia, acidosis or overt fluid overload to necessitate [employer] #HIV infection continue ART as per ID #Sepsis/PCP PNA continue management as per ICU #CMV infection on anti-virals #Leukopenia/Thrombocytopenia likely from sepsis #Resp Failure Vent support ICU monitoring Thank you Will follow Fabien Shah DO
[2017-04-01 08:13] LABS: ALBUMIN 0.8 g/dl (3.4-5.0)
[2017-04-01] MEDS ORDERED: ALBUTEROL SO4 0.083% IH SOL 2.5 MG/3 ML VIAL.NEB. NEB ONE (09:00)
[2017-04-01] MEDS ORDERED: SODIUM CHLORIDE 1,000 ML IV SCH (09:15)
[2017-04-01] MEDS ORDERED: PT OWN MED DRAWER 7, Y5N ONE (10:22)
[2017-04-01] MEDS: RITONAVIR ORAL SOLUTION 80 MG/ML PO SCH (10:31)
[2017-04-01] MEDS: PANTOPRAZOLE SODIUM 100 ML IVPB SCH (10:31)
[2017-04-01] MEDS: ARTIFICIAL TEARS (POLYVINYL ALCOHOL 1.4%) OPTH DROPS OU SCH ×2 (10:31→22:21)
[2017-04-01] MEDS: DARUNAVIR ETHANOLATE 100 MG/ML BULK BOTTLE PO SCH (10:32)
[2017-04-01] MEDS: CASPOFUNGIN ACETATE 50 MG in SODIUM CHLORIDE 250 ML IVPB SCH (10:33)
[2017-04-01] MEDS: EMTRICITABINE 200MG/TENOFOVIR 300MG PO SCH (10:34)
[2017-04-01] MEDS: CHLORHEXIDINE GLUCONATE 0.12% 15ML CUP MM SCH ×2 (10:34→22:21)
[2017-04-01] MEDS: amLODIPine BESYLATE 5 MG TABLET (FP) PO SCH (10:34)
[2017-04-01] MEDS ORDERED: EMTRICITABINE 200MG/TENOFOVIR 300MG PO SCH (11:00)
--- NOTE | 2017-04-01 11:00 | PN ---
Progress Note (short form) - Note Progress Note: remains intubated and sedated now on FiO2 100% poor urine output Vital Signs Period Temp Pulse Resp BP Sys/De Oliveira Pulse Ox Last 24 Hr 98 F-98.4 F 66-90 101-143/52-80 96-96 cor-rrr lungs decreased bs at bases abd soft,nt ext +edema of the hands and arms no pedal edema CBC, BMP 04/01/17 05:00 04/01/17 05:00 Microbiology 03/29/17 05:35 Blood - Peripheral Venous Blood Culture - Preliminary NO GROWTH OBTAINED AFTER 72 HOURS, INCUBATION TO CONTINUE FOR 2 DAYS. 03/29/17 05:30 Blood - Peripheral Venous Blood Culture - Preliminary NO GROWTH OBTAINED AFTER 72 HOURS, INCUBATION TO CONTINUE FOR 2 DAYS. 03/27/17 20:05 Blood - Peripheral Venous Blood Culture - Final Staphylococcus Epidermidis Staphylococcus Epidermidis#2 03/27/17 20:00 Blood - Peripheral Venous Blood Culture - Final Staphylococcus Epidermidis Staphylococcus Epidermidis#2 Yeast Like Organism Laboratory Tests 03/14/17 03/16/17 03/31/17 11:15 11:00 05:40 Random Vancomycin 17.638 CMV DNA Quant PCR 11734 Pneumocyst carinii Smear Positive H 04/01/17 05:00 Random Vancomycin 16.366 CMV DNA Quant PCR Pneumocyst carinii Smear cxray bilateral infiltrates increased a/p AIDS with PCP/CMV continue art-dose adjusted for worsening renal failure continue pentamadine/cytovene day #9 induction/steroids bacteremia- staph epi and yeast cancidas day #3 on vancomycin by level hemodynamically stable suggest trial of diuresis leukopenia/thrombocytopenia worsening renal function- meds adjusted
--- NOTE | 2017-04-01 11:18 | PN ---
Progress Note (short form) - Note Progress Note: Patient seen and examined in the ICU. Remains intubated and sedated. AC mode : parameters 75% / PEEP 8. Lightly sedated. Eyes are open. No pressors. CXR: Increase in bilateral infiltrates Intake & Output 03/29/17 03/30/17 03/31/17 04/01/17 23:59 23:59 23:59 23:59 Intake Total 2028 2963 2763 600 Output Total 1400 1350 850 450 Balance 628 1613 1913 150 Weight 155 lb 10.342 oz 159 lb 1.6 oz 163 lb 6.4 oz 166 lb 11.2 oz Last Vital Signs Temp Pulse Resp BP Pulse Ox 98 F 84 18 132/72 96 04/01/17 06:00 04/01/17 10:00 04/01/17 10:00 04/01/17 10:00 03/31/17 22:00 Active Medications Acetaminophen (Tylenol -) 650 mg PO Q6H PRN PRN Reason: FEVER OR PAIN Albuterol Sulfate (Ventolin Hfa Inhaler -) 2 puff IH Q4H PRN PRN Reason: SHORT OF BREATH/WHEEZING Amlodipine Besylate (Norvasc -) 5 mg PO DAILY [facility] Last Admin: 04/01/17 10:34 Dose: 5 mg Artificial Tears (Artificial Tears) 1 drop OU BID [facility] Last Admin: 04/01/17 10:31 Dose: 1 drop Chlorhexidine Gluconate (Peridex -) 15 ml MM BID [facility] Last Admin: 04/01/17 10:34 Dose: 15 ml Darunavir (Prezista) 800 mg PO DAILY [facility] Last Admin: 04/01/17 10:32 Dose: 800 mg Emtricitabine/Tenofovir (Truvada) 1 tab PO Q2D [facility] Guaifenesin (Robitussin -) 10 ml PO Q4H PRN Last Admin: 03/20/17 09:54 Dose: 10 ml Pantoprazole Sodium (Protonix 40mg Ivpb (Pre-Docked)) 100 mls @ 200 mls/hr IVPB DAILY [facility] Last Admin: 04/01/17 10:31 Dose: 200 mls/hr Fentanyl 500 mcg/ Dextrose 100 mls @ 5 mls/hr IJ TITR [facility] PRN Reason: 25 MCG/HR Last Admin: 04/01/17 05:30 Dose: 10 mls/hr Caspofungin 50 mg/ Sodium (Chloride) 250 mls @ 250 mls/hr IVPB DAILY [facility] Last Admin: 04/01/17 10:33 Dose: 250 mls/hr Midazolam HCl 100 mg/ Sodium (Chloride) 100 mls @ 1 mls/hr IVPB TITR [facility]; 1 MG/ HR PRN Reason: Protocol Last Admin: 03/31/17 22:33 Dose: Not Given Ganciclovir 200 mg/ Dextrose 100 mls @ 100 mls/hr IVPB BID [facility] Last Admin: 03/31/17 22:33 Dose: 100 mls/hr Pentamidine Isethionate 225 mg (/ Dextrose) 261.25 mls @ 261.25 mls/hr IVPB DAILY [facility] PRN Reason: Protocol Last Admin: 03/31/17 13:31 Dose: 261.25 mls/hr Sodium Chloride (Normal Saline -) 1,000 mls @ 83 mls/hr IV ASDIR [facility] Last Admin: 04/01/17 10:32 Dose: 83 mls/hr Insulin Aspart (Novolog Vial Sliding Scale -) 1 vial SQ ACHS [facility] PRN Reason: Protocol Last Admin: 04/01/17 06:00 Dose: 10 units Methylprednisolone Sodium Succinate (Solu-Medrol -) 40 mg IVPB Q8H-IV [facility] Last Admin: 04/01/17 10:31 Dose: 40 mg Midazolam HCl (Versed -) 2 mg IVPUSH Q2H PRN PRN Reason: AGITATION Last Admin: 04/01/17 10:49 Dose: 2 mg Ritonavir (Norvir Oral Solution -) 100 mg PO DAILY [facility] Last Admin: 04/01/17 10:31 Dose: 100 mg Tbo-Filgrastim (Granix -) 480 mcg SQ DAILY [facility] Last Admin: 03/31/17 15:04 Dose: 480 mcg Gen: intubated, sedated Heart: RRR Lung: Bilateral rhonchi Abd: soft, nontender Ext: no edema Laboratory Results - last 24 hr 03/31/17 03/31/17 03/31/17 12:05 15:00 15:00 WBC RBC Hgb Hct MCV MCHC RDW Plt Count MPV INR Puncture Site ABG pH ABG pCO2 at Pt Temp ABG pO2 at Pt Temp ABG HCO3 ABG O2 Sat (Measured) ABG O2 Content ABG Base Excess Enrico Test O2 Delivery Device Oxygen Flow Rate Vent Mode Vent Rate Mechanical Rate PEEP Pressure Support Vent Sodium Potassium Chloride Carbon Dioxide Anion Gap BUN Creatinine Creat Clearance w eGFR POC Glucometer 204.75181 Random Glucose Calcium Phosphorus Magnesium Total Bilirubin AST ALT Alkaline Phosphatase Total Protein Albumin Urine Color Yellow Urine Appearance Cloudy Urine pH 5.0 Ur Specific [place] 1.015 Urine Protein 1+ H Urine Glucose (UA) 1+ H Urine Ketones Negative Urine Blood 2+ H Urine Nitrite Negative Urine Bilirubin Negative Urine Urobilinogen Negative Ur Leukocyte Esterase Negative Urine RBC 107 Urine WBC 18 Ur Epithelial Cells Rare Urine Bacteria Rare Urine Mucus Rare Urine Yeast Many U Random Total Protein Ur Random Sodium 9 Ur Random Urea Nitrogn Urine Creatinine Random Vancomycin 03/31/17 03/31/17 03/31/17 15:00 15:00 15:00 WBC RBC Hgb Hct MCV MCHC RDW Plt Count MPV INR Puncture Site ABG pH ABG pCO2 at Pt Temp ABG pO2 at Pt Temp ABG HCO3 ABG O2 Sat (Measured) ABG O2 Content ABG Base Excess Enrico Test O2 Delivery Device Oxygen Flow Rate Vent Mode Vent Rate Mechanical Rate PEEP Pressure Support Vent Sodium Potassium Chloride Carbon Dioxide Anion Gap BUN Creatinine Creat Clearance w eGFR POC Glucometer Random Glucose Calcium Phosphorus Magnesium Total Bilirubin AST ALT Alkaline Phosphatase Total Protein Albumin Urine Color Urine Appearance Urine pH Ur Specific [place] Urine Protein Urine Glucose (UA) Urine Ketones Urine Blood Urine Nitrite Urine Bilirubin Urine Urobilinogen Ur Leukocyte Esterase Urine RBC Urine WBC Ur Epithelial Cells Urine Bacteria Urine Mucus Urine Yeast U Random Total Protein 110 H Ur Random Sodium Ur Random Urea Nitrogn 628 Urine Creatinine 25.3 Random Vancomycin 03/31/17 03/31/17 04/01/17 17:27 22:39 05:00 WBC RBC Hgb Hct MCV MCHC RDW Plt Count MPV INR Puncture Site ABG pH ABG pCO2 at Pt Temp ABG pO2 at Pt Temp ABG HCO3 ABG O2 Sat (Measured) ABG O2 Content ABG Base Excess Enrico Test O2 Delivery Device Oxygen Flow Rate Vent Mode Vent Rate Mechanical Rate PEEP Pressure Support Vent Sodium Potassium Chloride Carbon Dioxide Anion Gap BUN Creatinine Creat Clearance w eGFR POC Glucometer 194.29539 188.85960 Random Glucose Calcium Phosphorus Magnesium Total Bilirubin AST ALT Alkaline Phosphatase Total Protein Albumin Urine Color Urine Appearance Urine pH Ur Specific [place] Urine Protein Urine Glucose (UA) Urine Ketones Urine Blood Urine Nitrite Urine Bilirubin Urine Urobilinogen Ur Leukocyte Esterase Urine RBC Urine WBC Ur Epithelial Cells Urine Bacteria Urine Mucus Urine Yeast U Random Total Protein Ur Random Sodium Ur Random Urea Nitrogn Urine Creatinine Random Vancomycin 16.366 04/01/17 04/01/17 04/01/17 05:00 05:00 05:00 WBC 1.6 L* RBC 2.91 L Hgb 7.9 L Hct 24.2 L MCV 83.1 MCHC 32.8 RDW 22.7 H Plt Count 20 L* D MPV 10.7 D INR 1.16 H Puncture Site ABG pH ABG pCO2 at Pt Temp ABG pO2 at Pt Temp ABG HCO3 ABG O2 Sat (Measured) ABG O2 Content ABG Base Excess Enrico Test O2 Delivery Device Oxygen Flow Rate Vent Mode Vent Rate Mechanical Rate PEEP Pressure Support Vent Sodium 135 L Potassium 4.2 Chloride 97 L Carbon Dioxide 27 Anion Gap 11 BUN 78 H Creatinine 2.2 H D Creat Clearance w eGFR 30.00 POC Glucometer Random Glucose 201 H D Calcium 7.5 L Phosphorus 4.3 D Magnesium 2.8 H Total Bilirubin 0.2 D AST 55 H ALT 62 Alkaline Phosphatase 220 H D Total Protein 3.4 L Albumin 0.8 L Urine Color Urine Appearance Urine pH Ur Specific [place] Urine Protein Urine Glucose (UA) Urine Ketones Urine Blood Urine Nitrite Urine Bilirubin Urine Urobilinogen Ur Leukocyte Esterase Urine RBC Urine WBC Ur Epithelial Cells Urine Bacteria Urine Mucus Urine Yeast U Random Total Protein Ur Random Sodium Ur Random Urea Nitrogn Urine Creatinine Random Vancomycin 04/01/17 04/01/17 05:57 07:20 WBC RBC Hgb Hct MCV MCHC RDW Plt Count MPV INR Puncture Site Right radial ABG pH 7.35 ABG pCO2 at Pt Temp 42.5 ABG pO2 at Pt Temp 63.9 L D ABG HCO3 23.0 ABG O2 Sat (Measured) 91.1 ABG O2 Content 10.4 L ABG Base Excess -1.9 Enrico Test Positive O2 Delivery Device Mec.vent Oxygen Flow Rate 75% Vent Mode A/c Vent Rate 18 Mechanical Rate Esprit PEEP 8.0 Pressure Support Vent 400 Sodium Potassium Chloride Carbon Dioxide Anion Gap BUN Creatinine Creat Clearance w eGFR POC Glucometer 222.22822 Random Glucose Calcium Phosphorus Magnesium Total Bilirubin AST ALT Alkaline Phosphatase Total Protein Albumin Urine Color Urine Appearance Urine pH Ur Specific [place] Urine Protein Urine Glucose (UA) Urine Ketones Urine Blood Urine Nitrite Urine Bilirubin Urine Urobilinogen Ur Leukocyte Esterase Urine RBC Urine WBC Ur Epithelial Cells Urine Bacteria Urine Mucus Urine Yeast U Random Total Protein Ur Random Sodium Ur Random Urea Nitrogn Urine Creatinine Random Vancomycin ASSESSMENT AND PLAN: Acute Hypoxic Respiratory Failure ARDS AIDS/HIV Pneumocystis Pneumonia DM Suspected IRIS GM (+) Bacteremia Fungemia Acute anemia LEXI Problem List - Problems (1) Bilateral pneumonia Code(s): J18.9 - PNEUMONIA, UNSPECIFIED ORGANISM Qualifiers: 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 - Lung protective ventilation : wean FiO2 : Ideally I want to leave PEEP around 8 : HIGH RISK FOR PTX - Antibiotic coverage per ID - ART - Medrol at current dose - Taper Fio2 to keep SpO2 >90% - Daily sedation vacations to assess mental status - Enteral feeds - glucose control - DVT/GI prophylaxis - Renal evaluation noted - Trial of Lasix today Dr Cazares Critical care time spent in reviewing chart, evaluating patient and formulating plan 40 min Problem List - Problems (1) Bilateral pneumonia Code(s): J18.9 - PNEUMONIA, UNSPECIFIED ORGANISM Qualifiers: 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
[2017-04-01] MEDS ORDERED: FUROSEMIDE 40 MG/4 ML INJECTABLE VIAL IVPUSH ONE (11:25)
[2017-04-01] MEDS: PENTAMIDINE ISETHIONATE IVPB SCH (12:19)
[2017-04-01] MEDS: WATER IVPB SCH ×3 (12:19→22:20)
[2017-04-01] MEDS: GANCICLOVIR IVPB SCH ×2 (12:19→22:20)
[2017-04-01] MEDS: DEXTROSE 5% IVPB SCH ×3 (12:19→22:20)
[2017-04-01] MEDS ORDERED: FUROSEMIDE 40 MG/4 ML INJECTABLE VIAL ONE (15:42)
[2017-04-01] MEDS: TBO-FILGRASTIM 480 MCG/0.8 ML DISP.SYRIN SQ SCH (17:28)
--- NOTE | 2017-04-01 17:43 | PN ---
Progress Note, Physician Chief Complaint: Patient Remained critically sick, worsening pancytopenia now stable Granix, LEXI , intubated sedated, still respiratory status is poor required Vent, History of Present Illness: 66 yrs old man admitted with recurrent pneumonia, developed respiratory failure , w/u revealed HIV with AIDs and PCP pneumonia, intubated on treatment of PCP/ CMV pneumonia. and HIV. remained critically sick with respiratory failure developed pancytopeia.on PCP, Vanco and NRSA coverage, - Current Medication List Current Medications: Active Medications Acetaminophen (Tylenol -) 650 mg PO Q6H PRN PRN Reason: FEVER OR PAIN Albuterol Sulfate (Ventolin Hfa Inhaler -) 2 puff IH Q4H PRN PRN Reason: SHORT OF BREATH/WHEEZING Amlodipine Besylate (Norvasc -) 5 mg PO DAILY [facility] Last Admin: 04/01/17 10:34 Dose: 5 mg Artificial Tears (Artificial Tears) 1 drop OU BID [facility] Last Admin: 04/01/17 10:31 Dose: 1 drop Chlorhexidine Gluconate (Peridex -) 15 ml MM BID [facility] Last Admin: 04/01/17 10:34 Dose: 15 ml Darunavir (Prezista) 800 mg PO DAILY [facility] Last Admin: 04/01/17 10:32 Dose: 800 mg Emtricitabine/Tenofovir (Truvada) 1 tab PO Q2D [facility] Last Admin: 04/01/17 16:15 Dose: 1 tab Guaifenesin (Robitussin -) 10 ml PO Q4H PRN Last Admin: 03/20/17 09:54 Dose: 10 ml Pantoprazole Sodium (Protonix 40mg Ivpb (Pre-Docked)) 100 mls @ 200 mls/hr IVPB DAILY [facility] Last Admin: 04/01/17 10:31 Dose: 200 mls/hr Fentanyl 500 mcg/ Dextrose 100 mls @ 5 mls/hr IJ TITR [facility] PRN Reason: 25 MCG/HR Last Admin: 04/01/17 15:51 Dose: 10 mls/hr Caspofungin 50 mg/ Sodium (Chloride) 250 mls @ 250 mls/hr IVPB DAILY [facility] Last Admin: 04/01/17 10:33 Dose: 250 mls/hr Midazolam HCl 100 mg/ Sodium (Chloride) 100 mls @ 1 mls/hr IVPB TITR [facility]; 1 MG/ HR PRN Reason: Protocol Last Admin: 03/31/17 22:33 Dose: Not Given Ganciclovir 200 mg/ Dextrose 100 mls @ 100 mls/hr IVPB BID [facility] Last Admin: 04/01/17 12:19 Dose: 100 mls/hr Pentamidine Isethionate 225 mg (/ Dextrose) 261.25 mls @ 261.25 mls/hr IVPB DAILY [facility] PRN Reason: Protocol Last Admin: 04/01/17 12:19 Dose: 261.25 mls/hr Insulin Aspart (Novolog Vial Sliding Scale -) 1 vial SQ ACHS [facility] PRN Reason: Protocol Last Admin: 04/01/17 17:37 Dose: 15 units Methylprednisolone Sodium Succinate (Solu-Medrol -) 40 mg IVPB Q8H-IV [facility] Last Admin: 04/01/17 17:28 Dose: 40 mg Midazolam HCl (Versed -) 2 mg IVPUSH Q2H PRN PRN Reason: AGITATION Last Admin: 04/01/17 10:49 Dose: 2 mg Ritonavir (Norvir Oral Solution -) 100 mg PO DAILY [facility] Last Admin: 04/01/17 10:31 Dose: 100 mg Tbo-Filgrastim (Granix -) 480 mcg SQ DAILY [facility] Last Admin: 04/01/17 17:28 Dose: 480 mcg - Objective Vital Signs: Vital Signs Temperature 97.8 F 04/01/17 14:00 Pulse Rate 80 04/01/17 16:00 Respiratory Rate 21 04/01/17 16:38 Blood Pressure 126/64 04/01/17 16:00 O2 Sat by Pulse Oximetry (%) 94 L 04/01/17 09:00 P Examination: Elderly man Sedated, intubated, HEENT: ET and oral feeding tube at place. NECK; Rt IJ at laceNo JVD No Bruit CHEST: B/L Crepts and decrease AE at bases CVS; S1S2 R, no m/g/r ABD: No distention, non tender Bs +, rectal tube at place EXT: +edema feet, no calf tenderness, Pulses + Labs: CBC, BMP 04/01/17 05:00 04/01/17 05:00 INR, PTT INR 1.16 (0.82-1.09) H 04/01/17 05:00 Fibrinogen 655.0 mg/dL (238-498) H 03/31/17 05:40 Problem List - Problems (1) Respiratory failure Assessment/Plan: Due to Interstitial pneumonia, CMV, fungus and TB -ve, PCP + on Pentamidine and IV steroids and CMV treatment ,add vancomycin and capsofungin no improvement in respiratory status, Ventilator management as critical care. Code(s): J96.90 - RESPIRATORY FAILURE, UNSP, UNSP W HYPOXIA OR HYPERCAPNIA Qualifiers: Chronicity: acute Respiratory failure complication: hypoxia and hypercapnia Qualified Code(s): J96.01 - Acute respiratory failure with hypoxia (2) AIDS Assessment/Plan: Newly diagnosed AID CD4 C on HAART, worsening renal functions and worsening Pancytopenia, either drug toxicity or IRS ??, Close monitoring of renal function sand CBC. Code(s): B20 - HUMAN IMMUNODEFICIENCY VIRUS [HIV] DISEASE (3) Pneumocystis carinii pneumonia Assessment/Plan: Sever with respiratory failure Dc Bactrim switched to Pentamidine due to pancytopenia, , and IV Methyl Predinisone Code(s): B59 - PNEUMOCYSTOSIS (4) Diabetes Assessment/Plan: Steroid induced, optimize Glycemic control.sa per critical care team. Code(s): E11.9 - TYPE 2 DIABETES MELLITUS WITHOUT COMPLICATIONS (5) HTN (hypertension) Assessment/Plan: Well controlled Code(s): I10 - ESSENTIAL (PRIMARY) HYPERTENSION (6) Pancytopenia Assessment/Plan: Drug induced, disease process or Immune reconstitution syndrome, persistent thrombocyropenia, Neutropenia and anemia are worsening.hematology input appreciated. stable on Granix Code(s): D61.818 - OTHER PANCYTOPENIA (7) LEXI (acute kidney injury) Assessment/Plan: Can be due to Bactrim or IRS F/u Renal function, GFR 30 poor urine out put renal input appreciated. Code(s): N17.9 - ACUTE KIDNEY FAILURE, UNSPECIFIED (8) CMV pneumonia Assessment/Plan: On ganciclovir for CMV Pneumonitis ?. Code(s): B25.0 - CYTOMEGALOVIRAL PNEUMONITIS (9) Severe malnutrition Assessment/Plan: Low albumin , sever malnutrition cont nutritional support
[2017-04-02] MEDS: methylPREDNISolone NA SUCC 40 MG/1 ML VIAL IVPB SCH ×3 (01:37→21:23)
[2017-04-02] MEDS: MIDAZOLAM HCL 2 MG/2 ML SINGLE DOSE VIAL IVPUSH PRN ×2 (01:37→05:39)
[2017-04-02] MEDS: FENTANYL INJECTION 500 MCG in DEXTROSE 5%-WATER - 90 ML IJ SCH ×2 (02:55→14:19)
[2017-04-02] MEDS: INSULIN SLIDING SCALE (NOVOLOG) 1 VIAL SQ SCH ×4 (06:01→21:27)
[2017-04-02 06:35] LABS: MCH 26.9 pg (25.7-33.7); MEAN CELL VOLUME 84.1 fl (80-96); MEAN PLT VOLUME 11.3 fl (7.5-11.1); RDW 23.6 % (11.9-15.9)
[2017-04-02 07:09] LABS: ALK PHOS 206 U/L (45-117); ANION GAP 8 (8-16); BILIRUBIN,TOTAL 0.2 mg/dL (0.2-1.0); CALCIUM 7.6 mg/dL (8.5-10.1); CO2 30 mmol/L (21-32); CREATININE 2.6 mg/dL (0.7-1.3); GLUCOSE,RANDOM 145 mg/dL (74-106); PHOSPHOROUS 4.6 mg/dL (2.5-4.9); SGOT/AST 48 U/L (15-37); SGPT/ALT 55 U/L (12-78)
[2017-04-02 07:10] LABS: TOT PROT 3.2 g/dl (6.4-8.2)
[2017-04-02 07:19] LABS: PLATELET COUNT 19 K/MM3 (134-434); WHITE BLOOD COUNT 1.6 K/mm3 (4.0-10.0)
[2017-04-02 07:31] LABS: ALBUMIN 0.8 g/dl (3.4-5.0)
--- NOTE | 2017-04-02 07:39 | PN ---
Progress Note, Physician Chief Complaint: ID NOT much change in the critical end of life clinical status Remains hypoxemic Pentam Cytovene Vancomycin Cancidas Steroids - Current Medication List Current Medications: Active Medications Acetaminophen (Tylenol -) 650 mg PO Q6H PRN PRN Reason: FEVER OR PAIN Albuterol Sulfate (Ventolin Hfa Inhaler -) 2 puff IH Q4H PRN PRN Reason: SHORT OF BREATH/WHEEZING Amlodipine Besylate (Norvasc -) 5 mg PO DAILY [facility] Last Admin: 04/01/17 10:34 Dose: 5 mg Artificial Tears (Artificial Tears) 1 drop OU BID [facility] Last Admin: 04/01/17 22:21 Dose: 1 drop Chlorhexidine Gluconate (Peridex -) 15 ml MM BID [facility] Last Admin: 04/01/17 22:21 Dose: 15 ml Darunavir (Prezista) 800 mg PO DAILY [facility] Last Admin: 04/01/17 10:32 Dose: 800 mg Emtricitabine/Tenofovir (Truvada) 1 tab PO Q2D [facility] Last Admin: 04/01/17 16:15 Dose: 1 tab Guaifenesin (Robitussin -) 10 ml PO Q4H PRN Last Admin: 03/20/17 09:54 Dose: 10 ml Pantoprazole Sodium (Protonix 40mg Ivpb (Pre-Docked)) 100 mls @ 200 mls/hr IVPB DAILY [facility] Last Admin: 04/01/17 10:31 Dose: 200 mls/hr Fentanyl 500 mcg/ Dextrose 100 mls @ 5 mls/hr IJ TITR [facility] PRN Reason: 25 MCG/HR Last Admin: 04/02/17 02:55 Dose: 10 mls/hr Caspofungin 50 mg/ Sodium (Chloride) 250 mls @ 250 mls/hr IVPB DAILY [facility] Last Admin: 04/01/17 10:33 Dose: 250 mls/hr Midazolam HCl 100 mg/ Sodium (Chloride) 100 mls @ 1 mls/hr IVPB TITR [facility]; 1 MG/ HR PRN Reason: Protocol Last Admin: 03/31/17 22:33 Dose: Not Given Ganciclovir 200 mg/ Dextrose 100 mls @ 100 mls/hr IVPB BID [facility] Last Admin: 04/01/17 22:20 Dose: 100 mls/hr Pentamidine Isethionate 225 mg (/ Dextrose) 261.25 mls @ 261.25 mls/hr IVPB DAILY [facility] PRN Reason: Protocol Last Admin: 04/01/17 12:19 Dose: 261.25 mls/hr Insulin Aspart (Novolog Vial Sliding Scale -) 1 vial SQ ACHS [facility] PRN Reason: Protocol Last Admin: 04/02/17 06:01 Dose: 5 units Methylprednisolone Sodium Succinate (Solu-Medrol -) 40 mg IVPB Q8H-IV [facility] Last Admin: 04/02/17 01:37 Dose: 40 mg Midazolam HCl (Versed -) 2 mg IVPUSH Q2H PRN PRN Reason: AGITATION Last Admin: 04/02/17 05:39 Dose: 2 mg Ritonavir (Norvir Oral Solution -) 100 mg PO DAILY [facility] Last Admin: 04/01/17 10:31 Dose: 100 mg Tbo-Filgrastim (Granix -) 480 mcg SQ DAILY [facility] Last Admin: 04/01/17 17:28 Dose: 480 mcg - Objective Vital Signs: Vital Signs Temperature 97 F L 04/02/17 06:00 Pulse Rate 73 04/02/17 06:00 Respiratory Rate 20 04/02/17 07:08 Blood Pressure 125/64 04/02/17 06:00 O2 Sat by Pulse Oximetry (%) 100 04/01/17 21:59 Constitutional: Yes: Other (Intubated) Cardiovascular: Yes: S1, S2 Respiratory: Yes: WNL, Regular, CTA Bilaterally, Rhonchi Gastrointestinal: Yes: Soft Edema: Yes Labs: CBC, BMP 04/02/17 05:20 INR, PTT INR 1.16 (0.82-1.09) H 04/01/17 05:00 Fibrinogen 655.0 mg/dL (238-498) H 03/31/17 05:40 Problem List - Problems (1) AIDS Code(s): B20 - HUMAN IMMUNODEFICIENCY VIRUS [HIV] DISEASE (2) Interstitial pneumonitis Code(s): J84.89 - OTHER SPECIFIED INTERSTITIAL PULMONARY DISEASES (3) Diabetes Code(s): E11.9 - TYPE 2 DIABETES MELLITUS WITHOUT COMPLICATIONS Assessment/Plan Microbiology 03/27/17 20:05 Blood - Peripheral Venous Blood Culture - Final Staphylococcus Epidermidis Staphylococcus Epidermidis#2 03/27/17 20:00 Blood - Peripheral Venous Blood Culture - Final Staphylococcus Epidermidis Staphylococcus Epidermidis#2 Yeast Like Organism 03/27/17 18:30 Sputum - Endotrachea Suction/Ventilator Gram Stain - Final 03/27/17 18:30 Sputum - Endotrachea Suction/Ventilator Sputum Culture - Final Yeast Like Organism 03/29/17 05:35 Blood - Peripheral Venous Blood Culture - Preliminary NO GROWTH OBTAINED AFTER 96 HOURS, INCUBATION TO CONTINUE FOR 1 DAYS. 03/29/17 05:30 Blood - Peripheral Venous Blood Culture - Preliminary NO GROWTH OBTAINED AFTER 96 HOURS, INCUBATION TO CONTINUE FOR 1 DAYS. 03/27/17 20:00 Blood - Peripheral Venous Yeast/Fungus Identification - Preliminary Laboratory Tests 03/15/17 04/01/17 04/02/17 08:00 05:00 05:20 WBC 1.6 L* Hgb 6.9 L* D Hct 21.4 L Plt Count 19 L* BUN Creatinine Creat Clearance w eGFR Random Vancomycin 16.366 Absolute CD4 [place] 5 L 04/02/17 05:20 WBC Hgb Hct Plt Count BUN 108 H* D Creatinine 2.6 H Creat Clearance w eGFR 24.74 Random Vancomycin Absolute CD4 [place] Assessment AIDS Multiorgan failure CMV pneumonitis Pneumocystitis treated DM Pancytopenia drug induced Polymicrobial bacteremia Fungemia Plan Stop Pentam Lower steroids Reduce dose steroids Daily Bactrim HIV meds Nuno Reina MD
[2017-04-02 07:48] LABS: ARTERIAL BLOOD GAS PO2 77.8 mmHg (80-100); ARTERIAL BLOOD GAS pH 7.33 (7.35-7.45)
[2017-04-02 07:49] LABS: ALLENS TEST POSITIVE; ART PUNCT SITE RIGHT RADIAL; ARTERIAL BLD GAS O2 SATURATION 94.6 % (90-98.9); ARTERIAL BLOOD GAS BASE EXCESS -1.7 meq/l (-2-2); ARTERIAL BLOOD GAS HCO3 23.6 meq/L (22-26); LPM/O2% 100%; MECH. VENT. Y; PT. ON O2? YES; TYPE OF O2 VENT; VENT RATE 18; VT/PRESS 400
[2017-04-02 08:12] LABS: METAMYELOCYTE 2 % (0-2); PLATELET ESTIMATE MARKEDLY DECREASED (NORMAL)
[2017-04-02 08:13] LABS: ANISOCYTOSIS 1+; HYPOCHROMIA 2+; POIKILOCYTOSIS 1+; TARGET CELLS FEW
--- NOTE | 2017-04-02 09:07 | PN ---
Progress Note, Physician Chief Complaint: No changes,DNR History of Present Illness: On respirator HIV and PCP pneumonia - Current Medication List Current Medications: Active Medications Acetaminophen (Tylenol -) 650 mg PO Q6H PRN PRN Reason: FEVER OR PAIN Albuterol Sulfate (Ventolin Hfa Inhaler -) 2 puff IH Q4H PRN PRN Reason: SHORT OF BREATH/WHEEZING Amlodipine Besylate (Norvasc -) 5 mg PO DAILY [facility] Last Admin: 04/01/17 10:34 Dose: 5 mg Artificial Tears (Artificial Tears) 1 drop OU BID [facility] Last Admin: 04/01/17 22:21 Dose: 1 drop Chlorhexidine Gluconate (Peridex -) 15 ml MM BID [facility] Last Admin: 04/01/17 22:21 Dose: 15 ml Darunavir (Prezista) 800 mg PO DAILY [facility] Last Admin: 04/01/17 10:32 Dose: 800 mg Emtricitabine/Tenofovir (Truvada) 1 tab PO Q2D [facility] Last Admin: 04/01/17 16:15 Dose: 1 tab Guaifenesin (Robitussin -) 10 ml PO Q4H PRN Last Admin: 03/20/17 09:54 Dose: 10 ml Pantoprazole Sodium (Protonix 40mg Ivpb (Pre-Docked)) 100 mls @ 200 mls/hr IVPB DAILY [facility] Last Admin: 04/01/17 10:31 Dose: 200 mls/hr Fentanyl 500 mcg/ Dextrose 100 mls @ 5 mls/hr IJ TITR [facility] PRN Reason: 25 MCG/HR Last Admin: 04/02/17 02:55 Dose: 10 mls/hr Caspofungin 50 mg/ Sodium (Chloride) 250 mls @ 250 mls/hr IVPB DAILY [facility] Last Admin: 04/01/17 10:33 Dose: 250 mls/hr Midazolam HCl 100 mg/ Sodium (Chloride) 100 mls @ 1 mls/hr IVPB TITR [facility]; 1 MG/ HR PRN Reason: Protocol Last Admin: 03/31/17 22:33 Dose: Not Given Ganciclovir 200 mg/ Dextrose 100 mls @ 100 mls/hr IVPB DAILY [facility] Insulin Aspart (Novolog Vial Sliding Scale -) 1 vial SQ ACHS [facility] PRN Reason: Protocol Last Admin: 04/02/17 06:01 Dose: 5 units Methylprednisolone Sodium Succinate (Solu-Medrol -) 40 mg IVPB BID [facility] Midazolam HCl (Versed -) 2 mg IVPUSH Q2H PRN PRN Reason: AGITATION Last Admin: 04/02/17 05:39 Dose: 2 mg Ritonavir (Norvir Oral Solution -) 100 mg PO DAILY [facility] Last Admin: 04/01/17 10:31 Dose: 100 mg Tbo-Filgrastim (Granix -) 480 mcg SQ DAILY [facility] Last Admin: 04/01/17 17:28 Dose: 480 mcg Trimethoprim/Sulfamethoxazole (Bactrim Oral Suspension -) 80 mg PO DAILY [facility] - Objective Vital Signs: Vital Signs Temperature 97 F L 04/02/17 06:00 Pulse Rate 73 04/02/17 06:00 Respiratory Rate 20 04/02/17 07:08 Blood Pressure 125/64 04/02/17 06:00 O2 Sat by Pulse Oximetry (%) 100 04/01/17 21:59 Constitutional: Yes: Mild Distress Eyes: Yes: WNL HENT: Yes: WNL Neck: Yes: WNL Respiratory: Yes: Mechanically Ventilated Gastrointestinal: Yes: Soft ...Rectal Exam: Yes: Deferred Genitourinary: Yes: [place] Present Peripheral Pulses WNL: Yes Neurological: Yes: Other (comatosed) Labs: CBC, BMP 04/02/17 05:20 04/02/17 05:20 INR, PTT INR 1.16 (0.82-1.09) H 04/01/17 05:00 Fibrinogen 655.0 mg/dL (238-498) H 03/31/17 05:40 Assessment/Plan continue same trt
--- NOTE | 2017-04-02 09:36 | PN ---
Progress Note, Physician Chief Complaint: This is a 66 year old Gentleman with PMHx of Hypertension who presented with Fever and found to have + HIV and infiltrates/ground glass opacities on CXR consistent with PCP PNA with LXEI with Cr of 1.8. Pt is currently intubated and sedated and not able to provide history. Pt is non-oliguric and has a lopez in place. Has rectal tube with diarrhea. Pt is on IV Ganciclovir. BP fairly stable. - Current Medication List Current Medications: Active Medications Acetaminophen (Tylenol -) 650 mg PO Q6H PRN PRN Reason: FEVER OR PAIN Albuterol Sulfate (Ventolin Hfa Inhaler -) 2 puff IH Q4H PRN PRN Reason: SHORT OF BREATH/WHEEZING Amlodipine Besylate (Norvasc -) 5 mg PO DAILY [facility] Last Admin: 04/01/17 10:34 Dose: 5 mg Artificial Tears (Artificial Tears) 1 drop OU BID [facility] Last Admin: 04/01/17 22:21 Dose: 1 drop Chlorhexidine Gluconate (Peridex -) 15 ml MM BID [facility] Last Admin: 04/01/17 22:21 Dose: 15 ml Darunavir (Prezista) 800 mg PO DAILY [facility] Last Admin: 04/01/17 10:32 Dose: 800 mg Emtricitabine/Tenofovir (Truvada) 1 tab PO Q2D [facility] Last Admin: 04/01/17 16:15 Dose: 1 tab Guaifenesin (Robitussin -) 10 ml PO Q4H PRN Last Admin: 03/20/17 09:54 Dose: 10 ml Pantoprazole Sodium (Protonix 40mg Ivpb (Pre-Docked)) 100 mls @ 200 mls/hr IVPB DAILY [facility] Last Admin: 04/01/17 10:31 Dose: 200 mls/hr Fentanyl 500 mcg/ Dextrose 100 mls @ 5 mls/hr IJ TITR [facility] PRN Reason: 25 MCG/HR Last Admin: 04/02/17 02:55 Dose: 10 mls/hr Caspofungin 50 mg/ Sodium (Chloride) 250 mls @ 250 mls/hr IVPB DAILY [facility] Last Admin: 04/01/17 10:33 Dose: 250 mls/hr Midazolam HCl 100 mg/ Sodium (Chloride) 100 mls @ 1 mls/hr IVPB TITR [facility]; 1 MG/ HR PRN Reason: Protocol Last Admin: 03/31/17 22:33 Dose: Not Given Ganciclovir 200 mg/ Dextrose 100 mls @ 100 mls/hr IVPB DAILY [facility] Insulin Aspart (Novolog Vial Sliding Scale -) 1 vial SQ ACHS [facility] PRN Reason: Protocol Last Admin: 04/02/17 06:01 Dose: 5 units Methylprednisolone Sodium Succinate (Solu-Medrol -) 40 mg IVPB BID [facility] Midazolam HCl (Versed -) 2 mg IVPUSH Q2H PRN PRN Reason: AGITATION Last Admin: 04/02/17 05:39 Dose: 2 mg Ritonavir (Norvir Oral Solution -) 100 mg PO DAILY [facility] Last Admin: 04/01/17 10:31 Dose: 100 mg Tbo-Filgrastim (Granix -) 480 mcg SQ DAILY [facility] Last Admin: 04/01/17 17:28 Dose: 480 mcg Trimethoprim/Sulfamethoxazole (Bactrim Oral Suspension -) 80 mg PO DAILY [facility] - Objective Vital Signs: Vital Signs Temperature 97 F L 04/02/17 06:00 Pulse Rate 73 04/02/17 06:00 Respiratory Rate 20 04/02/17 07:08 Blood Pressure 125/64 04/02/17 06:00 O2 Sat by Pulse Oximetry (%) 100 04/01/17 21:59 Constitutional: Yes: Diaphoresis, Severe Distress Neck: Yes: Trachea Midline Cardiovascular: Yes: S1, S2 Respiratory: Yes: Mechanically Ventilated, Rales, Rhonchi Gastrointestinal: Yes: Normal Bowel Sounds Genitourinary: Yes: Incontinence Labs: CBC, BMP 04/02/17 05:20 04/02/17 05:20 INR, PTT INR 1.16 (0.82-1.09) H 04/01/17 05:00 Fibrinogen 655.0 mg/dL (238-498) H 03/31/17 05:40 Problem List - Problems (1) AIDS Code(s): B20 - HUMAN IMMUNODEFICIENCY VIRUS [HIV] DISEASE (2) LEXI (acute kidney injury) Code(s): N17.9 - ACUTE KIDNEY FAILURE, UNSPECIFIED (3) Bilateral pneumonia Code(s): J18.9 - PNEUMONIA, UNSPECIFIED ORGANISM Qualifiers: 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 (4) Interstitial pneumonitis Code(s): J84.89 - OTHER SPECIFIED INTERSTITIAL PULMONARY DISEASES (5) Pancytopenia Code(s): D61.818 - OTHER PANCYTOPENIA (6) Pneumocystis carinii pneumonia Code(s): B59 - PNEUMOCYSTOSIS (7) Respiratory failure Code(s): J96.90 - RESPIRATORY FAILURE, UNSP, UNSP W HYPOXIA OR HYPERCAPNIA Qualifiers: Chronicity: acute Respiratory failure complication: hypoxia and hypercapnia Qualified Code(s): J96.01 - Acute respiratory failure with hypoxia (8) Severe malnutrition Code(s): E43 - UNSPECIFIED SEVERE PROTEIN-CALORIE MALNUTRITION Assessment/Plan This is a 66 year old Gentleman with PMHx of Hypertension who presented with Fever and found to have + HIV and infiltrates/ground glass opacities on CXR consistent with PCP PNA. LEXI with Cr of 2.6. Pt is currently intubated and sedated.He is non-oliguric and a lopez in place. Has rectal tube with diarrhea. Pt is on IV Ganciclovir. The LEXI is maintained by the profound Hemodynamic instability associated with his infectious process, Changes in renal hemodynamics associated with sepsis. The patient has HIV, and is pancytopenic, Septic, in respiratory failure, Renal failure and with very minimal expectation of significant improvement. He is DNR. Will follow with you. Kristi Bronson MD
[2017-04-02] MEDS ORDERED: PT OWN MED DRAWER 7, Y5N ONE (09:57)
[2017-04-02] MEDS: PANTOPRAZOLE SODIUM 100 ML IVPB SCH (10:16)
[2017-04-02] MEDS: CHLORHEXIDINE GLUCONATE 0.12% 15ML CUP MM SCH ×2 (10:16→21:23)
[2017-04-02] MEDS: CASPOFUNGIN ACETATE 50 MG in SODIUM CHLORIDE 250 ML IVPB SCH (10:16)
[2017-04-02] MEDS: amLODIPine BESYLATE 5 MG TABLET (FP) PO SCH (10:17)
[2017-04-02] MEDS: RITONAVIR ORAL SOLUTION 80 MG/ML PO SCH (10:17)
[2017-04-02] MEDS: DARUNAVIR ETHANOLATE 100 MG/ML BULK BOTTLE PO SCH (10:18)
[2017-04-02] MEDS: TMP PO SCH (10:45)
[2017-04-02] MEDS: SULFAMETHOXAZOLE PO SCH (10:45)
[2017-04-02] MEDS: GANCICLOVIR IVPB SCH (11:34)
[2017-04-02] MEDS: DEXTROSE 5% IVPB SCH (11:34)
[2017-04-02] MEDS: WATER IVPB SCH (11:34)
--- NOTE | 2017-04-02 12:37 | PN ---
Teaching Attending Note Name of Resident: Bessy Eaton ATTENDING PHYSICIAN STATEMENT I saw and evaluated the patient. I reviewed the resident's note and discussed the case with the resident. I agree with the resident's findings and plan as documented. SUBJECTIVE: Pt seen and examined in the ICU. Remains intubated, sedated. Now hypoxic even on 100% FiO2 PEEP 10, family at bedside. OBJECTIVE: Last Vital Signs Temp Pulse Resp BP Pulse Ox 98.1 F 75 18 117/61 97 04/02/17 10:00 04/02/17 12:00 04/02/17 12:00 04/02/17 12:00 04/02/17 11:28 Intake & Output 03/30/17 03/31/17 04/01/17 04/02/17 23:59 23:59 23:59 23:59 Intake Total 2963 2763 2600 525 Output Total 4057 898 8456 150 Balance 1613 1913 1200 375 Weight 159 lb 1.6 oz 163 lb 6.4 oz 166 lb 11.2 oz 168 lb 1.6 oz Gen: intubated, sedated, tachypneic Heart: RRR Lung: bilateral rhonchi Abd: soft, nontender Ext: + edema CBC, BMP 04/02/17 05:20 04/02/17 05:20 Active Medications Acetaminophen (Tylenol -) 650 mg PO Q6H PRN PRN Reason: FEVER OR PAIN Albuterol Sulfate (Ventolin Hfa Inhaler -) 2 puff IH Q4H PRN PRN Reason: SHORT OF BREATH/WHEEZING Amlodipine Besylate (Norvasc -) 5 mg PO DAILY [facility] Last Admin: 04/02/17 10:17 Dose: 5 mg Artificial Tears (Artificial Tears) 1 drop OU BID [facility] Last Admin: 04/01/17 22:21 Dose: 1 drop Chlorhexidine Gluconate (Peridex -) 15 ml MM BID [facility] Last Admin: 04/02/17 10:16 Dose: 15 ml Darunavir (Prezista) 800 mg PO DAILY [facility] Last Admin: 04/02/17 10:18 Dose: 800 mg Emtricitabine/Tenofovir (Truvada) 1 tab PO Q2D [facility] Last Admin: 04/01/17 16:15 Dose: 1 tab Guaifenesin (Robitussin -) 10 ml PO Q4H PRN Last Admin: 03/20/17 09:54 Dose: 10 ml Pantoprazole Sodium (Protonix 40mg Ivpb (Pre-Docked)) 100 mls @ 200 mls/hr IVPB DAILY [facility] Last Admin: 04/02/17 10:16 Dose: 200 mls/hr Fentanyl 500 mcg/ Dextrose 100 mls @ 5 mls/hr IJ TITR [facility] PRN Reason: 25 MCG/HR Last Admin: 04/02/17 02:55 Dose: 10 mls/hr Caspofungin 50 mg/ Sodium (Chloride) 250 mls @ 250 mls/hr IVPB DAILY [facility] Last Admin: 04/02/17 10:16 Dose: 250 mls/hr Midazolam HCl 100 mg/ Sodium (Chloride) 100 mls @ 1 mls/hr IVPB TITR [facility]; 1 MG/ HR PRN Reason: Protocol Last Admin: 03/31/17 22:33 Dose: Not Given Ganciclovir 200 mg/ Dextrose 100 mls @ 100 mls/hr IVPB DAILY [facility] Last Admin: 04/02/17 11:34 Dose: 100 mls/hr Insulin Aspart (Novolog Vial Sliding Scale -) 1 vial SQ ACHS [facility] PRN Reason: Protocol Last Admin: 04/02/17 06:01 Dose: 5 units Methylprednisolone Sodium Succinate (Solu-Medrol -) 40 mg IVPB BID [facility] Last Admin: 04/02/17 10:16 Dose: 40 mg Midazolam HCl (Versed -) 2 mg IVPUSH Q2H PRN PRN Reason: AGITATION Last Admin: 04/02/17 05:39 Dose: 2 mg Ritonavir (Norvir Oral Solution -) 100 mg PO DAILY [facility] Last Admin: 04/02/17 10:17 Dose: 100 mg Tbo-Filgrastim (Granix -) 480 mcg SQ DAILY [facility] Last Admin: 04/01/17 17:28 Dose: 480 mcg Trimethoprim/Sulfamethoxazole (Bactrim Oral Suspension -) 80 mg PO DAILY [facility] Last Admin: 04/02/17 10:45 Dose: 80 mg ASSESSMENT AND PLAN: Acute Hypoxic Respiratory Failure AIDS/HIV Pneumocystis/CMV Pneumonia ARDS Sepsis Staph Bacteremia Fungemia Pancytopenia Acute Kidney Injury DM - antibiotic coverage by ID - continue ART - continue medrol at current dose - taper Fio2 to keep SpO2 >90% - enteral feeds - glucose control - DVT/GI prophylaxis - continue ICU monitoring - prognosis remains guarded as no significant improvement despite antimicrobial therapy - discussed condition and grave prognosis with family in meeting, instructed them to have family to come in critical care time spent in reviewing chart, evaluating patient and formulating plan 40 min
--- NOTE | 2017-04-02 14:05 | PN ---
Physical Exam: SUBJECTIVE: Patient seen and examined. He is still on mech vent. FiO2 100%, PEEP 10. He had episode of desaturation. OBJECTIVE: Vital Signs Period Temp Pulse Resp BP Sys/De Oliveira Pulse Ox Last 24 Hr 97 F-98.4 F 71-83 12- 103-126/53-67 97-100 GENERAL: The patient is sedated, on mechanical ventilation, in moderate distress. HEAD: Normal with no signs of trauma. EYES: extraocular movements not assessed, eyes closed. ENT: dry mucous membranes, bleeding in his lower lip. NECK: Trachea midline, full range of motion, supple. LUNGS: coarse breath sounds bilaterally, no crackles, accessory muscle use. HEART: Regular rate and rhythm, S1, S2 without murmur, rub or gallop. ABDOMEN: Soft, nondistended, hypoactive bowel sounds, tenderness and guarding, longitudinal scar in mid abdomen, well healing, no drainage, erythema. EXTREMITIES: warm, well-perfused, trace edema. NEUROLOGICAL: No facial asymmetry, gait not observed. PSYCH:Sedated. SKIN: Warm, dry, normal turgor. Laboratory Results - last 24 hr 04/01/17 04/01/17 04/02/17 17:33 22:14 05:20 WBC 1.6 L* RBC 2.55 L Hgb 6.9 L* D Hct 21.4 L MCV 84.1 MCHC 32.0 RDW 23.6 H Plt Count 19 L* MPV 11.3 H Neutrophils % 95.0 H D Lymphocytes % 1.0 L D Monocytes % 0.0 L D Eosinophils % 0.0 D Basophils % 0.0 Band Neutrophils 2.0 D Metamyelocytes 2 Differential Comment Manual diff done Platelet Estimate Markedly decreased Platelet Comment No clumping noted Hypochromic-Microcytic 2+ Poikilocytosis 1+ Basophilic Stippling 1+ Anisocytosis 1+ Target Cells Few Anticoagulation Therapy Puncture Site ABG pH ABG pCO2 at Pt Temp ABG pO2 at Pt Temp ABG HCO3 ABG O2 Sat (Measured) ABG O2 Content ABG Base Excess Enrico Test O2 Delivery Device Oxygen Flow Rate Vent Mode Vent Rate Mechanical Rate PEEP Pressure Support Vent Sodium Potassium Chloride Carbon Dioxide Anion Gap BUN Creatinine Creat Clearance w eGFR POC Glucometer 284.11099 [phone] Random Glucose Calcium Phosphorus Magnesium Total Bilirubin AST ALT Alkaline Phosphatase Total Protein Albumin 04/02/17 04/02/17 04/02/17 05:20 05:30 07:30 WBC RBC Hgb Hct MCV MCHC RDW Plt Count MPV Neutrophils % Lymphocytes % Monocytes % Eosinophils % Basophils % Band Neutrophils Metamyelocytes Differential Comment Platelet Estimate Platelet Comment Hypochromic-Microcytic Poikilocytosis Basophilic Stippling Anisocytosis Target Cells Anticoagulation Therapy Y Puncture Site Right radial ABG pH 7.33 L ABG pCO2 at Pt Temp 45.5 H ABG pO2 at Pt Temp 77.8 L D ABG HCO3 23.6 ABG O2 Sat (Measured) 94.6 ABG O2 Content 11.8 L ABG Base Excess -1.7 Enrico Test Positive O2 Delivery Device Vent Oxygen Flow Rate 100% Vent Mode A/c Vent Rate 18 Mechanical Rate Y PEEP 8.0 Pressure Support Vent 400 Sodium 136 Potassium 4.6 Chloride 98 Carbon Dioxide 30 Anion Gap 8 BUN 108 H* D Creatinine 2.6 H Creat Clearance w eGFR 24.74 POC Glucometer [phone] Random Glucose 145 H D Calcium 7.6 L Phosphorus 4.6 Magnesium 3.0 H Total Bilirubin 0.2 AST 48 H ALT 55 Alkaline Phosphatase 206 H Total Protein 3.2 L Albumin 0.8 L Active Medications Generic Name Dose Route Start Last Admin Trade Name Freq PRN Reason Stop Dose Admin Acetaminophen 650 mg 03/20/17 08:52 Tylenol - PO Q6H PRN FEVER OR PAIN Albuterol Sulfate 2 puff 03/20/17 08:52 Ventolin Hfa Inhaler - IH Q4H PRN SHORT OF BREATH/WHEEZING Amlodipine Besylate 5 mg 03/20/17 10:00 04/02/17 10:17 Norvasc - PO 5 mg DAILY ANGUS Administration Artificial Tears 1 drop 03/24/17 22:00 04/01/17 22:21 Artificial Tears OU 1 drop BID ANGUS Administration Chlorhexidine Gluconate 15 ml 03/27/17 22:00 04/02/17 10:16 Peridex - MM 15 ml BID ANGUS Administration Darunavir 800 mg 03/16/17 10:15 04/02/17 10:18 Prezista PO 800 mg DAILY ANGUS Administration Emtricitabine/Tenofovir 1 tab 04/01/17 11:00 04/01/17 16:15 Truvada PO 1 tab Q2D ANGUS Administration Guaifenesin 10 ml 03/20/17 08:52 03/20/17 09:54 Robitussin - PO 10 ml Q4H PRN Administration Fentanyl 500 mcg/ Dextrose 100 mls @ 5 mls/hr 03/22/17 12:45 04/02/17 02:55 IJ 10 mls/hr TITR ANGUS Administration 25 MCG/HR Caspofungin 50 mg/ Sodium 250 mls @ 250 mls/hr 03/31/17 10:00 04/02/17 10:16 Chloride IVPB 250 mls/hr DAILY ANGUS Administration Midazolam HCl 100 mg/ Sodium 100 mls @ 1 mls/hr 03/30/17 21:45 03/31/17 22:33 Chloride IVPB Not Given TITR ANGUS Protocol 1 MG/HR Ganciclovir 200 mg/ Dextrose 100 mls @ 100 mls/hr 04/02/17 10:00 04/02/17 11:34 IVPB 100 mls/hr DAILY ANGUS Administration Pantoprazole Sodium 80 mg/ 100 mls @ 10 mls/hr 04/02/17 14:15 Sodium Chloride IVPB Q10H ANGUS 8 MG/HR Insulin Aspart 1 vial 03/20/17 11:00 04/02/17 06:01 Novolog Vial Sliding Scale - SQ 5 units ACHS ANGUS Administration Protocol Methylprednisolone Sodium Succinate 40 mg 04/02/17 10:00 04/02/17 10:16 Solu-Medrol - IVPB 40 mg BID ANGUS Administration Midazolam HCl 2 mg 03/30/17 21:45 04/02/17 05:39 Versed - IVPUSH 2 mg Q2H PRN Administration AGITATION Ritonavir 100 mg 03/16/17 10:30 04/02/17 10:17 Norvir Oral Solution - PO 100 mg DAILY ANGUS Administration Tbo-Filgrastim 480 mcg 03/29/17 11:00 04/01/17 17:28 Granix - SQ 480 mcg DAILY ANGUS Administration Trimethoprim/Sulfamethoxazole 80 mg 04/02/17 10:00 04/02/17 10:45 Bactrim Oral Suspension - PO 80 mg DAILY ANGUS Administration ASSESSMENT/PLAN: 66 year old male with acute respiratory failure, bilateral pneumonia and HIV who was admitted to ICU s/p respiratory failure. 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, CMV -beta 1,3 d glucan elevated, -CMV IgG positive started Ganciclovir -pentamidine stopped and restarted Bactrim -f/u ID recommendations, -BGM q6H -monitoring electrolytes Pancytopenia: -possible due to side effect of HAART medications -given Filgastrim -consulted Oncology -B12/folate/TSH/fT4/hemolysis labs/erythropoietin level pending -neupogen Bacteremia: -blood cultures are pending, gram pos cocci in clusters -consulted ID AIDS: -treated with Darunavir, Ritonavir, Emtricitabine/Tenofovir -CD 4 1.7, CD4/CD8 ratio 0.04 -spontaneous breathing trials as tolerated when mental status improved -stopped isolation precautions -will monitor for IRIS DM: -BGMs -ISS HTN: -cont. Norvasc DVT PPX: no GI PPX: protonix drip Disposition: Monitor in ICU, family called and discussed end of life care with the presence of Shira Sandhu and Dr. Alatorre. The family will decide today. 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 - New Patient This patient is new to me today: No - Critical Care Critical Care patient: Yes Total Critical Care Time (in minutes): 45 Critical Care Statement: The care of this patient involved high complexity decision making to prevent further life threatening deterioration of the patient 's condition and/or to evalute & treat vital organ system(s) failure or risk of failure.
[2017-04-02] MEDS: TBO-FILGRASTIM 480 MCG/0.8 ML DISP.SYRIN SQ SCH (14:18)
--- NOTE | 2017-04-02 16:27 | PN ---
Progress Note (short form) - Note Progress Note: Patient seen and examined intubated on fentanyl Last Vital Signs Temp Pulse Resp BP Pulse Ox 98.4 F 76 23 117/61 97 04/02/17 14:00 04/02/17 14:00 04/02/17 15:34 04/02/17 14:00 04/02/17 11:28 Cor: RSR, No murmurs, No gallops Lungs: Clear to P&A Abd: Soft, Normal bowel sounds, No organomegaly Ext:No significant edema Abnormal Lab Results 03/28/17 03/29/17 03/29/17 06:00 05:20 05:20 WBC RBC 2.89 L Hgb Hct MCHC RDW Plt Count Retic Count 6.35 H Sodium BUN Creatinine Random Glucose Calcium Iron 14 L TIBC 142 L Iron Saturation 10 L Erythropoietin 57.0 H AST Alkaline Phosphatase Total Protein Albumin Crossmatch 03/30/17 03/30/17 03/30/17 05:20 05:20 08:00 WBC 1.1 L* D RBC 2.43 L Hgb 6.3 L* D Hct 19.8 L MCHC 31.9 L RDW 21.9 H Plt Count 24 L* D Retic Count Sodium 135 L BUN 57 H Creatinine 1.6 H Random Glucose 192 H D Calcium 7.2 L Iron TIBC Iron Saturation Erythropoietin AST 60 H D Alkaline Phosphatase 144 H Total Protein 3.3 L Albumin 0.8 L Crossmatch See Detail Active Medications Generic Name Dose Route Start Last Admin Trade Name Freq PRN Reason Stop Dose Admin Acetaminophen 650 mg 03/20/17 08:52 Tylenol - PO Q6H PRN FEVER OR PAIN Albuterol Sulfate 2 puff 03/20/17 08:52 Ventolin Hfa Inhaler - IH Q4H PRN SHORT OF BREATH/WHEEZING Amlodipine Besylate 5 mg 03/20/17 10:00 03/30/17 10:00 Norvasc - PO 5 mg DAILY ANGUS Administration Artificial Tears 1 drop 03/24/17 22:00 03/30/17 10:00 Artificial Tears OU 1 drop BID ANGUS Administration Chlorhexidine Gluconate 15 ml 03/27/17 22:00 03/30/17 10:00 Peridex - MM 15 ml BID ANGUS Administration Darunavir 800 mg 03/16/17 10:15 03/28/17 10:17 Prezista PO 800 mg DAILY ANGUS Administration Emtricitabine/Tenofovir 1 tab 03/16/17 10:15 03/30/17 10:00 Truvada PO 1 tab DAILY ANGUS Administration Guaifenesin 10 ml 03/20/17 08:52 03/20/17 09:54 Robitussin - PO 10 ml Q4H PRN Administration Pantoprazole Sodium 100 mls @ 200 mls/hr 03/16/17 14:00 03/30/17 11:00 Protonix 40mg Ivpb (Pre-Docked) IVPB 200 mls/hr DAILY ANGUS Administration Fentanyl 500 mcg/ Dextrose 100 mls @ 5 mls/hr 03/22/17 12:45 03/30/17 15:39 IJ 10 mls/hr TITR ANGUS Administration 25 MCG/HR Ganciclovir 325 mg/ Dextrose 100 mls @ 100 mls/hr 03/26/17 10:00 03/30/17 13:34 IVPB 100 mls/hr BID ANGUS Administration Pentamidine Isethionate 300 mg 265 mls @ 176.667 mls/hr 03/27/17 18:00 13:35 / Dextrose IVPB 176.667 mls/hr DAILY ANGUS Administration Protocol Caspofungin 50 mg/ Sodium 250 mls @ 250 mls/hr 03/31/17 10:00 Chloride IVPB DAILY ANGUS Insulin Aspart 1 vial 03/20/17 11:00 03/30/17 17:27 Novolog Vial Sliding Scale - SQ 5 units ACHS ANGUS Administration Protocol Methylprednisolone Sodium Succinate 40 mg 03/24/17 10:00 03/30/17 17:30 Solu-Medrol - IVPB 40 mg Q8H-IV ANGUS Administration Ritonavir 100 mg 03/16/17 10:30 03/30/17 10:00 Norvir Oral Solution - PO 100 mg DAILY ANGUS Administration Tbo-Filgrastim 480 mcg 03/29/17 11:00 03/30/17 15:40 Granix - SQ 480 mcg DAILY ANGUS Administration A/P 66 y/o patient with HIV/AIDS , PCP/CMV pneumonia, CHF, had been on bactrim, on ganciclovir we have beed consulted for pancytopenia, leukopenia Suspect due to bactrim, ganciclovir also bacteremic dose neupogen will dose procrit levels <500 transfuse PRBCs for <7--6.3 today transfuse monodonor platelets if actively bleeding or platelets < 20,000 monitor CBC/coags closely
[2017-04-02] MEDS: ARTIFICIAL TEARS (POLYVINYL ALCOHOL 1.4%) OPTH DROPS OU SCH ×2 (16:29→21:20)
[2017-04-02] MEDS ORDERED: TBO-FILGRASTIM 480 MCG/0.8 ML DISP.SYRIN SQ SCH (16:30)
[2017-04-02] MEDS: PANTOPRAZOLE SODIUM 80 MG in SODIUM CHLORIDE 100 ML IVPB SCH (16:44)
[2017-04-02] MEDS: SODIUM CHLORIDE 1,000 ML IV SCH (20:00)
[2017-04-03] MEDS: PANTOPRAZOLE SODIUM 80 MG in SODIUM CHLORIDE 100 ML IVPB SCH ×3 (00:15→20:15)
[2017-04-03] MEDS: INSULIN SLIDING SCALE (NOVOLOG) 1 VIAL SQ SCH ×4 (06:54→22:35)
[2017-04-03 07:28] LABS: ALBUMIN 1.1 g/dl (3.4-5.0); ANION GAP 14 (8-16); CALCIUM 7.4 mg/dL (8.5-10.1); CO2 25 mmol/L (21-32); GLUCOSE,RANDOM 200 mg/dL (74-106); SGOT/AST 66 U/L (15-37); SGPT/ALT 58 U/L (12-78)
[2017-04-03 07:33] LABS: ALK PHOS 181 U/L (45-117); BILIRUBIN,TOTAL 0.4 mg/dL (0.2-1.0); CREATININE 3.4 mg/dL (0.7-1.3); TOT PROT 3.6 g/dl (6.4-8.2)
--- NOTE | 2017-04-03 09:26 | PN ---
Progress Note, Physician Chief Complaint: Sedated on respirator History of Present Illness: PCP pneumonia,not responding to trt - Current Medication List Current Medications: Active Medications Acetaminophen (Tylenol -) 650 mg PO Q6H PRN PRN Reason: FEVER OR PAIN Albuterol Sulfate (Ventolin Hfa Inhaler -) 2 puff IH Q4H PRN PRN Reason: SHORT OF BREATH/WHEEZING Amlodipine Besylate (Norvasc -) 5 mg PO DAILY [facility] Last Admin: 04/02/17 10:17 Dose: 5 mg Artificial Tears (Artificial Tears) 1 drop OU BID ANGUS Last Admin: 04/02/17 21:20 Dose: 1 drop Chlorhexidine Gluconate (Peridex -) 15 ml MM BID [facility] Last Admin: 04/02/17 21:23 Dose: 15 ml Darunavir (Prezista) 800 mg PO DAILY [facility] Last Admin: 04/02/17 10:18 Dose: 800 mg Emtricitabine/Tenofovir (Truvada) 1 tab PO Q2D [facility] Last Admin: 04/01/17 16:15 Dose: 1 tab Guaifenesin (Robitussin -) 10 ml PO Q4H PRN Last Admin: 03/20/17 09:54 Dose: 10 ml Fentanyl 500 mcg/ Dextrose 100 mls @ 5 mls/hr IJ TITR ANGUS PRN Reason: 25 MCG/HR Last Titration: 04/02/17 19:30 Dose: 25 mcg/hr Caspofungin 50 mg/ Sodium (Chloride) 250 mls @ 250 mls/hr IVPB DAILY [facility] Last Admin: 04/02/17 10:16 Dose: 250 mls/hr Midazolam HCl 100 mg/ Sodium (Chloride) 100 mls @ 1 mls/hr IVPB TITR ANGUS; 1 MG/ HR PRN Reason: Protocol Last Admin: 03/31/17 22:33 Dose: Not Given Ganciclovir 200 mg/ Dextrose 100 mls @ 100 mls/hr IVPB DAILY [facility] Last Admin: 04/02/17 11:34 Dose: 100 mls/hr Pantoprazole Sodium 80 mg/ (Sodium Chloride) 100 mls @ 10 mls/hr IVPB Q10H ANGUS PRN Reason: 8 MG/HR Last Admin: 04/03/17 00:15 Dose: 10 mls/hr Sodium Chloride (Normal Saline -) 1,000 mls @ 50 mls/hr IV ASDIR ANGUS Last Admin: 04/02/17 20:00 Dose: 50 mls/hr Insulin Aspart (Novolog Vial Sliding Scale -) 1 vial SQ ACHS [facility] PRN Reason: Protocol Last Admin: 04/03/17 06:54 Dose: 10 units Methylprednisolone Sodium Succinate (Solu-Medrol -) 40 mg IVPB BID [facility] Last Admin: 04/02/17 21:23 Dose: 40 mg Ritonavir (Norvir Oral Solution -) 100 mg PO DAILY [facility] Last Admin: 04/02/17 10:17 Dose: 100 mg Tbo-Filgrastim (Granix -) 480 mcg SQ DAILY [facility] Last Admin: 04/02/17 14:18 Dose: 480 mcg Trimethoprim/Sulfamethoxazole (Bactrim Oral Suspension -) 80 mg PO DAILY [facility] Last Admin: 04/02/17 10:45 Dose: 80 mg - Objective Vital Signs: Vital Signs Temperature 97.9 F 04/03/17 06:00 Pulse Rate 83 04/03/17 06:00 Respiratory Rate 22 04/03/17 06:45 Blood Pressure 126/64 04/03/17 06:00 O2 Sat by Pulse Oximetry (%) 99 04/02/17 22:00 Constitutional: Yes: Moderate Distress Eyes: Yes: WNL HENT: Yes: WNL Neck: Yes: WNL Respiratory: Yes: Mechanically Ventilated Gastrointestinal: Yes: Normal Bowel Sounds ...Rectal Exam: Yes: Deferred Genitourinary: Yes: WNL Breast(s): Yes: WNL Edema: LUE: 1+, RUE: 1+ Labs: CBC, BMP 04/02/17 05:20 04/03/17 05:20 INR, PTT INR 1.16 (0.82-1.09) H 04/01/17 05:00 Fibrinogen 655.0 mg/dL (238-498) H 03/31/17 05:40 Assessment/Plan Poor prognosis,case discussed with residents
--- NOTE | 2017-04-03 09:37 | PN ---
Progress Note (short form) - Note Progress Note: remains intubated and sedated on FiO2 100% poor urine output Vital Signs Period Temp Pulse Resp BP Sys/De Oliveira Pulse Ox Last 24 Hr 97.5 F-98.4 F 73-96 16-23 84-136/51-67 97-100 cor-rrr lungs decreased bs at bases abd soft,nt ext +edema CBC, BMP 04/02/17 05:20 04/03/17 05:20 Microbiology 03/29/17 05:35 Blood - Peripheral Venous Blood Culture - Preliminary NO GROWTH OBTAINED AFTER 72 HOURS, INCUBATION TO CONTINUE FOR 2 DAYS. 03/29/17 05:30 Blood - Peripheral Venous Blood Culture - Preliminary NO GROWTH OBTAINED AFTER 72 HOURS, INCUBATION TO CONTINUE FOR 2 DAYS. 03/27/17 20:05 Blood - Peripheral Venous Blood Culture - Final Staphylococcus Epidermidis Staphylococcus Epidermidis#2 03/27/17 20:00 Blood - Peripheral Venous Blood Culture - Final Staphylococcus Epidermidis Staphylococcus Epidermidis#2 Yeast Like Organism Laboratory Tests 03/14/17 03/16/17 03/31/17 11:15 11:00 05:40 Random Vancomycin 17.638 CMV DNA Quant PCR [id number] Pneumocyst carinii Smear Positive H 04/01/17 04/03/17 05:00 05:20 Random Vancomycin 16.366 10.909 CMV DNA Quant PCR Pneumocyst carinii Smear cxray bilateral infiltrates increased Active Medications Acetaminophen (Tylenol -) 650 mg PO Q6H PRN PRN Reason: FEVER OR PAIN Albuterol Sulfate (Ventolin Hfa Inhaler -) 2 puff IH Q4H PRN PRN Reason: SHORT OF BREATH/WHEEZING Amlodipine Besylate (Norvasc -) 5 mg PO DAILY [facility] Last Admin: 04/02/17 10:17 Dose: 5 mg Artificial Tears (Artificial Tears) 1 drop OU BID [facility] Last Admin: 04/02/17 21:20 Dose: 1 drop Chlorhexidine Gluconate (Peridex -) 15 ml MM BID [facility] Last Admin: 04/02/17 21:23 Dose: 15 ml Darunavir (Prezista) 800 mg PO DAILY [facility] Last Admin: 04/02/17 10:18 Dose: 800 mg Emtricitabine/Tenofovir (Truvada) 1 tab PO Q2D [facility] Last Admin: 04/01/17 16:15 Dose: 1 tab Guaifenesin (Robitussin -) 10 ml PO Q4H PRN Last Admin: 03/20/17 09:54 Dose: 10 ml Fentanyl 500 mcg/ Dextrose 100 mls @ 5 mls/hr IJ TITR ANGUS PRN Reason: 25 MCG/HR Last Titration: 04/02/17 19:30 Dose: 25 mcg/hr Caspofungin 50 mg/ Sodium (Chloride) 250 mls @ 250 mls/hr IVPB DAILY [facility] Last Admin: 04/02/17 10:16 Dose: 250 mls/hr Midazolam HCl 100 mg/ Sodium (Chloride) 100 mls @ 1 mls/hr IVPB TITR ANGUS; 1 MG/ HR PRN Reason: Protocol Last Admin: 03/31/17 22:33 Dose: Not Given Ganciclovir 200 mg/ Dextrose 100 mls @ 100 mls/hr IVPB DAILY [facility] Last Admin: 04/02/17 11:34 Dose: 100 mls/hr Pantoprazole Sodium 80 mg/ (Sodium Chloride) 100 mls @ 10 mls/hr IVPB Q10H [facility] PRN Reason: 8 MG/HR Last Admin: 04/03/17 00:15 Dose: 10 mls/hr Sodium Chloride (Normal Saline -) 1,000 mls @ 50 mls/hr IV ASDIR [facility] Last Admin: 04/02/17 20:00 Dose: 50 mls/hr Insulin Aspart (Novolog Vial Sliding Scale -) 1 vial SQ ACHS [facility] PRN Reason: Protocol Last Admin: 04/03/17 06:54 Dose: 10 units Methylprednisolone Sodium Succinate (Solu-Medrol -) 40 mg IVPB BID [facility] Last Admin: 04/02/17 21:23 Dose: 40 mg Ritonavir (Norvir Oral Solution -) 100 mg PO DAILY [facility] Last Admin: 04/02/17 10:17 Dose: 100 mg Tbo-Filgrastim (Granix -) 480 mcg SQ DAILY [facility] Last Admin: 04/02/17 14:18 Dose: 480 mcg Trimethoprim/Sulfamethoxazole (Bactrim Oral Suspension -) 80 mg PO DAILY [facility] Last Admin: 04/02/17 10:45 Dose: 80 mg a/p AIDS with PCP/CMV continue art-dose adjusted for worsening renal failure continue pentamadine/cytovene day #11 induction/steroids bacteremia- staph epi and yeast cancidas day #5 on vancomycin by level-redose today hemodynamically stable suggest trial of diuresis leukopenia/thrombocytopenia worsening renal function- meds adjusted bladder scan, he has a [place] catheter overall prognosis is poor
[2017-04-03] MEDS ORDERED: VANCOMYCIN 1 GRAM (PRE-DOCKED) 250 ML IVPB ONE (09:39)
[2017-04-03] MEDS ORDERED: PT OWN MED DRAWER 7, Y5N ONE ×2 (09:48→11:11)
--- NOTE | 2017-04-03 10:20 | PN ---
Progress Note, Physician Chief Complaint: The patient seen in the ICU. Sedated, intubated, oliguric and vent. supported. - Current Medication List Current Medications: Active Medications Acetaminophen (Tylenol -) 650 mg PO Q6H PRN PRN Reason: FEVER OR PAIN Albuterol Sulfate (Ventolin Hfa Inhaler -) 2 puff IH Q4H PRN PRN Reason: SHORT OF BREATH/WHEEZING Amlodipine Besylate (Norvasc -) 5 mg PO DAILY [facility] Last Admin: 04/02/17 10:17 Dose: 5 mg Artificial Tears (Artificial Tears) 1 drop OU BID [facility] Last Admin: 04/02/17 21:20 Dose: 1 drop Chlorhexidine Gluconate (Peridex -) 15 ml MM BID [facility] Last Admin: 04/02/17 21:23 Dose: 15 ml Darunavir (Prezista) 800 mg PO DAILY [facility] Last Admin: 04/02/17 10:18 Dose: 800 mg Guaifenesin (Robitussin -) 10 ml PO Q4H PRN Last Admin: 03/20/17 09:54 Dose: 10 ml Fentanyl 500 mcg/ Dextrose 100 mls @ 5 mls/hr IJ TITR ANGUS PRN Reason: 25 MCG/HR Last Titration: 04/02/17 19:30 Dose: 25 mcg/hr Caspofungin 50 mg/ Sodium (Chloride) 250 mls @ 250 mls/hr IVPB DAILY [facility] Last Admin: 04/02/17 10:16 Dose: 250 mls/hr Midazolam HCl 100 mg/ Sodium (Chloride) 100 mls @ 1 mls/hr IVPB TITR ANGUS; 1 MG/ HR PRN Reason: Protocol Last Admin: 03/31/17 22:33 Dose: Not Given Ganciclovir 200 mg/ Dextrose 100 mls @ 100 mls/hr IVPB DAILY [facility] Last Admin: 04/02/17 11:34 Dose: 100 mls/hr Pantoprazole Sodium 80 mg/ (Sodium Chloride) 100 mls @ 10 mls/hr IVPB Q10H [facility] PRN Reason: 8 MG/HR Last Admin: 04/03/17 00:15 Dose: 10 mls/hr Sodium Chloride (Normal Saline -) 1,000 mls @ 50 mls/hr IV ASDIR [facility] Last Admin: 04/02/17 20:00 Dose: 50 mls/hr Vancomycin HCl 1,000 mg/ (Dextrose) 250 mls @ 250 mls/hr IVPB ONCE ONE PRN Reason: Protocol Stop: 04/03/17 10:38 Insulin Aspart (Novolog Vial Sliding Scale -) 1 vial SQ ACHS [facility] PRN Reason: Protocol Last Admin: 04/03/17 06:54 Dose: 10 units Lamivudine (Epivir -) 150 mg PO DAILY [facility] Methylprednisolone Sodium Succinate (Solu-Medrol -) 40 mg IVPB BID [facility] Last Admin: 04/02/17 21:23 Dose: 40 mg Ritonavir (Norvir Oral Solution -) 100 mg PO DAILY [facility] Last Admin: 04/02/17 10:17 Dose: 100 mg Tbo-Filgrastim (Granix -) 480 mcg SQ DAILY [facility] Last Admin: 04/02/17 14:18 Dose: 480 mcg Tenofovir Disoproxil Fumarate (Viread -) 300 mg PO Q3D [facility] Trimethoprim/Sulfamethoxazole (Bactrim Oral Suspension -) 80 mg PO DAILY [facility] Last Admin: 04/02/17 10:45 Dose: 80 mg - Objective Vital Signs: Vital Signs Temperature 97.9 F 04/03/17 06:00 Pulse Rate 80 04/03/17 08:00 Respiratory Rate 21 04/03/17 09:58 Blood Pressure 136/56 04/03/17 08:00 O2 Sat by Pulse Oximetry (%) 99 04/02/17 22:00 Cardiovascular: Yes: Regular Rate and Rhythm, Tachycardia, S1, S2 Respiratory: Yes: Mechanically Ventilated Gastrointestinal: Yes: Hypoactive Bowel Sounds Labs: CBC, BMP 04/02/17 05:20 04/03/17 05:20 INR, PTT INR 1.16 (0.82-1.09) H 04/01/17 05:00 Fibrinogen 655.0 mg/dL (238-498) H 03/31/17 05:40 Problem List - Problems (1) AIDS Code(s): B20 - HUMAN IMMUNODEFICIENCY VIRUS [HIV] DISEASE (2) LEXI (acute kidney injury) Code(s): N17.9 - ACUTE KIDNEY FAILURE, UNSPECIFIED (3) Bilateral pneumonia Code(s): J18.9 - PNEUMONIA, UNSPECIFIED ORGANISM Qualifiers: 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 (4) Interstitial pneumonitis Code(s): J84.89 - OTHER SPECIFIED INTERSTITIAL PULMONARY DISEASES (5) Pancytopenia Code(s): D61.818 - OTHER PANCYTOPENIA (6) Pneumocystis carinii pneumonia Code(s): B59 - PNEUMOCYSTOSIS (7) Respiratory failure Code(s): J96.90 - RESPIRATORY FAILURE, UNSP, UNSP W HYPOXIA OR HYPERCAPNIA Qualifiers: Chronicity: acute Respiratory failure complication: hypoxia and hypercapnia Qualified Code(s): J96.01 - Acute respiratory failure with hypoxia (8) Severe malnutrition Code(s): E43 - UNSPECIFIED SEVERE PROTEIN-CALORIE MALNUTRITION (9) Hyperkalemia Code(s): E87.5 - HYPERKALEMIA Assessment/Plan This is a 66 year old Gentleman with PMHx of Hypertension who presented with Fever and found to have + HIV and infiltrates/ground glass opacities on CXR consistent with PCP/CMV Pna. LEXI with Cr of 2.6. Pt is currently intubated and sedated.He is non-oliguric and a lopez in place. Has rectal tube with diarrhea. Pt is on IV Ganciclovir. The patient on multiple potentially nephrotoxic agents, which must be continued in view of the complexity of his condition. Hyperkalemia due to the worsening Renal failure, with defective tubular K excretion. Additionally Coffee ground per NG tube also to be noted. Will challenge with Lasix one dose to potentially initiate diuresis. The status of the patient makes room for many ethical questions. The patient is gravely ill, with possibly no chance to improve. The Renal functions are getting worse. Hyperkalemia is getting worse. So far there is no indication for clinical improvement. If we are to continue aggressive therapy, we have to evaluate the patient for tracheostomy, G-tube, dialysis, Endoscopy etc. etc. and I believe all of the above are exercises in futility. His chance of recovery to any status of meaningful life is next to nothing. I would recommend comfort care at this point. He is DNR. Will follow with you. Kristi Bronson MD
[2017-04-03] MEDS: CASPOFUNGIN ACETATE 50 MG in SODIUM CHLORIDE 250 ML IVPB SCH (10:29)
[2017-04-03] MEDS: FENTANYL INJECTION 500 MCG in DEXTROSE 5%-WATER - 90 ML IJ SCH ×2 (10:30→20:40)
[2017-04-03] MEDS: TBO-FILGRASTIM 480 MCG/0.8 ML DISP.SYRIN SQ SCH (10:31)
[2017-04-03] MEDS: methylPREDNISolone NA SUCC 40 MG/1 ML VIAL IVPB SCH ×2 (10:31→22:02)
[2017-04-03] MEDS: RITONAVIR ORAL SOLUTION 80 MG/ML PO SCH (10:32)
[2017-04-03] MEDS: CHLORHEXIDINE GLUCONATE 0.12% 15ML CUP MM SCH ×2 (10:32→22:02)
[2017-04-03] MEDS: DARUNAVIR ETHANOLATE 100 MG/ML BULK BOTTLE PO SCH (10:33)
[2017-04-03] MEDS: amLODIPine BESYLATE 5 MG TABLET (FP) PO SCH (10:33)
[2017-04-03] MEDS: ARTIFICIAL TEARS (POLYVINYL ALCOHOL 1.4%) OPTH DROPS OU SCH ×2 (10:34→21:58)
[2017-04-03] MEDS: TMP PO SCH (10:35)
[2017-04-03] MEDS: SULFAMETHOXAZOLE PO SCH (10:35)
[2017-04-03] MEDS ORDERED: FUROSEMIDE 40 MG/4 ML INJECTABLE VIAL IVPUSH ONE (11:00)
--- NOTE | 2017-04-03 11:15 | PN ---
Teaching Attending Note Name of Resident: Bessy Eaton ATTENDING PHYSICIAN STATEMENT I saw and evaluated the patient. I reviewed the resident's note and discussed the case with the resident. I agree with the resident's findings and plan as documented. SUBJECTIVE: Pt seen and examined in the ICU. Remains intubated, sedated, tachypneic. Vented on volume assist control with 100% FiO2. OBJECTIVE: Last Vital Signs Temp Pulse Resp BP Pulse Ox 97.8 F 80 18 117/61 100 04/03/17 10:00 04/03/17 10:31 04/03/17 10:00 04/03/17 10:00 04/03/17 10:31 Intake & Output 03/31/17 04/01/17 04/02/17 04/03/17 23:59 23:59 23:59 23:59 Intake Total 2763 2600 1147 520 Output Total 850 1400 250 410 Balance 1913 1200 897 110 Weight 163 lb 6.4 oz 166 lb 11.2 oz 168 lb 1.6 oz 169 lb 3.2 oz Gen: intubated, sedated, tachypneic with accessory muscle use Heart: RRR Lung: scattered rhonchi Abd: soft, nontender Ext: + edema CBC, BMP 04/02/17 05:20 04/03/17 05:20 Active Medications Acetaminophen (Tylenol -) 650 mg PO Q6H PRN PRN Reason: FEVER OR PAIN Albuterol Sulfate (Ventolin Hfa Inhaler -) 2 puff IH Q4H PRN PRN Reason: SHORT OF BREATH/WHEEZING Amlodipine Besylate (Norvasc -) 5 mg PO DAILY [facility] Last Admin: 04/03/17 10:33 Dose: Not Given Artificial Tears (Artificial Tears) 1 drop OU BID [facility] Last Admin: 04/03/17 10:34 Dose: 1 drop Chlorhexidine Gluconate (Peridex -) 15 ml MM BID [facility] Last Admin: 04/03/17 10:32 Dose: 15 ml Darunavir (Prezista) 800 mg PO DAILY [facility] Last Admin: 04/03/17 10:33 Dose: Not Given Guaifenesin (Robitussin -) 10 ml PO Q4H PRN Last Admin: 03/20/17 09:54 Dose: 10 ml Fentanyl 500 mcg/ Dextrose 100 mls @ 5 mls/hr IJ TITR [facility] PRN Reason: 25 MCG/HR Last Admin: 04/03/17 10:30 Dose: 10 mls/hr Caspofungin 50 mg/ Sodium (Chloride) 250 mls @ 250 mls/hr IVPB DAILY [facility] Last Admin: 04/03/17 10:29 Dose: 250 mls/hr Ganciclovir 200 mg/ Dextrose 100 mls @ 100 mls/hr IVPB DAILY [facility] Last Admin: 04/02/17 11:34 Dose: 100 mls/hr Pantoprazole Sodium 80 mg/ (Sodium Chloride) 100 mls @ 10 mls/hr IVPB Q10H [facility] PRN Reason: 8 MG/HR Last Admin: 04/03/17 10:32 Dose: 10 mls/hr Sodium Chloride (Normal Saline -) 1,000 mls @ 50 mls/hr IV ASDIR [facility] Last Admin: 04/02/17 20:00 Dose: 50 mls/hr Insulin Aspart (Novolog Vial Sliding Scale -) 1 vial SQ ACHS [facility] PRN Reason: Protocol Last Admin: 04/03/17 06:54 Dose: 10 units Lamivudine (Epivir -) 150 mg PO DAILY [facility] Methylprednisolone Sodium Succinate (Solu-Medrol -) 40 mg IVPB BID [facility] Last Admin: 04/03/17 10:31 Dose: 40 mg Ritonavir (Norvir Oral Solution -) 100 mg PO DAILY [facility] Last Admin: 04/03/17 10:32 Dose: Not Given Tbo-Filgrastim (Granix -) 480 mcg SQ DAILY [facility] Last Admin: 04/03/17 10:31 Dose: 480 mcg Tenofovir Disoproxil Fumarate (Viread -) 300 mg PO Q3D [facility] Trimethoprim/Sulfamethoxazole (Bactrim Oral Suspension -) 80 mg PO DAILY [facility] Last Admin: 04/03/17 10:35 Dose: Not Given ASSESSMENT AND PLAN: Acute Hypoxic Respiratory Failure AIDS/HIV Pneumocystis/CMV Pneumonia ARDS Sepsis Staph Bacteremia Fungemia Pancytopenia Acute Kidney Injury DM - antibiotic coverage by ID - continue ART - continue medrol at current dose - taper Fio2 to keep SpO2 >90% - enteral feeds - glucose control - DVT/GI prophylaxis - continue ICU monitoring - prognosis remains guarded as no significant improvement despite antimicrobial therapy - recommend palliative care as pt with poor prognosis for meaningful recovery critical care time spent in reviewing chart, evaluating patient and formulating plan 40 min
[2017-04-03] MEDS: WATER IVPB SCH (12:10)
[2017-04-03] MEDS: DEXTROSE 5% IVPB SCH (12:10)
[2017-04-03] MEDS: GANCICLOVIR IVPB SCH (12:10)
--- NOTE | 2017-04-03 15:03 | PN ---
Physical Exam: SUBJECTIVE: Patient seen and examined. Sedated on mechanical ventilation. No overnight events. OBJECTIVE: Vital Signs Period Temp Pulse Resp BP Sys/De Oliveira Pulse Ox Last 24 Hr 97.5 F-98.2 F 73-96 16-27 84-136/51-67 98-100 GENERAL: The patient is sedated, on mechanical ventilation, in moderate distress. HEAD: Normal with no signs of trauma. EYES: extraocular movements not assessed, not following commands, eyes minimally opened. ENT: dry mucous membranes, bleeding in his lower lip dried clotted blood NECK: Trachea midline, supple. LUNGS: coarse breath sounds bilaterally, no crackles, accessory muscle use. HEART: Regular rate and rhythm, S1, S2 without murmur, rub or gallop. ABDOMEN: Soft, nondistended, bowel sounds present EXTREMITIES: warm, 1+ edema. NEUROLOGICAL: No facial asymmetry, gait not observed. PSYCH:Sedated. SKIN: Warm, dry, normal turgor. Laboratory Results - last 24 hr 03/30/17 04/02/17 04/03/17 08:00 17:50 05:20 Sodium Potassium Chloride Carbon Dioxide Anion Gap BUN Creatinine Creat Clearance w eGFR POC Glucometer 147.63566 Random Glucose Calcium Total Bilirubin AST ALT Alkaline Phosphatase Total Protein Albumin Random Vancomycin 10.909 Blood Type B POSITIVE Antibody Screen Negative Direct Antiglob Test Crossmatch See Detail 04/03/17 04/03/17 04/03/17 05:20 05:20 05:31 Sodium 136 Potassium 5.7 H D Chloride 97 L Carbon Dioxide 25 Anion Gap 14 BUN 129 H* Creatinine 3.4 H D Creat Clearance w eGFR 18.16 POC Glucometer 230.62607 Random Glucose 200 H D Calcium 7.4 L Total Bilirubin 0.4 D AST 66 H D ALT 58 Alkaline Phosphatase 181 H Total Protein 3.6 L Albumin 1.1 L D Random Vancomycin Blood Type Antibody Screen Direct Antiglob Test Negative Crossmatch 04/03/17 11:38 Sodium Potassium Chloride Carbon Dioxide Anion Gap BUN Creatinine Creat Clearance w eGFR POC Glucometer 182.96550 Random Glucose Calcium Total Bilirubin AST ALT Alkaline Phosphatase Total Protein Albumin Random Vancomycin Blood Type Antibody Screen Direct Antiglob Test Crossmatch Active Medications Generic Name Dose Route Start Last Admin Trade Name Freq PRN Reason Stop Dose Admin Acetaminophen 650 mg 03/20/17 08:52 Tylenol - PO Q6H PRN FEVER OR PAIN Albuterol Sulfate 2 puff 03/20/17 08:52 Ventolin Hfa Inhaler - IH Q4H PRN SHORT OF BREATH/WHEEZING Amlodipine Besylate 5 mg 03/20/17 10:00 04/03/17 10:33 Norvasc - PO Not Given DAILY [facility] Artificial Tears 1 drop 03/24/17 22:00 04/03/17 10:34 Artificial Tears OU 1 drop BID [facility] Administration Chlorhexidine Gluconate 15 ml 03/27/17 22:00 04/03/17 10:32 Peridex - MM 15 ml BID [facility] Administration Darunavir 800 mg 03/16/17 10:15 04/03/17 10:33 Prezista PO Not Given DAILY [facility] Guaifenesin 10 ml 03/20/17 08:52 03/20/17 09:54 Robitussin - PO 10 ml Q4H PRN Administration Fentanyl 500 mcg/ Dextrose 100 mls @ 5 mls/hr 03/22/17 12:45 04/03/17 10:30 IJ 10 mls/hr TITR [facility] Administration 25 MCG/HR Caspofungin 50 mg/ Sodium 250 mls @ 250 mls/hr 03/31/17 10:00 04/03/17 10:29 Chloride IVPB 250 mls/hr DAILY [facility] Administration Ganciclovir 200 mg/ Dextrose 100 mls @ 100 mls/hr 04/02/17 10:00 04/03/17 12:10 IVPB 100 mls/hr DAILY [facility] Administration Pantoprazole Sodium 80 mg/ 100 mls @ 10 mls/hr 04/02/17 14:15 04/03/17 10:32 Sodium Chloride IVPB 10 mls/hr Q10H [facility] Administration 8 MG/HR Sodium Chloride 1,000 mls @ 50 mls/hr 04/02/17 20:45 04/02/17 20:00 Normal Saline - IV 50 mls/hr ASDIR [facility] Administration Insulin Aspart 1 vial 03/20/17 11:00 04/03/17 11:39 Novolog Vial Sliding Scale - SQ Not Given ACHS [facility] Protocol Lamivudine 150 mg 04/04/17 10:00 Epivir - PO DAILY [facility] Methylprednisolone Sodium Succinate 40 mg 04/02/17 10:00 04/03/17 10:31 Solu-Medrol - IVPB 40 mg BID [facility] Administration Ritonavir 100 mg 03/16/17 10:30 04/03/17 10:32 Norvir Oral Solution - PO Not Given DAILY [facility] Tbo-Filgrastim 480 mcg 03/29/17 11:00 04/03/17 10:31 Granix - SQ 480 mcg DAILY [facility] Administration Tenofovir Disoproxil Fumarate 300 mg 04/04/17 10:00 Viread - PO Q3D [facility] Trimethoprim/Sulfamethoxazole 80 mg 04/02/17 10:00 04/03/17 10:35 Bactrim Oral Suspension - PO Not Given DAILY [facility] CXR: bilateral infiltrates, no change when compared to yesterday. ASSESSMENT/PLAN: 66 year old male with acute respiratory failure, bilateral pneumonia and HIV who was admitted to ICU s/p respiratory failure. 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, CMV -beta 1,3 d glucan elevated, -CMV IgG positive started Ganciclovir -pentamidine stopped and restarted Bactrim -f/u ID recommendations, -BGM q6H -monitoring electrolytes Pancytopenia: -possible due to side effect of HAART medications -cont Filgastrim -consulted Oncology -B12/folate/TSH/fT4/hemolysis labs/erythropoietin level pending -neupogen given Bacteremia: -blood cultures Streptococcus epidermidis -consulted ID -continue Vacomycin by level and Bactrim AIDS: -treated with Darunavir, Ritonavir, Emtricitabine/Tenofovir -CD 4 1.7, CD4/CD8 ratio 0.04 -spontaneous breathing trials as tolerated when mental status improved -stopped isolation precautions -will monitor for IRIS LEXI on CKD: -BUN and CR cont to get worse DM: -BGMs -ISS HTN: -cont. Norvasc DVT PPX: no GI PPX: protonix drip Disposition: Monitor in ICU, family meeting today to discuss further care. The family agreed to compassionate weaning. 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 - New Patient This patient is new to me today: No - Critical Care Critical Care patient: Yes Total Critical Care Time (in minutes): 45 Critical Care Statement: The care of this patient involved high complexity decision making to prevent further life threatening deterioration of the patient 's condition and/or to evalute & treat vital organ system(s) failure or risk of failure.
--- NOTE | 2017-04-03 17:42 | PN ---
Progress Note (short form) - Note Progress Note: Ethics Meeting: At approximately 1 PM today there was a meeting to discuss goals of care for the patient. This meeting was attended by the patient's healthcare proxy and one son and also included the hospital chair and couch maker Rev. Eisenberg, the ICU residents and Dr. Alatorre Sales Secretary. The palliative care nurse Shira and myself representing palliative care and the ethics committee also attended. The patient's 3 other children were on phone contact throughout the meeting. One other son was not able to be present. The family was asked their current understanding of the patient's current medical condition. They all seem to be clear on his current condition and ultimate prognosis. Dr. Alatorre also spoke clearly about Narcott"s medical status and the probable terminal prognosis. There was some emotion expressed but everyone of the family members present or on phone contact agreed that the patient's previous stated goals did not include continuing life in his current condition. They therefore agreed with continuing only comfort care and allowing compassionate weaning. The family was asked if they wanted to be present during that event and the son Juancarlos agreed to be there. Tentative plans are for tomorrow afternoon on Tuesday, April 04, 2017.
--- NOTE | 2017-04-03 17:56 | PN ---
Progress Note (short form) - Note Progress Note: Patient seen and examined Intubated , non responsive. Eye rolling Last Vital Signs Temp Pulse Resp BP Pulse Ox 98 F 88 26 H 122/60 96 04/03/17 15:00 04/03/17 15:00 04/03/17 16:25 04/03/17 15:00 04/03/17 15:37 Non-responsive Diminished breath sounds Cor-RSR CBC, BMP 04/02/17 05:20 04/03/17 05:20 Current Medications Generic Name Dose Route Start Last Admin Trade Name Freq PRN Reason Stop Dose Admin Acetaminophen 650 mg 03/20/17 08:52 Tylenol - PO Q6H PRN FEVER OR PAIN Albuterol Sulfate 2 puff 03/20/17 08:52 Ventolin Hfa Inhaler - IH Q4H PRN SHORT OF BREATH/WHEEZING Amlodipine Besylate 5 mg 03/20/17 10:00 04/03/17 10:33 Norvasc - PO Not Given DAILY [facility] Artificial Tears 1 drop 03/24/17 22:00 04/03/17 10:34 Artificial Tears OU 1 drop BID [facility] Administration Chlorhexidine Gluconate 15 ml 03/27/17 22:00 04/03/17 10:32 Peridex - MM 15 ml BID [facility] Administration Darunavir 800 mg 03/16/17 10:15 04/03/17 10:33 Prezista PO Not Given DAILY [facility] Guaifenesin 10 ml 03/20/17 08:52 03/20/17 09:54 Robitussin - PO 10 ml Q4H PRN Administration Fentanyl 500 mcg/ Dextrose 100 mls @ 5 mls/hr 03/22/17 12:45 04/03/17 10:30 IJ 10 mls/hr TITR [facility] Administration 25 MCG/HR Caspofungin 50 mg/ Sodium 250 mls @ 250 mls/hr 03/31/17 10:00 04/03/17 10:29 Chloride IVPB 250 mls/hr DAILY [facility] Administration Ganciclovir 200 mg/ Dextrose 100 mls @ 100 mls/hr 04/02/17 10:00 04/03/17 12:10 IVPB 100 mls/hr DAILY [facility] Administration Pantoprazole Sodium 80 mg/ 100 mls @ 10 mls/hr 04/02/17 14:15 04/03/17 10:32 Sodium Chloride IVPB 10 mls/hr Q10H [facility] Administration 8 MG/HR Sodium Chloride 1,000 mls @ 50 mls/hr 04/02/17 20:45 04/02/17 20:00 Normal Saline - IV 50 mls/hr ASDIR [facility] Administration Insulin Aspart 1 vial 03/20/17 11:00 04/03/17 11:39 Novolog Vial Sliding Scale - SQ Not Given ACHS [facility] Protocol Lamivudine 150 mg 04/04/17 10:00 Epivir - PO DAILY [facility] Methylprednisolone Sodium Succinate 40 mg 04/02/17 10:00 04/03/17 10:31 Solu-Medrol - IVPB 40 mg BID [facility] Administration Ritonavir 100 mg 03/16/17 10:30 04/03/17 10:32 Norvir Oral Solution - PO Not Given DAILY [facility] Tbo-Filgrastim 480 mcg 03/29/17 11:00 04/03/17 10:31 Granix - SQ 480 mcg DAILY [facility] Administration Tenofovir Disoproxil Fumarate 300 mg 04/04/17 10:00 Viread - PO Q3D [facility] Trimethoprim/Sulfamethoxazole 80 mg 04/02/17 10:00 04/03/17 10:35 Bactrim Oral Suspension - PO Not Given DAILY [facility] Abd-soft LE -edema Impression: HIV, PCP pneumonia Pancytopenia secondary to meds , disease, Palliative care note reviewed - no additional labs.
[2017-04-03] MEDS: SODIUM CHLORIDE 1,000 ML IV SCH (20:45)
[2017-04-04] MEDS: INSULIN SLIDING SCALE (NOVOLOG) 1 VIAL SQ SCH ×3 (06:18→17:04)
[2017-04-04] MEDS: PANTOPRAZOLE SODIUM 80 MG in SODIUM CHLORIDE 100 ML IVPB SCH (06:19)
[2017-04-04] MEDS: FENTANYL INJECTION 500 MCG in DEXTROSE 5%-WATER - 90 ML IJ SCH (06:21)
[2017-04-04 06:46] LABS: MCH 27.3 pg (25.7-33.7); MCHC 32.2 g/dl (32.0-35.9); MEAN CELL VOLUME 84.6 fl (80-96); MEAN PLT VOLUME 12.8 fl (7.5-11.1)
--- NOTE | 2017-04-04 06:58 | PN ---
Progress Note (short form) - Note Progress Note: ID No change in critical condition of Mr Sal Remains unresponsive and unable to ventilate Terminal care being implemented as Ethics committee review seen. I agree that his condition is terminal despite all heroic efforts. Selected Entries 04/04/17 06:00 Temperature 98.6 F Pulse Rate 84 Respiratory 22 Rate Blood Pressure 147/68 Lung Diminished BS bilaterally Cor S1 S2 Abd Soft Laboratory Tests 04/02/17 04/03/17 04/04/17 07:30 05:20 05:20 WBC Pending Hgb Pending Hct Pending Plt Count Pending ABG pH 7.33 L ABG pO2 at Pt Temp 77.8 L D Oxygen Flow Rate 100% Creat Clearance w eGFR 18.16 Assessment Sepsis syndrome yeast St Epi AIDS no T cells Multiorgan failure Pancytopenia DM Unresponsive Plan At this time it seems compassionate to remove his antimicrobials ART ect. Terminal weaning today Nuno MIJARES Problem List - Problems (1) AIDS Code(s): B20 - HUMAN IMMUNODEFICIENCY VIRUS [HIV] DISEASE (2) Interstitial pneumonitis Code(s): J84.89 - OTHER SPECIFIED INTERSTITIAL PULMONARY DISEASES (3) Diabetes Code(s): E11.9 - TYPE 2 DIABETES MELLITUS WITHOUT COMPLICATIONS
[2017-04-04 07:17] LABS: PLATELET COUNT 9 K/MM3 (134-434)
[2017-04-04 07:39] LABS: ANION GAP 13 (8-16); CALCIUM 7.1 mg/dL (8.5-10.1); CO2 24 mmol/L (21-32); CREATININE 4.2 mg/dL (0.7-1.3); GLUCOSE,RANDOM 110 mg/dL (74-106); SGOT/AST 62 U/L (15-37); SGPT/ALT 55 U/L (12-78)
[2017-04-04 07:40] LABS: ALK PHOS 178 U/L (45-117); BILIRUBIN,TOTAL 0.3 mg/dL (0.2-1.0); TOT PROT 3.2 g/dl (6.4-8.2)
[2017-04-04] MEDS ORDERED: PT OWN MED DRAWER 7, Y5N ONE (08:40)
--- NOTE | 2017-04-04 08:46 | PN ---
Progress Note, Physician Chief Complaint: DNR History of Present Illness: Social service and ICU staff and MD discussed poor prognosis Family members all agree with DCing respirator - Current Medication List Current Medications: Active Medications Acetaminophen (Tylenol -) 650 mg PO Q6H PRN PRN Reason: FEVER OR PAIN Albuterol Sulfate (Ventolin Hfa Inhaler -) 2 puff IH Q4H PRN PRN Reason: SHORT OF BREATH/WHEEZING Amlodipine Besylate (Norvasc -) 5 mg PO DAILY [facility] Last Admin: 04/03/17 10:33 Dose: Not Given Artificial Tears (Artificial Tears) 1 drop OU BID [facility] Last Admin: 04/03/17 21:58 Dose: 1 drop Chlorhexidine Gluconate (Peridex -) 15 ml MM BID [facility] Last Admin: 04/03/17 22:02 Dose: 15 ml Guaifenesin (Robitussin -) 10 ml PO Q4H PRN Last Admin: 03/20/17 09:54 Dose: 10 ml Fentanyl 500 mcg/ Dextrose 100 mls @ 5 mls/hr IJ TITR [facility] PRN Reason: 25 MCG/HR Last Admin: 04/04/17 06:21 Dose: 5 mls/hr Pantoprazole Sodium 80 mg/ (Sodium Chloride) 100 mls @ 10 mls/hr IVPB Q10H [facility] PRN Reason: 8 MG/HR Last Admin: 04/04/17 06:19 Dose: 10 mls/hr Sodium Chloride (Normal Saline -) 1,000 mls @ 50 mls/hr IV ASDIR [facility] Last Admin: 04/03/17 20:45 Dose: 50 mls/hr Insulin Aspart (Novolog Vial Sliding Scale -) 1 vial SQ ACHS [facility] PRN Reason: Protocol Last Admin: 04/04/17 06:18 Dose: Not Given Methylprednisolone Sodium Succinate (Solu-Medrol -) 40 mg IVPB BID [facility] Last Admin: 04/03/17 22:02 Dose: 40 mg Tbo-Filgrastim (Granix -) 480 mcg SQ DAILY [facility] Last Admin: 04/03/17 10:31 Dose: 480 mcg - Objective Vital Signs: Vital Signs Temperature 98.6 F 04/04/17 06:00 Pulse Rate 84 04/04/17 06:00 Respiratory Rate 20 04/04/17 07:16 Blood Pressure 147/68 04/04/17 06:00 O2 Sat by Pulse Oximetry (%) 100 04/03/17 21:00 Constitutional: Yes: Severe Distress Eyes: Yes: WNL HENT: Yes: WNL Neck: Yes: WNL Cardiovascular: Yes: Tachycardia Respiratory: Yes: Mechanically Ventilated Gastrointestinal: Yes: Normal Bowel Sounds ...Rectal Exam: Yes: Deferred Edema: Yes Neurological: Yes: Other (comatosed) Labs: CBC, BMP 04/04/17 05:20 04/04/17 05:20 INR, PTT INR 1.16 (0.82-1.09) H 04/01/17 05:00 Fibrinogen 655.0 mg/dL (238-498) H 03/31/17 05:40 Assessment/Plan Agree with plan to DC respirator
--- NOTE | 2017-04-04 08:57 | PN ---
Physical Exam: SUBJECTIVE: Patient seen and examined in ICU. He is still on mech vent, nonresponsive. OBJECTIVE: Vital Signs Period Temp Pulse Resp BP Sys/De Oliveira Pulse Ox Last 24 Hr 97.8 F-98.8 F 64-88 16-27 104-164/54-69 96-100 GENERAL: The patient is sedated, on mechanical ventilation, in moderate distress. HEAD: Normal with no signs of trauma. EYES: extraocular movements not assessed, not following commands, eyes minimally opened. ENT: dry mucous membranes, bleeding in his lower lip dried clotted blood NECK: Trachea midline, supple. LUNGS: coarse breath sounds bilaterally, no crackles, accessory muscle use. HEART: Regular rate and rhythm, S1, S2 without murmur, rub or gallop. ABDOMEN: Soft, nondistended, bowel sounds present EXTREMITIES: warm, 1+ edema. NEUROLOGICAL: No facial asymmetry, gait not observed. PSYCH:Sedated. SKIN: Warm, dry, normal turgor. Laboratory Results - last 24 hr 04/02/17 04/03/17 04/03/17 21:27 05:31 11:38 WBC RBC Hgb Hct MCV MCHC RDW Plt Count MPV Sodium Potassium Chloride Carbon Dioxide Anion Gap BUN Creatinine Creat Clearance w eGFR POC Glucometer 129.36026 230.73675 182.53484 Random Glucose Calcium Total Bilirubin AST ALT Alkaline Phosphatase Total Protein Albumin 04/03/17 04/03/17 04/04/17 17:57 22:09 05:20 WBC 1.0 L* D RBC 1.87 L D Hgb 5.1 L* D Hct 15.8 L D MCV 84.6 MCHC 32.2 RDW 24.0 H Plt Count 9 L* D MPV 12.8 H D Sodium Potassium Chloride Carbon Dioxide Anion Gap BUN Creatinine Creat Clearance w eGFR POC Glucometer 169.05500 189.49954 Random Glucose Calcium Total Bilirubin AST ALT Alkaline Phosphatase Total Protein Albumin 04/04/17 05:20 WBC RBC Hgb Hct MCV MCHC RDW Plt Count MPV Sodium 136 Potassium 6.1 H* Chloride 99 Carbon Dioxide 24 Anion Gap 13 BUN 149 H* Creatinine 4.2 H D Creat Clearance w eGFR 14.23 POC Glucometer Random Glucose 110 H D Calcium 7.1 L Total Bilirubin 0.3 D AST 62 H ALT 55 Alkaline Phosphatase 178 H Total Protein 3.2 L Albumin 1.0 L Active Medications Generic Name Dose Route Start Last Admin Trade Name Freq PRN Reason Stop Dose Admin Acetaminophen 650 mg 03/20/17 08:52 Tylenol - PO Q6H PRN FEVER OR PAIN Albuterol Sulfate 2 puff 03/20/17 08:52 Ventolin Hfa Inhaler - IH Q4H PRN SHORT OF BREATH/WHEEZING Amlodipine Besylate 5 mg 03/20/17 10:00 04/03/17 10:33 Norvasc - PO Not Given DAILY [facility] Artificial Tears 1 drop 03/24/17 22:00 04/03/17 21:58 Artificial Tears OU 1 drop BID [facility] Administration Chlorhexidine Gluconate 15 ml 03/27/17 22:00 04/03/17 22:02 Peridex - MM 15 ml BID [facility] Administration Guaifenesin 10 ml 03/20/17 08:52 03/20/17 09:54 Robitussin - PO 10 ml Q4H PRN Administration Fentanyl 500 mcg/ Dextrose 100 mls @ 5 mls/hr 03/22/17 12:45 04/04/17 06:21 IJ 5 mls/hr TITR [facility] Administration 25 MCG/HR Pantoprazole Sodium 80 mg/ 100 mls @ 10 mls/hr 04/02/17 14:15 04/04/17 06:19 Sodium Chloride IVPB 10 mls/hr Q10H [facility] Administration 8 MG/HR Sodium Chloride 1,000 mls @ 50 mls/hr 04/02/17 20:45 04/03/17 20:45 Normal Saline - IV 50 mls/hr ASDIR [facility] Administration Insulin Aspart 1 vial 03/20/17 11:00 04/04/17 06:18 Novolog Vial Sliding Scale - SQ Not Given ACHS [facility] Protocol Methylprednisolone Sodium Succinate 40 mg 04/02/17 10:00 04/03/17 22:02 Solu-Medrol - IVPB 40 mg BID [facility] Administration Tbo-Filgrastim 480 mcg 03/29/17 11:00 04/03/17 10:31 Granix - SQ 480 mcg DAILY [facility] Administration CXR: bilateral infiltrates, no change when compared to yesterday. ASSESSMENT/PLAN: 66 year old male with acute respiratory failure, bilateral pneumonia and HIV who was admitted to ICU s/p respiratory failure. 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, CMV -beta 1,3 d glucan elevated, -CMV IgG positive started Ganciclovir -pentamidine stopped and restarted Bactrim -f/u ID recommendations, -BGM q6H -monitoring electrolytes Pancytopenia and multi organ failure: -possible due to side effect of HAART medications -cont Filgastrim -consulted Oncology -B12/folate/TSH/fT4/hemolysis labs/erythropoietin level pending -neupogen given -elevated K Bacteremia: -blood cultures Streptococcus epidermidis -consulted ID -continue Vacomycin by level and Bactrim AIDS: -treated with Darunavir, Ritonavir, Emtricitabine/Tenofovir -CD 4 1.7, CD4/CD8 ratio 0.04 -spontaneous breathing trials as tolerated when mental status improved -stopped isolation precautions -will monitor for IRIS LEXI on CKD: -BUN and Cr cont to get worse DM: -BGMs -ISS HTN: -cont. Norvasc DVT PPX: no GI PPX: protonix drip Disposition: Monitor in ICU. The family agreed to compassionate weaning today. Despite all efforts to save the pt he continues to deteriorate. 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 - New Patient This patient is new to me today: No - Critical Care Critical Care patient: Yes Total Critical Care Time (in minutes): 45 Critical Care Statement: The care of this patient involved high complexity decision making to prevent further life threatening deterioration of the patient 's condition and/or to evalute & treat vital organ system(s) failure or risk of failure.
[2017-04-04] MEDS ORDERED: TENOFOVIR DISOPROXIL FUMARATE 300 MG TABLET PO SCH (10:00)
[2017-04-04] MEDS ORDERED: lamiVUDine 150 MG TABLET PO SCH (10:00)
--- NOTE | 2017-04-04 10:32 | PN ---
Progress Note, Physician Chief Complaint: The patient seen in the ICU. Sedated, intubated, Oliguric and vent. supported. Notes from yesterday's Ethics meeting reviewed. I concur totally with the decision and plan. The patient is sedated, poorly responsive. - Current Medication List Current Medications: Active Medications Acetaminophen (Tylenol -) 650 mg PO Q6H PRN PRN Reason: FEVER OR PAIN Albuterol Sulfate (Ventolin Hfa Inhaler -) 2 puff IH Q4H PRN PRN Reason: SHORT OF BREATH/WHEEZING Amlodipine Besylate (Norvasc -) 5 mg PO DAILY [facility] Last Admin: 04/03/17 10:33 Dose: Not Given Artificial Tears (Artificial Tears) 1 drop OU BID [facility] Last Admin: 04/03/17 21:58 Dose: 1 drop Chlorhexidine Gluconate (Peridex -) 15 ml MM BID [facility] Last Admin: 04/03/17 22:02 Dose: 15 ml Guaifenesin (Robitussin -) 10 ml PO Q4H PRN Last Admin: 03/20/17 09:54 Dose: 10 ml Fentanyl 500 mcg/ Dextrose 100 mls @ 5 mls/hr IJ TITR ANGUS PRN Reason: 25 MCG/HR Last Admin: 04/04/17 06:21 Dose: 5 mls/hr Pantoprazole Sodium 80 mg/ (Sodium Chloride) 100 mls @ 10 mls/hr IVPB Q10H ANGUS PRN Reason: 8 MG/HR Last Admin: 04/04/17 06:19 Dose: 10 mls/hr Sodium Chloride (Normal Saline -) 1,000 mls @ 50 mls/hr IV ASDIR [facility] Last Admin: 04/03/17 20:45 Dose: 50 mls/hr Insulin Aspart (Novolog Vial Sliding Scale -) 1 vial SQ ACHS ANGUS PRN Reason: Protocol Last Admin: 04/04/17 06:18 Dose: Not Given Methylprednisolone Sodium Succinate (Solu-Medrol -) 40 mg IVPB BID [facility] Last Admin: 04/03/17 22:02 Dose: 40 mg Tbo-Filgrastim (Granix -) 480 mcg SQ DAILY [facility] Last Admin: 04/03/17 10:31 Dose: 480 mcg - Objective Vital Signs: Vital Signs Temperature 98.6 F 04/04/17 06:00 Pulse Rate 84 04/04/17 08:00 Respiratory Rate 28 H 04/04/17 10:14 Blood Pressure 135/60 04/04/17 08:00 O2 Sat by Pulse Oximetry (%) 100 04/04/17 09:00 Neck: Yes: Trachea Midline Cardiovascular: Yes: S1, S2 Respiratory: Yes: Diminished, Rhonchi Gastrointestinal: Yes: Hypoactive Bowel Sounds Neurological: Yes: Unresponsive Labs: CBC, BMP 04/04/17 05:20 04/04/17 05:20 INR, PTT INR 1.16 (0.82-1.09) H 04/01/17 05:00 Fibrinogen 655.0 mg/dL (238-498) H 03/31/17 05:40 Problem List - Problems (1) AIDS Code(s): B20 - HUMAN IMMUNODEFICIENCY VIRUS [HIV] DISEASE (2) LEXI (acute kidney injury) Code(s): N17.9 - ACUTE KIDNEY FAILURE, UNSPECIFIED (3) Bilateral pneumonia Code(s): J18.9 - PNEUMONIA, UNSPECIFIED ORGANISM Qualifiers: 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 (4) Interstitial pneumonitis Code(s): J84.89 - OTHER SPECIFIED INTERSTITIAL PULMONARY DISEASES (5) Pancytopenia Code(s): D61.818 - OTHER PANCYTOPENIA (6) Pneumocystis carinii pneumonia Code(s): B59 - PNEUMOCYSTOSIS (7) Respiratory failure Code(s): J96.90 - RESPIRATORY FAILURE, UNSP, UNSP W HYPOXIA OR HYPERCAPNIA Qualifiers: Chronicity: acute Respiratory failure complication: hypoxia and hypercapnia Qualified Code(s): J96.01 - Acute respiratory failure with hypoxia (8) Severe malnutrition Code(s): E43 - UNSPECIFIED SEVERE PROTEIN-CALORIE MALNUTRITION (9) Hyperkalemia Code(s): E87.5 - HYPERKALEMIA Assessment/Plan This is a 66 year old Gentleman with PMHx of Hypertension who presented with Fever and found to have + HIV and infiltrates/ground glass opacities on CXR consistent with PCP/CMV Pna. LEXI with Cr of 4.2. Pt is currently intubated and sedated. The patient on multiple potentially nephrotoxic agents, which must be continued in view of the complexity of his condition. Hyperkalemia due to the worsening Renal failure, with defective tubular K excretion. Additionally Coffee ground per NG tube also to be noted. Treatment of Hyperkalemia will not alter the course of the patient's clinical condition. The patient is scheduled for terminal weaning. Will not oredr labs any more. Thank you for the opportunity to be of assistance in the care of this very sick patient. Kristi Bronson MD
[2017-04-04] MEDS: TBO-FILGRASTIM 480 MCG/0.8 ML DISP.SYRIN SQ SCH (10:56)
[2017-04-04] MEDS: CHLORHEXIDINE GLUCONATE 0.12% 15ML CUP MM SCH (10:56)
[2017-04-04] MEDS: methylPREDNISolone NA SUCC 40 MG/1 ML VIAL IVPB SCH (10:56)
[2017-04-04] MEDS: amLODIPine BESYLATE 5 MG TABLET (FP) PO SCH (10:56)
[2017-04-04] MEDS: ARTIFICIAL TEARS (POLYVINYL ALCOHOL 1.4%) OPTH DROPS OU SCH (10:57)
--- NOTE | 2017-04-04 11:30 | PN ---
Teaching Attending Note Name of Resident: Bessy Eaton ATTENDING PHYSICIAN STATEMENT I saw and evaluated the patient. I reviewed the resident's note and discussed the case with the resident. I agree with the resident's findings and plan as documented. SUBJECTIVE: Pt seen and examined in the ICU. Ethics/Family meeting yesterday with children concluding that pt would be compassionately extubated today. Remains intubated, sedated, hypoxic on 100% FiO2. OBJECTIVE: Last Vital Signs Temp Pulse Resp BP Pulse Ox 98.7 F 78 28 H 125/64 100 04/04/17 10:00 04/04/17 10:00 04/04/17 10:14 04/04/17 10:00 04/04/17 09:00 Intake & Output 04/01/17 04/02/17 04/03/17 04/04/17 23:59 23:59 23:59 23:59 Intake Total 2600 1147 1760 780 Output Total 1400 250 510 950 Balance 8684 581 9935 -170 Weight 166 lb 11.2 oz 168 lb 1.6 oz 169 lb 3.2 oz 170 lb 8 oz Gen: intubated, sedated, tachypneic Heart: RRR Lung: bilateral rhonchi Abd: soft, nontender Ext: + edema CBC, BMP 04/04/17 05:20 04/04/17 05:20 Active Medications Acetaminophen (Tylenol -) 650 mg PO Q6H PRN PRN Reason: FEVER OR PAIN Albuterol Sulfate (Ventolin Hfa Inhaler -) 2 puff IH Q4H PRN PRN Reason: SHORT OF BREATH/WHEEZING Amlodipine Besylate (Norvasc -) 5 mg PO DAILY [facility] Last Admin: 04/04/17 10:56 Dose: Not Given Artificial Tears (Artificial Tears) 1 drop OU BID [facility] Last Admin: 04/04/17 10:57 Dose: 1 drop Chlorhexidine Gluconate (Peridex -) 15 ml MM BID [facility] Last Admin: 04/04/17 10:56 Dose: 15 ml Guaifenesin (Robitussin -) 10 ml PO Q4H PRN Last Admin: 03/20/17 09:54 Dose: 10 ml Fentanyl 500 mcg/ Dextrose 100 mls @ 5 mls/hr IJ TITR ANGUS PRN Reason: 25 MCG/HR Last Admin: 04/04/17 06:21 Dose: 5 mls/hr Pantoprazole Sodium 80 mg/ (Sodium Chloride) 100 mls @ 10 mls/hr IVPB Q10H ANGUS PRN Reason: 8 MG/HR Last Admin: 04/04/17 06:19 Dose: 10 mls/hr Sodium Chloride (Normal Saline -) 1,000 mls @ 50 mls/hr IV ASDIR [facility] Last Admin: 04/03/17 20:45 Dose: 50 mls/hr Insulin Aspart (Novolog Vial Sliding Scale -) 1 vial SQ ACHS ANGUS PRN Reason: Protocol Last Admin: 04/04/17 06:18 Dose: Not Given Methylprednisolone Sodium Succinate (Solu-Medrol -) 40 mg IVPB BID [facility] Last Admin: 04/04/17 10:56 Dose: 40 mg Tbo-Filgrastim (Granix -) 480 mcg SQ DAILY [facility] Last Admin: 04/04/17 10:56 Dose: 480 mcg ASSESSMENT AND PLAN: Acute Hypoxic Respiratory Failure AIDS/HIV Pneumocystis/CMV Pneumonia ARDS Sepsis Staph Bacteremia Fungemia Pancytopenia Acute Kidney Injury DM - continue supportive care - await family this afternoon for compassionate extubation - comfort measures once pt extubated
[2017-04-04 13:53] VITALS: BP 114/52; PULSE 76; TEMP 98.3
[2017-04-04] MEDS ORDERED: morphine CARPU-JECT 2 MG/1 ML DISP.SYRIN IVPUSH ONE (15:22)
[2017-04-04] MEDS ORDERED: morphine CARPU-JECT 4 MG/1 ML DISP.SYRIN IVPUSH ONE (15:29)
[2017-04-04] MEDS ORDERED: MORPHINE 100 MG in SODIUM CHLORIDE 98 ML IVPB SCH (15:30)
[2017-04-04] MEDS ORDERED: morphine CARPU-JECT 4 MG/1 ML DISP.SYRIN ONE (15:30)
[2017-04-04] MEDS ORDERED: LORAZEPAM CARPU-JECT 2 MG/ML DISP.SYRIN IVPUSH ONE (15:31)
--- NOTE | 2017-04-04 16:30 | PN ---
Physical Exam: Patient was compassinately weaned, given morphine for comfort. Asystolic on monitor, no breath sounds b/l, no spontaneous chest rise, no carotid or peripheral pulses palpable. no heart sounds, no corneal or gag reflex. patient non responsive to verbal or tactile stimuli pronounced at 4pm Visit type - Emergency Visit Emergency Visit: No - New Patient This patient is new to me today: No - Critical Care Critical Care patient: No
== END 2017-04-04 16:00 | disposition expired | DRG 974 ==
LOC: JER 04:06 → JERBED 05:55 → J8W 08:15 → JICU 03-16 06:45
PROVIDERS: ADMIT Internal Medicine; ATTEND Internal Medicine
PROC: 3E0F7GC Introduction of Other Therapeutic Substance into Respiratory Tract, Via Natural or Artificial Opening (ICD-10-PCS; 2017-03-12)
PROC: 0B9D8ZX Drainage of Right Middle Lung Lobe, Via Natural or Artificial Opening Endoscopic, Diagnostic (ICD-10-PCS; 2017-03-16)
PROC: 0B9C8ZX Drainage of Right Upper Lung Lobe, Via Natural or Artificial Opening Endoscopic, Diagnostic (ICD-10-PCS; 2017-03-16)
PROC: 0BH17EZ Insertion of Endotracheal Airway into Trachea, Via Natural or Artificial Opening (ICD-10-PCS; 2017-03-16)
PROC: 5A1955Z Respiratory Ventilation, Greater than 96 Consecutive Hours (ICD-10-PCS; principal; 2017-03-16 10:30)
PROC: 3E0H76Z Introduction of Nutritional Substance into Lower GI, Via Natural or Artificial Opening (ICD-10-PCS; 2017-03-17)
PROC: 30233N1 Transfusion of Nonautologous Red Blood Cells into Peripheral Vein, Percutaneous Approach (ICD-10-PCS; 2017-03-30)
PROC: 05HM33Z Insertion of Infusion Device into Right Internal Jugular Vein, Percutaneous Approach (ICD-10-PCS; 2017-03-30)
PROC: B543ZZA Ultrasonography of Right Jugular Veins, Guidance (ICD-10-PCS; 2017-03-30)
PROC: 30233R1 Transfusion of Nonautologous Platelets into Peripheral Vein, Percutaneous Approach (ICD-10-PCS; 2017-04-02)
DX: B20 Human immunodeficiency virus [HIV] disease (principal); J18.9 Pneumonia, unspecified organism; J96.01 Acute respiratory failure with hypoxia; B59 Pneumocystosis; B25.0 Cytomegaloviral pneumonitis; E43 Unspecified severe protein-calorie malnutrition; A41.9 Sepsis, unspecified organism; E87.2 Acidosis; N39.0 Urinary tract infection, site not specified; R64 Cachexia; B18.1 Chronic viral hepatitis B without delta-agent; D61.818 Other pancytopenia; N17.9 Acute kidney failure, unspecified; R78.81 Bacteremia; K92.2 Gastrointestinal hemorrhage, unspecified; I10 Essential (primary) hypertension; E11.9 Type 2 diabetes mellitus without complications; B96.5 Pseudomonas (aeruginosa) (mallei) (pseudomallei) as the cause of diseases classified elsewhere; R41.0 Disorientation, unspecified; J84.89 Other specified interstitial pulmonary diseases; R63.0 Anorexia; H35.00 Unspecified background retinopathy; D69.6 Thrombocytopenia, unspecified; D89.3 Immune reconstitution syndrome; D64.89 Other specified anemias; Z66 Do not resuscitate; E87.5 Hyperkalemia
CPT/HCPCS: 31500; 36415; 36430; 36600; 70450-TC; 71010-TC; 71020-TC; 71250-TC; 74176-TC; 80048; 80053; 80076; 81003; 81015; 81381; 82140; 82150; 82570; 82607; 82668; 82728; 82747; 82803; 82947; 82955; 83540; 83550; 83605; 83615; 83690; 83735; 83880; 84100; 84156; 84300; 84439; 84443; 84540; 85014; 85025; 85027; 85032; 85041; 85044; 85384; 85610; 85730; 86355; 86359; 86360; 86480; 86593; 86644; 86645; 86704; 86777; 86778; 86803; 86850; 86880; 86900; 86901; 86922; 87040; 87070; 87077; 87086; 87102; 87106; 87116; 87186; 87205; 87206; 87210; 87252; 87281; 87389; 87430; 87449; 87496; 87497; 87536; 87556; 87899; 87900; 87901; 87906; 88108; 88305-TC; 93306-TC; 94002; 94640; 99283-25; G0480; J0637; J1442; P9034; P9038; P9058